=== PATIENT | male | born 1950 | race Caucasian/White ===

== ENCOUNTER 2016-04-11 17:22 | Inpatient (IN) | payer MEDICARE, MEDICAID ==
[2016-04-11] MEDS ORDERED: Dextrose 50% Syringe 50 ML* 25 GM/50 ML SYRINGE IV PUSH PRN (18:58)
[2016-04-11] MEDS ORDERED: Docusate CAP* 100 MG PO PRN (18:58)
[2016-04-11] MEDS ORDERED: Ondansetron INJ* 2 MG/ML VIAL IV PRN (18:58)
[2016-04-11] MEDS ORDERED: Acetaminophen TAB* 325 MG PO PRN (18:58)
[2016-04-11] MEDS ORDERED: Vancomycin per Pharmacy* NOTE FOLLOW UP PRN (19:56)
[2016-04-11] MEDS ORDERED: Vancomycin(*) 1,000 MG in NS 0.9% 250 ML* 250 ML IVPB SCH ×4 (21:00)
--- NOTE | 2016-04-11 21:28 | RAD ---
Indication: Diabetic. Osteomyelitis. Assess for LEFT lower extremity arterial patency. Comparison: There are no prior exams available for comparison on the [facility] – [place] [facility]. Technique: Arterial ultrasound of the LEFT lower extremity. Report: Triphasic waveforms at the LEFT common femoral and profunda femoral arteries with peak systolic velocities of 139 and 155-172 cm/s respectively. Biphasic waveforms at the superficial femoral artery with significantly elevated peak systolic velocity at the proximal and distal segments measuring up to 419 and 300 cm/s respectively consistent with hemodynamic significant stenosis. Biphasic waveform with spectral broadening at the popliteal artery with peak systolic velocity of 79 cm/s. Arterial flow detected in the posterior tibial, peroneal, and anterior tibial arteries with decreased peak systolic velocities. Flow is particularly diminished in the peroneal artery with peak systolic velocity of only 12 cm/s distally. IMPRESSION: Segmental hemodynamic significant stenoses at the RIGHT superficial femoral artery. Diminished flow at the infrageniculate arteries. Correlate with clinical assessment and consider CT angiogram runoff if clinically warranted and feasible.
--- NOTE | 2016-04-11 21:52 | HP ---
HISTORY AND PHYSICAL: DATE OF ADMISSION: 04/11/16 PCP: Unknown. STATUS: Transfer from [facility]. CHIEF COMPLAINT: Necrotic toes. HISTORY OF PRESENT ILLNESS: Mr. Carlos is a 66-year-old man with a past medical history of hypertension, hyperlipidemia, CAD, CVA, dementia, depression , diabetes, who was transferred from [facility] due to concerned for possible need for surgical intervention for necrotic toes. The patient lives at home alone, but in the same building as his . He is very forgetful and apparently fell at home 2 nights ago and was not found until the morning by his family. It is unclear how long the patient was down for. He is unable to contribute much to history due to his dementia and poor short-term memory. However, when the family was getting him up, they noticed that two of his toes on his left foot were black. He was taken to [facility] yesterday where he was started on broad-spectrum antibiotics. An MRI done there showed osteomyelitis of the first and second toes and cellulitis of the distal first toe. Surgery was consulted. Dr. Mayer evaluated the patient and did a bedside debridement; however, he felt he may need some more testing and interventions and he recommended transfer from [facility] to [facility] for further care. The patient's baseline is he has very poor short-term memory which his family attributes to his last stroke, which was about 4 years ago. He sees Podiatry regularly as he is a diabetic and apparently he had no issues in his last appointment, which was around December. He ambulates in his house without any assistance. PAST MEDICAL HISTORY: 1. Diabetes. 2. Depression. 3. Anemia. 4. Dementia. 5. Hypertension. 6. Hyperlipidemia. 7. CAD. 8. CVA. PAST SURGICAL HISTORY: 1. Stent placement. 2. Shoulder surgery. HOME MEDICATIONS: 1. Aspirin 81 mg by mouth daily. 2. Plavix 75 mg by mouth daily. 3. Losartan 25 mg by mouth daily. 4. Atorvastatin 10 mg by mouth nightly. 5. Saxagliptin 5 mg by mouth daily. 6. Glipizide 10 mg by mouth daily. 7. Metformin 500 mg by mouth daily. 8. Seroquel 25 mg by mouth b.i.d. ALLERGIES: The patient has allergy to PENICILLIN. FAMILY HISTORY: Significant for his father with diabetes and stroke. SOCIAL HISTORY: The patient quit smoking about 4 years ago, was about an 80 pack a year smoker until then. No recent alcohol use. No illicit drug use. REVIEW OF SYSTEMS: A 12-point review of systems is negative except for that as noted in the HPI. PHYSICAL EXAMINATION GENERAL: The patient is a middle-aged man, appears older than stated age, lying in bed, in no apparent distress. VITAL SIGNS: On admission temperature 98.8, heart rate of 90, respiratory rate of 18, O2 saturation of 95% on room air, blood pressure 156/65. HEENT: Anicteric sclerae. Moist mucous membranes. No cervical adenopathy. CARDIOVASCULAR: Regular rate and rhythm. S1 and S2 present. No murmurs, gallops, or rubs. LUNGS: Clear to auscultation bilaterally. No wheezes, rales, or rhonchi. ABDOMEN: Soft, nontender, and nondistended. Bowel sounds positive. EXTREMITIES: No lower extremity edema noted. LLE with black, necrotic great toe c/w dry gangrene, 2nd toe with distal end missing, malodorous purulent discharge from remaining portion of toe with some necrosis NEUROLOGIC: The patient is alert, but confused. Unable to tell me where he is or where he just came from. He is not sure why he is here. LABS AND DIAGNOSTICS: Labs from today at [facility]; white blood cell count of 7.7, hemoglobin of 8.6, hematocrit of 26, platelets of 303. Sodium of 141, potassium 4.5, chloride of 104, bicarb of 32, BUN of 16, creatinine 0.8, glucose of 150, lactic acid of 1.8. ASSESSMENT AND PLAN: Left first and second digit osteomyelitis in a 66-year- old man with a past medical history of hypertension, hyperlipidemia, coronary artery disease, cerebrovascular accident, dementia, depression, diabetes, and anemia. 1. Left lower extremity osteomyelitis. We will continue broad-spectrum antibiotics here with vancomycin and cefepime. I have spoken with Dr. Dunaway who plans to do a left lower extremity angiogram tomorrow. We will make the patient n.p.o. after midnight. We will also order a lower extremity arterial ultrasound to be done tonight. We will likely get ID consult tomorrow and Surgery will likely continue to follow. 2. Hypertension. Continue home losartan. 3. History of coronary artery disease. Continue aspirin, atorvastatin. Holding Plavix for now as the patient may need surgery. 4. Diabetes. Humalog insulin sliding scale. Hold home glipizide, metformin, and saxagliptin. 5. Dementia. Supportive care as needed. Continue home Seroquel. 6. DVT prophylaxis. Heparin subcu. 7. Code status. The patient is a full code. TIME SPENT: Total time spent on this admission, 50 minutes, with over half the time spent [id number] with the patient, counselling and coordinating care. [id number]/[facility] #: [id number] MTDD
[2016-04-11] MEDS: Cefepime(*) 1 GM in NS 0.9% 50 ML* 50 ML IVPB SCH (22:57)
[2016-04-11] MEDS: QUEtiapine TAB* 25 MG PO SCH (23:11)
[2016-04-11] MEDS: Heparin VIAL(*) 5000 UNITS/ML VIAL (FIVE THOUSAND) SUBCUT SCH (23:13)
[2016-04-12] MEDS ORDERED: Insulin LISPRO* 1 UNITS UNIT SUBCUT ONE (00:24)
[2016-04-12 06:16] LABS: Hematocrit 28 % (42-52); Hemoglobin 9.4 g/dl (14.0-18.0); Mean Corpuscular HGB Conc 33 g/dl (31-36); Mean Corpuscular Hemoglobin 28 pg (27-31); Mean Corpuscular Volume 85 fL (80-94); Mean Platelet Volume 8 um3 (7.4-10.4); Red Blood Count 3.31 10^6/ul (4.0-5.4); Red Cell Distribution Width 14 % (10.5-15)
[2016-04-12 06:28] LABS: Albumin 3.3 g/dL (3.2-5.2); BUN/Creatinine Ratio 17.8 (8-20); Calcium 9.1 mg/dL (8.6-10.3); EGFR African American 138.7 (>60); EGFR Non-African American 107.8 (>60); Globulin 3.5 g/dL (2-4); Potassium 4.3 mmol/L (3.5-5.0); Total Bilirubin 0.5 mg/dL (0.2-1.0); Total Protein 6.8 g/dL (6.4-8.9)
[2016-04-12] MEDS: Heparin VIAL(*) 5000 UNITS/ML VIAL (FIVE THOUSAND) SUBCUT SCH ×3 (06:42→20:45)
[2016-04-12] MEDS: Insulin LISPRO* 1 UNITS UNIT SUBCUT SCH ×3 (08:18→17:34)
[2016-04-12] MEDS: Cefepime(*) 1 GM in NS 0.9% 50 ML* 50 ML IVPB SCH ×2 (08:23→20:45)
[2016-04-12] MEDS: PARoxetine HCL TAB* 10 MG PO SCH (08:25)
[2016-04-12] MEDS: Losartan TAB* 25 MG PO SCH (08:25)
[2016-04-12] MEDS: QUEtiapine TAB* 25 MG PO SCH ×2 (08:25→20:45)
[2016-04-12] MEDS: Vancomycin(*) 1,000 MG in NS 0.9% 250 ML* 250 ML IVPB SCH ×2 (09:02)
[2016-04-12] MEDS ORDERED: Midazolam* 1 MG/ML 5 ML VIAL (5 MG) ONE (09:42)
[2016-04-12] MEDS ORDERED: Heparin 2 UNITS/ML IVPREMIX* 3,000 ML IV ONE (09:42)
[2016-04-12] MEDS ORDERED: Iodixanol* (CONTRAST) 320 MG/ML 100 ML SDV ONE (09:42)
[2016-04-12] MEDS ORDERED: Lidocaine 1% INJ* 10 MG/ML 30 ML SDV ONE (09:42)
[2016-04-12] MEDS ORDERED: fentaNYL* 50 MCG/ML 2 ML VIAL (100 MCG VIAL) ONE (09:42)
[2016-04-12] MEDS ORDERED: Heparin(*) 1000 UNIT/ML 10 ML VIAL CATH LAB IV ONE (10:35)
--- NOTE | 2016-04-12 11:49 | DCNOTE ---
Patient seen this morning. Denies chest pain, SOB. Ambulated around the unit with no issues. On exam, RRR, s1 and s2 present, no m/g/r, no LE edema Patient does not want to wait for thoracentesis. Would like to go home and continue work-up as outpatient. Will discharge home on Lovenox injections. Will need close PCP follow-up to try to determine best way to determine underlying diagnosis/source of presumed malignancy.
[2016-04-12] MEDS ORDERED: nitroGLYCERIN DRIP* 250 ML ONE (11:53)
[2016-04-12] MEDS ORDERED: Enoxaparin(*) 80 MG/0.8 ML SYR SUBCUT SCH (12:00)
[2016-04-12] MEDS ORDERED: Clopidogrel TAB* 300 MG PO ONE (14:00)
--- NOTE | 2016-04-12 14:09 | PN ---
Subjective Date of Service: 04/12/16 Interval History: Patient seen this afternoon after procedure. Underwent balloon angioplasty by Dr. Dunaway today. Patient with no complaints. Says he is not hungry. Explained procedure to him. Family History: Unchanged from Admission Social History: Unchanged from Admission Past Medical History: Unchanged from Admission Objective Active Medications: Acetaminophen (Tylenol Tab*) 325 mg PO Q6H PRN Aspirin (Aspirin Low Dose Tab*) 81 mg PO DAILY [facility] Atorvastatin Calcium (Lipitor*) 10 mg PO QPM [facility] Clopidogrel Bisulfate (Plavix Tab*) 75 mg PO DAILY [facility] Dextrose (D50w Syringe 50 Ml*) 12.5 gm IV PUSH .FOR FS < 60 - SS PRN Docusate Sodium (Colace Cap*) 100 mg PO DAILY PRN Heparin Sodium (Porcine) (Heparin Vial(*)) 5,000 units SUBCUT Q8HR [facility] Cefepime HCl 1 gm/ Sodium (Chloride) 50 mls @ 100 mls/hr IVPB Q12H [facility] Metronidazole/Sodium Chloride (Flagyl 500 Mg Ivpb*) 500 mg in 100 mls @ 100 mls /hr IVPB Q12H [facility] Sodium Chloride (Ns 0.9% 1000 Ml*) 1,000 mls @ 125 mls/hr IV .PER RATE [facility] Insulin Human Lispro (Humalog*) 0 - 15 units SUBCUT AC [facility] Losartan Potassium (Cozaar Tab*) 25 mg PO DAILY [facility] Ondansetron HCl (Zofran Inj*) 4 mg IV Q4H PRN Paroxetine HCl (Paxil Tab*) 10 mg PO DAILY [facility] Pharmacy Consult (Vancomycin Per Pharmacy*) 1 note FOLLOW UP . PRN Pharmacy Profile Note (Vancomycin Trough Check) 1 note FOLLOW UP 1530 ONE Quetiapine Fumarate (Seroquel Tab*) 25 mg PO BID [facility] Vital Signs 04/11/16 04/11/16 04/12/16 18:24 23:22 01:26 Temperature 98.8 F 98.8 F Pulse Rate 90 85 Respiratory 18 16 20 Rate Blood Pressure 156/65 123/58 (mmHg) O2 Sat by Pulse 95 93 Oximetry 04/12/16 04/12/16 04/12/16 03:17 07:21 09:29 Temperature 98.0 F 99.5 F Pulse Rate 85 85 Respiratory 16 16 18 Rate Blood Pressure 119/68 129/63 (mmHg) O2 Sat by Pulse 95 95 Oximetry Oxygen Devices in Use Now: None Appearance: Middle-aged, M, laying in bed in NAD Eyes: No Scleral Icterus Ears/Nose/Mouth/Throat: - - Dry MM Neck: NL Appearance and Movements; NL JVP Respiratory: Symmetrical Chest Expansion and Respiratory Effort, Clear to Auscultation Cardiovascular: NL Sounds; No Murmurs; No JVD, RRR, - - Strong LLE DP pulse Abdominal: NL Sounds; No Tenderness; No Distention Lymphatic: No Cervical Adenopathy Extremities: No Edema Skin: No Rash or Ulcers Neurological: - - Alert, oriented Result Diagrams: 04/12/16 05:55 04/12/16 05:55 Assess/Plan/Problems-Billing Assessment: LLE 1st and 2nd digit osteomyelitis with dry gangrene in a 66 yo M with hx of HTN, HLD, CAD, CVA, dementia, depression, DM and anemia - Patient Problems (1) Osteomyelitis Current Visit: Yes Comment: S/P LLE balloon angioplasty by Dr. Dunaway ( details unclear at this point, awaiting full report) with improvement in LLE pulses. Appreciate Surgery and ID assistance. Continue Cefepime, Flagyl started by ID, Vanco stopped. Will likely need more definitive surgical treatment of necrotic toes. (2) PAD (peripheral artery disease) Current Visit: Yes Comment: Plavix restarted by IR, continue 75 mg daily in addition to ASA (3) HTN (hypertension) Current Visit: Yes Comment: Continue Losartan (4) CAD (coronary artery disease) Current Visit: Yes Comment: ASA, Plavix, statin. (5) Diabetes Current Visit: Yes Comment: HISS (6) Depression Current Visit: Yes Comment: Continue Paxil (?started at [place]) and seroquel (7) DVT prophylaxis Current Visit: Yes Comment: HSQ
[2016-04-12] MEDS: metroNIDAZOLE IV 500 MG/100ML* 500 MG/100 ML BAG IVPB SCH (14:18)
[2016-04-12] MEDS: NS 0.9% 1000 ML* 1,000 ML IV SCH ×2 (14:18→22:50)
[2016-04-12] MEDS ORDERED: Vancomycin Trough Check NOTE FOLLOW UP ONE (15:30)
--- NOTE | 2016-04-12 17:05 | PN ---
Progress Note - Progress Note Note: Date of Service: 04/12/16 Patient seen & examined at the bedside. No pain complaints. NAD, AAOx3 Left groin is soft, nontender, dressing is CDI 2+ pulses felt at left COTTON BALER, DP and PT. 1+ at pop. Left foot wound as depicted: 66 YOM status post LLE arteriography, atherectomy (Marquette device) of left SFA followed by angioplasty, balloon angioplasty of left TREVIN, revascularization and balloon angioplasty of the occluded distal left WOOD MILLER and balloon angioplasty of the "pedal loop". Plan: 1. Plavix 75 mg po daily x 6 months. 2. Aspirin 81 mg po daily x life. 3. ID and wound care. 4. Please contact Dr. Dunaway when/if amputation is planned.
[2016-04-12 17:20] LABS: Urine Bilirubin Negative (Negative); Urine Glucose Negative (Negative); Urine Nitrite Negative (Negative)
[2016-04-12] MEDS: Atorvastatin* 10 MG TAB PO SCH (17:34)
--- NOTE | 2016-04-12 18:33 | RAD ---
CPT II Codes: 6045F History: Critical limb ischemia. The patient sustained a traumatic wound to the left great, second and third toes, now gangrenous change. Comparison: Lower extremity arterial duplex examination dated April 11, 2016 at shows areas of high-grade stenosis involving the superficial femoral artery and anterior tibial artery. Anesthesia: Conscious sedation with IV Fentanyl 200 mcg and Versed 1 mg as well as local 1% lidocaine injected locally at the arteriotomy site. Continuous cardiopulmonary monitoring was performed by Dr. Dunaway and the interventional radiology nurse. Additional medications: Intra-arterial Nitroglycerin 1100 mcg injected intermittently throughout the atherectomy, revascularization and angioplasties performed during endovascular therapy. Heparin 11,000 units Contrast: Visipaque 320 100 mL Fluoroscopy Time: 32.2 minutes PROCEDURE NOTE AND INTRAPROCEDURAL IMAGING FINDINGS: Immediately prior to the procedure the patient's signed consent after thoroughly discussing all risks and benefits. The patient was positioned on the fluoroscopy table in the supine position and the bilateral groins were shaved, prepped and draped in standard sterile fashion. Using fluoroscopic imaging the location of the left common femoral head was marked externally with a skin marker on the patient's groin. Utilizing sonographic guidance and palpation the left common femoral artery was cannulated overlying the left femoral head with an 18-gauge needle. An ultrasound image was saved. A 0.035 inch Bentson wire was slowly and smoothly advanced into the femoral profundus under fluoroscopic imaging. No buckling of the wire was visualized to indicate dissection. Over the Maya wire a 5-Ecuadorean access sheath was advanced and contrast arteriography through the side arm of the sheath confirming cannulation of the femoral profundus as opposed to the superficial femoral artery. A second 0.035 inch wire was advanced into the femoral profundus to serve as a "safety wire". The access sheath was backed up until the tip was in the common femoral artery and access was obtained down the superficial femoral artery utilizing a 0.035 inch hydrophilic wire. Arteriography of the proximal superficial femoral artery demonstrated a short segment of near complete occlusion in the proximal superficial femoral artery and a longer segment of high-grade stenosis in the more distal superficial femoral artery. Over the wire a 5-Ecuadorean curved tip catheter was advanced to the more distal superficial femoral artery and contrast arteriography demonstrated an adequately patent distal superficial femoral artery and popliteal artery. There was adequate arterial patency of the tibioperoneal trunk and the proximal most portion of the anterior tibial artery. The peroneal artery is seen to be extremely diminutive with no filling beyond the distal third of the left lower leg. The 5-Ecuadorean sheath was exchanged for an 11 cm length 7-Ecuadorean SideArm sheath for the purpose of SFA mechanical atherectomy. A 0.014 inch, 300 cm length USE wire was advanced down the left lower extremity with the tip positioned into the distal posterior tibial artery. Over the wire the [place] 2.2 mm x 149 cm length atherectomy system was advanced to the areas of occlusion/stenosis in the superficial femoral artery and atherectomy was performed under fluoroscopic control according to device experimental worker recommendations. After a total of 4 passes at each area of occlusion/stenosis arteriography showed improved patency. The device was removed and over the wire a 6 mm x 80 mm IN-PACT Admiral paclitaxel coated balloon was advanced to the site of proximal SFA occlusion and balloon angioplasty was performed for total of 3 minutes. The balloon was removed and over the wire and identical balloon was advanced to the more proximal area of SFA stenosis and balloon angioplasty was performed for total of 3 minutes. Subsequent arteriography showed briskly arterial flow through the patent superficial femoral artery. Next, attention was turned to treating the infrapopliteal arterial stenoses. The microwire was exchanged for the 0.035 inch Bentson wire and the 11 cm 7-Ecuadorean sheath was exchanged over the wire for a 55 cm, 7-Ecuadorean sheath which was advanced under fluoroscopic control to the distal popliteal artery. The wire was removed and utilizing a combination of a 0.014 inch Terumo Advantage wire and a Trailblazer catheter the posterior tibial artery was cannulated and the wire was advanced into the medial plantar artery and into the midfoot pedal loop. Over the wire balloon angioplasty was performed at the distal posterior tibial artery, medial plantar artery and a portion of the pedal loop utilizing a 1.5-2.0 mm x 210 mm NanoCross Elite. With subsequently improved angiographic result, balloon angioplasty was performed with a 2.0 mm x 150 mm NanoCross Elite at the distal posterior tibial artery, medial plantar artery and a portion of the pedal loop. Utilizing the microwire luminal access was obtained in the lateral plantar arch as far as the pedal lobe and balloon angioplasty was performed with the2.0 mm x 150 mm NanoCross Elite at the lateral plantar arch in the more lateral portion of the pedal loop. Wire cannulation was achieved then from the lateral plantar arch, through the pedal loop, of the dorsalis pedis artery and into the distal anterior tibial artery. With the wire securing access across the pedal loop balloon angioplasty was performed with the 2.0 mm x 150 mm NanoCross Elite at the pedal loop and distal portion of the dorsalis pedis to specifically treat a narrow focus in the distal portion of the dorsalis pedis. Subsequent arteriogram demonstrated satisfactory flow through the recently treated arteries. The wire was retracted to the level of the popliteal artery and wire cannulation was acquired in the anterior tibial artery as far as the dorsalis pedis. Over the wire multilevel balloon angioplasty of the anterior tibial artery and dorsalis pedis artery was performed with a 3.0-2.5 mm x 210 mm Nanocross Elite. Subsequent arteriogram shows improved patent flow throughout the entire length of the TREVIN and dorsalis pedis. The microwire was exchanged for the 0.035 inch Bentson wire and the long access sheath was exchanged over the wire for a 7-Ecuadorean, 11 cm SideArm access sheath. Through the side arm of the access sheath arteriography demonstrated an appropriate puncture of the common femoral artery above the bifurcation and below the inferior epigastric artery. After an appropriate resterilization of the left common femoral arteriotomy and exchange for new sterile gloves, a Minx closure device was deployed at the left common femoral arteriotomy and pressure held for approximately 15 minutes. There were no signs of bleeding at the left groin access site and the site was dressed with sterile gauze and Tegaderm. The patient tolerated the procedure well and was transferred back to his inpatient room for standard post procedural observation. IMPRESSION AND RELEVANT IMAGING FINDINGS: 1. Arteriography of the left lower extremity from the ipsilateral left common femoral artery access site through the digital arteries of the left foot. 2. Relevant preintervention findings include: * Focal occlusion of the proximal left superficial femoral artery. * Short segment high-grade stenosis of the more distal superficial femoral artery just prior to its entrance into Micah's canal. * Extremely diminutive left peroneal artery with essentially no contrast filling beyond the distal half of the artery. * Short segment occlusion of the distal left posterior tibial artery with diminutive filling of the medial and lateral plantar arteries mostly by collateralized reconstituted flow. * Multifocal high-grade stenoses in the anterior tibial artery and dorsalis pedis artery. * Short high-grade stenosis in the distal dorsalis pedis just prior to becoming the "pedal loop". 3. The following endovascular interventions were performed: * Mechanical atherectomy of the superficial femoral artery occlusions/stenoses utilizing the RTN Stealth Software 2.2 mm x 149 cm atherectomy system. * Balloon angioplasty of the superficial femoral artery at its proximal and mid levels utilizing two 6 mm x 80 mm IN-PACT Admiral paclitaxel coated balloon. * Revascularization of the distally occluded left posterior tibial artery into the medial plantar artery and the "pedal loop". Angioplasty was subsequently performed first with a 2.0-1.5mm x 210 mm NanoCross Elite followed by a 2.0mm x 150 mm Nanocross Elite balloon. * Revascularization of the distal posterior tibial artery into the lateral plantar artery across the pedal loop and into the dorsalis pedis and distal anterior tibial artery. Balloon angioplasty was then performed across the distal lateral plantar artery, "pedal loop and distal dorsalis pedis artery with a 2 mm x 150 mm NanoCross Elite balloon. * Balloon angioplasty throughout the entire length of the left anterior tibial artery and dorsalis pedis artery utilizing a 3.0-2.5 mm x 2.10 mm NanoCross Elite balloon. 4. Subsequent arteriography shows brisk arterial flow and patency throughout the aforementioned left lower extremity arterial segments. 5. Closure of the arteriotomy with a Minx closure device followed by approximately 15 minutes of gentle manual pressure. Plan: 1. Plavix 75 mg p.o. daily x6 months. 2. Aspirin 81 mg p.o. daily for life. 3. Continue wound care and intravenous antibiotic therapy. 4. Follow-up EVE and clinic visit with Interventional Radiology in 3-4 weeks.
--- NOTE | 2016-04-12 21:14 | CONS ---
CONSULTATION REPORT: DATE OF CONSULT: 04/12/16 REQUESTING PHYSICIAN: Dr. Ruiz. CONSULTING SERVICE: Infectious Disease. REASON FOR CONSULT: Left foot infection. IMPRESSION: 1. Wet gangrene in the first through fourth toes on the left with associated cellulitis, probable myositis in the setting of peripheral arterial disease. He just had balloon angioplasty of the left lower extremity today. It is likely polymicrobial with gram-positive cocci present, MRSA PCR was negative. 2. PENICILLIN allergy. 3. Dementia. 4. Coronary artery disease and a history of percutaneous coronary intervention. RECOMMENDATIONS: Stop vancomycin, continue cefepime, add Flagyl while we awaiting final culture results. He will eventually need amputation at least of the great toe. HISTORY OF PRESENT ILLNESS: This 66-year-old male with depression, peripheral vascular disease admitted with left foot pain. He has baseline dementia, cannot provide much history which was obtained instead from review of the medical records and discussion with Dr. Ruiz. He was initially admitted to [facility] with left foot necrotic toes after being found down by his family. He was started on broad-spectrum antibiotics. He had an MRI that showed osteomyelitis in the first and second toes and cellulitis of the distal first toe. Dr. Mayer saw him and did some debridement. Gram stain of the tissue was sent that showed gram- positive cocci, gram-positive bacilli, gram- negative bacilli. PCR was negative for Staph aureus and MRSA and the culture is pending. He has had no fever, chills, or sweats. He was seen today after being transferred here for abnormal vascular studies and had an angioplasty today. He cannot provide any history of symptoms. MEDICATIONS: 1. Tylenol. 2. Aspirin. 3. Lipitor. 4. Plavix. 5. Heparin subcutaneous injection. 6. Losartan. 7. Cefepime 1 g every 12 hours. 8. Paroxetine. 9. Seroquel. 10. Vancomycin 1 g every 12 hours. ALLERGIES: PENICILLIN, unknown reaction. PAST MEDICAL HISTORY: 1. Depression. 2. Peripheral artery disease. 3. Diabetes, type 2. 4. Anemia. 5. Dementia. 6. Hypertension. 7. Hyperlipidemia. 8. Coronary artery disease, with PCI. 9. Multiple strokes. 10. Shoulder surgery. FAMILY HISTORY: Diabetes and stroke. SOCIAL HISTORY: Lives in [facility]. Past smoker. No alcohol use. REVIEW OF SYSTEMS: Unobtainable given baseline mental status. PHYSICAL EXAM: Vital Signs: Temperature 37, heart rate 80, respiratory rate 16 , blood pressure 130/60, O2 sat 95% on room air. In general, he is not in distress, not diaphoretic. Neurologically, awake, answers some questions, does not follow commands. Neck is supple without nuchal rigidity. Lymph Nodes: No cervical, supraclavicular, inguinal, axillary, or epitrochlear lymphadenopathy. Heart has regular rate and rhythm without murmurs, rubs, or gallops. HEENT: There is no conjunctival hemorrhage. Oropharynx without lesions. Lungs are clear to auscultation bilaterally. Abdomen: Soft, nontender, nondistended without hepatosplenomegaly. Skin: There is no rash or splinter hemorrhages. Musculoskeletal: Left foot is warm. First toe, there is wet gangrene associated with mild erythema. No exposed bone. Second through fourth toe, mild erythema, open diffuse sores with serous drainage. LABORATORY DATA: White blood cell count 8, hemoglobin 9, platelets 340. Creatinine is 0.7. Alkaline phosphatase 80, ALT 8. Please see impressions and recommendations as outlined above, which I have discussed with Dr. Ruiz. [id number]/[facility] #: [id number] [facility]ALTH SYSTEMOrquidea
[2016-04-13] MEDS: metroNIDAZOLE IV 500 MG/100ML* 500 MG/100 ML BAG IVPB SCH ×2 (02:37→12:28)
[2016-04-13] MEDS: Heparin VIAL(*) 5000 UNITS/ML VIAL (FIVE THOUSAND) SUBCUT SCH ×3 (05:29→21:42)
[2016-04-13] MEDS: NS 0.9% 1000 ML* 1,000 ML IV SCH (06:18)
[2016-04-13 07:32] LABS: BUN/Creatinine Ratio 15.6 (8-20); Calcium 8.4 mg/dL (8.6-10.3); EGFR African American 161.4 (>60); EGFR Non-African American 125.5 (>60); Potassium 3.8 mmol/L (3.5-5.0)
--- NOTE | 2016-04-13 08:22 | RAD ---
INDICATION: Peripheral arterial disease, evaluate perfusion in left lower extremity. COMPARISON: Correlation is made with a prior left lower extremity arteriogram from April 12, 2016. TECHNIQUE: Bilateral ankle brachial indices were measured and Doppler tracings were obtained at the ankle of the dorsalis pedis and posterior tibial arteries. FINDINGS: The ankle brachial index on the right was 0.89 and on the left was 0.99. There is triphasic flow within the right posterior tibial artery and biphasic flow within the right dorsalis pedis artery. There is triphasic flow within the left posterior tibial artery and triphasic flow within the left dorsalis pedis artery. IMPRESSION: MILDLY DECREASED ANKLE-BRACHIAL INDICES RIGHT GREATER THAN LEFT.
[2016-04-13] MEDS: QUEtiapine TAB* 25 MG PO SCH ×2 (08:26→20:44)
[2016-04-13] MEDS: Clopidogrel TAB* 75 MG PO SCH (08:26)
[2016-04-13] MEDS: PARoxetine HCL TAB* 10 MG PO SCH (08:26)
[2016-04-13] MEDS: Cefepime(*) 1 GM in NS 0.9% 50 ML* 50 ML IVPB SCH ×2 (08:26→19:36)
[2016-04-13] MEDS: Losartan TAB* 25 MG PO SCH (08:26)
[2016-04-13] MEDS: Aspirin Low Dose CHEW TAB* 81 MG PO SCH ×2 (08:26→08:38)
[2016-04-13] MEDS: Insulin LISPRO* 1 UNITS UNIT SUBCUT SCH ×3 (08:32→17:12)
--- NOTE | 2016-04-13 14:17 | PN ---
Subjective Date of Service: 04/13/16 Interval History: Seen and examined Has no complaints Specifically denies pain, N/V, CP, SOB Family History: Unchanged from Admission Social History: Unchanged from Admission Past Medical History: Unchanged from Admission Objective Active Medications: Acetaminophen (Tylenol Tab*) 325 mg PO Q6H PRN PRN Reason: PAIN OR TEMPERATURE Aspirin (Aspirin Low Dose Tab*) 81 mg PO DAILY [facility] Last Admin: 04/13/16 08:38 Dose: 81 mg Atorvastatin Calcium (Lipitor*) 10 mg PO QPM [facility] Last Admin: 04/12/16 17:34 Dose: 10 mg Clopidogrel Bisulfate (Plavix Tab*) 75 mg PO DAILY [facility] Stop: 10/14/16 08:59 Last Admin: 04/13/16 08:26 Dose: 75 mg Dextrose (D50w Syringe 50 Ml*) 12.5 gm IV PUSH .FOR FS < 60 - SS PRN PRN Reason: FS < 60 Docusate Sodium (Colace Cap*) 100 mg PO DAILY PRN PRN Reason: CONSTIPATION Heparin Sodium (Porcine) (Heparin Vial(*)) 5,000 units SUBCUT Q8HR [facility] Last Admin: 04/13/16 12:28 Dose: 5,000 units Cefepime HCl 1 gm/ Sodium (Chloride) 50 mls @ 100 mls/hr IVPB Q12H [facility] Last Admin: 04/13/16 08:26 Dose: 100 mls/hr Metronidazole/Sodium Chloride (Flagyl 500 Mg Ivpb*) 500 mg in 100 mls @ 100 mls /hr IVPB Q12H [facility] Last Admin: 04/13/16 12:28 Dose: 100 mls/hr Sodium Chloride (Ns 0.9% 1000 Ml*) 1,000 mls @ 125 mls/hr IV .PER RATE [facility] Last Admin: 04/13/16 06:18 Dose: 125 mls/hr Insulin Human Lispro (Humalog*) 0 - 15 units SUBCUT AC [facility] PRN Reason: Protocol Last Admin: 04/13/16 12:28 Dose: 9 units Losartan Potassium (Cozaar Tab*) 25 mg PO DAILY [facility] Last Admin: 04/13/16 08:26 Dose: 25 mg Metformin HCl (Glucophage*) 500 mg PO ONCE ONE Stop: 04/14/16 14:12 Ondansetron HCl (Zofran Inj*) 4 mg IV Q4H PRN PRN Reason: NAUSEA Paroxetine HCl (Paxil Tab*) 10 mg PO DAILY [facility] Last Admin: 04/13/16 08:26 Dose: 10 mg Quetiapine Fumarate (Seroquel Tab*) 25 mg PO BID [facility] Last Admin: 04/13/16 08:26 Dose: 25 mg Vital Signs 04/12/16 04/12/16 04/12/16 14:30 15:00 15:13 Temperature 97.2 F Pulse Rate 84 84 Respiratory Rate Blood Pressure 121/64 93/67 112/62 (mmHg) O2 Sat by Pulse 98 Oximetry 04/12/16 04/12/16 04/12/16 15:30 16:00 16:30 Temperature Pulse Rate 81 89 86 Respiratory Rate Blood Pressure 103/60 99/71 101/66 (mmHg) O2 Sat by Pulse Oximetry 04/12/16 04/12/16 04/13/16 20:00 23:53 07:15 Temperature 98.2 F 98.2 F Pulse Rate 84 78 Respiratory 16 16 14 Rate Blood Pressure 115/62 139/58 (mmHg) O2 Sat by Pulse 91 94 Oximetry 04/13/16 08:47 Temperature Pulse Rate Respiratory 18 Rate Blood Pressure (mmHg) O2 Sat by Pulse Oximetry Oxygen Devices in Use Now: None Appearance: lying 30 deg, NAD Eyes: No Scleral Icterus, PERRLA Ears/Nose/Mouth/Throat: NL Teeth, Lips, Gums, Clear Oropharnyx, Mucous Membranes Moist Neck: NL Appearance and Movements; NL JVP, Trachea Midline Respiratory: Symmetrical Chest Expansion and Respiratory Effort, Clear to Auscultation Cardiovascular: RRR, - - 2/6 GEOVANNA RUSB Abdominal: NL Sounds; No Tenderness; No Distention, No Hepatosplenomegaly Lymphatic: No Cervical Adenopathy Extremities: No Edema Skin: - - left foot Neurological: - - AOx2 to self and hospital but not year Result Diagrams: 04/12/16 05:55 04/13/16 06:35 Assess/Plan/Problems-Billing Assessment: LLE 1st and 2nd digit osteomyelitis with dry gangrene in a 66 yo M with hx of HTN, HLD, CAD, CVA, dementia, depression, DM and anemia - Patient Problems (1) Osteomyelitis Comment: S/P LLE balloon angioplasty by Dr. Dunaway with improvement in LLE pulses. Appreciate Surgery and ID assistance. Continue Cefepime and Flagyl Vanco stopped. Will likely need more definitive surgical treatment of necrotic toes. (2) CAD (coronary artery disease) Comment: ASA, Plavix, statin. (3) Depression Comment: Continue Paxil (?started at [place]) and seroquel (4) Diabetes Comment: HISS restart metformin 500mg daily today holding DPP4 inhibitor (5) HTN (hypertension) Comment: Continue Losartan (6) PAD (peripheral artery disease) Comment: Plavix 75mg daily ASA 81mg daily f/o IR in 3-4 weeks (7) DVT prophylaxis Comment: HSQ
[2016-04-13] MEDS: Atorvastatin* 10 MG TAB PO SCH (17:12)
[2016-04-14] MEDS: metroNIDAZOLE IV 500 MG/100ML* 500 MG/100 ML BAG IVPB SCH ×2 (02:09→14:00)
[2016-04-14] MEDS: Heparin VIAL(*) 5000 UNITS/ML VIAL (FIVE THOUSAND) SUBCUT SCH ×3 (06:08→21:39)
[2016-04-14] MEDS: Cefepime(*) 1 GM in NS 0.9% 50 ML* 50 ML IVPB SCH ×2 (07:43→19:37)
[2016-04-14] MEDS: metFORMIN* 500 MG TAB PO SCH (07:44)
[2016-04-14] MEDS: PARoxetine HCL TAB* 10 MG PO SCH (07:44)
[2016-04-14] MEDS: Insulin LISPRO* 1 UNITS UNIT SUBCUT SCH ×3 (07:44→17:17)
[2016-04-14] MEDS: Losartan TAB* 25 MG PO SCH (07:44)
[2016-04-14] MEDS: Aspirin Low Dose CHEW TAB* 81 MG PO SCH (07:44)
[2016-04-14] MEDS: QUEtiapine TAB* 25 MG PO SCH ×2 (07:44→20:18)
[2016-04-14] MEDS: Clopidogrel TAB* 75 MG PO SCH (07:44)
[2016-04-14] MEDS ORDERED: Polyethylene Glycol 3350* 17 GM PACKET PO PRN (10:07)
--- NOTE | 2016-04-14 10:09 | PN ---
Subjective Date of Service: 04/14/16 Interval History: Has no complaints Reports good appetite No pain No N/V, SOB, CP Has been OOB per report No BM for several days Family History: Unchanged from Admission Social History: Unchanged from Admission Past Medical History: Unchanged from Admission Objective Active Medications: Acetaminophen (Tylenol Tab*) 325 mg PO Q6H PRN PRN Reason: PAIN OR TEMPERATURE Aspirin (Aspirin Low Dose Tab*) 81 mg PO DAILY [facility] Last Admin: 04/14/16 07:44 Dose: 81 mg Atorvastatin Calcium (Lipitor*) 10 mg PO QPM [facility] Last Admin: 04/13/16 17:12 Dose: 10 mg Clopidogrel Bisulfate (Plavix Tab*) 75 mg PO DAILY [facility] Stop: 10/14/16 08:59 Last Admin: 04/14/16 07:44 Dose: 75 mg Dextrose (D50w Syringe 50 Ml*) 12.5 gm IV PUSH .FOR FS < 60 - SS PRN PRN Reason: FS < 60 Docusate Sodium (Colace Cap*) 100 mg PO DAILY PRN PRN Reason: CONSTIPATION Heparin Sodium (Porcine) (Heparin Vial(*)) 5,000 units SUBCUT Q8HR [facility] Last Admin: 04/14/16 06:08 Dose: 5,000 units Cefepime HCl 1 gm/ Sodium (Chloride) 50 mls @ 100 mls/hr IVPB Q12H [facility] Last Admin: 04/14/16 07:43 Dose: 100 mls/hr Metronidazole/Sodium Chloride (Flagyl 500 Mg Ivpb*) 500 mg in 100 mls @ 100 mls /hr IVPB Q12H [facility] Last Admin: 04/14/16 02:09 Dose: 100 mls/hr Insulin Human Lispro (Humalog*) 0 - 15 units SUBCUT AC [facility] PRN Reason: Protocol Last Admin: 04/14/16 07:44 Dose: 3 units Losartan Potassium (Cozaar Tab*) 25 mg PO DAILY [facility] Last Admin: 04/14/16 07:44 Dose: 25 mg Metformin HCl (Glucophage*) 500 mg PO ONCE ONE Stop: 04/14/16 14:12 Metformin HCl (Glucophage*) 500 mg PO DAILY [facility] Last Admin: 04/14/16 07:44 Dose: 500 mg Ondansetron HCl (Zofran Inj*) 4 mg IV Q4H PRN PRN Reason: NAUSEA Paroxetine HCl (Paxil Tab*) 10 mg PO DAILY [facility] Last Admin: 04/14/16 07:44 Dose: 10 mg Quetiapine Fumarate (Seroquel Tab*) 25 mg PO BID [facility] Last Admin: 04/14/16 07:44 Dose: 25 mg Vital Signs 04/13/16 04/13/16 04/13/16 15:20 20:00 23:48 Temperature 96.9 F 98.2 F Pulse Rate 74 80 Respiratory 16 17 16 Rate Blood Pressure 126/70 131/77 (mmHg) O2 Sat by Pulse 96 99 Oximetry 04/14/16 04/14/16 07:59 08:52 Temperature 97.9 F Pulse Rate 50 Respiratory 18 18 Rate Blood Pressure 136/69 (mmHg) O2 Sat by Pulse 91 Oximetry Oxygen Devices in Use Now: None Appearance: NAD Eyes: No Scleral Icterus, PERRLA Ears/Nose/Mouth/Throat: NL Teeth, Lips, Gums, Clear Oropharnyx, Mucous Membranes Moist Neck: NL Appearance and Movements; NL JVP, Trachea Midline Respiratory: Symmetrical Chest Expansion and Respiratory Effort, Clear to Auscultation Cardiovascular: NL Sounds; No Murmurs; No JVD, RRR Abdominal: NL Sounds; No Tenderness; No Distention, No Hepatosplenomegaly Lymphatic: No Cervical Adenopathy Extremities: No Edema Skin: - - left foot 1st toe dry gangrene 2-4 with ulcerations greatest in 2nd toe Neurological: - - AOx1 to self, knows he is in hospital but not where, does not know the year Result Diagrams: 04/12/16 05:55 04/13/16 06:35 Assess/Plan/Problems-Billing Assessment: LLE 1st and 2nd digit osteomyelitis with dry gangrene in a 66 yo M with hx of HTN, HLD, CAD, CVA, dementia, depression, DM and anemia - Patient Problems (1) Osteomyelitis Comment: S/P LLE balloon angioplasty by Dr. Dunaway with improvement in LLE pulses. Appreciate Surgery and ID assistance. Continue Cefepime and Flagyl Vanco stopped. Will likely need more definitive surgical treatment of necrotic toes. Ortho consult today (2) CAD (coronary artery disease) Comment: ASA, Plavix, statin. (3) Depression Comment: Continue Paxil (?started at [place]) and seroquel (4) Diabetes Comment: HISS restart metformin 500mg 04/13/16 holding DPP4 inhibitor (5) HTN (hypertension) Comment: Continue Losartan (6) PAD (peripheral artery disease) Comment: Plavix 75mg daily ASA 81mg daily f/u IR in 3-4 weeks (7) DVT prophylaxis Comment: HSQ
[2016-04-14] MEDS: Docusate CAP* 100 MG PO SCH (12:44)
[2016-04-14] MEDS ORDERED: metFORMIN* 500 MG TAB PO ONE (14:11)
[2016-04-14] MEDS: Atorvastatin* 10 MG TAB PO SCH (17:17)
[2016-04-15] MEDS: metroNIDAZOLE IV 500 MG/100ML* 500 MG/100 ML BAG IVPB SCH ×2 (02:04→13:25)
[2016-04-15] MEDS: Heparin VIAL(*) 5000 UNITS/ML VIAL (FIVE THOUSAND) SUBCUT SCH ×3 (05:09→21:42)
[2016-04-15] MEDS: Cefepime(*) 1 GM in NS 0.9% 50 ML* 50 ML IVPB SCH ×2 (08:22→19:55)
[2016-04-15] MEDS: Insulin LISPRO* 1 UNITS UNIT SUBCUT SCH ×3 (09:26→17:53)
[2016-04-15] MEDS: PARoxetine HCL TAB* 10 MG PO SCH (09:27)
[2016-04-15] MEDS: QUEtiapine TAB* 25 MG PO SCH ×2 (09:27→21:42)
[2016-04-15] MEDS: Losartan TAB* 25 MG PO SCH (09:28)
[2016-04-15] MEDS: Docusate CAP* 100 MG PO SCH (09:28)
[2016-04-15] MEDS: metFORMIN* 500 MG TAB PO SCH (09:28)
[2016-04-15] MEDS: Aspirin Low Dose CHEW TAB* 81 MG PO SCH (09:29)
[2016-04-15] MEDS: Clopidogrel TAB* 75 MG PO SCH (09:29)
--- NOTE | 2016-04-15 11:21 | CONS ---
CONSULTATION REPORT: DATE OF CONSULT: 04/15/16 HISTORY OF PRESENT ILLNESS: Mr. Carlos is admitted to the medical service as a transfer from [facility]. He was brought to the [facility] ER with necrotic left forefoot noted by his who lives next door. She entered the home and wondered if there was a animal in the home, finally removing a sock, found multiple black toes, purulence and foul smelling. He has been transferred now to [facility] for further medical care, possible surgical debridement. He has had an MRI scan which shows osteomyelitis of first, second , third, and fourth toes without an abscess in the midfoot. He also has had EVE studies, which show ankle perfusion at about 0.9 of the brachial systolic. Mr. Carlos is quite demented with poor memory. He is conversant, but completely vague about his history of his foot. 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 He lives alone, but the and son live nearby in a close townhouse. They are checking on him periodically. In addition to the diabetes, he has had a recent stroke and part of his mental disability is because of that. MEDICATIONS: His medications are outlined in the chart includin. Aspirin. 2. Plavix. 3. Losartan. 4. Atorvastatin. 5. Glipizide. 6. Saxagliptin. 7. Metformin. 8. Seroquel. ALLERGIES: He claims an allergy to PENICILLIN. PHYSICAL EXAMINATION: His examination shows him to have a warm hindfoot with thready dorsal pulse. The left foot though was completely gangrenous with down to bone necrosis of great toe, second, third, and fourth, foul smelling and slight thick serous drainage noted. ASSESSMENT AND PLAN: The patient with diffuse forefoot gangrene and osteomyelitis, possibly a candidate for transmetatarsal amputation. We would attempt this given the favorable EVE's and we will set up the surgery through the scheduling office. [id number]/[facility] #: [id number] PATRICK
[2016-04-15] MEDS ORDERED: metFORMIN* 500 MG TAB PO SCH (11:26)
--- NOTE | 2016-04-15 16:18 | PN ---
Subjective Date of Service: 04/15/16 Interval History: No complaints Pleasantly demented Family History: Unchanged from Admission Social History: Unchanged from Admission Past Medical History: Unchanged from Admission Objective Active Medications: Acetaminophen (Tylenol Tab*) 325 mg PO Q6H PRN PRN Reason: PAIN OR TEMPERATURE Aspirin (Aspirin Low Dose Tab*) 81 mg PO DAILY [facility] Last Admin: 04/15/16 09:29 Dose: 81 mg Atorvastatin Calcium (Lipitor*) 10 mg PO QPM [facility] Last Admin: 04/14/16 17:17 Dose: 10 mg Clopidogrel Bisulfate (Plavix Tab*) 75 mg PO DAILY [facility] Stop: 10/14/16 08:59 Last Admin: 04/15/16 09:29 Dose: 75 mg Dextrose (D50w Syringe 50 Ml*) 12.5 gm IV PUSH .FOR FS < 60 - SS PRN PRN Reason: FS < 60 Docusate Sodium (Colace Cap*) 200 mg PO DAILY [facility] Last Admin: 04/15/16 09:28 Dose: 200 mg Heparin Sodium (Porcine) (Heparin Vial(*)) 5,000 units SUBCUT Q8HR [facility] Last Admin: 04/15/16 13:24 Dose: 5,000 units Cefepime HCl 1 gm/ Sodium (Chloride) 50 mls @ 100 mls/hr IVPB Q12H [facility] Last Admin: 04/15/16 08:22 Dose: 100 mls/hr Metronidazole/Sodium Chloride (Flagyl 500 Mg Ivpb*) 500 mg in 100 mls @ 100 mls /hr IVPB Q12H [facility] Last Admin: 04/15/16 13:25 Dose: 100 mls/hr Insulin Human Lispro (Humalog*) 0 - 15 units SUBCUT AC [facility] PRN Reason: Protocol Last Admin: 04/15/16 13:23 Dose: 12 units Losartan Potassium (Cozaar Tab*) 25 mg PO DAILY [facility] Last Admin: 04/15/16 09:28 Dose: 25 mg Metformin HCl (Glucophage*) 500 mg PO DAILY [facility] Stop: 04/16/16 11:26 Ondansetron HCl (Zofran Inj*) 4 mg IV Q4H PRN PRN Reason: NAUSEA Paroxetine HCl (Paxil Tab*) 10 mg PO DAILY [facility] Last Admin: 04/15/16 09:27 Dose: 10 mg Polyethylene Glycol/Electrolytes (Miralax*) 17 gm PO DAILY PRN PRN Reason: CONSTIPATION Quetiapine Fumarate (Seroquel Tab*) 25 mg PO BID [facility] Last Admin: 04/15/16 09:27 Dose: 25 mg Vital Signs 04/14/16 04/15/16 04/15/16 20:00 00:01 07:43 Temperature 98.5 F 98.4 F Pulse Rate 72 80 Respiratory 17 18 16 Rate Blood Pressure 154/65 136/72 (mmHg) O2 Sat by Pulse 98 95 Oximetry 04/15/16 08:00 Temperature Pulse Rate Respiratory 16 Rate Blood Pressure (mmHg) O2 Sat by Pulse Oximetry Oxygen Devices in Use Now: None Appearance: lying flat, NAD Eyes: No Scleral Icterus, PERRLA Ears/Nose/Mouth/Throat: Clear Oropharnyx, Mucous Membranes Moist Neck: NL Appearance and Movements; NL JVP, Trachea Midline Respiratory: Symmetrical Chest Expansion and Respiratory Effort, Clear to Auscultation Cardiovascular: NL Sounds; No Murmurs; No JVD, RRR Abdominal: NL Sounds; No Tenderness; No Distention Lymphatic: No Cervical Adenopathy Skin: - - left foot wrapped Neurological: - - AOx1 to self and hospital but not [place] nor year, CN2-12 intact Result Diagrams: 04/12/16 05:55 04/13/16 06:35 Assess/Plan/Problems-Billing Assessment: LLE 1st and 2nd digit osteomyelitis with dry gangrene in a 66 yo M with hx of HTN, HLD, CAD, CVA, dementia, depression, DM and anemia - Patient Problems (1) Osteomyelitis Comment: S/P LLE balloon angioplasty by Dr. Dunaway with improvement in LLE pulses. Appreciate Surgery and ID assistance. Continue Cefepime and Flagyl Vanco stopped. Plan for OR tomorrow with Dr. Olson (2) CAD (coronary artery disease) Comment: ASA, Plavix, statin. (3) Depression Comment: Continue Paxil (?started at [place]) and seroquel (4) Diabetes Comment: Elevated - will start lantus but NPO tonight. Additional agents ( lantus after OR tomorrow) HISS restart metformin 500mg 04/13/16 holding DPP4 inhibitor (5) HTN (hypertension) Comment: Continue Losartan (6) PAD (peripheral artery disease) Comment: Plavix 75mg daily ASA 81mg daily f/u IR in 3-4 weeks (7) DVT prophylaxis Comment: HSQ
[2016-04-15] MEDS: Atorvastatin* 10 MG TAB PO SCH (18:08)
[2016-04-16] MEDS: metroNIDAZOLE IV 500 MG/100ML* 500 MG/100 ML BAG IVPB SCH ×2 (01:41→14:41)
[2016-04-16] MEDS: Heparin VIAL(*) 5000 UNITS/ML VIAL (FIVE THOUSAND) SUBCUT SCH ×2 (06:09→14:14)
[2016-04-16] MEDS: Docusate CAP* 100 MG PO SCH (07:12)
[2016-04-16] MEDS: Losartan TAB* 25 MG PO SCH (07:55)
[2016-04-16] MEDS: QUEtiapine TAB* 25 MG PO SCH ×2 (07:55→19:59)
[2016-04-16] MEDS: Aspirin Low Dose CHEW TAB* 81 MG PO SCH (07:55)
[2016-04-16] MEDS: Clopidogrel TAB* 75 MG PO SCH (07:55)
[2016-04-16] MEDS: PARoxetine HCL TAB* 10 MG PO SCH (07:55)
[2016-04-16] MEDS: Insulin LISPRO* 1 UNITS UNIT SUBCUT SCH ×3 (07:59→17:36)
[2016-04-16] MEDS: Cefepime(*) 1 GM in NS 0.9% 50 ML* 50 ML IVPB SCH ×2 (07:59→19:59)
[2016-04-16] MEDS ORDERED: Bupivacaine 0.5% SDV PF* 30 ML VIAL ONE (10:50)
[2016-04-16] MEDS ORDERED: KETAMINE HCL* 50 MG/ML 10 ML VIAL ONE (12:03)
[2016-04-16] MEDS ORDERED: fentaNYL* 50 MCG/ML 2 ML VIAL (100 MCG VIAL) ONE (12:03)
[2016-04-16] MEDS ORDERED: Midazolam* 1 MG/ML 5 ML VIAL (5 MG) ONE (12:04)
[2016-04-16] MEDS ORDERED: fentaNYL* 50 MCG/ML 2 ML VIAL (100 MCG VIAL) IV PRN (13:07)
[2016-04-16] MEDS ORDERED: Morphine INJ* 2 MG/ML 1 ML SYRINGE IV PRN (13:07)
[2016-04-16] MEDS ORDERED: PROCHLORPERAZINE INJ 5 MG/ML 2 ML VIAL IV PRN (13:07)
[2016-04-16] MEDS ORDERED: Buffered Lidocaine 1% SYRIN* 3 ML/SYR SYRINGE INTRADERM ONE (13:07)
[2016-04-16] MEDS ORDERED: Propofol* 10 MG/ML 20 ML BTL IV PUSH ONE (13:32)
[2016-04-16] MEDS ORDERED: Lidocaine 2% PF* 5 ML VIAL ONE (13:32)
[2016-04-16] MEDS ORDERED: Phenylephrine INJ* 10 MG/ML 1 ML VIAL (10 MG) ONE (13:33)
--- NOTE | 2016-04-16 15:23 | PN ---
Subjective Date of Service: 04/16/16 Interval History: Seen and examined with at bedside prior to surgery Has no complaints Only questions are pertaining to length and scope of surgery Family History: Unchanged from Admission Social History: Unchanged from Admission Past Medical History: Unchanged from Admission Objective Active Medications: Acetaminophen (Tylenol Tab*) 325 mg PO Q6H PRN PRN Reason: PAIN OR TEMPERATURE Aspirin (Aspirin Low Dose Tab*) 81 mg PO DAILY [facility] Last Admin: 04/16/16 07:55 Dose: Not Given Atorvastatin Calcium (Lipitor*) 10 mg PO QPM [facility] Last Admin: 04/15/16 18:08 Dose: 10 mg Clopidogrel Bisulfate (Plavix Tab*) 75 mg PO DAILY [facility] Stop: 10/14/16 08:59 Last Admin: 04/16/16 07:55 Dose: Not Given Dextrose (D50w Syringe 50 Ml*) 12.5 gm IV PUSH .FOR FS < 60 - SS PRN PRN Reason: FS < 60 Docusate Sodium (Colace Cap*) 200 mg PO DAILY [facility] Last Admin: 04/16/16 07:12 Dose: Not Given Fentanyl Citrate (Fentanyl*) 25 mcg IV Q5M PRN PRN Reason: PAIN - MODERATE Stop: 04/16/16 13:28 Heparin Sodium (Porcine) (Heparin Vial(*)) 5,000 units SUBCUT Q8HR [facility] Last Admin: 04/16/16 14:14 Dose: Not Given Cefepime HCl 1 gm/ Sodium (Chloride) 50 mls @ 100 mls/hr IVPB Q12H [facility] Last Admin: 04/16/16 07:59 Dose: 100 mls/hr Metronidazole/Sodium Chloride (Flagyl 500 Mg Ivpb*) 500 mg in 100 mls @ 100 mls /hr IVPB Q12H [facility] Last Admin: 04/16/16 14:41 Dose: 100 mls/hr Lactated Ringer's (Lactated Ringers 1000 Ml Bag*) 1,000 mls @ 125 mls/hr IV PER RATE [facility] Insulin Human Lispro (Humalog*) 0 - 15 units SUBCUT AC [facility] PRN Reason: Protocol Last Admin: 04/16/16 14:47 Dose: Not Given Losartan Potassium (Cozaar Tab*) 25 mg PO DAILY [facility] Last Admin: 04/16/16 07:55 Dose: Not Given Morphine Sulfate (Morphine Inj (Syringe)*) 1 mg IV Q5M PRN PRN Reason: PAIN - SEVERE Stop: 04/16/16 13:23 Ondansetron HCl (Zofran Inj*) 4 mg IV Q4H PRN PRN Reason: NAUSEA Paroxetine HCl (Paxil Tab*) 10 mg PO DAILY [facility] Last Admin: 04/16/16 07:55 Dose: Not Given Polyethylene Glycol/Electrolytes (Miralax*) 17 gm PO DAILY PRN PRN Reason: CONSTIPATION Prochlorperazine Edisylate (Compazine Inj*) 2.5 mg IV ONCE PRN PRN Reason: NAUSEA/VOMITING Stop: 04/16/16 13:08 Quetiapine Fumarate (Seroquel Tab*) 25 mg PO BID [facility] Last Admin: 04/16/16 07:55 Dose: Not Given Vital Signs 04/15/16 04/15/16 04/15/16 15:59 20:00 23:17 Temperature 97.8 F 98.3 F Pulse Rate 80 82 Respiratory 16 16 Rate Blood Pressure 108/59 125/66 (mmHg) O2 Sat by Pulse 97 96 Oximetry 04/16/16 04/16/16 04/16/16 07:23 08:00 10:50 Temperature 98.2 F 98.1 F Pulse Rate 86 80 Respiratory 16 16 16 Rate Blood Pressure 139/70 157/71 (mmHg) O2 Sat by Pulse 95 97 Oximetry 04/16/16 04/16/16 04/16/16 13:45 13:50 13:55 Temperature 97.0 F Pulse Rate 75 73 72 Respiratory 14 16 16 Rate Blood Pressure 132/83 126/81 129/85 (mmHg) O2 Sat by Pulse 99 99 98 Oximetry 04/16/16 04/16/16 04/16/16 14:00 14:24 15:11 Temperature 97.3 F Pulse Rate 73 73 Respiratory 16 16 Rate Blood Pressure 139/80 143/84 (mmHg) O2 Sat by Pulse 95 98 98 Oximetry Oxygen Devices in Use Now: None Appearance: NAD Eyes: No Scleral Icterus, PERRLA Ears/Nose/Mouth/Throat: Clear Oropharnyx, Mucous Membranes Moist Neck: NL Appearance and Movements; NL JVP, Trachea Midline Respiratory: Symmetrical Chest Expansion and Respiratory Effort, Clear to Auscultation Cardiovascular: RRR Abdominal: NL Sounds; No Tenderness; No Distention, No Hepatosplenomegaly Lymphatic: No Cervical Adenopathy Extremities: No Edema Skin: - - as previously described Neurological: - - Aox1 to self Result Diagrams: 04/12/16 05:55 04/13/16 06:35 Microbiology and Other Data: Microbiology 04/16/16 13:30 Gram Stain - Final Foot Left Assess/Plan/Problems-Billing Assessment: LLE 1st and 2nd digit osteomyelitis with dry gangrene in a 66 yo M with hx of HTN, HLD, CAD, CVA, dementia, depression, DM and anemia - Patient Problems (1) Osteomyelitis Comment: S/P LLE balloon angioplasty by Dr. Dunaway with improvement in LLE pulses. Appreciate Surgery and ID assistance. Continue Cefepime and Flagyl Vanco stopped. OR today. Final details of surgery pending Need for PICC and detention abx pending results of todays operation. ID offering guidance. (2) CAD (coronary artery disease) Comment: ASA, Plavix, statin. (3) Depression Comment: Continue Paxil (?started at [place]) and seroquel (4) Diabetes Comment: Elevated - held starting lantus while NPO. Still suspect will need it but better controlled at the moment. HISS restart metformin 500mg 04/13/16 holding DPP4 inhibitor (5) HTN (hypertension) Comment: Continue Losartan (6) PAD (peripheral artery disease) Comment: Plavix 75mg daily ASA 81mg daily f/u IR in 3-4 weeks (7) DVT prophylaxis Comment: HSQ
[2016-04-16] MEDS ORDERED: oxyCODONE TAB* 5 MG TAB PO PRN (16:16)
[2016-04-16] MEDS: Atorvastatin* 10 MG TAB PO SCH (17:02)
[2016-04-17] MEDS: Heparin VIAL(*) 5000 UNITS/ML VIAL (FIVE THOUSAND) SUBCUT SCH ×4 (00:41→21:30)
[2016-04-17] MEDS: metroNIDAZOLE IV 500 MG/100ML* 500 MG/100 ML BAG IVPB SCH ×2 (01:35→14:54)
[2016-04-17] MEDS: QUEtiapine TAB* 25 MG PO SCH ×2 (08:27→21:30)
[2016-04-17] MEDS: Cefepime(*) 1 GM in NS 0.9% 50 ML* 50 ML IVPB SCH ×2 (08:27→21:30)
[2016-04-17] MEDS: Losartan TAB* 25 MG PO SCH (08:28)
[2016-04-17] MEDS: Aspirin Low Dose CHEW TAB* 81 MG PO SCH (08:28)
[2016-04-17] MEDS: PARoxetine HCL TAB* 10 MG PO SCH (08:28)
[2016-04-17] MEDS: Insulin LISPRO* 1 UNITS UNIT SUBCUT SCH ×3 (08:28→18:00)
[2016-04-17] MEDS: Docusate CAP* 100 MG PO SCH (08:28)
[2016-04-17] MEDS: Clopidogrel TAB* 75 MG PO SCH (08:28)
--- NOTE | 2016-04-17 08:45 | PN ---
Progress Note - Progress Note SOAP: Subjective: DOS: 04/17/16 CC: foot infection HPI: 66 year old man admitted with encephalopathy due right foot ischemia and infection, had angioplasty and midfoot amputation. No pain, fever, rash, or diarrhea. Objective: [] Vital Signs Temp 36.9 C 04/17/16 07:07 Pulse 89 04/17/16 07:07 Resp 16 04/17/16 07:07 BP 143/69 04/17/16 07:07 Pulse Ox 95 04/17/16 07:07 Intake & Output 04/16/16 04/17/16 04/17/16 18:59 06:59 18:59 Intake Total 850 1270 Output Total 1125 1225 Balance -275 45 Intake: IV Fluids 850 990 LR 850 990 IVPB 280 ABX - CEFEPIME 60 ABX - FLAGYL 220 Oral 0 0 Output: Urine 700 625 Straight Cath 425 600 Other: Estimated Void Medium # Voids 1 Gen:no distress Neuro:Awake, oriented x2, moves all extremities HEENT:PERRL, MMM Neck:supple Heart:RRR no murmur Lungs:CTA BL Abd:+BS NTND soft Skin:no rash MSK: left foot casted, no joint synovitis Laboratory Results - last 24 hr 04/16/16 04/16/16 04/16/16 10:56 14:04 17:05 POC Glucose (mg/dL) 160 H 167 H 289 H 04/17/16 04/17/16 01:36 07:40 POC Glucose (mg/dL) 206 H 230 H Assessment: 1. left foot gangrene and acute osteomyelitis, likely polymicrobial, s/p midfoot amputation 2. PAD s/p angioplasty 3. PCN allergy, tolerating cefepime 4. encephalopathy, present on admission, resolved 5. dementia Plan: 1. continue cefepime and flagyl day 06/23 followed by PO antibiotics. Will change flagyl to PO. 25 minutes floor time >50% face to face with patient and counseling regarding future antibiotic and rehab plans.
--- NOTE | 2016-04-17 10:39 | OP ---
DATE OF OPERATION: 04/16/16 - ROOM #416 DATE OF : 52 SURGEON: Dr. Jordan Olson. HALF SECTION IRONER: KINGS Pierre ANESTHESIOLOGIST: Simón Lu MD ANESTHESIA: MAC PRE-OP DIAGNOSIS: Gangrenous infected osteomyelitis, left forefoot. POST-OP DIAGNOSIS: Gangrenous infected osteomyelitis, left forefoot. OPERATIVE PROCEDURE: Left transmetatarsal amputation. DESCRIPTION OF PROCEDURE: The patient was taken to the operating room where a calf Esmarch was applied. We instilled 2% lidocaine in a field block at the ankle. Transverse fishmouth incision was made at the distal portion of the metatarsal bridge. We incised down to the metatarsal shafts, dissecting proximally to about mid shaft of the metatarsals. These were divided with microsagittal saw and then we transected the plantar flap. Local hemostasis was obtained as well as local cultures sent. We used 2 liters of irrigation to cleanse the wound and we slightly shaved the plantar aspect of the cut metatarsal necks. We then closed dorsal to plantar using 2-0 sutures and 2-0 Surgipro for the skin, and a compression dressing and plaster splint applied. [id number]/[facility] #: [id number] MTDD
--- NOTE | 2016-04-17 11:35 | PN ---
Progress Note - Progress Note SOAP: Subjective: []Patient seen at bedside, alert. Not oriented to place or time. Comfortable, denies foot pain. Objective: [] Vital Signs Temp 98.4 F 04/17/16 07:07 Pulse 89 04/17/16 07:07 Resp 16 04/17/16 07:07 BP 143/69 04/17/16 07:07 Pulse Ox 98 04/17/16 11:30 Intake & Output 04/16/16 04/17/16 04/17/16 18:59 06:59 18:59 Intake Total 850 1270 520 Output Total 1125 1225 Balance -275 45 520 Intake: IV Fluids 850 990 LR 850 990 IVPB 280 ABX - CEFEPIME 60 ABX - FLAGYL 220 Oral 0 0 520 Output: Urine 700 625 Straight Cath 425 600 Other: Estimated Void Medium # Voids 1 Laboratory Results - last 24 hr 04/16/16 04/16/16 04/17/16 14:04 17:05 01:36 POC Glucose (mg/dL) 167 H 289 H 206 H 04/17/16 07:40 POC Glucose (mg/dL) 230 H Microbiology 04/16/16 13:30 Gram Stain - Final Foot Left Wound Culture - Preliminary No Growth Day 1 04/16/16 13:30 Anaerobic Culture - Preliminary Wound No Growth Day 1 Left foot with minimal drainage on the kerlex at amputation site Splint/ YUNIOR dry and intact left LE Assessment: []s/p transmetatarsal ampuation for gangrene/ osteomyelitis Left forefoot POD#1 Plan: []PT/OT NWB LLE Cefepime/ Flagyl per Dr. Ball Discharge when medically stable F/U Dr. Olson 10-14 days once d/c.
--- NOTE | 2016-04-17 12:26 | PN ---
Subjective Date of Service: 04/17/16 Interval History: Patient seen early afternoon. No family present. Has no complaints, pleasantly confused. Cannot recall where he is or why he is here. Surprised to find that part of his foot has been amputated. Denies pain or fever. Family History: Unchanged from Admission Social History: Unchanged from Admission Past Medical History: Unchanged from Admission Objective Active Medications: Acetaminophen (Tylenol Tab*) 325 mg PO Q6H PRN Aspirin (Aspirin Low Dose Tab*) 81 mg PO DAILY [facility], [facility]1983 Atorvastatin Calcium (Lipitor*) 10 mg PO QPM ANAI Clopidogrel Bisulfate (Plavix Tab*) 75 mg PO DAILY [facility], 1928[facility]1983 Dextrose (D50w Syringe 50 Ml*) 12.5 gm IV PUSH .FOR FS < 60 - SS PRN Docusate Sodium (Colace Cap*) 200 mg PO DAILY [facility], [facility]1983 Heparin Sodium (Porcine) (Heparin Vial(*)) 5,000 units SUBCUT Q8HR ANAI Cefepime HCl 1 gm/ Sodium (Chloride) 50 mls @ 100 mls/hr IVPB Q12H ANAI Metronidazole/Sodium Chloride (Flagyl 500 Mg Ivpb*) 500 mg in 100 mls @ 100 mls /hr IVPB Q12H [facility] Insulin Glargine (Lantus(*)) 12 units SUBCUT Q24H ANAI Insulin Human Lispro (Humalog*) 0 - 15 units SUBCUT AC ANAI Losartan Potassium (Cozaar Tab*) 25 mg PO DAILY FOR[facility]1983 Ondansetron HCl (Zofran Inj*) 4 mg IV Q4H PRN Oxycodone HCl (Roxycodone Tab*) 5 mg PO Q4H PRN Paroxetine HCl (Paxil Tab*) 10 mg PO DAILY [facility] Polyethylene Glycol/Electrolytes (Miralax*) 17 gm PO DAILY PRN Quetiapine Fumarate (Seroquel Tab*) 25 mg PO BID [facility] Vital Signs 04/16/16 04/16/16 04/16/16 13:45 13:50 13:55 Temperature 97.0 F Pulse Rate 75 73 72 Respiratory 14 16 16 Rate Blood Pressure 132/83 126/81 129/85 (mmHg) O2 Sat by Pulse 99 99 98 Oximetry 04/17/16 04/17/16 04/17/16 00:00 03:40 07:07 Temperature 99.0 F 98.4 F Pulse Rate 89 89 Respiratory 16 16 Rate Blood Pressure 141/81 143/69 (mmHg) O2 Sat by Pulse 93 95 95 Oximetry Oxygen Devices in Use Now: None Appearance: Middle-aged, M, laying in bed in NAD Eyes: No Scleral Icterus Ears/Nose/Mouth/Throat: Mucous Membranes Moist Neck: NL Appearance and Movements; NL JVP Respiratory: Symmetrical Chest Expansion and Respiratory Effort, Clear to Auscultation Cardiovascular: NL Sounds; No Murmurs; No JVD, RRR Abdominal: NL Sounds; No Tenderness; No Distention Lymphatic: No Cervical Adenopathy Extremities: - - LLE with dressing in place, did not remove Skin: No Rash or Ulcers Neurological: - - Alert, oriented to self Result Diagrams: 04/12/16 05:55 04/13/16 06:35 Microbiology and Other Data: Microbiology 04/16/16 13:30 Gram Stain - Final Foot Left Assess/Plan/Problems-Billing Assessment: LLE 1st and 2nd digit osteomyelitis with dry gangrene in a 66 yo M with hx of HTN, HLD, CAD, CVA, dementia, depression, DM and anemia - Patient Problems (1) Osteomyelitis Current Visit: Yes Comment: S/P LLE balloon angioplasty by Dr. Dunaway with improvement in LLE pulses. S/P L TMA by Dr. Olson on 04/16 Appreciate Surgery and ID assistance. Continue Cefepime and Flagyl (Day 06/23) PICC ordered (2) PAD (peripheral artery disease) Current Visit: Yes Comment: Plavix 75mg daily ASA 81mg daily f/u IR in 3-4 weeks (3) HTN (hypertension) Current Visit: Yes Comment: Continue Losartan (4) CAD (coronary artery disease) Current Visit: Yes Comment: ASA, Plavix, statin. (5) Diabetes Current Visit: Yes Comment: Continue HISS. Will add Lantus 12 units daily. Restarted metformin 500mg 04/13/16 holding DPP4 inhibitor (6) Depression Current Visit: Yes Comment: Continue Paxil (?started at [place]) and seroquel (7) DVT prophylaxis Current Visit: Yes Comment: HSQ Status and Disposition: PT/OT pending. Will need placement.
[2016-04-17] MEDS: Atorvastatin* 10 MG TAB PO SCH (18:00)
[2016-04-17] MEDS: Insulin GLARGINE(*) 1 UNITS UNIT SUBCUT SCH (21:30)
[2016-04-18] MEDS: metroNIDAZOLE IV 500 MG/100ML* 500 MG/100 ML BAG IVPB SCH (01:30)
[2016-04-18 04:49] LABS: Hematocrit 26 % (42-52); Hemoglobin 8.6 g/dl (14.0-18.0); Mean Corpuscular HGB Conc 33 g/dl (31-36); Mean Corpuscular Hemoglobin 28 pg (27-31); Mean Corpuscular Volume 85 fL (80-94); Mean Platelet Volume 8 um3 (7.4-10.4); Red Blood Count 3.05 10^6/ul (4.0-5.4); Red Cell Distribution Width 14 % (10.5-15); White Blood Count 10.6 10^3/ul (3.5-10.8)
[2016-04-18 04:59] LABS: BUN/Creatinine Ratio 16.9 (8-20); Calcium 8.9 mg/dL (8.6-10.3); EGFR African American 143.2 (>60); EGFR Non-African American 111.3 (>60); Potassium 3.5 mmol/L (3.5-5.0)
[2016-04-18] MEDS: Heparin VIAL(*) 5000 UNITS/ML VIAL (FIVE THOUSAND) SUBCUT SCH ×3 (05:36→22:07)
[2016-04-18] MEDS: Insulin LISPRO* 1 UNITS UNIT SUBCUT SCH ×3 (09:01→17:19)
[2016-04-18] MEDS: Aspirin Low Dose CHEW TAB* 81 MG PO SCH (09:04)
[2016-04-18] MEDS: Docusate CAP* 100 MG PO SCH (09:04)
[2016-04-18] MEDS: PARoxetine HCL TAB* 10 MG PO SCH (09:04)
[2016-04-18] MEDS: Clopidogrel TAB* 75 MG PO SCH (09:04)
[2016-04-18] MEDS: Cefepime(*) 1 GM in NS 0.9% 50 ML* 50 ML IVPB SCH ×2 (09:04→22:06)
[2016-04-18] MEDS: QUEtiapine TAB* 25 MG PO SCH ×2 (09:04→22:07)
[2016-04-18] MEDS: Losartan TAB* 25 MG PO SCH (09:04)
--- NOTE | 2016-04-18 10:25 | PN ---
Progress Note - Progress Note SOAP: Subjective: DOS: 04/18/16 CC: foot infection HPI: 66 year old man admitted with encephalopathy due right foot ischemia and infection, had angioplasty and midfoot amputation. Feels well, appetite good, no diarrhea, rash, or fever. Objective: [] Vital Signs Temp 36.8 C 04/18/16 07:26 Pulse 91 04/18/16 07:26 Resp 18 04/18/16 07:26 BP 122/76 04/18/16 07:26 Pulse Ox 97 04/18/16 07:26 Intake & Output 04/17/16 04/18/16 04/18/16 18:59 06:59 18:59 Intake Total 900 300 120 Output Total 850 200 Balance 900 -550 -80 Intake: Oral 900 300 120 Output: Urine 850 200 Other: Estimated Void Large Large # Voids 3 1 Gen:no distress Neuro:Awake, oriented x2, moves all extremities HEENT:PERRL, MMM Neck:supple Heart:RRR no murmur Lungs:CTA BL Abd:+BS NTND soft Skin:no rash MSK: left foot casted, no joint synovitis Laboratory Results - last 24 hr 04/17/16 04/17/16 04/17/16 11:54 16:33 21:30 WBC RBC Hgb Hct MCV MCH MCHC RDW Plt Count MPV Neut % (Auto) Lymph % (Auto) [place] % (Auto) Eos % (Auto) Baso % (Auto) Absolute Neuts (auto) Absolute Lymphs (auto) Absolute Monos (auto) Absolute Eos (auto) Absolute Basos (auto) Absolute Nucleated RBC Nucleated RBC % Sodium Potassium Chloride Carbon Dioxide Anion Gap BUN Creatinine Est GFR ( Amer) Est GFR (Non-Af Amer) BUN/Creatinine Ratio Glucose POC Glucose (mg/dL) 325 H 219 H 172 H Calcium 04/18/16 04/18/16 04/18/16 04:37 04:37 07:28 WBC 10.6 RBC 3.05 L Hgb 8.6 L Hct 26 L MCV 85 MCH 28 MCHC 33 RDW 14 Plt Count 309 MPV 8 Neut % (Auto) 74.4 Lymph % (Auto) 13.8 L [place] % (Auto) 9.1 H Eos % (Auto) 2.0 Baso % (Auto) 0.7 Absolute Neuts (auto) 7.9 H Absolute Lymphs (auto) 1.5 Absolute Monos (auto) 1.0 H Absolute Eos (auto) 0.2 Absolute Basos (auto) 0.1 Absolute Nucleated RBC 0 Nucleated RBC % 0 Sodium 135 Potassium 3.5 Chloride 103 Carbon Dioxide 27 Anion Gap 5 BUN 12 Creatinine 0.71 Est GFR ( Amer) 143.2 Est GFR (Non-Af Amer) 111.3 BUN/Creatinine Ratio 16.9 Glucose 150 H POC Glucose (mg/dL) 176 H Calcium 8.9 Assessment: 1. left foot gangrene and acute osteomyelitis, likely polymicrobial, s/p midfoot amputation 2. PAD s/p angioplasty 3. PCN allergy, tolerating cefepime 4. encephalopathy, present on admission, resolved 5. dementia Plan: 1.cefepime and flagyl day 07/24 Will plan on levaquin 500 mg daily and flagyl 500 mg po bid for 14 days after IV antibiotics. 2. PICC Discussed with Dr Ruiz
--- NOTE | 2016-04-18 11:41 | DCNOTE ---
Patient seen this morning after PICC placement. No complaints. Unaware of circumstances of hospitalization. On exam, RRR, s1 and s2 present, no m/g/r, abd soft, NTND, BS+, LLE with dressing in place. D/C to [facility] today. Needs to remain LLE NWB. Continue IV Cefepime and PO Flagyl (Day 6), will be followed by course of PO ABx as per Dr. Lloyd ( Levaquin+Flagyl). F/U with Dr. Olson, Dr. Dunaway and Dr. Lloyd
--- NOTE | 2016-04-18 12:26 | PN ---
Progress Note - Progress Note SOAP: Subjective: []Patient seen at bedside. No orthopedic changes. Remains disoriented to place and time. Denies foot pain when asked. Objective: [] Vital Signs Temp 98.2 F 04/18/16 07:26 Pulse 91 04/18/16 07:26 Resp 18 04/18/16 07:26 BP 122/76 04/18/16 07:26 Pulse Ox 97 04/18/16 07:26 Intake & Output 04/17/16 04/18/16 04/18/16 18:59 06:59 18:59 Intake Total 900 300 120 Output Total 850 200 Balance 900 -550 -80 Intake: Oral 900 300 120 Output: Urine 850 200 Other: Estimated Void Large Large # Voids 3 1 Laboratory Results - last 24 hr 04/17/16 04/17/16 04/18/16 16:33 21:30 04:37 WBC 10.6 RBC 3.05 L Hgb 8.6 L Hct 26 L MCV 85 MCH 28 MCHC 33 RDW 14 Plt Count 309 MPV 8 Neut % (Auto) 74.4 Lymph % (Auto) 13.8 L [place] % (Auto) 9.1 H Eos % (Auto) 2.0 Baso % (Auto) 0.7 Absolute Neuts (auto) 7.9 H Absolute Lymphs (auto) 1.5 Absolute Monos (auto) 1.0 H Absolute Eos (auto) 0.2 Absolute Basos (auto) 0.1 Absolute Nucleated RBC 0 Nucleated RBC % 0 Sodium Potassium Chloride Carbon Dioxide Anion Gap BUN Creatinine Est GFR ( Amer) Est GFR (Non-Af Amer) BUN/Creatinine Ratio Glucose POC Glucose (mg/dL) 219 H 172 H Calcium 04/18/16 04/18/16 04:37 07:28 WBC RBC Hgb Hct MCV MCH MCHC RDW Plt Count MPV Neut % (Auto) Lymph % (Auto) [place] % (Auto) Eos % (Auto) Baso % (Auto) Absolute Neuts (auto) Absolute Lymphs (auto) Absolute Monos (auto) Absolute Eos (auto) Absolute Basos (auto) Absolute Nucleated RBC Nucleated RBC % Sodium 135 Potassium 3.5 Chloride 103 Carbon Dioxide 27 Anion Gap 5 BUN 12 Creatinine 0.71 Est GFR ( Amer) 143.2 Est GFR (Non-Af Amer) 111.3 BUN/Creatinine Ratio 16.9 Glucose 150 H POC Glucose (mg/dL) 176 H Calcium 8.9 Microbiology 04/16/16 13:30 Gram Stain - Final Foot Left Wound Culture - Preliminary No Growth Day 2 04/16/16 13:30 Anaerobic Culture - Preliminary Wound No Growth Day 2 Left foot dressing and splint unchanged with scant old drainage on kerlex Assessment: []s/p transmetatarsal amputation for gangrene/ osteomyelitis left foot POD #2 Plan: []Discharge to [facility] Cefepime and flagyl as outlined by Dr. Lloyd Follow up with Dr. Olson in office 10-14 days
--- NOTE | 2016-04-18 13:04 | DS ---
DISCHARGE SUMMARY: DATE OF ADMISSION: 04/11/16 DATE OF DISCHARGE: 04/18/16 PRINCIPAL DISCHARGE DIAGNOSES: 1. Left lower extremity osteomyelitis and gangrene, status post transmetatarsal amputation. 2. Peripheral artery disease secondary to longstanding diabetes. SECONDARY DIAGNOSES: 1. Dementia. 2. Cerebrovascular accident. 3. Hypertension. 4. Hyperlipidemia. 5. Coronary artery disease. 6. Depression. DISCHARGE MEDICATION REGIMEN: 1. Losartan 25 mg by mouth daily. 2. Glipizide 10 mg by mouth daily. 3. Plavix 75 mg by mouth daily. 4. Atorvastatin 10 mg by mouth daily. 5. Aspirin 81 mg by mouth daily. 6. Saxagliptin 5 mg by mouth daily. 7. Seroquel 25 mg by mouth 2 times daily. 8. Metformin 500 mg by mouth daily. 9. Flagyl 500 mg by mouth 2 times daily. 10. Cefepime 1 g IV q.12. 11. Paroxetine 10 mg by mouth daily. CONSULTS DURING HOSPITALIZATION: 1. Dr. Javier Dunaway, Intervention Radiology. 2. Dr. Tristen Lloyd, Infectious Disease. 3. Dr. Jordan Olson, Orthopedics. STUDIES DONE DURING HOSPITALIZATION: Lower extremity arterial duplex. Impression: Segmental hemody namics, significant stenosis at the left superficial femoral artery, diminished flow at the infragen iculate artery. Correlate with clinical assessment and consider CT angiogram runoff if clinically w arranted and feasible. Interventional angiography. Impression: Relative imaging. Arteriography showed focal occlusion of the left proximal superficial femoral artery, short segment high- grade stenosis of the more distal superficial femoral artery just prior to its entrance into jo's canal, extremely diminutive lef t peroneal artery, essentially no contrast filling beyond the distal half of the artery. Short segm ent occlusion of the distal left posterior tibial artery with diminutive filling of the medial and l ateral plantar arteries, mostly by collateralized reconstituted flow with focal high-grade stenosis in the anterior tibial artery and dorsalis pedis artery, short high-grade stenosis in the distal dominique salis pedis just prior to becoming a pedal loop. Following endovascular interventions were performed: Mechanical arthrectomy of the superficial femo ral artery occlusions and stenoses, balloon angioplasty of the superficial femoral artery at its pro ximal and mid levels. Revascularization of the distally occluded left posterior tibial artery into the medial plantar artery and the pedal loop. Revascularization of the distal posterior tibial sree ry into the lateral plantar artery across the pedal loop and into the dorsalis pedis and distal ante rior tibial artery. Balloon angioplasty throughout the entire length of the left anterior tibial an d dorsalis pedis artery. Subsequent arteriography shows brisk arterial flow and patency through the aforementioned left lower extremity arterial segments. Lower extremity brachial indices. Impression: Mildly decreased EEV, right greater than left. HISTORY OF PRESENT ILLNESS AND HOSPITAL SUMMARY: Please see my history and physical from 04/11/16 f or full details. Briefly, Mr. Carlos is a 66-year-old male with past medical history as above, wh o initially presented to [facility] after his family found him on the group at home, and he w as noted to have some necrosis of his toes. The patient was initially seen by Dr. Mayer at [facility] and had bedside debridement. However, he thought that he would need more testing and intervent ions and recommended transfer to [facility]. The patient arrived here on 04/11/16. He underwent angiograp hy with Dr. Dunaway with findings and interventions described as above. The patient was seen by Dr. Lloyd. His broad- spectrum antibiotics were adjusted. He subsequently was seen by Dr. Olson of Orthopedics and underwent a left transmetatarsal amputation, which went well. The patient will be continued on IV antibiotics for a total of 14 days. This will consist of IV cefepime and oral Flagy l. He can then be transitioned as per Dr. Lloyd to oral Levaquin and Flagyl. The patient will n eed to follow up with Dr. Dunaway, Dr. Olson, and Dr. Lloyd as an outpatient. He will be dischar ged to [facility] for rehab. TIME SPENT: Total time spent on this discharge is 45 minutes. This is the summary of hospitalization, please see full medical records for further details. [id number]/[facility] #: [id number]
[2016-04-18] MEDS: Atorvastatin* 10 MG TAB PO SCH (17:19)
[2016-04-18] MEDS: Insulin GLARGINE(*) 1 UNITS UNIT SUBCUT SCH (22:06)
[2016-04-18] MEDS: metroNIDAZOLE TAB* 250 MG PO SCH (22:07)
[2016-04-19 04:02] VITALS: BP 100/50
[2016-04-19] MEDS: Heparin VIAL(*) 5000 UNITS/ML VIAL (FIVE THOUSAND) SUBCUT SCH (05:24)
[2016-04-19] MEDS: QUEtiapine TAB* 25 MG PO SCH (08:44)
[2016-04-19] MEDS: Losartan TAB* 25 MG PO SCH (08:44)
[2016-04-19] MEDS: PARoxetine HCL TAB* 10 MG PO SCH (08:44)
[2016-04-19] MEDS: Clopidogrel TAB* 75 MG PO SCH (08:44)
[2016-04-19] MEDS: Cefepime(*) 1 GM in NS 0.9% 50 ML* 50 ML IVPB SCH (08:45)
[2016-04-19] MEDS: Docusate CAP* 100 MG PO SCH (08:45)
[2016-04-19] MEDS: Aspirin Low Dose CHEW TAB* 81 MG PO SCH (08:45)
[2016-04-19] MEDS: metroNIDAZOLE TAB* 250 MG PO SCH (08:45)
[2016-04-19] MEDS: Insulin LISPRO* 1 UNITS UNIT SUBCUT SCH (08:46)
== END 2016-04-19 09:45 | disposition swing bed (61) | DRG 270 ==
LOC: MED 18:30
PROVIDERS: ADMIT Internal Medicine; ATTEND Hospitalist
PROC: 04CL3ZZ Extirpation of Matter from Left Femoral Artery, Percutaneous Approach (ICD-10-PCS; 2016-04-12)
PROC: 047L3Z1 Dilation of Left Femoral Artery using Drug-Coated Balloon, Percutaneous Approach (ICD-10-PCS; 2016-04-12)
PROC: 047Q3ZZ Dilation of Left Anterior Tibial Artery, Percutaneous Approach (ICD-10-PCS; 2016-04-12)
PROC: 047S3ZZ Dilation of Left Posterior Tibial Artery, Percutaneous Approach (ICD-10-PCS; 2016-04-12)
PROC: B41GYZZ Fluoroscopy of Left Lower Extremity Arteries using Other Contrast (ICD-10-PCS; principal; 2016-04-12 09:00)
PROC: 0Y6N0Z9 Detachment at Left Foot, Partial 1st Ray, Open Approach (ICD-10-PCS; 2016-04-16)
PROC: 0Y6N0ZB Detachment at Left Foot, Partial 2nd Ray, Open Approach (ICD-10-PCS; 2016-04-16)
PROC: 0Y6N0ZC Detachment at Left Foot, Partial 3rd Ray, Open Approach (ICD-10-PCS; 2016-04-16)
PROC: 0Y6N0ZD Detachment at Left Foot, Partial 4th Ray, Open Approach (ICD-10-PCS; 2016-04-16)
PROC: 0Y6N0ZF Detachment at Left Foot, Partial 5th Ray, Open Approach (ICD-10-PCS; 2016-04-16)
PROC: 02HV33Z Insertion of Infusion Device into Superior Vena Cava, Percutaneous Approach (ICD-10-PCS; 2016-04-19)
DX: E11.52 Type 2 diabetes mellitus with diabetic peripheral angiopathy with gangrene (principal); G93.40 Encephalopathy, unspecified; I70.262 Atherosclerosis of native arteries of extremities with gangrene, left leg; F03.90 Unspecified dementia, unspecified severity, without behavioral disturbance, psychotic disturbance, mood disturbance, and anxiety; E11.69 Type 2 diabetes mellitus with other specified complication; M86.172 Other acute osteomyelitis, left ankle and foot; L03.116 Cellulitis of left lower limb; I10 Essential (primary) hypertension; E78.5 Hyperlipidemia, unspecified; I25.10 Atherosclerotic heart disease of native coronary artery without angina pectoris; F32.9 Major depressive disorder, single episode, unspecified; E11.65 Type 2 diabetes mellitus with hyperglycemia; Z86.73 Personal history of transient ischemic attack (TIA), and cerebral infarction without residual deficits; Z95.5 Presence of coronary angioplasty implant and graft; Z88.0 Allergy status to penicillin; Z83.3 Family history of diabetes mellitus; Z82.3 Family history of stroke; Z87.891 Personal history of nicotine dependence; Z79.02 Long term (current) use of antithrombotics/antiplatelets; Z79.82 Long term (current) use of aspirin; Z79.84 Long term (current) use of oral hypoglycemic drugs
CPT/HCPCS: 36415; 80048; 80053; 81003; 82947; 83605; 85025; 87070; 87073; 87205; 88307; 88311; 93922; 94760; A9270-GY; C1724; C1725; C1751; C1760; C1887; C2623; J0692; J1644; J2001; J2250; J2704; J3010; J3370

== ENCOUNTER → 2017-08-08 06:57 | Day surgery (SDC) | payer MEDICARE, MEDICAID ==
[~2017-08-08 06:57] MED LIST: Flumazenil* 0.1 MG/ML 5 ML MDV ONE; Heparin 2 UNITS/ML IVPREMIX* 2,000 ML IV ONE; Heparin(*) 1000 UNIT/ML 10 ML VIAL CATH LAB IV ONE; Iohexol 350 (CONTRAST) 200 ML MDV IV ONE; LORazepam TAB(*) 1 MG ONE; LORazepam TAB(*) 1 MG PO ONE; Lidocaine 1% INJ* 10 MG/ML 30 ML SDV ONE; Lidocaine 2% JELLY* 6 ML JELLY TOPICAL ONE; Midazolam* 1 MG/ML 5 ML VIAL (5 MG) ONE; Naloxone* 0.4 MG/ML 1 ML VIAL ONE; VERAPAMIL 2.5 MG/ML 2 ML VIAL ** 5 mg/2 ml ONE; fentaNYL* 50 MCG/ML 2 ML VIAL (100 MCG VIAL) ONE; nitroGLYCERIN DRIP* 25,000 MCG/250 ML BTL ONE
[2017-08-08 14:05] VITALS: BP 170/88
--- NOTE | 2017-08-08 15:26 | PN ---
Progress Note - Progress Note Date of Service: 08/08/17 SOAP: The patient was seen and examined at the bedside at 1315 hours. Subjective: Patient without pain complaints. No CP. No SOB. 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 Plan: 1. Standard 2 hour bedrest post arteriotomy closed with percutaneous Minx closure device. 2. D/C home. 3. Patient and advised to continue wound care. 4. Plavix 75 mg PO daily x 6 months. 5. ASA 81 mg PO daily for life. 6. IR clinic nurse will call patient 08/11/17 for follow up. 7. IR clinic follow up in 4 weeks with EVE.
--- NOTE | 2017-08-08 17:26 | RAD ---
CPT II Codes: G9500 Procedure(s) performed: 1. Diagnostic pelvic and right lower extremity arteriogram. 2. Atherectomy and balloon angioplasty of the right superficial femoral and popliteal arteries. 3. Balloon angioplasty of the left external iliac artery. 4. Percutaneous Minx closure device to the left common femoral arteriotomy. 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 Catheter arteriography, with the catheter tip located within the lumen of the following arteries, was performed at the left external iliac artery, aorta, right femoral profundus, right superficial femoral artery, right external iliac artery. Anesthesia: Conscious sedation with IV Fentanyl and Versed as well as local 1% lidocaine injected locally at the arteriotomy site. Conscious sedation time: Timeout: 923 hours Case end: 1140 hours Total conscious sedation time: 2 hours and 17 minutes Additional medications: * 200 mcg IA nitroglycerin injected intermittently throughout the course of the procedure to alleviate arterial spasm. * IV heparin 5000 Units to achieve a goal ACT of 250-300. * The patient received 1 mg of p.o. Ativan prior to the onset of the procedure. PROCEDURE NOTE AND INTRAPROCEDURAL IMAGING FINDINGS: Immediately prior to the procedure the patient signed consent after thoroughly discussing all risks, benefits and alternative therapies. The patient was positioned on the fluoroscopy table in the supine position and the bilateral groins were shaved, prepped and the patient was draped in standard sterile fashion. Using fluoroscopic imaging the location of the left common femoral head was marked externally with a skin marker on the patient's groin. Utilizing sonographic guidance and palpation, the left common femoral artery was cannulated overlying the femoral head with an 18-gauge needle. An ultrasound image was saved. A 0.035" wire was slowly and smoothly advanced into the common femoral artery under fluoroscopic imaging. No buckling of the wire was visualized to indicate dissection. With the wire securing percutaneous arterial access, the needle was removed and a 5-Kittitian SideArm access sheath was advanced under fluoroscopic control into the common femoral artery retrograde into the left external iliac artery. securing access. Through the side arm of the access sheath arteriography of the left common femoral artery demonstrated an appropriate puncture of the common femoral artery above the bifurcation and below the inferior epigastric artery. Is arteriogram showed a focal narrowing at the left external iliac artery narrowing the lumen approximately 50%. To further characterize and exactly locate the extent of atherosclerotic disease involving the pelvis and right lower extremity diagnostic catheter arteriography was necessary. A 0.035 inch wire was advanced into the lower abdominal aorta. A straight multiside hole flush catheter was advanced to the aorta and contrast arteriography was performed demonstrating patency of the lower infrarenal abdominal aorta with patent flow into the common iliac arteries. Again noted is focal narrowing of the left external iliac artery but in-line flow is documented into the proximal femoral profundus and superficial femoral arteries bilaterally. There is high-grade stenoses at the right worse than left internal iliac arteries. The flush catheter was removed and utilizing a hydrophilic wire and a C2 C5 Kittitian catheter the iliac bifurcation was crossed to access the right lower extremity arterial vasculature. The catheter was advanced over the wire into the proximal superficial femoral artery and an arteriogram was performed showing long segment stenoses beginning at the proximal right superficial femoral artery. The catheter was drawn back and an arteriogram was performed with the tip in the femoral profundus which demonstrated adequate patency and filling of the muscular sidebranches. The catheter was redirected into the proximal superficial femoral artery and a second arteriogram was performed again demonstrating a long segment stenoses with more severe foci in the proximal right superficial femoral artery. The wire was reinserted and the catheter was advanced further into the superficial femoral artery at approximately the mid level. Contrast arteriogram showed continuation of multiple foci of high-grade stenoses at the mid-level superficial femoral artery extending to the superior most portion of the right popliteal artery. On the same location arteriography of the infrapopliteal arteries was performed demonstrating adequate patency in the distal popliteal artery, tibioperoneal trunk and proximal peroneal and posterior tibial arteries. The anterior tibial artery becomes occluded shortly after its branch point from the popliteal artery. There is a small amount of collateralized filling of the anterior tibial artery but the artery remains diminutive throughout its length. A diagnostic arteriogram of the distal right lower leg and foot was performed again showing robust in-line flow via the right posterior tibial artery. The GRADES 9 12 TUTOR fills the plantar branches and provides collateralized flow via the "pedal loop" to fill the microvasculature on the dorsum of the foot. There is no significant filling of the dorsalis pedis or distal anterior tibial arteries observed. A stiff hydrophilic wire was advanced to the popliteal artery under fluoroscopic control and over this wire a 7-Kittitian, 55 cm length access sheath was advanced over the iliac bifurcation until the tip terminated at the right common femoral artery. An additional contrast arteriogram was performed with the tip of the sheath in the right common femoral artery in the right anterior oblique projection to ascertain there was not an ostial lesion of the right SFA obscured by the overlapping femoral profundus. The ostium is adequately patent and there is mild foci of narrowing the proximal right superficial femoral artery that have been imaged before. There are catheter the hydrophilic wire was exchanged for a 0.014 inch Viper wire. Over the microwire the [employer] Diamondback Solid atherectomy device was advanced to the proximal superficial femoral artery and atherectomy was performed throughout most of the length of the right superficial femoral artery and the superior most portion of the popliteal artery. A post atherectomy arteriogram was performed demonstrating minimally increased patency and no focal dissection or other acute abnormality as a consequence of atherectomy. The atherectomy device was removed and a 5 mm x 200 mm Nanocross Elite balloon was advanced into the right superficial femoral artery and balloon angioplasty was performed essentially throughout the entire length of the right superficial femoral artery and superior half of the right popliteal artery. During each inflation the balloon remained inflated for a total of 2 minutes just below "burst pressure" which correlates to an approximate diameter of 5.4 mm. The balloon was removed and the 0.014 inch wire was replaced with a 0.035 inch stiff hydrophilic wire which was advanced into the right posterior tibial artery under fluoroscopic control. Over the wire a 6 mm x 120 mm paclitaxel coated InPact balloon was advanced spanning the distal superficial femoral artery to include the portion of the artery that courses through Micah's canal. The balloon was inflated up to 10 angelique corresponding to an approximate diameter measurement of 6.2 mm. The balloon remained inflated for 3 minutes to ensure adequate drug delivery to the endothelium. The balloon was inflated and advanced further to balloon angioplasty the distal most right superficial femoral artery and the focal narrowing identified at the superiormost right popliteal artery. This balloon was removed and replaced with a new 6 mm x 120 mm paclitaxel coated InPact balloon which was advanced to cover the more proximal right superficial femoral artery. The balloon was again inflated to 10 angelique corresponding to a diameter measurement of 6.2 mm and remained inflated for a total of 3 minutes to ensure adequate drug delivery to the endothelium. The sheath was drawn back into the distal most right external iliac artery. The balloon was drawn back and balloon angioplasty was performed spanning the distal most right common femoral artery and proximal superficial femoral artery including the ostium to ensure adequate patency. The balloon remained inflated for approximately 2 minutes. With the tip of the sheath in the distal right external iliac artery contrast arteriogram was performed demonstrating brisk flow throughout the length of the femoral profundus and recently atherectomized and angioplastied right superficial femoral artery continuing into the popliteal artery and the proximal most portions of the peroneal and posterior tibial arteries. No dissection or other acute complication was noted. The long 7-Kittitian access sheath was exchanged for a standard 11 cm length 7-Kittitian access sheath. Over the wire the previously utilized 6 mm balloon was advanced across the previously identified left external iliac artery stenosis and balloon angioplasty was performed. The balloon was inflated to 13 angelique corresponding to a diameter measurement of 6.4 mm. The balloon was deflated, removed and contrast arteriogram through the access sheath with the tip in the left external iliac artery demonstrates brisk patent flow through the left external iliac artery and improvement of the previously identified focal stenosis. After an appropriate resterilization of the arteriotomy and exchange for new sterile gloves, a Minx closure device was deployed at the common femoral arteriotomy and pressure held for approximately 15 minutes. There were no signs of bleeding at the percutaneous arterial access site and the site was dressed with sterile gauze and Tegaderm. The patient tolerated the procedure well and was transferred to angiography holding bay for standard post procedural observation. SUMMARY OF PROCEDURE, IMAGING FINDINGS AND INTERVENTIONS PERFORMED: 1. Diagnostic studies performed: * Arterial access was obtained at the left common femoral artery in the retrograde direction (i.e. towards the heart) with ultrasound guidance. A sonographic image was recorded. * Diagnostic catheter angiography (necessary to perform the appropriate interventions) was performed with the catheter tip in the left external iliac artery, aorta, right external iliac artery, right common femoral artery, right femoral profundus and right superficial femoral artery. * Catheter arteriography was performed of the lower abdominal aorta and entire bilateral iliac arterial system up to the bilateral femoral arteries. * Catheter arteriography was performed of the entire right lower extremity as far as the forefoot. * At the onset of the procedure arteriography was performed through the side arm of the access sheath to image the distal left external iliac artery, left common femoral artery and proximal superficial femoral artery and femoral profundus. 2. Interpretation of diagnostic studies performed: * Mild focal stenosis at the left external iliac artery. * High-grade stenoses, more severe on the right than the left, of the bilateral internal iliac arteries. * Multifocal and long segment stenoses involving the right superficial femoral artery in the superior most portion of the right popliteal artery. * Total occlusion of the anterior tibial artery shortly beyond its branch point with essentially no filling seen in the distal right TREVIN or dorsalis pedis artery. * Single vessel runoff on the right is provided by the right posterior tibial artery supplemented by the right peroneal artery. * Arteriography performed for the purpose of deploying a percutaneous arterial closure device demonstrates adequately patentcy of the left common femoral artery and proximal superficial femoral artery and femoral profundus. 3. Surgical interventions performed: * Atherectomy of the right superficial femoral and popliteal arteries utilizing the [employer] Diamondback Solid orbital atherectomy device. * Balloon angioplasty of the right superficial femoral and popliteal arteries utilizing a 5 mm x 200 mm Nanocross Elite balloon followed by TWO 6 mm x 120 mm paclitaxel coated InPact balloons. * Balloon angioplasty of the left external iliac artery utilizing the 6 mm balloon mentioned above. * Closure of the left common femoral artery was achieved with a Minx closure device followed by 15 minutes of gentle manual pressure. 4. Interpretation of interventions performed: * Final arteriography demonstrated brisk brisk patent flow through the previously stenotic right superficial femoral and popliteal arteries into the proximal portions of the right peroneal and posterior tibial arteries. * Brisk flow with reduced stenosis at the left external iliac artery. Plan: 1. Aspirin 81 mg p.o. daily for life. 2. Plavix 75 mg p.o. daily x 6 months. 3. Clinical and imaging follow-up according to standard Interventional Radiology protocol.
== END | disposition home or self-care (01) ==
LOC: CHICATH 06:57
PROVIDERS: ATTEND Radiology Diagnostic Radiology
DX: I70.261 Atherosclerosis of native arteries of extremities with gangrene, right leg (principal); E11.9 Type 2 diabetes mellitus without complications; I10 Essential (primary) hypertension; I25.10 Atherosclerotic heart disease of native coronary artery without angina pectoris; Z86.73 Personal history of transient ischemic attack (TIA), and cerebral infarction without residual deficits; E78.5 Hyperlipidemia, unspecified
CPT/HCPCS: 75736; 76937; 99156; 99157; A9270-GY; C1724; C1725; C1760; C1769; C1887; C1894; C2623; J1644; J2250; J2310; J3010

== ENCOUNTER 2017-11-20 22:28 | Inpatient (IN) | payer MEDICARE, MEDICAID ==
[2017-11-20] MEDS ORDERED: Levofloxacin 750 MG IVPREMIX(* 750 MG/150 ML BAG IVPB ONE (23:11)
[2017-11-20] MEDS ORDERED: Vancomycin(*) 1,000 MG in NS 0.9% 250 ML* 250 ML IVPB ONE (23:11)
[2017-11-20] MEDS ORDERED: NS 0.9% 1000 ML* 1,000 ML IV ONE (23:11)
--- NOTE | 2017-11-20 23:20 | ED ---
Complex/Multi-Sys Presentation - HPI Summary HPI Summary: This patient is a 67 year old M BIBA to [facility] with a chief complaint of weakness since an unknown time. The patient was transferred to from [facility] for a rule-out CVA. [facility], the patient had AFib with HR in the 150s and received 3 doses of Cardizem. Patient states that he does not know why he was brought to the hospital. The patient rates the pain 0/10 in severity. Symptoms aggravated by nothing. Symptoms alleviated by nothing. Patient denies any pain. Patient has dementia and hx of 2 CVA. Patient does not know todays date. LEVEL FIVE CAVEAT DUE TO DEMENTIA. - History Of Current Complaint Chief Complaint: EDDysrhythmPalp Time Seen by Provider: 11/20/17 22:40 Hx Obtained From: Patient, EMS Severity Currently: Mild Aggravating Factor(s): nothing Alleviating Factor(s): nothing Associated Signs And Symptoms: Positive: Confusion, Weakness. Negative: Chest Pain, Abdominal Pain, Back Pain - Allergies/Home Medications Allergies/Adverse Reactions: Allergies Allergy/AdvReac Type Severity Reaction Status Date / Time Penicillins Allergy Itching Verified 08/08/17 07:50 PMH/Surg Hx/FS Hx/Imm Hx Endocrine/Hematology History: Reports: Hx Diabetes Cardiovascular History: Reports: Hx Hypercholesterolemia, Hx Hypertension, Other Cardiovascular Problems/Disorders - CAD History: Denies: Hx Acute Renal Failure Musculoskeletal History: Reports: Other Musculoskeletal History - RIGHT SHOULDER SURGERY Sensory History: Reports: Hx Contacts or Glasses Opthamlomology History: Reports: Hx Contacts or Glasses Neurological History: Reports: Hx CVA - x2, Hx Dementia, Other Neuro Impairments /Disorders - CVA - Surgical History Surgery Procedure, Year, and Place: PCI STENTS, RIGHT SHOULDER SURGERY, left forefoot amputation Hx Anesthesia Reactions: - UNSURE Infectious Disease History: No Infectious Disease History: Denies: Traveled Outside the [place] in Last 30 Days - Family History Known Family History: Positive: Unknown - unable to obtain due to AMS - Social History Alcohol Use: None Substance Use Type: Reports: None Smoking Status (MU): Unknown if Ever Smoked Review of Systems Negative: Chest Pain Negative: Abdominal Pain All Other Systems Reviewed And Are Negative: No - Comments Additional Review of Systems Comments: LEVEL FIVE CAVEAT DUE TO AMS Physical Exam - Summary Physical Exam Summary: VITAL SIGNS: Reviewed. GENERAL: Patient is a well-developed and nourished MALE who is lying comfortable in the stretcher. Patient is not in any acute respiratory distress. HEAD AND FACE: No signs of trauma. No ecchymosis, hematomas or skull depressions. No sinus tenderness. EYES: PERRLA, EOMI x 2, No injected conjunctiva, no nystagmus. EARS: Hearing grossly intact. Ear canals and tympanic membranes are within normal limits. MOUTH: Oropharynx within normal limits. NECK: Supple, trachea is midline, no adenopathy, no JVD, no carotid bruit, no c- spine tenderness, neck with full ROM. CHEST: Symmetric, no tenderness at palpation LUNGS: Clear to auscultation bilaterally. No wheezing or crackles. CVS: Irregular rate and rapid rhythm, S1 and S2 present, no murmurs or gallops appreciated. ABDOMEN: Soft, non-tender. No signs of distention. No rebound no guarding, and no masses palpated. Bowel sounds are normal. EXTREMITIES: FROM in all major joints, no cyanosis or clubbing. Left forefoot amputation. Right foot is erythematous, swollen, warm with 3 superficial ulcers to the dorsum of the foot at stage 2. Each ulcer is 3 cm in diameter. NEURO: Alert and oriented x 2. No acute neurological deficits. Speech is normal and follows commands. SKIN: Dry and warm RECTAL: Dark stool, mild fecal impaction, no masses, no hemorrhoids, send for occult blood Triage Information Reviewed: Yes Vital Signs On Initial Exam: Initial Vitals Temp Pulse Resp BP Pulse Ox 98.1 F 118 18 100/59 93 11/20/17 22:32 11/20/17 22:32 11/20/17 22:32 11/20/17 22:32 11/20/17 22:32 Vital Signs Reviewed: Yes Diagnostics - Vital Signs Vital Signs Temp Pulse Resp BP Pulse Ox 11/20/17 22:54 17 78/61 11/20/17 22:48 19 76/56 11/20/17 22:40 119 100/59 11/20/17 22:39 123 25 100/59 93 11/20/17 22:35 108 13 91 11/20/17 22:32 98.1 F 118 18 100/59 93 - Laboratory Result Diagrams: 11/20/17 23:33 10/11/18 23:33 Lab Statement: Any lab studies that have been ordered have been reviewed, and results considered in the medical decision making process. - Radiology R Foot XR Xray Interpretation: No Acute Changes - no osteomyelitis Radiology Interpretation Completed By: ED Physician - Dr. Gilbert, pending official report - EKG 22:55 Cardiac Rate: Tachycardia - at 118 bpm EKG Rhythm: Atrial Fibrillation ST Segment: Non-Specific EKG Interpretation: Afib at 118 bpm with non-specific ST-T wave changes. Complex Multi-Symp Course/Dx Course Of Treatment: This patient is a 67 year old M transferred to from [facility] for a rule-out CVA. While at [facility], the patient had AFib. Patient has dementia and hx of 2 CVA. An EKG reveals Afib at 118 bpm with non- specific ST-T wave changes. Right foot XR reveals no osteomyelitis. Hospitalist was paged at 00:22. CXR performed at [facility] reveals no acute process. Test results with no significant abnormalities except for elevated troponin. In the ED course the patient was given IV fluids, Levaquin, and Vancomycin. We discussed patient care with Dr. Fischer, hospitalist, at 03:22. Patient will be admitted to [facility]. The patient is agreeable with this plan. - Diagnoses Provider Diagnoses: Non-STEMI (non-ST elevated myocardial infarction), Cellulitis, Diabetic ulcer of right foot - Physician Notifications Discussed Care Of Patient With: Marisabel Fischer Time Discussed With Above Provider: 03:25 Instructed by Provider To: Admit As Inpatient Discharge - Sign-Out/Discharge Documenting (check all that apply): Patient Departure - admit - Discharge Plan Condition: Stable Disposition: ADMITTED TO [facility] Referrals: Bobo Erwin DO [Primary Care Provider] - - Attestation Statements Document Initiated by Scribe: Yes Documenting Scribe: Lilo Frazier Provider For Whom Scribe is Documenting (Include Credential): Sanjiv Gilbert MD Scribe Attestation: Lilo Garg, scribed for Sanjiv Gilbert MD on 11/21/17 at 1184.
[2017-11-20 23:41] LABS: ABS Basophils 0.1 10^3/ul (0-0.2); ABS Eosinophils 0.1 10^3/ul (0-0.6); ABS Lymphocytes 1.1 10^3/ul (1.0-4.8); ABS Monocytes 1.2 10^3/ul (0-0.8); ABS Nucleated RBC 0 10^3/ul; Eosinophil % 0.5 % (0-6); Hematocrit 29 % (42-52); Hemoglobin 9.5 g/dl (14.0-18.0); Lymphocyte % 7.8 % (25-47); Mean Corpuscular HGB Conc 33 g/dl (31-36); Mean Corpuscular Hemoglobin 29 pg (27-31); Mean Corpuscular Volume 87 fL (80-94); Mean Platelet Volume 7.8 um3 (7.4-10.4); Nucleated Red Blood Cells % 0; Platelet Count 180 10^3/ul (150-450); Red Blood Count 3.28 10^6/ul (4.00-5.40); Red Cell Distribution Width 15 % (10.5-15); White Blood Count 14.5 10^3/ul (3.5-10.8)
[2017-11-20 23:49] LABS: INR 1.34 (0.77-1.02)
[2017-11-20 23:58] LABS: EGFR Non-African American 71.5 (>60)
[2017-11-21] MEDS ORDERED: NS 0.9% 1000 ML* 1,000 ML IV ONE ×3 (00:42→01:20)
[2017-11-21] MEDS ORDERED: NS 0.9% 1000 ML*IV.FLUID IV ONE (02:13)
[2017-11-21 02:17] LABS: Urine Appearance Cloudy; Urine Blood Negative (Negative); Urine Color Amber; Urine Ketones Negative (Negative); Urine Protein 1+(30 mg/dL) (Negative); Urine Red Blood Cell Trace(0-2/hpf) (Absent); Urine Specific Gravity 1.028 (1.010-1.030); Urine Urobilinogen Negative (Negative); Urine White Blood Cell 2+(11-20/hpf) (Absent)
[2017-11-21] MEDS ORDERED: Albuterol 2.5 MG/3 ML NEB.SOL* (0.083%) INH PRN (04:12)
[2017-11-21] MEDS ORDERED: Acetaminophen TAB* 325 MG PO PRN (04:12)
[2017-11-21] MEDS ORDERED: Morphine INJ* 2 MG/ML 1 ML SYRINGE (TWO MG - NEW SYRINGE VERSION) IV PRN (04:12)
[2017-11-21] MEDS ORDERED: NS 0.9% 1000 ML* 1,000 ML IV SCH (04:15)
[2017-11-21] MEDS ORDERED: Dextrose 50% Syringe 50 ML* 25 GM/50 ML SYRINGE IV PUSH PRN (04:22)
--- NOTE | 2017-11-21 04:38 | ADMNOTE ---
Subjective Date of Service: 11/21/17 Interval History: poor historian with cva hx this is a h/p for admission hpi 67 yr old wm with hx of a fib type ii dm with chronic r dorsum wound was found " not himself " by his ex- brought to [facility]. pt was found in rapid a fib got three doses of cardizem 20 mg iv from [facility] + one liter of ns ---> he was found to be rapid a fib with hr [address] t change but + trop 3.1 with normal creatinine---> one dose of asa 325 and lovenox theraputic dose given ---> pt got two more liter ns bolus from er trop went down 1.5 when repeated here. initial wbc was 14-15. r foot was wrapped and two ulcers seen on the r dosrum of foot. one was draining with pus ---> mri of foot may be needed to further eval the wound pt's prior wound cx 2017 + psudomonas s to levaquin pruett sensitive e facalies and staph Family History: Findings - unable Social History: Findings - unable comes from home though Past Medical History: Findings - type ii dm a fib cva twice cad s/p stents htn hyperlipidemia pshx s/p left foot amputation Review of Systems - Measurements Intake and Output: Intake and Output Last 24 Hours 11/18/17 11/19/17 11/20/17 11/21/17 06:59 06:59 06:59 06:59 Intake Total 2150 Balance 2150 Intake: IV Fluids 2149 - Review of Systems General Comments: unable Objective Active Medications: Acetaminophen (Tylenol Tab*) 650 mg PO Q4H PRN PRN Reason: FEVER/PAIN Albuterol (Ventolin 2.5 Mg/3 Ml Neb.Shelley*) 2.5 mg INH [id number] AWAKE PRN PRN Reason: sob/wheezing Ascorbic Acid (Vitamin C Tab*) 500 mg PO DAILY [facility] Aspirin (Aspirin Ec Tab*) 325 mg PO DAILY NAAI Atorvastatin Calcium (Lipitor*) 40 mg PO QPM [facility] Clopidogrel Bisulfate (Plavix Tab*) 75 mg PO DAILY [facility] Dextrose (D50w Syringe 50 Ml*) 12.5 gm IV PUSH .FOR FS < 60 - SS PRN PRN Reason: FS < 60 Docusate Sodium (Colace Cap*) 100 mg PO BID [facility] Ferrous Sulfate (Ferrous Sulfate Tab*) 325 mg PO DAILY [facility] Heparin Sodium (Porcine) (Heparin Vial(*)) 5,000 units SUBCUT Q8HR [facility] Sodium Chloride (Ns 0.9% 1000 Ml*) 1,000 mls @ 125 mls/hr IV PER RATE [facility] Vancomycin HCl 1,000 mg/ (Sodium Chloride) 250 mls @ 166.667 mls/hr IVPB .CONTINUE PROTOCOL ANAI; Protocol Piperacillin Sod/Tazobactam (Sod 3.375 gm/ Sodium Chloride) 100 mls @ 25 mls/ hr IVPB Q8H [facility] Insulin Human Lispro (Humalog*) 0 units SUBCUT ACHS [facility]; Protocol Losartan Potassium (Cozaar Tab*) 25 mg PO DAILY [facility] Morphine Sulfate (Morphine Inj ((Syringe))*) 2 mg IV Q4H PRN PRN Reason: PAIN - MILD Non-Formulary Medication (Insulin Glargine,Hum.Rec.Anlog [Basaglar Kwikpen U-100 ]) 10 units SUBCUT BEDTIME [facility] Non-Formulary Medication (Linagliptin (Nf) [Tradjenta (Nf)]) 5 mg PO DAILY [facility] Paroxetine HCl (Paxil Tab*) 20 mg PO DAILY [facility] Senna (Senokot Tab*) 1 tab PO BID [facility] Vital Signs - 8 hr 11/20/17 11/20/17 11/20/17 22:32 22:35 22:39 Temperature 98.1 F Pulse Rate 118 108 123 Respiratory 18 13 25 Rate Blood Pressure 100/59 100/59 (mmHg) O2 Sat by Pulse 93 91 93 Oximetry 11/20/17 11/20/17 11/20/17 22:40 22:48 22:54 Temperature Pulse Rate 119 Respiratory 19 17 Rate Blood Pressure 100/59 76/56 78/61 (mmHg) O2 Sat by Pulse Oximetry 11/20/17 11/20/17 11/20/17 22:58 23:00 23:08 Temperature Pulse Rate 110 117 Respiratory 16 19 19 Rate Blood Pressure 92/52 100/54 (mmHg) O2 Sat by Pulse 92 Oximetry 11/20/17 11/21/17 11/21/17 23:48 00:00 00:33 Temperature Pulse Rate 106 106 Respiratory 24 9 12 Rate Blood Pressure 85/52 (mmHg) O2 Sat by Pulse 93 94 Oximetry 11/21/17 11/21/17 11/21/17 00:34 00:37 00:39 Temperature Pulse Rate 103 103 112 Respiratory 12 18 18 Rate Blood Pressure 75/48 77/43 77/54 (mmHg) O2 Sat by Pulse 92 94 90 Oximetry 11/21/17 11/21/17 11/21/17 00:47 00:54 00:57 Temperature Pulse Rate 115 99 105 Respiratory 24 19 10 Rate Blood Pressure 71/55 86/54 82/52 (mmHg) O2 Sat by Pulse 83 69 91 Oximetry 11/21/17 11/21/17 11/21/17 01:00 01:05 01:06 Temperature Pulse Rate 102 100 103 Respiratory 16 30 19 Rate Blood Pressure 69/52 85/57 (mmHg) O2 Sat by Pulse 92 93 Oximetry 11/21/17 11/21/17 11/21/17 01:07 01:17 01:27 Temperature Pulse Rate 92 98 Respiratory 14 16 23 Rate Blood Pressure 85/57 91/60 88/57 (mmHg) O2 Sat by Pulse 93 96 Oximetry 11/21/17 11/21/17 11/21/17 01:38 01:47 01:53 Temperature Pulse Rate 102 98 Respiratory 20 16 Rate Blood Pressure 79/53 81/59 (mmHg) O2 Sat by Pulse 97 93 96 Oximetry 11/21/17 11/21/17 11/21/17 01:57 02:00 02:01 Temperature Pulse Rate 95 96 102 Respiratory 21 11 18 Rate Blood Pressure 88/56 93/56 (mmHg) O2 Sat by Pulse 96 96 96 Oximetry 11/21/17 11/21/17 11/21/17 02:08 02:09 02:24 Temperature Pulse Rate 99 111 100 Respiratory 18 13 22 Rate Blood Pressure 77/52 77/54 86/54 (mmHg) O2 Sat by Pulse 92 95 93 Oximetry 11/21/17 11/21/17 11/21/17 02:39 02:54 03:00 Temperature Pulse Rate 97 109 110 Respiratory 24 19 18 Rate Blood Pressure 84/56 84/61 (mmHg) O2 Sat by Pulse 91 92 91 Oximetry 11/21/17 11/21/17 11/21/17 03:09 03:24 03:39 Temperature Pulse Rate 113 Respiratory 23 19 22 Rate Blood Pressure 101/63 101/57 87/61 (mmHg) O2 Sat by Pulse 94 Oximetry 11/21/17 11/21/17 11/21/17 03:43 03:45 03:47 Temperature Pulse Rate 104 113 Respiratory 24 15 25 Rate Blood Pressure 80/54 72/55 86/56 (mmHg) O2 Sat by Pulse 87 96 Oximetry 11/21/17 11/21/17 11/21/17 03:52 03:54 03:57 Temperature Pulse Rate 121 112 98 Respiratory 25 28 28 Rate Blood Pressure 90/58 83/54 84/55 (mmHg) O2 Sat by Pulse 93 93 93 Oximetry 11/21/17 11/21/17 11/21/17 04:00 04:01 04:11 Temperature Pulse Rate 108 111 116 Respiratory 21 25 32 Rate Blood Pressure 92/58 107/28 (mmHg) O2 Sat by Pulse 94 91 97 Oximetry 11/21/17 11/21/17 04:19 04:22 Temperature Pulse Rate 117 114 Respiratory 27 25 Rate Blood Pressure 81/57 103/66 (mmHg) O2 Sat by Pulse 97 94 Oximetry Oxygen Devices in Use Now: Nasal Cannula Eyes: No Scleral Icterus Ears/Nose/Mouth/Throat: - - oral mucosa dry pt does not follow commands Neck: Trachea Midline, No Thyroid Enlargement, Masses - no jvd Respiratory: Symmetrical Chest Expansion and Respiratory Effort, - - decreased b /s b/l Cardiovascular: - - s1 s2 irr irr Abdominal: NL Sounds; No Tenderness; No Distention Extremities: - - left forefoot amputation r dorsum + two ulcers one size of dime but one is draining puz Skin: - - two dime size ulcers seen on the dorsum of r foot with erythema surrounding the wound Neurological: - - unable does not follow commands Result Diagrams: 11/22/17 05:00 11/22/17 08:44 Microbiology and Other Data: Microbiology 11/21/17 00:23 Stool Occult Blood (CAN) - Final Stool EKG Data: rapid a fib but no ekg change seen in other facility Assess/Plan/Problems-Billing Assessment: 67 yr old wm with poor compliance with medical care type ii dm but insulin dep multiple med problems was sent to local er by ex because " he was not himself " pt was found to have rapid a fib got three doses of cardizem 20 mg iv from [facility] ---> he was found to have trop of [address] t changes despite of rapid a fib pt has two dorsum ulcer size of a dime with one draining puz initial wbc is 14 dx is dm infected foot ulcer with cellulitis - Patient Problems (1) DM foot ulcers Current Visit: Yes Status: Acute Code(s): E11.621 - TYPE 2 DIABETES MELLITUS WITH FOOT ULCER; L97.509 - NON-PRESSURE CHRONIC ULCER OTH PRT UNSP FOOT W UNSP SEVERITY SNOMED Code(s): 965332373 Comment: - got levaquin based upon prior wound cx 2016 ---> ? CLINDA MIGHT BE ANOTHER CHOICE - MAY NEED TO ADD ON VANCO - WOUND CX - consider mri of foot once stable (2) Cellulitis and abscess of foot excluding toe Current Visit: Yes Status: Acute Code(s): L03.119 - CELLULITIS OF UNSPECIFIED PART OF LIMB; L02.619 - CUTANEOUS ABSCESS OF UNSPECIFIED FOOT SNOMED Code(s): 601102395 Comment: plan as dm foot ulcer since this cellulitis was due to dm foot ulcer (3) Rapid atrial fibrillation Current Visit: Yes Status: Acute Code(s): I48.91 - UNSPECIFIED ATRIAL FIBRILLATION SNOMED Code(s): 535991607 Comment: hr was <110 sbp sustaining with no pressors yet - tele - consider low dose of coreg if sbp tolerates---> espically he ri for mi (4) HTN (hypertension) Current Visit: Yes Status: Acute Code(s): I10 - ESSENTIAL (PRIMARY) HYPERTENSION SNOMED Code(s): 20535967 (5) Sepsis affecting skin Current Visit: Yes Status: Acute Code(s): A41.9 - SEPSIS, UNSPECIFIED ORGANISM SNOMED Code(s): 792060534 Comment: abx as the above (6) CAD (coronary artery disease) Current Visit: Yes Status: Acute Code(s): I25.10 - ATHSCL HEART DISEASE OF [place] CORONARY ARTERY W/O ANG PCTRS SNOMED Code(s): 22087933 (7) CVA (cerebral vascular accident) Current Visit: Yes Status: Acute Code(s): I63.9 - CEREBRAL INFARCTION, UNSPECIFIED SNOMED Code(s): 009627428 Comment: confused but arousable this narrative writer did not think head ct needed on admision (8) Hyperlipidemia Current Visit: Yes Status: Acute Code(s): E78.5 - HYPERLIPIDEMIA, UNSPECIFIED SNOMED Code(s): 46448463 Comment: lft wnl outpt meds (9) Non-ST elevated myocardial infarction Current Visit: Yes Status: Acute Code(s): I21.4 - NON-ST ELEVATION (NSTEMI) MYOCARDIAL INFARCTION SNOMED Code(s): 624221061 Comment: this is due to infection triggered rapid a fib trop intially was 3 with normal renal funciton no acute st t change seen on ekg and trop trended downwards - plavix and asa as tolerated - coreg low dose considered if sbp tolerates (10) Type II diabetes mellitus Current Visit: Yes Status: Acute Comment: ck a1c - lantus 10 in am along with ss
[2017-11-21] MEDS ORDERED: Vancomycin(*) 1,000 MG in NS 0.9% 250 ML* 250 ML IVPB SCH (05:00)
[2017-11-21] MEDS: Piperacillin/Tazobac ADVAN(*) 3.375 GM in NS 0.9% 100 ML* 100 ML IVPB SCH ×3 (05:52→22:30)
[2017-11-21] MEDS ORDERED: Vancomycin per Pharmacy* NOTE FOLLOW UP PRN (06:17)
[2017-11-21 06:42] LABS: EGFR Non-African American 91.4 (>60)
[2017-11-21] MEDS: Heparin VIAL(*) 5000 UNITS/ML VIAL (FIVE THOUSAND) SUBCUT SCH ×2 (06:43→22:14)
[2017-11-21] MEDS ORDERED: Insulin LISPRO* 1 UNITS UNIT SUBCUT SCH (07:30)
[2017-11-21] MEDS: Vancomycin(*) 1,000 MG in NS 0.9% 250 ML* 250 ML IVPB SCH ×2 (07:56→18:18)
--- NOTE | 2017-11-21 08:07 | RAD ---
Indication: Concern for osteomyelitis at the RIGHT foot. Comparison: No relevant prior exams available on the [facility] PACS for comparison. Technique: AP, lateral, and oblique views RIGHT foot. Report: Soft tissue swelling most prominent over the dorsum of the foot. No conspicuous foreign body or subcutaneous emphysema. Negative for fracture, malalignment, periosteal reaction, osteolysis, or osteosclerosis. Minimal polyarticular osteoarthritis. IMPRESSION: #. Nonspecific soft tissue swelling over the dorsum of the foot. #. No radiographic findings to indicate osteomyelitis. R0
[2017-11-21] MEDS ORDERED: Aspirin EC TAB* 81 MG TAB.EC PO SCH ×2 (09:00)
[2017-11-21] MEDS ORDERED: LINAGLIPTIN 5 MG PO SCH (09:00)
[2017-11-21] MEDS ORDERED: Losartan TAB* 25 MG PO SCH (09:00)
[2017-11-21] MEDS: Insulin LISPRO* 1 UNITS UNIT SUBCUT SCH ×4 (09:07→22:27)
[2017-11-21] MEDS: Ascorbic Acid TAB* 500 MG PO SCH (09:13)
[2017-11-21] MEDS: Senna TAB PO SCH ×3 (09:13→22:40)
[2017-11-21] MEDS: Ferrous Sulfate TAB* 325 MG PO SCH (09:13)
[2017-11-21] MEDS: PARoxetine HCL TAB* 10 MG PO SCH (09:13)
[2017-11-21] MEDS: Clopidogrel TAB* 75 MG PO SCH (09:13)
[2017-11-21] MEDS: Docusate CAP* 100 MG PO SCH ×2 (09:13→22:29)
--- NOTE | 2017-11-21 09:33 | PN ---
Date of Service: 11/21/17 Critical Care Services: 67M with htn, hld, dm, cad, h/o cva, dementia transferred from an outside hospital evaluation of altered mental status, afib with rvr, and sepsis 2/2 right foot cellulitis/ulcer. The patient is pleasant but confused. He is a poor historian. 11/21: Afib with RVR has resolved. BP soft. Mentating well. Confused. Vital Signs: Temp Pulse Resp BP SpO2 FiO2 98.5 F 84 24 94/55 92 11/21/17 07:50 11/21/17 08:01 11/21/17 08:01 11/21/17 08:00 11/21/17 08:01 Physical Exam: Gen - nad, confused heent - ncat, eomi, perrl neck - no jvd cv - s1/s2, no murmur lungs - cta, no wheeze abd - soft nt, nd ext - rle swelling erythema, +draining ulcer neuro - awake, alert, confused Fluid Balance (Past 24 Hours): I= O= Net Intake & Output 11/19/17 11/20/17 11/21/17 11/22/17 06:59 06:59 06:59 06:59 Intake Total 2150 Output Total 150 Balance 2150 -150 Weight 78.7 kg Intake: IV Fluids 2150 Output: Michael 150 Labs: Laboratory Results - last 24 hr 11/20/17 11/20/17 11/20/17 23:33 23:33 23:33 WBC 14.5 H RBC 3.28 L Hgb 9.5 L Hct 29 L MCV 87 MCH 29 MCHC 33 RDW 15 Plt Count 180 MPV 7.8 Neut % (Auto) 82.5 Lymph % (Auto) 7.8 L [place] % (Auto) 8.6 H Eos % (Auto) 0.5 Baso % (Auto) 0.6 Absolute Neuts (auto) 12.0 H Absolute Lymphs (auto) 1.1 Absolute Monos (auto) 1.2 H Absolute Eos (auto) 0.1 Absolute Basos (auto) 0.1 Absolute Nucleated RBC 0 Nucleated RBC % 0 ESR 85 H INR (Anticoag Therapy) 1.34 H APTT 37.8 H Sodium 137 Potassium 3.7 Chloride 105 Carbon Dioxide 26 Anion Gap 6 BUN 27 H Creatinine 1.04 Est GFR ( Amer) 86.5 Est GFR (Non-Af Amer) 71.5 BUN/Creatinine Ratio 26.0 H Glucose 205 H POC Glucose (mg/dL) Lactic Acid Calcium 7.6 L Total Bilirubin 0.80 AST 32 ALT 16 Alkaline Phosphatase 83 Total Creatine Kinase 257 H Troponin I 2.50 H* C-Reactive Protein 214.89 H C-React Prot High Sens B-Natriuretic Peptide Total Protein 5.4 L Albumin 2.8 L Globulin 2.6 Albumin/Globulin Ratio 1.1 TSH Urine Color Urine Appearance Urine pH Ur Specific [place] Urine Protein Urine Ketones Urine Blood Urine Nitrate Urine Bilirubin Urine Urobilinogen Ur Leukocyte Esterase Urine WBC (Auto) Urine RBC (Auto) Ur Squamous Epith Cells Urine Bacteria Hyaline Casts Granular Casts Urine Glucose Urine Ascorbic Acid Blood Type Antibody Screen 11/20/17 11/20/17 11/21/17 23:33 23:33 01:56 WBC RBC Hgb Hct MCV MCH MCHC RDW Plt Count MPV Neut % (Auto) Lymph % (Auto) [place] % (Auto) Eos % (Auto) Baso % (Auto) Absolute Neuts (auto) Absolute Lymphs (auto) Absolute Monos (auto) Absolute Eos (auto) Absolute Basos (auto) Absolute Nucleated RBC Nucleated RBC % ESR INR (Anticoag Therapy) APTT Sodium Potassium Chloride Carbon Dioxide Anion Gap BUN Creatinine Est GFR ( Amer) Est GFR (Non-Af Amer) BUN/Creatinine Ratio Glucose POC Glucose (mg/dL) Lactic Acid 1.2 Calcium Total Bilirubin AST ALT Alkaline Phosphatase Total Creatine Kinase Troponin I C-Reactive Protein C-React Prot High Sens B-Natriuretic Peptide 287 H Total Protein Albumin Globulin Albumin/Globulin Ratio TSH Urine Color Marni Urine Appearance Cloudy Urine pH 5.0 Ur Specific [place] 1.028 Urine Protein 1+(30 mg/dl) A Urine Ketones Negative Urine Blood Negative Urine Nitrate Negative Urine Bilirubin Negative Urine Urobilinogen Negative Ur Leukocyte Esterase Trace A Urine WBC (Auto) 2+(11-20/hpf) A Urine RBC (Auto) Trace(0-2/hpf) Ur Squamous Epith Cells Present A Urine Bacteria Absent Hyaline Casts Present A Granular Casts Present A Urine Glucose Negative Urine Ascorbic Acid * A Blood Type Antibody Screen 11/21/17 11/21/17 11/21/17 02:44 02:44 06:03 WBC RBC Hgb Hct MCV MCH MCHC RDW Plt Count MPV Neut % (Auto) Lymph % (Auto) [place] % (Auto) Eos % (Auto) Baso % (Auto) Absolute Neuts (auto) Absolute Lymphs (auto) Absolute Monos (auto) Absolute Eos (auto) Absolute Basos (auto) Absolute Nucleated RBC Nucleated RBC % ESR INR (Anticoag Therapy) APTT Sodium 136 Potassium 3.9 Chloride 109 Carbon Dioxide 21 L Anion Gap 6 BUN 23 Creatinine 0.84 Est GFR ( Amer) 110.6 Est GFR (Non-Af Amer) 91.4 BUN/Creatinine Ratio 27.4 H Glucose 231 H POC Glucose (mg/dL) Lactic Acid 0.6 Calcium 7.5 L Total Bilirubin AST ALT Alkaline Phosphatase Total Creatine Kinase Troponin I 1.87 H* 1.44 H* C-Reactive Protein C-React Prot High Sens 189.30 H B-Natriuretic Peptide Total Protein Albumin Globulin Albumin/Globulin Ratio TSH 6.64 H Urine Color Urine Appearance Urine pH Ur Specific [place] Urine Protein Urine Ketones Urine Blood Urine Nitrate Urine Bilirubin Urine Urobilinogen Ur Leukocyte Esterase Urine WBC (Auto) Urine RBC (Auto) Ur Squamous Epith Cells Urine Bacteria Hyaline Casts Granular Casts Urine Glucose Urine Ascorbic Acid Blood Type Antibody Screen 11/21/17 11/21/17 06:03 08:12 WBC RBC Hgb Hct MCV MCH MCHC RDW Plt Count MPV Neut % (Auto) Lymph % (Auto) [place] % (Auto) Eos % (Auto) Baso % (Auto) Absolute Neuts (auto) Absolute Lymphs (auto) Absolute Monos (auto) Absolute Eos (auto) Absolute Basos (auto) Absolute Nucleated RBC Nucleated RBC % ESR INR (Anticoag Therapy) APTT Sodium Potassium Chloride Carbon Dioxide Anion Gap BUN Creatinine Est GFR ( Amer) Est GFR (Non-Af Amer) BUN/Creatinine Ratio Glucose POC Glucose (mg/dL) 260 H Lactic Acid Calcium Total Bilirubin AST ALT Alkaline Phosphatase Total Creatine Kinase Troponin I C-Reactive Protein C-React Prot High Sens B-Natriuretic Peptide Total Protein Albumin Globulin Albumin/Globulin Ratio TSH Urine Color Urine Appearance Urine pH Ur Specific [place] Urine Protein Urine Ketones Urine Blood Urine Nitrate Urine Bilirubin Urine Urobilinogen Ur Leukocyte Esterase Urine WBC (Auto) Urine RBC (Auto) Ur Squamous Epith Cells Urine Bacteria Hyaline Casts Granular Casts Urine Glucose Urine Ascorbic Acid Blood Type O Positive Antibody Screen Negative Studies: IMPRESSION: #. Nonspecific soft tissue swelling over the dorsum of the foot. #. No radiographic findings to indicate osteomyelitis. Impression: 67M with htn, hld, dm, cad, h/o cva, dementia transferred from an outside hospital evaluation of altered mental status, afib with rvr, and sepsis 2/2 right foot cellulitis/ulcer. Plan: Neuro - dementia - awake, alert, confused - redirect prn CV - htn, hld, cad, afib, hypotension, nstemi - elevated trop 2/2 demand from afib and sepsis - hr now improved - check tte - hold off on heparin gtt for now - c/w asa/statin/plavix - betablocker if bp tolerates Pulm - oxygenating ok on room air ID - sepsis 2/2 RLE cellulitis/ulcer - f/u cultures - vanc/zosyn - lactate normal - surgery eval for possible debridement GI - diet as tolerated Renal - monitor i/o - monitor lytes Heme - monitor cbc - c/w po iron Endo - dm - check fs, niss, lantus Lines - piv, picc placement today PPx - gi/dvt Full Code Critical Care Time: 50 mins
[2017-11-21] MEDS ORDERED: Zosyn per Pharmacy* NOTE FOLLOW UP SCH (10:00)
--- NOTE | 2017-11-21 10:06 | RAD ---
HISTORY: shortness of breath COMPARISONS: November 20, 2017 VIEWS: 1: frontal AP view of the chest at 9:47 AM FINDINGS: LINES AND TUBES: None. CARDIOMEDIASTINAL SILHOUETTE: The cardiomediastinal silhouette is normal for portable technique. PLEURA: The costophrenic angles are sharp. No pleural abnormalities are noted. LUNG PARENCHYMA: The lung volumes are low. The lungs are clear accounting for the phase of respiration. ABDOMEN: The upper abdomen is clear. There is no subphrenic gas. BONES AND SOFT TISSUES: No bone or soft tissue abnormalities are noted. IMPRESSION: LOW LUNG VOLUMES. NO ACTIVE CARDIOPULMONARY DISEASE.
--- NOTE | 2017-11-21 10:55 | ECHO ---
Amended Report Patient: EDYTA PLATT [facility] Rec#: [id number] : 1950 Date: 11/21/2017 Age: 67y Height: 155 cm / 61.0 in Weight: 79 kg / 174.1 lbs Sex: M BSA: 1.78 Room#: ICU 2 Admit Date#: 11/21/2017 Type: Inpatient Referring: Salvador Knox DO Reading: Edilson Castro MD Community Services Coordinator: Stacey Irving RDCS,RDMS CC: Bobo Erwin DO Transthoracic Echocardiogram Indication: NSTEMI BP: 94/55 HR: 91 Rhythm: NSR Findings History: AFIB, CAD, PCI, DM, HTN, HLD, CVA Technical Comments: The study quality is fair. Left Ventricle: The left ventricular chamber size is decreased. Mild concentric left ventricular hypertrophy is observed. There is a prominent septal knuckle. Global left ventricular wall motion and contractility are within normal limits. There is normal left ventricular systolic function. The estimated ejection fraction is 55-60%. There is no consistent Doppler evidence of clinically significant diastolic dysfunction. Left Atrium: The left atrial chamber size is normal. Right Ventricle: The right ventricle is not well visualized. The right ventricular cavity size is normal. The right ventricular global systolic function is normal. Right Atrium: The right atrial cavity size is normal. Aortic Valve: The aortic valve structure is not well visualized.in terms of leaflet number ascertainment. The aortic valve leaflets are mildly thickened. There is aortic annular calcification. There is no evidence of aortic regurgitation. There is no evidence of aortic stenosis. Mitral Valve: There is mitral annular calcification. The mitral valve leaflets are mildly thickened. There is no evidence of mitral regurgitation. Tricuspid Valve: The tricuspid valve leaflets are normal. There is no evidence of tricuspid valve regurgitation. Unable to estimate the right ventricular systolic pressure. Pulmonic Valve: The pulmonic valve structure is not well visualized. There is no evidence of pulmonic regurgitation. There is no pulmonic stenosis. Pericardium: There is no significant pericardial effusion. Aorta: The aortic root appears normal. There is no dilatation of the aortic arch. Pulmonary Artery: The main pulmonary artery is not well visualized. Venous: The inferior vena cava is dilated. There is a greater than 50% respiratory change in the inferior vena cava dimension. Conclusions There is normal left ventricular systolic function. The estimated left ventricular ejection fraction is 55-60%. Normal left ventricular wall motion. The left ventricular chamber size is decreased. Mild concentric left ventricular hypertrophy is observed. Functionally benign heart valves Since the prior echocardiogram completed 11/05/12, pertinent changes are prior mildly depressed left ventricular ejection fraction reported at 40-45% and prior normal left ventricular size reported. Measurements Name Value Normal Range RVIDd (AP) 2D 3.3 cm (0.9 - 2.6) RAd ISD 4CH 5 cm (3.4 - 4.9) RA (A4C)W 3.3 cm (2.9 - 4.6) IVSd (2D) 1.2 cm (0.6 - 1) LVPWd (2D) 1.2 cm (0.6 - 1) LVIDd (2D) 3.5 cm (3.6 - 5.4) LVIDs (2D) 2.6 cm - LV FS (2D) 25 % (25 - 45) Aortic Annulus 2.3 cm (1.4 - 2.6) Ao root diameter (2D) 3.2 cm (2.1 - 3.5) Ascending Ao 3.4 cm (2.1 - 3.4) Aortic arch 3 cm (1.8 - 3.4) LA ISD 4CH W 4.3 cm (2.5 - 4.5) Name Value Normal Range LA ESV BP (A/L) index 28 ml/m2 - Name Value Normal Range MV E-wave Vmax 1 m/sec - MV deceleration time 98 msec - MV A-wave Vmax 0.7 m/sec - MV E:A ratio 1.4 ratio - LV septal e' Vmax 0.07 m/sec - LV lateral e' Vmax 0.08 m/sec - LV E:e' septal ratio 15 ratio - LV E:e' lateral ratio 12 ratio - Name Value Normal Range AV Vmax 1.2 m/sec - AV VTI 26 cm - AV peak gradient 6 mmHg - AV mean gradient 4 mmHg - LVOT Vmax 0.7 m/sec - LVOT VTI 14 cm - LVOT peak gradient 2 mmHg - LVOT mean gradient 1 mmHg - PRINCESS Vmax 0.8 m/sec - Name Value Normal Range RAP 8 mmHg - IVC diameter 2.3 cm - Name Value Normal Range PV Vmax 0.6 m/sec - PV peak gradient 1.4 mmHg -
[2017-11-21] MEDS: Aspirin EC TAB* 325 MG PO SCH (12:12)
--- NOTE | 2017-11-21 12:18 | RAD ---
HISTORY: r/o dvt COMPARISONS: None relevant TECHNIQUE: Multiple transverse and longitudinal ultrasound images were obtained of the bilateral lower extremities from the level of the common femoral vein inferiorly through to the infrapopliteal veins using grayscale, color Doppler, and spectral Doppler imaging with and without compression and with augmentation. FINDINGS: VEINS: The venous system of the bilateral lower extremities is compressible throughout its course, with normal flow on color Doppler imaging and normal response to augmentation on spectral Doppler imaging. SOFT TISSUES: Unremarkable. OTHER FINDINGS: None. IMPRESSION: NO RIGHT LOWER EXTREMITY DEEP VEIN THROMBOSIS. NO LEFT LOWER EXTREMITY DEEP VEIN THROMBOSIS.
--- NOTE | 2017-11-21 13:36 | CONS ---
CC: [facility] CONSULTATION REPORT: DATE OF CONSULT: 11/21/17 REFERRING PROVIDER: Dr. Salvador Knox, party plan sales director. REASON FOR CONSULT: Right chronic foot ulceration with cellulitis and sepsis. HISTORY OF PRESENT ILLNESS: Mr. Davy Carlos is a 67-year-old gentleman, who I saw for the first ti me this past Friday in the wound center. He has had 2 chronic nonhealing ulcers on the distal christophe n and proximal dorsum of his foot. He has been seen in the Wound Center multiple times by Dr. Patel booker and also by Dr. Hickey from Dermatology over the past year to year and a half. In addition, Dr. Andrea mccord has performed angioplasty on his right lower extremity with subsequent improvement in the inflo w as documented by noninvasive studies. However, the ulcer on the anterior foot has not healed and he has exposed tendon and despite aggressi ve wound care with several different regimens, he has not had improvement and some worsening. Apparently, over the last several days, he had developed a fever and had some mental status changes. He was seen in [facility] yesterday and was transferred here and was subsequently noted to have elevated troponins and was in atrial fibrillation and there was concern for cellulitis and/o r sepsis secondary to the right foot ulcer and he was subsequently admitted to the intensive care [facility]. He was noted to have a white blood cell count of 14,000. His troponin level initially on presentatio n was 2.5 and has subsequently come down to 1.44. He does have an elevated C-reactive protein of 189 . He was scheduled for an outpatient MRI, but this has not been completed yet. He has been started on IV vancomycin and Zosyn. Surgical consultation was obtained. PAST MEDICAL HISTORY: 1. History of cerebrovascular accident. 2. Atrial fibrillation. 3. Hypertension. 4. Coronary artery disease. 5. Hyperlipidemia. 6. 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 PAST SURGICAL HISTORY: Left transmetatarsal amputation due to nonhealing toe ulcers on the left foot . MEDICATIONS: Medicines at home included: 1. Clopidogrel. 2. Paxil. 3. Losartan. 4. Aspirin. 5. Vitamin C. 6. Tradjenta. 7. Insulin. 8. Ferrous sulfate. 9. Lipitor. ALLERGIES: He is allergic to PENICILLIN. SOCIAL HISTORY: He is a nonsmoker, but quit many years ago. 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 He is not independent. REVIEW OF SYSTEMS: Not able to be obtained from the patient. PHYSICAL EXAM: Temperature 99.5, pulse 97, blood pressure 101/63. In general, he is an older male, appears to be in no apparent distress. He is alert and very pleasant, but not oriented to time or pl narinder. In the right lower extremity, he has some mild swelling in the right foot. He has a chronic ap pearing ulcer with exposed tendon over the proximal dorsum of the foot and this does track superiorly up to 6 to 7 cm and there is some purulent discharge and drainage. There is some erythema of the sk in surrounding the entire foot. The toes appear to be intact. He appears to have a posterior tibial pulse that is palpable, but no dorsalis pedis pulse. More superior to the ulcer is a more superficia l, only skin involvement ulceration. IMPRESSION: Chronic nonhealing ulcer of the right foot. It appears to be secondary to pressure and multiple other issues including significant medical comorbidities. His last ABIs noted adequate circ ulation after an angioplasty of the superficial femoral artery with Dr. Dunaway. I do not believe dianna t there are any further inflow or vascular interventions that would help in this situation. For some reason, reviewing the wound center notes, despite multiple specialties being involved and mu ltiple wound care regimens, this wound has not healed and seems to be progressively worsening. I bel ieve that this is the first time he has been admitted for infection and/or sepsis. RECOMMENDATIONS: To continue with IV antibiotics and wound care. I believe an MRI is indicated of t he foot and distal leg to rule out deeper infection and/or osteomyelitis. I also would recommend an orthopedic consultation from the foot service for serious consideration of possible amputation, although this certainly would eliminate any opportunity for ambulation and/or tr viral with his associated medical conditions. Thank you for the consultation. I discussed all of this with Dr. Knox. We will follow him closel y with you. [id number]/[facility] #: [id number]
[2017-11-21] MEDS ORDERED: Metoprolol Tartrate TAB* 25 MG PO SCH (14:00)
[2017-11-21] MEDS ORDERED: Ondansetron INJ* 2 MG/ML VIAL ONE (14:05)
[2017-11-21] MEDS ORDERED: Metoprolol Tartrate IV* 1 MG/ML 5 ML VIAL IV ONE (14:16)
--- NOTE | 2017-11-21 15:10 | RAD ---
HISTORY: picc placement COMPARISONS: November 21, 2017 at 1:45 AM VIEWS: 2 : frontal AP view of the chest at 2:20 PM and 2:45 PM FINDINGS: LINES AND TUBES: A right-sided PICC line is noted. On the limited images, the PICC line is noted with the tip overlying the cavoatrial junction. CARDIOMEDIASTINAL SILHOUETTE: The cardiomediastinal silhouette is normal for portable technique. PLEURA: The costophrenic angles are sharp. No pleural abnormalities are noted. LUNG PARENCHYMA: There is diffuse coarse pattern of reticular opacification. ABDOMEN: The upper abdomen is clear. There is no subphrenic gas. BONES AND SOFT TISSUES: No bone or soft tissue abnormalities are noted. IMPRESSION: 1. LINES AND TUBES ABOVE. 2. CHRONIC APPEARING INTERSTITIAL CHANGES
[2017-11-21] MEDS ORDERED: Etomidate* 2 MG/ML 20 ML VIAL (40 MG) ONE (15:20)
[2017-11-21] MEDS ORDERED: Propofol* 100 ML ONE (15:20)
[2017-11-21] MEDS ORDERED: Succinylcholine* 20 MG/ML 10 ML VIAL ONE ×2 (15:20)
[2017-11-21] MEDS: Norepinephrine 16MCG/ML IVPRE* 4,000 MCG/250 ML BAG IV SCH (15:30)
--- NOTE | 2017-11-21 15:40 | OP ---
Operative Report - Blank - Operative Report Date of Operation: 11/21/17 Note: Endotracheal Intubation Date: 11/21/17 Time: 3:00pm Indication: Respiratory Distress Attending: Lisette Castillo time-out was completed verifying correct patient, procedure, site, positioning , and special equipment if applicable. The patient was placed in a flat position. Sedation was obtained using with Etomidate 20mg. The patient was easily ventilated using an ambu bag. The GLIDESCOPE 3 BLADE was used and inserted into the oropharynx at which time there was a Grade 1 view of the vocal cords. A 7.5-mauritanian endotracheal tube was inserted and visualized going through the vocal cords. The stylette was removed. Colorimetric change was visualized on the CO2 meter. Breath sounds were heard in both lung rivas equally. The endotracheal tube was placed at 25 cm, measured at the teeth. A chest x-ray was ordered to assess for pneumothorax and verify endotrachealtube placement. Estimated Blood Loss: None The patient tolerated the procedure well and there were no complications.
[2017-11-21] MEDS ORDERED: Iodixanol* (CONTRAST) 320 MG/ML 100 ML SDV IV ONE (15:41)
[2017-11-21] MEDS ORDERED: LORazepam INJ* 2 MG/ML 1 ML VIAL IV PUSH PRN (15:43)
--- NOTE | 2017-11-21 15:49 | ECHO ---
Patient: EDYTA PLATT [facility] Rec#: [id number] : 1950 Date: 11/21/2017 Age: 67y Height: 155 cm / 61.0 in Weight: 78 kg / 171.9 lbs Sex: M BSA: 1.77 Room#: ICU 2 Admit Date#: 11/21/2017 Type: Inpatient Referring: Salvador Knox DO Reading: Edilson Castro MD Answering Service Operator: Stacey Irving CC: Bobo Erwin DO Transthoracic Echocardiogram Indication: ABN EKG, EKG changes BP: 106/61 HR: 68 Rhythm: NSR Findings History: LIMITED ECHO. Technical Comments: The study quality is fair. The study is technically limited due to poor acoustic windows. Left Ventricle: Global left ventricular wall motion and contractility are within normal limits. There is normal left ventricular systolic function. The estimated ejection fraction is 55-60%. Conclusions Limited echo done to reevaluate left ventricular wall motion in patient with new EKG changes: Left ventricular ejection fraction visually estimated at 55-60% with no convincing wall motion abnormalities. See also full echo study completed earlier today.
--- NOTE | 2017-11-21 15:49 | PN ---
Progress Note - Progress Note Date of Service: 11/21/17 Note: [facility] Follow Up The patient had episode of vomiting where he may have aspirated. He became acutely hypoxic. EKG showing new ST depressions in V3 through V6. Interventional Cardiology was consulted and a stat limited TTE was performed to eval for new segmental wall motion abnormalities. The patients hypoxia persisted despite 100% O2 via HFNC. The patient was then intubated. His saturation improved to the mid 90s but still required significant ventilator support. He was started on a heparin gtt. And a stat CTA Chest was ordered to r/ o PE. The patients son was updated via phone. Additional Critical Care Time: 60 mins.
[2017-11-21] MEDS ORDERED: Norepinephrine 16MCG/ML IVPRE* 4,000 MCG/250 ML BAG IV ONE (15:53)
--- NOTE | 2017-11-21 15:57 | RAD ---
Indication: Evaluate ET tube placement. Single frontal view of the chest performed at 1547 hours was reviewed. Comparison is made with previous exam dated November 21, 2017. Endotracheal tube is in place. Interstitial edema is increased since previous exam consistent with increasing CHF. No alveolar consolidation is noted. IMPRESSION: ET tube at T3-T4. Interstitial edema is increased since previous exam consistent with worsening congestion.
[2017-11-21] MEDS ORDERED: Furosemide IV* 10 MG/ML VIAL (40 MG) IV SLOW PU ONE (15:59)
[2017-11-21 16:40] LABS: Hematocrit 32 % (42-52); Hemoglobin 10.3 g/dl (14.0-18.0); Mean Corpuscular HGB Conc 33 g/dl (31-36); Mean Corpuscular Hemoglobin 29 pg (27-31); Mean Corpuscular Volume 88 fL (80-94); Mean Platelet Volume 8.3 um3 (7.4-10.4); Platelet Count 215 10^3/ul (150-450); Red Blood Count 3.61 10^6/ul (4.00-5.40); Red Cell Distribution Width 15 % (10.5-15)
[2017-11-21 16:48] LABS: ABS Basophils 0 10^3/ul (0-0.2); ABS Eosinophils 0 10^3/ul (0-0.6); ABS Lymphocytes 0.4 10^3/ul (1.0-4.8); ABS Monocytes 0.9 10^3/ul (0-0.8); ABS Neutrophils 15.6 10^3/ul (1.5-7.7); ABS Nucleated RBC 0 10^3/ul; Eosinophil % 0.3 % (0-6); Lymphocyte % 2.5 % (25-47); Nucleated Red Blood Cells % 0.1
--- NOTE | 2017-11-21 16:54 | RAD ---
INDICATION: Non-ST elevation myocardial infarction COMPARISON: Same day chest x-ray TECHNIQUE: Axial source images were acquired following the administration of 76 mL of Visipaque [address] angiographic technique. Coronal and sagittal reconstructed images were constructed and reviewed. FINDINGS: The endotracheal tube, gastric tube and right-sided PICC line are appropriately position. There there are no filling defects in the pulmonary arteries to indicate acute pulmonary embolic disease. There are diffuse groundglass opacifications. There are small to moderate bilateral pleural effusions. There is density at the bilateral dependent lungs with air bronchograms. Patchy densities are seen elsewhere for example at the anterior left lower lobe adjacent to the pleura. The heart is normal in size. There is no evidence of pericardial effusion. There is no evidence of aortic aneurysm or dissection. There is no mediastinal, hilar, or axillary lymphadenopathy. Degenerative changes of the thoracic spine includes loss of intervertebral disc height and mild marginal osteophyte formation. Limited views of the upper abdomen show no abnormalities. IMPRESSION: 1. No CT of evidence of pulmonary embolism. 2. Chest x-ray findings are most consistent with fluid overload/pulmonary edema including small to moderate size bibasilar pleural effusions.
[2017-11-21 17:04] LABS: EGFR Non-African American 87.8 (>60)
[2017-11-21] MEDS: Chlorhexidine MOUTHWASH 0.12%* 15 ML UDC TOPICAL SCH ×2 (17:10→22:32)
[2017-11-21] MEDS: Atorvastatin* 40 MG TAB PO SCH (17:11)
[2017-11-21] MEDS: Albuterol/Ipratropium NEB.SOL* Albuterol 2.5 MG/Ipratropium 0.5 MG 3 ML INH SCH ×2 (17:17→19:38)
[2017-11-21] MEDS: Heparin DRIP 25,000 UNITS(*) 25,000 UNITS/500 ML BAG IV SCH (17:38)
[2017-11-21] MEDS: Propofol* 100 ML IV SCH ×2 (18:21→22:27)
[2017-11-21] MEDS ORDERED: Gadoteridol* (CONTRAST) 279.3 MG/ML 10 ML IV ONE (21:23)
[2017-11-21] MEDS: Insulin GLARGINE(*) 1 UNITS UNIT SUBCUT SCH (22:28)
[2017-11-21 22:30] LABS: INR 1.17 (0.77-1.02)
--- NOTE | 2017-11-21 23:47 | RAD ---
EXAM: MR Right Lower Extremity Without And With Intravenous Contrast, Foot EXAM DATE/TIME: 11/21/2017 9:17 PM CLINICAL HISTORY: The patient age is 67 years old and is male; Signs and symptoms; Other: Osteo; Patient HX: Non-healing ulcer on anterior foot- worsening with a now exposed tendon. Over last several days pt developed a fever and mental status changes, concern for sepsis; Additional info: Diabetic foot ulcer, eval for osteo Facility exam id and description: Mr terri booker wwo mri lower extremity right w/wo TECHNIQUE: Multiplanar magnetic resonance images of the right foot without and with intravenous contrast. CONTRAST: 16 mL of PROHANCE administered intravenously. COMPARISON: DX PHUONG R FOOT RIGHT 3+ VWS 11/20/2017 11:43 PM FINDINGS: LIGAMENTS: No visualized acute tear of the anterior posterior talofibular ligaments or deltoid ligament. Medial collateral: Incompletely visualized. No visible acute tear at the MTP joints. Lateral collateral: Incompletely visualized. No visible acute tear at the MTP joints. Lisfranc: No visualized acute tear. TENDONS: Flexor: No visualized acute tear. Extensor: There is an ulceration at the dorsum of the foot measuring 2.1 cm in diameter. The extensor hallucis tendon extends into this area of ulceration. Partial disruption or tear of this tendon cannot be excluded. Peroneal: No visualized acute tear. Tibialis anterior: No visualized acute tear. Tibialis posterior:No visualized acute tear. Muscles: Muscle edema is visualized, suggestive of myositis or diabetic myopathy. Fluid: A small amount of fluid is seen within the retrocalcaneal bursa. There is a small effusion of the first MTP joint. Minimal fluid is identified within the tibiotalar and subtalar joints, without significant effusion. Sinus tarsi: Edema is visualized within the sinus tarsi. Plantar fascia: There is isointensity the proximal plantar fascia, without a visualized acute tear. Bones/joints: Marrow edema with enhancement is identified involving the medial cuneiform bone and first metatarsal bone. Mild additional edema is identified within the navicular bone and intermediate cuneiform bone. These findings are concerning for osteomyelitis. There is a small calcaneal spur. Soft tissues: Soft tissue swelling is identified of the foot, most significant dorsally. There is additional soft tissue swelling surrounding the ankle. This is consistent with cellulitis in the appropriate clinical setting. Other findings: The digits of the foot extend out of the field of view of this study. IMPRESSION: 1. There is an ulceration at the dorsum of the foot. The extensor hallucis tendon extends into this area of ulceration. Partial disruption or tear of this tendon cannot be excluded. 2. Soft tissue swelling is identified of the foot, most significant dorsally. There is additional soft tissue swelling surrounding the ankle. This is consistent with cellulitis in the appropriate clinical setting. 3. Marrow edema with enhancement is identified involving the medial cuneiform bone and first metatarsal bone. Mild additional edema is identified within the navicular bone and intermediate cuneiform bone. These findings are concerning for osteomyelitis. 4. Muscle edema is visualized, suggestive of myositis or diabetic myopathy. 5. Additional findings described above. To contact [facility] with a general question: [facility] - [phone] For direct physician to physician contact: Physician Hotline - [phone] [facility] ([facility] Facility ID #[id number])
[2017-11-22] MEDS: Albuterol/Ipratropium NEB.SOL* Albuterol 2.5 MG/Ipratropium 0.5 MG 3 ML INH SCH ×3 (00:19→07:24)
[2017-11-22] MEDS: Metoprolol Tartrate IV* 1 MG/ML 5 ML VIAL IV SCH ×3 (00:46→09:45)
[2017-11-22] MEDS: Vancomycin(*) 1,000 MG in NS 0.9% 250 ML* 250 ML IVPB SCH ×3 (00:49→17:06)
[2017-11-22] MEDS: Heparin VIAL(*) 5000 UNITS/ML VIAL (FIVE THOUSAND) IV PRN ×3 (00:49→19:42)
[2017-11-22] MEDS: Chlorhexidine MOUTHWASH 0.12%* 15 ML UDC TOPICAL SCH ×3 (00:49→09:35)
--- NOTE | 2017-11-22 02:18 | CONS ---
CC: Dr. Bobo Erwin CARDIOLOGY CONSULTATION DATE OF CONSULT: 11/21/17 REASON FOR CONSULT: Asked by Dr. Salvador Knox (disposal worker) to see the patient with acute ST-segment changes suggesting ischemia, question whether we should proceed to the cardiovascular laboratory. HISTORY OF PRESENT ILLNESS: The patient is a pleasant 67-year-old gentleman, virtually most of the history is obtained via the medical records as well as speaking with Dr. Salvador Knox, as the patient was in acute respiratory distress and was in the process of being intubated. The patient is a 67-year- old gentleman, who reportedly has a history of coronary artery disease with 2 stents placed several years ago. We have no records of this and unfortunately, the patient has dementia and is unable to tell us where, and according to Dr. Knox, his son does not remember. The patient also has a history of multiple cardiac risk factors of hypertension, hyperlipidemia, insulin-requiring diabetes mellitus. The patient has had a CVA before. The patient apparently presented to [facility] with a 3- day history of weakness. In [facility]'s Emergency Room, the patient was noted to be tachycardic and found to be in rapid atrial fibrillation. He was also found to have ulcerations on his feet that appeared to be infected and purulent in nature. He was subsequently transferred over to [facility] for further management of all of his medical problems. He was seen initially in the emergency room by Dr. Gilbert, and at that time reportedly, he denied any specific pains. The patient's history was difficult in nature given the fact that he had dementia. The patient in the emergency room received IV fluids and antibiotics and the patient was noted at [facility] to have a troponin elevated to 3.1. It was down to 1.5 when he presented to our emergency room. Further history obtained by Dr. Fischer, the hospitalist, stated that his ex- had sent him to the emergency room at [place] because she said he was not himself and that his when they found the atrial fibrillation. The patient was subsequently admitted to the hospital and he spontaneously converted back to sinus rhythm. Later on during the day, today, a PICC line was being placed and the patient ended up having projectile vomiting and reportedly aspirated and developed acute respiratory distress. His O2 saturations worsened to the point of where he necessitated being intubated. Prior to that, they had got a 12-lead EKG that now showed new changes, timed 2:40 p.m. with sinus tachycardia of 103. There was mild ST-segment depression in I, slight downsloping ST segments in II, III, aVF, as well as ST-segment depression noted in V3, V4, V5, and mild downsloping in V6. A repeat cardiac enzyme was checked and it showed a troponin of 0.92 with a total CPK of 236. The patient's cardiac risk factors were as mentioned as above including a history of insulin-requiring diabetes, hypertension, hyperlipidemia. I cannot get a history as to whether or not he smoked. The patient does have a history of left foot amputation for infection as well as peripheral vascular disease and is status post intervention in the recent past (07/2017) performed by Dr. Dunaway with intervention with atherectomy of the right superficial femoral and popliteal arteries as well as balloon angioplasty to the right superficial femoral and popliteal arteries. A balloon angioplasty of the left external iliac artery. The patient was placed on aspirin and Plavix back then and has been on aspirin and Plavix since that time. ALLERGIES: Reported to PENICILLIN. REVIEW OF SYSTEMS: Unobtainable from the patient at this time. PHYSICAL EXAM: When I see him, reveals vital signs, blood pressure of 114/74 with a pulse of 103, O2 saturation just prior to intubation of 75%. Neck was supple. I could not assess accurately for increased JVP with the patient lying. Chest had coarse breath sounds bilaterally. Heart had a regular rate and rhythm, difficult to appreciate, no significant systolic or diastolic murmur. Abdomen was soft and nontender. Extremities had the ulcer to the left foot. Neuro: The patient could respond to my questions, but he does not have a significant memory to ask questions as they are preparing him for intubation. DIAGNOSTIC STUDIES/LAB DATA: From today reveal a white count of 17,000, hemoglobin and hematocrit of 10.3 and 32 down from 14.1 and 42, sed rate was 85. Sodium 137, potassium 4.1, chloride 110, bicarb 20, BUN and creatinine of 23 and 0.87, lactic acid was 1.7, magnesium was 1.8. Direct bili was 0.3. Total CPK was 236, MB was 15.9. Troponin was 0.92 was down from 1.4 earlier in the morning and down from 1.87 at 2:44 a.m. and down from 2.5 when he was seen in the emergency room at [facility] initially on 11/20/17. Testing done in the hospital, included a transthoracic echocardiogram performed today this morning, on 11/21/17, and that was reported as relatively normal LV function with EF of 55% to 60% with [id number] left ventricular hypertrophy with functionally benign heart valve. A repeat echocardiogram, limited study in nature, was performed at the timing of the patient being intubated and when the abnormal EKG was obtained and it reportedly revealed LV function still preserved with no definitive focal wall motion abnormalities noted according to the report by Dr. Edilson Castro. The patient underwent a CTA of the chest to rule out the presence of a pulmonary embolism in light of the underlying hypoxia. This showed no definitive filling defect suggesting a pulmonary embolus. Chest x-ray was felt to be most consistent with fluid overload and pulmonary edema with [id number] size bilateral pleural effusions. (Reviewing his I 's and O's, he is almost 4.5 L positive for fluids during this hospitalization). OVERALL ASSESSMENT: Davy presents now after an episode of rapid atrial fibrillation with an initial troponin that was elevated that was in a downward pattern and still at this moment is trending down, which may have represented an ischemic burden from rapid atrial fibrillation. Now, he has new ischemic changes in the setting of severe hypoxia, which may indeed represent demand ischemia from the profound hypoxia. At this point in time, the patient is intubated and we will cycle his cardiac enzymes as well as sometime later repeat the EKG to make sure that with intubation and improvement of oxygenation that there has been improvement of the ST segments. At this point in time, further discussion has to be made with both the family given his multiple risk factors, his dementia state in general regarding to how aggressive we would be toward the idea of even a coronary intervention, which he seems to have had in the past. Ideally, we need to try to find out where this was performed. If possible, a CD of that study will be very helpful if the patient remains stable. Given his DNR status, we may need to consider whether or not he would represent a candidate to proceed to the cardiovascular lab as in general, we do not proceed with DNR patients for coronary intervention given the inability to provide all aspects of care to the patient in order to protect their cardiac status. Thank you very much for asking us to participate in his care and we will follow him along with you. ADDENDUM: Repeat laboratory tests had revealed a troponin that had elevated from 0.9 to 5.69 with a total CPK now of 453 from 236 and an MB of 37.8. An EKG was repeated and shown to have improvement of ST-segment changes with T- wave inversion in lead III, minimal if any T-wave inversion in aVF. No ST- segment depression in I or AVL, no downsloping was noted. There was no ST- segment depression in V3, minimal in V4, essentially no significant degree in V5 , and minimal scooping in V6. ADDENDUM: 11/23/2017 - Records were obtained from [facility] - Patient had heart cath 06/13/2003 demonstrtating mild disease in LAD and Circumflex with 99% proximal RCA followed by 70-80% lesion. LVEF was 40-45% with mild to moderate inferior wall hypokinesis. He underwent intervention with placement of a 3.0x16 mm Taxus MIA in proximal RCA and placement of a 2.75X20 mm Taxus MIA in what was described as distal RCA. [id number]/[facility] #: [id number] PATRICK
--- NOTE | 2017-11-22 02:18 | CONS ---
CONSULTATION NOTE: DATE OF CONSULT: 11/21/17 REASON FOR CONSULT: Right foot infection. HISTORY OF PRESENT ILLNESS: The patient is a 67-year-old man, with diabetes mellitus, with dementia, who was transferred by ambulance from [facility] to [facility] the night of 11/20/17 with u ncontrolled atrial fibrillation. Per report, the patient went to [facility] for a rule out of cerebrovascular accident. At [facility], the patient had atrial fibrillation with heart rate in the 150 beats per minute. The patient received 3 doses of Cardizem. The patient was not a good historian to ED or ICU staff and h is history is gathered from the notes of physicians at [place] and [facility]. When the patient presented to the emergency room at [facility], the patient complained of no pain and had no complaints. The patient was noted by history to have dementia as well as a history of 2 prior cereb rovascular accidents. The patient was noted in the emergency room to have elevated troponins. The patient was given IV flu ids, Levaquin and vancomycin. The antibiotics were given for a right foot infection. The patient wa s diagnosed with a non-ST elevation myocardial infarction and admitted to the ICU. The patient is generally care for by his ex- who brought him to [facility] initially. The patient has a chronic right foot dorsal wound that he has been seen by multiple times at [facility], the most recently by Dr. Gary Mayer. A prior wound culture from 2017 from that wound grew Pseudomonas sensitive to Levaquin and Enterobacter faecalis and staphylococcus sensitive to a multitu de of antibiotics. The patient was noted in the [facility] emergency room to have pus draining from that right foot wound. MRI was considered, the wound was cultured, broad spectrum antibiotics started. Both General Surgery, Gary Mayer, and Orthopedics were consulted. During the day, the patient had an episode of vomiting, described as projectile vomiting which he may have aspirated some of. The patient became acutely hypoxic and was intubated by ICU staff. EKG jonny wed new ST segment depressions in V3 to V6 leads. A CTA was ordered to rule out a pulmonary embolus. The patient had been diagnosed with sepsis. ICU staff, per communication with me, did not know if the infection might have triggered the myocardi al event or if the myocardial event may be driving the elevated inflammatory markers and the unmaskin g of the patient's indolent right foot infection. Dr. Mayer in his note, notes that the patient has been seen in the wound clinic multiple times by Dr. Santiago as well as by Dr. Hickey of Dermatology. The patient had an angioplasty of the right l ower extremity performed by Dr. Javier Dunaway in the recent past. The patient has been noted in the p ast despite multiple wound care regimens to not have improvement and actually to have some worsening of that ulcer. The patient had initially been scheduled in the recent past to have an outpatient MRI right foot, but did not have that performed and has not yet had that performed during this hospitali zation given the requirement of other more pressing studies. The patient has a history of a contralateral left foot transmetatarsal amputation for nonhealing toe ulcers. Dr. Mayer recommended IV antibiotics and wound care and MRI of the foot and distal lower leg to r ule out fluid collections and osteomyelitis. PAST MEDICAL HISTORY: 1. Cerebrovascular accident x2. 2. Atrial fibrillation. 3. Hypertension. 4. Coronary artery disease. 5. Hyperlipidemia. 6. Dementia. PAST SURGICAL HISTORY: Left transmetatarsal amputation for nonhealing toe ulcers, left foot. MEDICATIONS: Home Medications: 1. Clopidogrel. 2. Paxil. 3. Losartan. 4. Aspirin. 5. Vitamin C. 6. Tradjenta. 7. Insulin. 8. Ferrous sulfate. 9. Lipitor. ALLERGIES: Allergic to PENICILLIN. SOCIAL HISTORY: The patient has a distant past history of cigarette smoking. The patient's ex- is his caregiver. REVIEW OF SYSTEMS: The patient was intubated when I examined him, so could not answer questions rega rding this. By report, the patient did not know why he was in the emergency room and had no complain ts of pain or complaints otherwise. He has some baseline confusion and dementia. PHYSICAL EXAM: Most recent temperature was 99.5 degrees Fahrenheit at noon on 11/21/17. Other vital s were obtained at 5:05 p.m. with a heart rate of 78, blood pressure of 129/82, respiratory rate of 1 9, O2 sat of 100%. The patient is intubated. Right lower extremity exam reveals a full-thickness skin ulcer, approximat sukh 2 x 3 cm in size over the dorsum of the midfoot. There is extensor tendon to the great toe, EHL, extensor hallucis longus, visible with vigorous expression with my fingers of foot distal and proxim al to this skin deficit, I was able to express pus, brown and then white. This was just a small amou nt of this fluid. Just proximal to this area, approximately 3 to 4 cm proximal, looked as though the re was just the slightest amount of proximal thickness skin loss in approximately 3 x 3 cm area. I c ould not appreciate the patient's dorsalis pedis pulse but he had a vigorous at least 2+ posterior ti bialis pulse at the level of the medial malleolus. Cap refill less than 2 seconds. I could not asse ss motor or sensory function due to the patient being intubated. The patient occasionally would move his foot in response to my significant amount of palpation about his foot. The patient appeared to have mild soft tissue swelling about the foot, but no clear significant swelling about the lower leg. No erythematous streaking. DIAGNOSTIC STUDIES/LAB DATA: White blood cell count 17.0 today, 14.5 yesterday. Neutrophil percentag e is 92.1% today. Hemoglobin A1c was 7.2 today. Most recent troponin, which has been trending down was 1.44 earlier today. The patient's C- reactive protein today was 189.3 while the ESR was 85 yeste rday, both clearly elevated. The patient's lactic acid was 0.6 today and 1.2 yesterday. The patient has a negative UA, urinalysis. IMAGING: X-rays of the right foot, obtained yesterday, reviewed by me. Three views of the foot demo nstrates no clear fracture. No clear nidus bony infection. No significant sclerosis or periosteal or pericortical erosions anywhere. ASSESSMENT: 1. Right dorsal foot nonhealing wound. 2. Infection, right dorsal foot, deep, with pus. 3. Diabetic, decently well controlled, with a history of dementia, multiple cerebrovascular accident s, currently admitted with a myocardial infarction, and possible aspiration. PLAN/RECOMMENDATIONS: 1. The patient is currently being treated aggressively for his cardiac and respiratory difficulties. He is afebrile and his blood pressure is stable without pressors. ICU staff, appropriately thinks that the management of the cardiac and pulmonary issues should currently take precedence. 2. Continue IV antibiotics. 3. When the patient is sufficiently stable, I recommend an MRI of the right foot to look for any migdalia ar fluid collections about the right foot or lower leg. That MRI should also include the lower leg a nd ankle. 4. The patient, when appropriately stable, would benefit at least from an irrigation and debridement of pus, but may also benefit from an amputation. 5. It is curious and surprising that the patient's wound has been so slow to heal given his relative ly good hemoglobin A1c level of 7.2 and the relatively small size of the wound. We do not know the l evel of the patient's neuropathy, its severity. We can ask the patient or his family. 6. I will continue to follow over the weekend. [id number]/[facility] #: [id number]
[2017-11-22] MEDS ORDERED: LORazepam INJ* 2 MG/ML 1 ML VIAL ONE (03:53)
[2017-11-22] MEDS ORDERED: LORazepam INJ* 2 MG/ML 1 ML VIAL IV PUSH STA (04:04)
[2017-11-22] MEDS: Propofol* 100 ML IV SCH (04:05)
[2017-11-22] MEDS: Insulin LISPRO* 1 UNITS UNIT SUBCUT SCH ×5 (04:50→21:08)
[2017-11-22] MEDS: Piperacillin/Tazobac ADVAN(*) 3.375 GM in NS 0.9% 100 ML* 100 ML IVPB SCH ×3 (04:50→21:09)
--- NOTE | 2017-11-22 04:58 | RAD ---
EXAM: CT Head Without Intravenous Contrast CLINICAL HISTORY: 67 years old, male; Signs and symptoms; Altered mental status/memory loss; Additional info: Rule out head bleed TECHNIQUE: Axial computed tomography images of the head/brain without intravenous contrast. All CT scans at this facility use at least one of these dose optimization techniques: automated exposure control; mA and/or kV adjustment per patient size (includes targeted exams where dose is matched to clinical indication); or iterative reconstruction. COMPARISON: No relevant prior studies available. FINDINGS: Brain: No evidence of acute intracranial hemorrhage. No intracranial mass or mass effect. Extensive area of old ischemic infarction involving the territory of the right middle cerebral artery. Subacute infarct in the territory of the right occipital lobe. Small focal area of old ischemia in the left frontal lobe. Ventricles: Exvacuodilatation of the right lateral ventricle and left occipital tip. Bones/joints: Unremarkable. No acute fracture. Soft tissues: Unremarkable. Vasculature: Vascular calcification. Sinuses: Unremarkable as visualized. No acute sinusitis. Mastoid air cells: Unremarkable as visualized. No mastoid effusion. IMPRESSION: Multiple areas of old infarction. No evidence of acute intracranial hemorrhage. No intracranial mass or obstructive hydrocephalus. To contact [facility] with a general question: [facility] - [phone] For direct physician to physician contact: Physician Hotline - [phone] [facility] ([facility] Facility ID #[id number])
[2017-11-22 05:19] LABS: ABS Basophils 0.1 10^3/ul (0-0.2); ABS Eosinophils 0.4 10^3/ul (0-0.6); ABS Lymphocytes 1.1 10^3/ul (1.0-4.8); ABS Monocytes 0.8 10^3/ul (0-0.8); ABS Neutrophils 10.3 10^3/ul (1.5-7.7); ABS Nucleated RBC 0 10^3/ul; Eosinophil % 3.2 % (0-6); Hematocrit 27 % (42-52); Hemoglobin 9.4 g/dl (14.0-18.0); Lymphocyte % 8.5 % (25-47); Mean Corpuscular HGB Conc 35 g/dl (31-36); Mean Corpuscular Hemoglobin 30 pg (27-31); Mean Corpuscular Volume 86 fL (80-94); Mean Platelet Volume 8.2 um3 (7.4-10.4); Nucleated Red Blood Cells % 0.1; Platelet Count 204 10^3/ul (150-450); Red Blood Count 3.14 10^6/ul (4.00-5.40); Red Cell Distribution Width 15 % (10.5-15); White Blood Count 12.7 10^3/ul (3.5-10.8)
[2017-11-22 05:43] LABS: EGFR Non-African American 99.6 (>60)
[2017-11-22] MEDS ORDERED: Vancomycin Trough Check NOTE FOLLOW UP ONE (07:30)
--- NOTE | 2017-11-22 07:51 | PN ---
Date of Service: 11/22/17 Critical Care Services: 67M with htn, hld, dm, cad, h/o cva, dementia transferred from an outside hospital evaluation of altered mental status, afib with rvr, and sepsis 2/2 right foot cellulitis/ulcer. The patient is pleasant but confused. He is a poor historian. 11/21: Afib with RVR has resolved. BP soft. Mentating well. Confused. 11/22: Yesterday afternoon. Patient aspirated. He became hypoxic which lead to cardiac ischemia and flash pulmonary edema. He was intubated for respiratory failure. Overnight team thought patient may have been having a seizure. He was sent for head ct which was negative. Vital Signs: Temp Pulse Resp BP SpO2 FiO2 97.0 F 78 19 86/58 97 25 11/22/17 04:00 11/22/17 07:25 11/22/17 07:25 11/22/17 07:00 11/22/17 07:25 11/22 07:26 Physical Exam: Gen - intubated and sedated heent - ncat, eomi, perrl neck - no jvd cv - s1/s2, no murmur lungs - cta, no wheeze abd - soft nt, nd ext - rle swelling erythema, +draining ulcer neuro - unresponsive Fluid Balance (Past 24 Hours): I= O= Net Intake & Output 11/20/17 11/21/17 11/22/17 11/23/17 06:59 06:59 06:59 06:59 Intake Total 2150 4018.3 Output Total 1289 21 Balance 2150 2729.3 -21 Weight 78.7 kg 89.1 kg Intake: IV Fluids 2150 2751.7 ABX - VANCOMYCIN 504.7 NS 2037 Zosyn 210 IVPB 146 Zosyn 146 Medicated IV 760.6 CC - Propofol/Diprivan 325.5 Heparin 200 Levophed 235.1 Oral 360 Output: Michael 1289 21 Labs: Laboratory Results - last 24 hr 11/21/17 11/21/17 11/21/17 06:03 08:12 12:03 WBC RBC Hgb Hct MCV MCH MCHC RDW Plt Count MPV Neut % (Auto) Lymph % (Auto) [place] % (Auto) Eos % (Auto) Baso % (Auto) Absolute Neuts (auto) Absolute Lymphs (auto) Absolute Monos (auto) Absolute Eos (auto) Absolute Basos (auto) Absolute Nucleated RBC Nucleated RBC % INR (Anticoag Therapy) APTT Patient Temperature ABG pH ABG pH (Temp Correct) ABG pCO2 ABG pCO2 (Temp Corrct ABG pO2 ABG pO2 (Temp Correct ABG HCO3 ABG O2 Saturation ABG Base Excess VBG pH VBG pCO2 VBG pO2 VBG HCO3 VBG O2 Saturation VBG Base Excess Respiration Rate O2 Delivery Device Ventilator Type Vent Mode FiO2 Inspiratory Time PEEP Pressure Support Pressure Control EPAP IPAP BiPAP Sodium Potassium Chloride Carbon Dioxide Anion Gap BUN Creatinine Est GFR ( Amer) Est GFR (Non-Af Amer) BUN/Creatinine Ratio Glucose POC Glucose (mg/dL) 260 H 242 H Hemoglobin A1c 7.2 H Lactic Acid Calcium Phosphorus Magnesium Total Bilirubin Direct Bilirubin Indirect Bilirubin AST ALT Alkaline Phosphatase Total Creatine Kinase CK-MB (CK-2) Troponin I Total Protein Albumin Globulin Albumin/Globulin Ratio 11/21/17 11/21/17 11/21/17 15:49 15:49 15:49 WBC 17.0 H RBC 3.61 L Hgb 10.3 L Hct 32 L MCV 88 MCH 29 MCHC 33 RDW 15 Plt Count 215 MPV 8.3 Neut % (Auto) 92.1 H Lymph % (Auto) 2.5 L [place] % (Auto) 5.0 Eos % (Auto) 0.3 Baso % (Auto) 0.1 Absolute Neuts (auto) 15.6 H Absolute Lymphs (auto) 0.4 L Absolute Monos (auto) 0.9 H Absolute Eos (auto) 0 Absolute Basos (auto) 0 Absolute Nucleated RBC 0 Nucleated RBC % 0.1 INR (Anticoag Therapy) APTT Patient Temperature ABG pH ABG pH (Temp Correct) ABG pCO2 ABG pCO2 (Temp Corrct ABG pO2 ABG pO2 (Temp Correct ABG HCO3 ABG O2 Saturation ABG Base Excess VBG pH 7.27 L VBG pCO2 47 VBG pO2 42 VBG HCO3 20.4 L VBG O2 Saturation 77.4 VBG Base Excess -5.2 L Respiration Rate O2 Delivery Device Ventilator Type Vent Mode FiO2 Inspiratory Time PEEP Pressure Support Pressure Control EPAP IPAP BiPAP Sodium 137 Potassium 4.1 Chloride 110 Carbon Dioxide 20 L Anion Gap 7 BUN 23 Creatinine 0.87 Est GFR ( Amer) 106.2 Est GFR (Non-Af Amer) 87.8 BUN/Creatinine Ratio 26.4 H Glucose 239 H POC Glucose (mg/dL) Hemoglobin A1c Lactic Acid Calcium 7.6 L Phosphorus 2.5 Magnesium 1.8 L Total Bilirubin 0.80 Direct Bilirubin 0.30 H Indirect Bilirubin 0.5 AST 35 ALT 21 Alkaline Phosphatase 93 Total Creatine Kinase 236 H CK-MB (CK-2) 15.9 H Troponin I 0.92 H* Total Protein 5.6 L Albumin 3.0 L Globulin 2.6 Albumin/Globulin Ratio 1.2 11/21/17 11/21/17 11/21/17 15:49 18:08 18:09 WBC RBC Hgb Hct MCV MCH MCHC RDW Plt Count MPV Neut % (Auto) Lymph % (Auto) [place] % (Auto) Eos % (Auto) Baso % (Auto) Absolute Neuts (auto) Absolute Lymphs (auto) Absolute Monos (auto) Absolute Eos (auto) Absolute Basos (auto) Absolute Nucleated RBC Nucleated RBC % INR (Anticoag Therapy) APTT Patient Temperature ABG pH ABG pH (Temp Correct) ABG pCO2 ABG pCO2 (Temp Corrct ABG pO2 ABG pO2 (Temp Correct ABG HCO3 ABG O2 Saturation ABG Base Excess VBG pH VBG pCO2 VBG pO2 VBG HCO3 VBG O2 Saturation VBG Base Excess Respiration Rate O2 Delivery Device Ventilator Type Vent Mode FiO2 Inspiratory Time PEEP Pressure Support Pressure Control EPAP IPAP BiPAP Sodium Potassium Chloride Carbon Dioxide Anion Gap BUN Creatinine Est GFR ( Amer) Est GFR (Non-Af Amer) BUN/Creatinine Ratio Glucose POC Glucose (mg/dL) 239 H Hemoglobin A1c Lactic Acid 1.7 Calcium Phosphorus Magnesium Total Bilirubin Direct Bilirubin Indirect Bilirubin AST ALT Alkaline Phosphatase Total Creatine Kinase 453 H CK-MB (CK-2) 37.8 H Troponin I 5.69 H* Total Protein Albumin Globulin Albumin/Globulin Ratio 11/21/17 11/21/17 11/21/17 22:00 22:00 22:18 WBC RBC Hgb Hct MCV MCH MCHC RDW Plt Count MPV Neut % (Auto) Lymph % (Auto) [place] % (Auto) Eos % (Auto) Baso % (Auto) Absolute Neuts (auto) Absolute Lymphs (auto) Absolute Monos (auto) Absolute Eos (auto) Absolute Basos (auto) Absolute Nucleated RBC Nucleated RBC % INR (Anticoag Therapy) 1.17 H APTT 35.8 Patient Temperature ABG pH ABG pH (Temp Correct) ABG pCO2 ABG pCO2 (Temp Corrct ABG pO2 ABG pO2 (Temp Correct ABG HCO3 ABG O2 Saturation ABG Base Excess VBG pH VBG pCO2 VBG pO2 VBG HCO3 VBG O2 Saturation VBG Base Excess Respiration Rate O2 Delivery Device Ventilator Type Vent Mode FiO2 Inspiratory Time PEEP Pressure Support Pressure Control EPAP IPAP BiPAP Sodium Potassium Chloride Carbon Dioxide Anion Gap BUN Creatinine Est GFR ( Amer) Est GFR (Non-Af Amer) BUN/Creatinine Ratio Glucose POC Glucose (mg/dL) 251 H Hemoglobin A1c Lactic Acid Calcium Phosphorus Magnesium Total Bilirubin Direct Bilirubin Indirect Bilirubin AST ALT Alkaline Phosphatase Total Creatine Kinase 652 H CK-MB (CK-2) 76.6 H Troponin I 13.08 H* Total Protein Albumin Globulin Albumin/Globulin Ratio 11/22/17 11/22/17 11/22/17 00:10 04:45 05:00 WBC RBC Hgb Hct MCV MCH MCHC RDW Plt Count MPV Neut % (Auto) Lymph % (Auto) [place] % (Auto) Eos % (Auto) Baso % (Auto) Absolute Neuts (auto) Absolute Lymphs (auto) Absolute Monos (auto) Absolute Eos (auto) Absolute Basos (auto) Absolute Nucleated RBC Nucleated RBC % INR (Anticoag Therapy) APTT 46.8 H 48.8 H Patient Temperature ABG pH ABG pH (Temp Correct) ABG pCO2 ABG pCO2 (Temp Corrct ABG pO2 ABG pO2 (Temp Correct ABG HCO3 ABG O2 Saturation ABG Base Excess VBG pH VBG pCO2 VBG pO2 VBG HCO3 VBG O2 Saturation VBG Base Excess Respiration Rate O2 Delivery Device Ventilator Type Vent Mode FiO2 Inspiratory Time PEEP Pressure Support Pressure Control EPAP IPAP BiPAP Sodium Potassium Chloride Carbon Dioxide Anion Gap BUN Creatinine Est GFR ( Amer) Est GFR (Non-Af Amer) BUN/Creatinine Ratio Glucose POC Glucose (mg/dL) 181 H Hemoglobin A1c Lactic Acid Calcium Phosphorus Magnesium Total Bilirubin Direct Bilirubin Indirect Bilirubin AST ALT Alkaline Phosphatase Total Creatine Kinase CK-MB (CK-2) Troponin I Total Protein Albumin Globulin Albumin/Globulin Ratio 11/22/17 11/22/17 11/22/17 05:00 05:00 05:12 WBC 12.7 H RBC 3.14 L Hgb 9.4 L Hct 27 L MCV 86 MCH 30 MCHC 35 RDW 15 Plt Count 204 MPV 8.2 Neut % (Auto) 81.6 Lymph % (Auto) 8.5 L [place]oulder % (Auto) 6.1 Eos % (Auto) 3.2 Baso % (Auto) 0.6 Absolute Neuts (auto) 10.3 H Absolute Lymphs (auto) 1.1 Absolute Monos (auto) 0.8 Absolute Eos (auto) 0.4 Absolute Basos (auto) 0.1 Absolute Nucleated RBC 0 Nucleated RBC % 0.1 INR (Anticoag Therapy) APTT Patient Temperature Not Reportable ABG pH 7.37 ABG pH (Temp Correct) Not Reportable ABG pCO2 35 ABG pCO2 (Temp Corrct Not Reportable ABG pO2 93 ABG pO2 (Temp Correct Not Reportable ABG HCO3 21.4 ABG O2 Saturation 99.4 H ABG Base Excess -4.5 L VBG pH VBG pCO2 VBG pO2 VBG HCO3 VBG O2 Saturation VBG Base Excess Respiration Rate Not Reportable O2 Delivery Device vent Ventilator Type Not Reportable Vent Mode Not Reportable FiO2 25 Inspiratory Time Not Reportable PEEP Not Reportable Pressure Support Not Reportable Pressure Control Not Reportable EPAP Not Reportable IPAP Not Reportable BiPAP Not Reportable Sodium 136 Potassium TNP Chloride 110 Carbon Dioxide 21 L Anion Gap 5 BUN 18 Creatinine 0.78 Est GFR ( Amer) 120.5 Est GFR (Non-Af Amer) 99.6 BUN/Creatinine Ratio 23.1 H Glucose 159 H POC Glucose (mg/dL) Hemoglobin A1c Lactic Acid Calcium 7.5 L Phosphorus Magnesium TNP Total Bilirubin Direct Bilirubin Indirect Bilirubin AST ALT Alkaline Phosphatase Total Creatine Kinase CK-MB (CK-2) Troponin I Total Protein Albumin Globulin Albumin/Globulin Ratio Studies: Foot Xray 11/20 IMPRESSION: #. Nonspecific soft tissue swelling over the dorsum of the foot. #. No radiographic findings to indicate osteomyelitis. CXR 11/21 IMPRESSION: 1. LINES AND TUBES ABOVE. 2. CHRONIC APPEARING INTERSTITIAL CHANGES LE Doppler 11/21 IMPRESSION: NO RIGHT LOWER EXTREMITY DEEP VEIN THROMBOSIS. NO LEFT LOWER EXTREMITY DEEP VEIN THROMBOSIS. TTE 11/21 Conclusions There is normal left ventricular systolic function. The estimated left ventricular ejection fraction is 55-60%. Normal left ventricular wall motion. The left ventricular chamber size is decreased. Mild concentric left ventricular hypertrophy is observed. Functionally benign heart valves Since the prior echocardiogram completed 11/05/12, pertinent changes are prior mildly depressed left ventricular ejection fraction reported at 40-45% and prior normal left ventricular size reported. MRI Right Foot 11/21 IMPRESSION: 1. There is an ulceration at the dorsum of the foot. The extensor hallucis tendon extends into this area of ulceration. Partial disruption or tear of this tendon cannot be excluded. 2. Soft tissue swelling is identified of the foot, most significant dorsally. There is additional soft tissue swelling surrounding the ankle. This is consistent with cellulitis in the appropriate clinical setting. 3. Marrow edema with enhancement is identified involving the medial cuneiform bone and first metatarsal bone. Mild additional edema is identified within the navicular bone and intermediate cuneiform bone. These findings are concerning for osteomyelitis. 4. Muscle edema is visualized, suggestive of myositis or diabetic myopathy. 5. Additional findings described above CTA Chest 11/21 IMPRESSION: 1. No CT of evidence of pulmonary embolism. 2. Chest x-ray findings are most consistent with fluid overload/pulmonary edema including small to moderate size bibasilar pleural effusions. Brain CT 11/22 IMPRESSION: Multiple areas of old infarction. No evidence of acute intracranial hemorrhage. No intracranial mass or obstructive hydrocephalus. Impression: 67M with htn, hld, dm, cad, h/o cva, dementia transferred from an outside hospital evaluation of altered mental status, afib with rvr, and sepsis 2/2 right foot cellulitis/ulcer. Course complicated by aspiration, respiratory failure, NSTEMI. MRI concerning for osteomyelitis. Plan: Neuro - dementia - awake, alert, confused - redirect prn CV - htn, hld, cad, afib, nstemi - c/w asa/statin/plavix - start betablocker - heparin gtt - serial troponin and ekg - tte with preserved ef - cardiology following Pulm - respiratory failure - 2/2 aspiration and flash pulmonary edema - extubated this am - continue supplemental o2 ID - sepsis 2/2 RLE cellulitis/ulcer/osteomyelitis - f/u cultures - vanc/zosyn - surgery/ortho following - may need debridement or amputation - ID consult on friday GI - advance diet as tolerated Renal - monitor i/o - monitor lytes Heme - monitor cbc - c/w po iron Endo - dm - check fs, niss, lantus Lines - piv, PICC (11/21) PPx - gi/dvt Full Code Critical Care Time: 70 mins
[2017-11-22] MEDS ORDERED: Lansoprazole susp Kit 3 MG/ML (30 MG = 10 ML) PO SCH (09:00)
[2017-11-22] MEDS ORDERED: Albuterol/Ipratropium NEB.SOL* Albuterol 2.5 MG/Ipratropium 0.5 MG 3 ML INH PRN (09:14)
[2017-11-22] MEDS: Aspirin EC TAB* 325 MG PO SCH (09:58)
[2017-11-22] MEDS: Senna TAB PO SCH ×2 (09:58→21:14)
[2017-11-22] MEDS: Ascorbic Acid TAB* 500 MG PO SCH (09:58)
[2017-11-22] MEDS: Docusate CAP* 100 MG PO SCH ×2 (09:58→21:14)
[2017-11-22] MEDS: Ferrous Sulfate TAB* 325 MG PO SCH (09:58)
[2017-11-22] MEDS: PARoxetine HCL TAB* 10 MG PO SCH (09:58)
[2017-11-22] MEDS: Clopidogrel TAB* 75 MG PO SCH (09:58)
[2017-11-22] MEDS: Metoprolol Tartrate TAB* 25 MG PO SCH ×2 (09:59→21:09)
[2017-11-22] MEDS: Linagliptin (NF) 5 MG TAB PO SCH (10:04)
--- NOTE | 2017-11-22 10:11 | PN ---
Progress Note - Progress Note Date of Service: 11/22/17 SOAP: Subjective: Event of yesterday noted Care reviewed with Dr. Knox and Dr. Kimball Extubated this morning-no complaints Objective: Temp Pulse Resp BP Pulse Ox 99.6 F 104 37 118/84 96 11/22/17 07:53 11/22/17 08:16 11/22/17 08:16 11/22/17 08:16 11/22/17 08:16 Right foot dressing intact-not removed this morning Labs and cultures noted MRI results noted Assessment: Cellulitis/sepsis/ulcer right foot-possible osteomyelitis right foot on MRI Plan: Dr. Kimball tentatively plans operative debridement and drainage tomorrow if continues to clinically improve. I will defer to his management-continue wound care IV abx
[2017-11-22 10:26] LABS: Vancomycin Trough 14.8 mcg/mL
--- NOTE | 2017-11-22 11:02 | PN ---
Progress Note - Progress Note Date of Service: 11/22/17 SOAP: Subjective: Extubated. Still on Levophed, heparin gtt. Patient states that amputation has been discussed with him in the past, but he has no interest. he was "born with 2 feet and wants to stay with 2 feet". Objective: RLE: - Foot area erythema unchanged - 3 x 2 cm skin ulcer with pus expressible with discomfort, EHL visible - No pain with PROM great toe Selected Entries 11/22/17 11/22/17 11/22/17 00:00 04:00 07:53 Temperature 97.6 F 97.0 F 99.6 F Heart Rate Respiratory Rate Blood Pressure (mmHg) O2 Sat by Pulse Oximetry 11/22/17 11/22/17 10:00 10:01 Temperature Heart Rate 94 Respiratory 30 Rate Blood Pressure 102/68 (mmHg) O2 Sat by Pulse 97 Oximetry Laboratory Tests 11/20/17 11/21/17 11/21/17 23:33 15:49 22:00 WBC 14.5 H 17.0 H Neut % (Auto) 82.5 92.1 H ESR 85 H Troponin I 13.08 H* 11/22/17 11/22/17 05:00 05:00 WBC 12.7 H Neut % (Auto) 81.6 ESR Troponin I 8.67 H* Assessment: HD 3 R foot chronic dorsal foot skin ulcer, no with infection- pus and underlying osteomyelitis DM, dementia Aspiration yesterday, [place], sepsis by criteria Plan: - Patient not stable for surgery today - NPO after midnight - Possible I&D tomorrow (Friday) versus next week for infection - Continue IV abx - Consult MARGO/Gabino Friday - I told that patient that it is very possible he will need an amputation, although he resisted this idea.
[2017-11-22] MEDS: Atorvastatin* 40 MG TAB PO SCH (18:02)
[2017-11-22] MEDS: Heparin DRIP 25,000 UNITS(*) 25,000 UNITS/500 ML BAG IV SCH (19:43)
[2017-11-22] MEDS: Insulin GLARGINE(*) 1 UNITS UNIT SUBCUT SCH (21:07)
[2017-11-22] MEDS ORDERED: Metoprolol Tartrate IV* 1 MG/ML 5 ML VIAL ONE (21:51)
[2017-11-22] MEDS ORDERED: Digoxin IV* 0.5 MG/2 ML AMP (0.25 MG/ML) ONE (21:52)
[2017-11-22] MEDS ORDERED: Metoprolol Tartrate IV* 1 MG/ML 5 ML VIAL IV ONE (23:15)
[2017-11-22] MEDS ORDERED: Digoxin IV* 0.5 MG/2 ML AMP (0.25 MG/ML) IV ONE (23:15)
[2017-11-23] MEDS: Vancomycin(*) 1,000 MG in NS 0.9% 250 ML* 250 ML IVPB SCH ×3 (00:04→16:52)
[2017-11-23] MEDS ORDERED: LORazepam INJ* 2 MG/ML 1 ML VIAL ONE (01:15)
[2017-11-23] MEDS ORDERED: LORazepam INJ* 2 MG/ML 1 ML VIAL IV PUSH STA (01:31)
[2017-11-23] MEDS ORDERED: Furosemide IV* 10 MG/ML VIAL (40 MG) ONE (03:05)
[2017-11-23] MEDS: Morphine VIAL* 4 MG/ML VIAL (1 ml vial) IV PRN (03:23)
[2017-11-23] MEDS ORDERED: LORazepam INJ* 2 MG/ML 1 ML VIAL IV PUSH ONE (04:15)
[2017-11-23] MEDS ORDERED: Furosemide IV* 10 MG/ML VIAL (40 MG) IV SLOW PU ONE (04:15)
[2017-11-23] MEDS: Piperacillin/Tazobac ADVAN(*) 3.375 GM in NS 0.9% 100 ML* 100 ML IVPB SCH ×3 (04:27→20:12)
[2017-11-23 05:23] LABS: ABS Basophils 0 10^3/ul (0-0.2); ABS Eosinophils 0.1 10^3/ul (0-0.6); ABS Lymphocytes 0.5 10^3/ul (1.0-4.8); ABS Monocytes 0.8 10^3/ul (0-0.8); ABS Neutrophils 11.8 10^3/ul (1.5-7.7); ABS Nucleated RBC 0 10^3/ul; Eosinophil % 0.4 % (0-6); Hematocrit 29 % (42-52); Hemoglobin 9.5 g/dl (14.0-18.0); Lymphocyte % 3.5 % (25-47); Mean Corpuscular HGB Conc 33 g/dl (31-36); Mean Corpuscular Hemoglobin 29 pg (27-31); Mean Corpuscular Volume 87 fL (80-94); Mean Platelet Volume 8.4 um3 (7.4-10.4); Nucleated Red Blood Cells % 0.1; Platelet Count 219 10^3/ul (150-450); Red Blood Count 3.28 10^6/ul (4.00-5.40); Red Cell Distribution Width 16 % (10.5-15); White Blood Count 13.1 10^3/ul (3.5-10.8)
[2017-11-23 05:40] LABS: EGFR Non-African American 75.6 (>60)
[2017-11-23] MEDS ORDERED: Magnesium Sulfate 1 GM IV* 1 GM/100 ML BAG IV ONE (07:23)
--- NOTE | 2017-11-23 07:32 | PN ---
Date of Service: 11/23/17 Critical Care Services: 67M with htn, hld, dm, cad, h/o cva, dementia transferred from an outside hospital evaluation of altered mental status, afib with rvr, and sepsis 2/2 right foot cellulitis/ulcer. The patient is pleasant but confused. He is a poor historian. 11/21: Afib with RVR has resolved. BP soft. Mentating well. Confused. 11/22: Yesterday afternoon. Patient aspirated. He became hypoxic which lead to cardiac ischemia and flash pulmonary edema. He was intubated for respiratory failure. Overnight team thought patient may have been having a seizure. He was sent for head ct which was negative. 11/23. Patient was extubated yesterday morning and did well for most of the day. Overnight he had afib with rvr and flash pulmonary edema. He was started on bipap and given lasix with improvement in oxygenation. Vital Signs: Temp Pulse Resp BP SpO2 FiO2 97.0 F 79 17 94/62 96 80 11/23/17 03:05 11/23/17 06:01 11/23/17 06:01 11/23/17 06:00 11/23/17 06:01 11/23 04:00 Physical Exam: Gen - on bipap heent - ncat, eomi, perrl neck - no jvd cv - s1/s2, no murmur lungs - cta, no wheeze abd - soft nt, nd ext - rle swelling erythema, +draining ulcer neuro - arousable. Fluid Balance (Past 24 Hours): I= O= Net Intake & Output 11/21/17 11/22/17 11/23/17 11/24/17 06:59 06:59 06:59 06:59 Intake Total 2150 4018.3 2215.9 Output Total 1289 1626 Balance 2150 2729.3 589.9 Weight 78.7 kg 89.1 kg 91 kg Intake: IV Fluids 2150 2751.7 1271 ABX - VANCOMYCIN 504.7 826 NS 2037 332 Zosyn 210 113 IVPB 146 217 ABX - VANCOMYCIN 3 Zosyn 146 214 Medicated IV 760.6 532.2 CC - Propofol/Diprivan 325.5 20.1 Heparin 200 381 Levophed 235.1 131.1 Heparin 195.7 Oral 360 Output: G Tube 150 Michael 1659 3846 Labs: Laboratory Results - last 24 hr 11/22/17 11/22/17 11/22/17 05:00 08:44 09:49 WBC RBC Hgb Hct MCV MCH MCHC RDW Plt Count MPV Neut % (Auto) Lymph % (Auto) [place] % (Auto) Eos % (Auto) Baso % (Auto) Absolute Neuts (auto) Absolute Lymphs (auto) Absolute Monos (auto) Absolute Eos (auto) Absolute Basos (auto) Absolute Nucleated RBC Nucleated RBC % APTT Sodium 136 Potassium TNP 3.8 Chloride 110 Carbon Dioxide 21 L Anion Gap 5 BUN 18 Creatinine 0.78 Est GFR ( Amer) 120.5 Est GFR (Non-Af Amer) 99.6 BUN/Creatinine Ratio 23.1 H Glucose 159 H POC Glucose (mg/dL) 163 H Calcium 7.5 L Magnesium TNP Troponin I 8.67 H* Vancomycin Trough 14.8 11/22/17 11/22/17 11/22/17 11:20 11:22 12:42 WBC RBC Hgb Hct MCV MCH MCHC RDW Plt Count MPV Neut % (Auto) Lymph % (Auto) [place] % (Auto) Eos % (Auto) Baso % (Auto) Absolute Neuts (auto) Absolute Lymphs (auto) Absolute Monos (auto) Absolute Eos (auto) Absolute Basos (auto) Absolute Nucleated RBC Nucleated RBC % APTT 177.0 H* 53.9 H Sodium Potassium Chloride Carbon Dioxide Anion Gap BUN Creatinine Est GFR ( Amer) Est GFR (Non-Af Amer) BUN/Creatinine Ratio Glucose POC Glucose (mg/dL) 168 H Calcium Magnesium Troponin I Vancomycin Trough 11/22/17 11/22/17 11/22/17 17:44 18:50 21:02 WBC RBC Hgb Hct MCV MCH MCHC RDW Plt Count MPV Neut % (Auto) Lymph % (Auto) [place] % (Auto) Eos % (Auto) Baso % (Auto) Absolute Neuts (auto) Absolute Lymphs (auto) Absolute Monos (auto) Absolute Eos (auto) Absolute Basos (auto) Absolute Nucleated RBC Nucleated RBC % APTT 36.3 Sodium Potassium Chloride Carbon Dioxide Anion Gap BUN Creatinine Est GFR ( Amer) Est GFR (Non-Af Amer) BUN/Creatinine Ratio Glucose POC Glucose (mg/dL) 172 H 192 H Calcium Magnesium Troponin I Vancomycin Trough 11/23/17 11/23/17 11/23/17 00:40 05:10 05:10 WBC 13.1 H RBC 3.28 L Hgb 9.5 L Hct 29 L MCV 87 MCH 29 MCHC 33 RDW 16 H Plt Count 219 MPV 8.4 Neut % (Auto) 90.1 H Lymph % (Auto) 3.5 L [place] % (Auto) 5.8 Eos % (Auto) 0.4 Baso % (Auto) 0.2 Absolute Neuts (auto) 11.8 H Absolute Lymphs (auto) 0.5 L Absolute Monos (auto) 0.8 Absolute Eos (auto) 0.1 Absolute Basos (auto) 0 Absolute Nucleated RBC 0 Nucleated RBC % 0.1 APTT 94.8 H Sodium 138 Potassium 4.0 Chloride 108 Carbon Dioxide 23 Anion Gap 7 BUN 18 Creatinine 0.99 Est GFR ( Amer) 91.5 Est GFR (Non-Af Amer) 75.6 BUN/Creatinine Ratio 18.2 Glucose 294 H POC Glucose (mg/dL) Calcium 7.7 L Magnesium 1.8 L Troponin I Vancomycin Trough 11/23/17 06:45 WBC RBC Hgb Hct MCV MCH MCHC RDW Plt Count MPV Neut % (Auto) Lymph % (Auto) [place] % (Auto) Eos % (Auto) Baso % (Auto) Absolute Neuts (auto) Absolute Lymphs (auto) Absolute Monos (auto) Absolute Eos (auto) Absolute Basos (auto) Absolute Nucleated RBC Nucleated RBC % APTT 69.6 H Sodium Potassium Chloride Carbon Dioxide Anion Gap BUN Creatinine Est GFR ( Amer) Est GFR (Non-Af Amer) BUN/Creatinine Ratio Glucose POC Glucose (mg/dL) Calcium Magnesium Troponin I Vancomycin Trough Studies: Foot Xray 11/20 IMPRESSION: #. Nonspecific soft tissue swelling over the dorsum of the foot. #. No radiographic findings to indicate osteomyelitis. CXR 11/21 IMPRESSION: 1. LINES AND TUBES ABOVE. 2. CHRONIC APPEARING INTERSTITIAL CHANGES LE Doppler 11/21 IMPRESSION: NO RIGHT LOWER EXTREMITY DEEP VEIN THROMBOSIS. NO LEFT LOWER EXTREMITY DEEP VEIN THROMBOSIS. TTE 11/21 Conclusions There is normal left ventricular systolic function. The estimated left ventricular ejection fraction is 55-60%. Normal left ventricular wall motion. The left ventricular chamber size is decreased. Mild concentric left ventricular hypertrophy is observed. Functionally benign heart valves Since the prior echocardiogram completed 11/05/12, pertinent changes are prior mildly depressed left ventricular ejection fraction reported at 40-45% and prior normal left ventricular size reported. MRI Right Foot 11/21 IMPRESSION: 1. There is an ulceration at the dorsum of the foot. The extensor hallucis tendon extends into this area of ulceration. Partial disruption or tear of this tendon cannot be excluded. 2. Soft tissue swelling is identified of the foot, most significant dorsally. There is additional soft tissue swelling surrounding the ankle. This is consistent with cellulitis in the appropriate clinical setting. 3. Marrow edema with enhancement is identified involving the medial cuneiform bone and first metatarsal bone. Mild additional edema is identified within the navicular bone and intermediate cuneiform bone. These findings are concerning for osteomyelitis. 4. Muscle edema is visualized, suggestive of myositis or diabetic myopathy. 5. Additional findings described above CTA Chest 11/21 IMPRESSION: 1. No CT of evidence of pulmonary embolism. 2. Chest x-ray findings are most consistent with fluid overload/pulmonary edema including small to moderate size bibasilar pleural effusions. Brain CT 11/22 IMPRESSION: Multiple areas of old infarction. No evidence of acute intracranial hemorrhage. No intracranial mass or obstructive hydrocephalus. Impression: 67M with htn, hld, dm, cad, h/o cva, dementia transferred from an outside hospital evaluation of altered mental status, afib with rvr, and sepsis 2/2 right foot cellulitis/ulcer. Course complicated by aspiration, respiratory failure, NSTEMI. MRI concerning for osteomyelitis. Plan: Neuro - dementia - awake, alert, confused - redirect prn CV - htn, hld, cad, afib, nstemi, flash pulmonary edema - c/w asa/statin/plavix - lasix to maintain negative balance - betablocker if bp tolerates - heparin gtt - serial troponin and ekg - tte with preserved ef - will discuss with cardiology about [facility] Pulm - respiratory failure - 2/2 flash pulmonary edema - now on bipap - wean as tolerated ID - sepsis 2/2 RLE cellulitis/ulcer/osteomyelitis - f/u cultures - vanc/zosyn - surgery/ortho following - may need debridement or amputation - ID consult on friday GI - advance diet as tolerated Renal - monitor i/o - monitor lytes Heme - monitor cbc - c/w po iron Endo - dm - check fs, niss, lantus Lines - piv, PICC (11/21) PPx - gi/dvt Full Code Critical Care Time: 65 mins
--- NOTE | 2017-11-23 08:42 | RAD ---
Indication: Shortness of breath. Single frontal view of the chest performed at 0329 hours was reviewed. Comparison is made with previous exam dated November 21, 2017. Cardiomegaly is noted. Endotracheal tube has been removed. Interstitial edema persists. No alveolar consolidation is noted. IMPRESSION: CARDIOMEGALY WITH INTERSTITIAL EDEMA AND VASCULAR CONGESTION. ET TUBE REMAINS UNCHANGED. R1
--- NOTE | 2017-11-23 09:53 | PN ---
Progress Note - Progress Note Date of Service: 11/23/17 SOAP: Subjective: Overnight there were some EKG changes and flash pulmonary edema. Patient still on heparin gtt and plans for possible angioplasty today. Objective: RLE: - Skin ulcer unchanged in size - Visible EHL - Pus present deep to ulcer - Area of skin erythema is increased several centimeters belong border drawn - Patient can move toes. - Sensation to light touch present, but decreased in the toes (likely unreliable exam due to dementia) Selected Entries 11/22/17 11/22/17 11/22/17 12:00 16:00 19:08 Temperature 100.4 F 100.2 F 99.2 F Heart Rate Respiratory Rate Blood Pressure (mmHg) O2 Sat by Pulse Oximetry 11/23/17 11/23/17 11/23/17 00:00 06:00 06:01 Temperature 99.4 F Heart Rate 79 Respiratory 17 Rate Blood Pressure 94/62 (mmHg) O2 Sat by Pulse 96 Oximetry 11/23/17 07:57 Temperature 98.2 F Heart Rate Respiratory Rate Blood Pressure (mmHg) O2 Sat by Pulse Oximetry Laboratory Tests 11/20/17 11/21/17 11/22/17 23:33 15:49 05:00 WBC 14.5 H 17.0 H 12.7 H Neut % (Auto) 82.5 92.1 H 81.6 ESR 85 H 11/23/17 05:10 WBC 13.1 H Neut % (Auto) 90.1 H ESR Assessment: HD 4 R foot chronic dorsal foot skin ulcer with infection- pus and underlying osteomyelitis, sepsis by criteria Chronic DM, dementia OK Plan: - Given the patient's cardiopulmonary instability, plan for likely angioplasty today, and the relative stability of the infection, ICU and cardiology prefer that we not do an I&D of the right foot today. So no I&D today. - Continue broad spectrum IV antibiotics - Daily DSD change and wound check by ortho - Patient needs an I&D foot at a minimum (given the pus present) when he is sufficiently medically stable (perhaps Friday-Friday) - Patient may/will likely also need an amputation at some point, although he was adamant against that yesterday. DM is reasonably well controlled, although unclear exactly how long this ulcer has been present and what the magnitude of the peripheral neuropathy is. - MARGO/Liset consult Friday
[2017-11-23] MEDS: Docusate CAP* 100 MG PO SCH ×2 (10:00→22:10)
[2017-11-23] MEDS: Linagliptin (NF) 5 MG TAB PO SCH (10:00)
[2017-11-23] MEDS: Senna TAB PO SCH ×2 (10:00→22:10)
[2017-11-23] MEDS: Insulin LISPRO* 1 UNITS UNIT SUBCUT SCH ×4 (10:28→22:40)
[2017-11-23] MEDS: Clopidogrel TAB* 75 MG PO SCH (10:30)
[2017-11-23] MEDS: PARoxetine HCL TAB* 10 MG PO SCH (10:32)
[2017-11-23] MEDS: Ferrous Sulfate TAB* 325 MG PO SCH (10:35)
[2017-11-23] MEDS: Ascorbic Acid TAB* 500 MG PO SCH (10:35)
[2017-11-23] MEDS: CMC:Pantoprazole TAB (NF) 40 MG TAB PO SCH (10:35)
[2017-11-23] MEDS: Aspirin EC TAB* 325 MG PO SCH (10:35)
[2017-11-23] MEDS ORDERED: Amiodarone 360 MG IVPREMIX* 360 MG/200 ML BAG IV ONE (11:48)
--- NOTE | 2017-11-23 13:28 | RAD ---
Indication: Shortness of breath. Single frontal view of the chest performed at 1256 hours was reviewed. Comparison is made with previous exam dated earlier the same day. Cardiomegaly is noted. Perihilar infiltrates appears to BE improved since previous exam. Left basilar atelectasis likely present. Left pleural effusion is noted. Central line remains in place. IMPRESSION: PERIHILAR INFILTRATES APPEAR TO BE SLIGHTLY IMPROVED SINCE EXAM DONE EARLIER THE SAME DAY.
[2017-11-23] MEDS: Heparin DRIP 25,000 UNITS(*) 25,000 UNITS/500 ML BAG IV SCH (14:20)
[2017-11-23] MEDS ORDERED: Amiodarone 360 MG IVPREMIX* 360 MG/200 ML BAG IV SCH (17:48)
[2017-11-23] MEDS: Atorvastatin* 40 MG TAB PO SCH (17:51)
[2017-11-23] MEDS: Insulin GLARGINE(*) 1 UNITS UNIT SUBCUT SCH (22:37)
[2017-11-24] MEDS ORDERED: LORazepam INJ* 2 MG/ML 1 ML VIAL ONE (00:36)
[2017-11-24] MEDS ORDERED: Furosemide IV* 10 MG/ML VIAL (40 MG) ONE ×2 (00:43→19:29)
[2017-11-24] MEDS: Morphine VIAL* 4 MG/ML VIAL (1 ml vial) IV PRN (00:49)
--- NOTE | 2017-11-24 01:21 | PN ---
Hospitalist Progress Note Date of Service: 11/24/17 HOSPITALIST ADDENDUM Called to evaluate patient in respiratory distress. By the time I arrived to bedside, patient had already received Lasix, Morphine, and Ativan, was comfortable breathing on BiPAP. No indication for intubation at this time.
[2017-11-24] MEDS ORDERED: Furosemide IV* 10 MG/ML VIAL (40 MG) IV ONE ×2 (01:30→21:17)
[2017-11-24] MEDS ORDERED: LORazepam INJ* 2 MG/ML 1 ML VIAL IV PUSH ONE (01:30)
[2017-11-24] MEDS: Vancomycin(*) 1,000 MG in NS 0.9% 250 ML* 250 ML IVPB SCH ×2 (01:42→08:19)
[2017-11-24] MEDS: LORazepam INJ* 2 MG/ML 1 ML VIAL IV PUSH PRN ×2 (03:41→06:02)
[2017-11-24] MEDS: CMC:Pantoprazole TAB (NF) 40 MG TAB PO SCH (06:03)
[2017-11-24] MEDS: Piperacillin/Tazobac ADVAN(*) 3.375 GM in NS 0.9% 100 ML* 100 ML IVPB SCH ×3 (06:05→22:10)
[2017-11-24 06:31] LABS: ABS Basophils 0 10^3/ul (0-0.2); ABS Eosinophils 0 10^3/ul (0-0.6); ABS Lymphocytes 0.8 10^3/ul (1.0-4.8); ABS Monocytes 0.7 10^3/ul (0-0.8); ABS Neutrophils 9.1 10^3/ul (1.5-7.7); ABS Nucleated RBC 0 10^3/ul; Eosinophil % 0.3 % (0-6); Hematocrit 27 % (42-52); Hemoglobin 8.9 g/dl (14.0-18.0); Lymphocyte % 7.4 % (25-47); Mean Corpuscular HGB Conc 34 g/dl (31-36); Mean Corpuscular Hemoglobin 29 pg (27-31); Mean Corpuscular Volume 87 fL (80-94); Mean Platelet Volume 8.2 um3 (7.4-10.4); Nucleated Red Blood Cells % 0; Platelet Count 215 10^3/ul (150-450); Red Blood Count 3.05 10^6/ul (4.00-5.40); Red Cell Distribution Width 16 % (10.5-15); White Blood Count 10.7 10^3/ul (3.5-10.8)
[2017-11-24 06:49] LABS: EGFR Non-African American 68.4 (>60)
[2017-11-24] MEDS: Ferrous Sulfate TAB* 325 MG PO SCH (08:19)
[2017-11-24] MEDS: Aspirin EC TAB* 325 MG PO SCH (08:19)
[2017-11-24] MEDS: Ascorbic Acid TAB* 500 MG PO SCH (08:19)
[2017-11-24] MEDS: Clopidogrel TAB* 75 MG PO SCH (08:19)
[2017-11-24] MEDS: Insulin LISPRO* 1 UNITS UNIT SUBCUT SCH ×4 (08:19→22:11)
[2017-11-24] MEDS: PARoxetine HCL TAB* 10 MG PO SCH (08:20)
[2017-11-24] MEDS: Senna TAB PO SCH ×2 (08:20→23:36)
[2017-11-24] MEDS: Docusate CAP* 100 MG PO SCH ×2 (08:20→23:36)
[2017-11-24] MEDS ORDERED: NS 0.9% 1000 ML* 1,000 ML IV SCH (09:00)
[2017-11-24] MEDS: LINAGLIPTIN 5 MG PO SCH (09:07)
--- NOTE | 2017-11-24 09:44 | PN ---
Date of Service: 11/24/17 Critical Care Services: 67M with htn, hld, dm, cad, h/o cva, dementia transferred from an outside hospital evaluation of altered mental status, afib with rvr, and sepsis 2/2 right foot cellulitis/ulcer. The patient is pleasant but confused. He is a poor historian. 11/21: Afib with RVR has resolved. BP soft. Mentating well. Confused. 11/22: Yesterday afternoon. Patient aspirated. He became hypoxic which lead to cardiac ischemia and flash pulmonary edema. He was intubated for respiratory failure. Overnight team thought patient may have been having a seizure. He was sent for head ct which was negative. 11/23. Patient was extubated yesterday morning and did well for most of the day. Overnight he had afib with rvr and flash pulmonary edema. He was started on bipap and given lasix with improvement in oxygenation. 11/24: Afib with RVR again overnight causing flash pulmonary edema. Responded to lasix/morphine and bipap. Plan for [facility] today. Vital Signs: Temp Pulse Resp BP SpO2 FiO2 98.8 F 83 19 108/69 97 100 11/24/17 07:32 11/24/17 09:01 11/24/17 09:01 11/24/17 09:00 11/24/17 09:01 11/24 03:52 Physical Exam: Gen - NAD heent - ncat, eomi, perrl neck - no jvd cv - s1/s2, no murmur lungs - cta, no wheeze abd - soft nt, nd ext - rle swelling erythema, +draining ulcer neuro - arousable. Fluid Balance (Past 24 Hours): I= O= Net Intake & Output 11/22/17 11/23/17 11/24/17 11/25/17 06:59 06:59 06:59 06:59 Intake Total 4018.3 2215.9 2143.7 37.3 Output Total 1289 1626 2315 146 Balance 2729.3 589.9 -171.3 -108.7 Weight 89.1 kg 91 kg 90.7 kg Intake: IV Fluids 2751.7 1271 427 ABX - VANCOMYCIN 504.7 826 266 NS 2037 332 98 Zosyn 210 113 63 IVPB 146 217 467 ABX - VANCOMYCIN 3 NS 467 Zosyn 146 214 Medicated IV 760.6 532.2 989.7 37.3 CC - Amiodarone 355 37.3 CC - Propofol/Diprivan 325.5 20.1 Heparin 200 381 557 Levophed 235.1 131.1 77.7 Heparin 195.7 Oral 360 260 Output: G Tube 150 150 Urine 40 Michael 1289 1476 2165 106 Labs: Laboratory Results - last 24 hr 11/23/17 11/23/17 11/23/17 03:11 05:10 12:08 WBC RBC Hgb Hct MCV MCH MCHC RDW Plt Count MPV Neut % (Auto) Lymph % (Auto) [place] % (Auto) Eos % (Auto) Baso % (Auto) Absolute Neuts (auto) Absolute Lymphs (auto) Absolute Monos (auto) Absolute Eos (auto) Absolute Basos (auto) Absolute Nucleated RBC Nucleated RBC % APTT Sodium 138 Potassium 4.0 Chloride 108 Carbon Dioxide 23 Anion Gap 7 BUN 18 Creatinine 0.99 Est GFR ( Amer) 91.5 Est GFR (Non-Af Amer) 75.6 BUN/Creatinine Ratio 18.2 Glucose 294 H POC Glucose (mg/dL) 165 H 212 H Calcium 7.7 L Magnesium 1.8 L Troponin I 3.90 H* Vancomycin Trough 11/23/17 11/23/17 11/23/17 13:00 17:51 19:45 WBC RBC Hgb Hct MCV MCH MCHC RDW Plt Count MPV Neut % (Auto) Lymph % (Auto) [place] % (Auto) Eos % (Auto) Baso % (Auto) Absolute Neuts (auto) Absolute Lymphs (auto) Absolute Monos (auto) Absolute Eos (auto) Absolute Basos (auto) Absolute Nucleated RBC Nucleated RBC % APTT 75.4 H 65.5 H Sodium Potassium Chloride Carbon Dioxide Anion Gap BUN Creatinine Est GFR ( Amer) Est GFR (Non-Af Amer) BUN/Creatinine Ratio Glucose POC Glucose (mg/dL) 163 H Calcium Magnesium Troponin I Vancomycin Trough 11/23/17 11/24/17 11/24/17 20:13 02:27 06:12 WBC RBC Hgb Hct MCV MCH MCHC RDW Plt Count MPV Neut % (Auto) Lymph % (Auto) [place] % (Auto) Eos % (Auto) Baso % (Auto) Absolute Neuts (auto) Absolute Lymphs (auto) Absolute Monos (auto) Absolute Eos (auto) Absolute Basos (auto) Absolute Nucleated RBC Nucleated RBC % APTT 50.3 H Sodium 140 Potassium 3.6 Chloride 109 Carbon Dioxide 22 Anion Gap 9 BUN 22 Creatinine 1.08 Est GFR ( Amer) 82.8 Est GFR (Non-Af Amer) 68.4 BUN/Creatinine Ratio 20.4 H Glucose 204 H POC Glucose (mg/dL) 164 H Calcium 7.8 L Magnesium 1.8 L Troponin I Vancomycin Trough 11/24/17 11/24/17 11/24/17 06:12 06:12 07:55 WBC 10.7 RBC 3.05 L Hgb 8.9 L Hct 27 L MCV 87 MCH 29 MCHC 34 RDW 16 H Plt Count 215 MPV 8.2 Neut % (Auto) 85.4 H Lymph % (Auto) 7.4 L [place] % (Auto) 6.5 Eos % (Auto) 0.3 Baso % (Auto) 0.4 Absolute Neuts (auto) 9.1 H Absolute Lymphs (auto) 0.8 L Absolute Monos (auto) 0.7 Absolute Eos (auto) 0 Absolute Basos (auto) 0 Absolute Nucleated RBC 0 Nucleated RBC % 0 APTT Sodium Potassium Chloride Carbon Dioxide Anion Gap BUN Creatinine Est GFR ( Amer) Est GFR (Non-Af Amer) BUN/Creatinine Ratio Glucose POC Glucose (mg/dL) 229 H Calcium Magnesium Troponin I Vancomycin Trough 25.5 Studies: Foot Xray 11/20 IMPRESSION: #. Nonspecific soft tissue swelling over the dorsum of the foot. #. No radiographic findings to indicate osteomyelitis. CXR 11/21 IMPRESSION: 1. LINES AND TUBES ABOVE. 2. CHRONIC APPEARING INTERSTITIAL CHANGES LE Doppler 11/21 IMPRESSION: NO RIGHT LOWER EXTREMITY DEEP VEIN THROMBOSIS. NO LEFT LOWER EXTREMITY DEEP VEIN THROMBOSIS. TTE 11/21 Conclusions There is normal left ventricular systolic function. The estimated left ventricular ejection fraction is 55-60%. Normal left ventricular wall motion. The left ventricular chamber size is decreased. Mild concentric left ventricular hypertrophy is observed. Functionally benign heart valves Since the prior echocardiogram completed 11/05/12, pertinent changes are prior mildly depressed left ventricular ejection fraction reported at 40-45% and prior normal left ventricular size reported. MRI Right Foot 11/21 IMPRESSION: 1. There is an ulceration at the dorsum of the foot. The extensor hallucis tendon extends into this area of ulceration. Partial disruption or tear of this tendon cannot be excluded. 2. Soft tissue swelling is identified of the foot, most significant dorsally. There is additional soft tissue swelling surrounding the ankle. This is consistent with cellulitis in the appropriate clinical setting. 3. Marrow edema with enhancement is identified involving the medial cuneiform bone and first metatarsal bone. Mild additional edema is identified within the navicular bone and intermediate cuneiform bone. These findings are concerning for osteomyelitis. 4. Muscle edema is visualized, suggestive of myositis or diabetic myopathy. 5. Additional findings described above CTA Chest 11/21 IMPRESSION: 1. No CT of evidence of pulmonary embolism. 2. Chest x-ray findings are most consistent with fluid overload/pulmonary edema including small to moderate size bibasilar pleural effusions. Brain CT 11/22 IMPRESSION: Multiple areas of old infarction. No evidence of acute intracranial hemorrhage. No intracranial mass or obstructive hydrocephalus. Impression: 67M with htn, hld, dm, cad, h/o cva, dementia transferred from an outside hospital evaluation of altered mental status, afib with rvr, and sepsis 2/2 right foot cellulitis/ulcer. Course complicated by aspiration, respiratory failure, NSTEMI. MRI concerning for osteomyelitis. Plan: Neuro - dementia - awake, alert, confused - redirect prn CV - htn, hld, cad, afib, nstemi, flash pulmonary edema - c/w asa/statin/plavix - lasix to maintain negative balance - betablocker if bp tolerates - heparin gtt - amio for rhythm control - tte with preserved ef - plan for C today Pulm - respiratory failure - 2/2 flash pulmonary edema - likely caused by afib with rvr - responds well to lasix and bipap - now on nasal cannula ID - sepsis 2/2 RLE cellulitis/ulcer/osteomyelitis - f/u cultures - vanc/zosyn - surgery/ortho following - may need debridement or amputation - ID consult on consult GI - advance diet as tolerated Renal - monitor i/o - monitor lytes Heme - monitor cbc - c/w po iron Endo - dm - check fs, niss, lantus Lines - piv, PICC (11/21) PPx - gi/dvt Full Code Critical Care Time: 60 mins
[2017-11-24] MEDS: Amiodarone TAB* 400 MG PO SCH (10:14)
[2017-11-24] MEDS: KCL 20 MEQ/100 ML IVPREMIX* 20 MEQ/100 ML BAG IV SCH ×2 (10:15→11:22)
[2017-11-24] MEDS: Heparin VIAL(*) 5000 UNITS/ML VIAL (FIVE THOUSAND) IV PRN (10:56)
[2017-11-24] MEDS: Norepinephrine 16MCG/ML IVPRE* 4,000 MCG/250 ML BAG IV SCH (10:57)
--- NOTE | 2017-11-24 12:18 | PN ---
Progress Note - Progress Note Date of Service: 11/24/17 SOAP: Subjective: []Patient seen and examined at bedside. He has no pain of his right foot. Overnight he had another episode of afib leading to flash pulmonary edema which respond to lasix, morphine and Bipap. He needs a left heart cath tentatively scheduled for tomorrow. Erythema of the foot is reportedly much improved from last week according to patient's who is present at bedside. Objective: []General: NAD RLE: Dressing changed. Dorsum of foot with quarter sized ulceration with purulent base and extensor hallicus longus tendon visible in wound bed. Mild erythema surrounding the ulcer and no foul odor. Sensation is reportedly intact distally. Able to flex and extend at toes and ankle. DP present though difficult to palpate. PT 1+. Calves are supple and nontender without erythema, edema or palpable cords Assessment: []Right foot ulceration with underlying osteomyelitis Plan: [] - Per ID consult stop vanco and continue on IV abx with zosyn - Continue Daily DSD change and wound check by ortho - Once he is medically stable he will require at very least an I&D of the ulcerated area but likely will ultimately need amputation. Dr. Kimball has discussed this with the patient who has been resistant to amputation - Anticipate patient to be medically optimized for surgery Friday. He will need to be NPO and off of the heparin drip to be an operative candidate. I will follow his progress tomorrow and discuss OR availability with Dr Kimball Vital Signs Temp 98.9 F 11/24/17 12:00 Pulse 81 11/24/17 11:01 Resp 25 11/24/17 11:01 BP 116/69 11/24/17 11:00 Pulse Ox 93 11/24/17 11:01 Intake & Output 11/23/17 11/24/17 11/24/17 18:59 06:59 18:59 Intake Total 974 1169.7 37.3 Output Total 665 1650 360 Balance 309 -480.3 -322.7 Weight 199 lb 15.348 oz Intake: IV Fluids 26 401 ABX - VANCOMYCIN 266 NS 26 72 Zosyn 63 IVPB 467 NS 467 Medicated IV 271 718.7 37.3 CC - Amiodarone 29 326 37.3 Heparin 220 337 Levophed 22 55.7 Oral 210 50 Output: G Tube 150 Urine 40 Michael 665 1500 320 Laboratory Last Values WBC 10.7 10^3/ul (3.5-10.8) 11/24/17 06:12 RBC 3.05 10^6/ul (4.00-5.40) L 11/24/17 06:12 Hgb 8.9 g/dl (14.0-18.0) L 11/24/17 06:12 Hct 27 % (42-52) L 11/24/17 06:12 MCV 87 fL (80-94) 11/24/17 06:12 MCH 29 pg (27-31) 11/24/17 06:12 MCHC 34 g/dl (31-36) 11/24/17 06:12 RDW 16 % (10.5-15) H 11/24/17 06:12 Plt Count 215 10^3/ul (150-450) 11/24/17 06:12 MPV 8.2 um3 (7.4-10.4) 11/24/17 06:12 Neut % (Auto) 85.4 % (38-83) H 11/24/17 06:12 Lymph % (Auto) 7.4 % (25-47) L 11/24/17 06:12 [place] % (Auto) 6.5 % (0-7) 11/24/17 06:12 Eos % (Auto) 0.3 % (0-6) 11/24/17 06:12 Baso % (Auto) 0.4 % (0-2) 11/24/17 06:12 Absolute Neuts (auto) 9.1 10^3/ul (1.5-7.7) H 11/24/17 06:12 Absolute Lymphs (auto) 0.8 10^3/ul (1.0-4.8) L 11/24/17 06:12 Absolute Monos (auto) 0.7 10^3/ul (0-0.8) 11/24/17 06:12 Absolute Eos (auto) 0 10^3/ul (0-0.6) 11/24/17 06:12 Absolute Basos (auto) 0 10^3/ul (0-0.2) 11/24/17 06:12 Absolute Nucleated RBC 0 10^3/ul 11/24/17 06:12 Nucleated RBC % 0 11/24/17 06:12 ESR 85 mm/Hr (0-40) H 11/20/17 23:33 INR (Anticoag Therapy) 1.17 (0.77-1.02) H 11/21/17 22:00 APTT 48.5 seconds (26.0-36.3) H 11/24/17 09:57 Patient Temperature Not Reportable 11/22/17 05:12 ABG pH 7.37 (7.35-7.45) 11/22/17 05:12 ABG pH (Temp Correct) Not Reportable 11/22/17 05:12 ABG pCO2 35 mmHg (35-45) 11/22/17 05:12 ABG pCO2 (Temp Corrct Not Reportable 11/22/17 05:12 ABG pO2 93 mmHg (80-100) 11/22/17 05:12 ABG pO2 (Temp Correct Not Reportable 11/22/17 05:12 ABG HCO3 21.4 mmol/L (19-31) 11/22/17 05:12 ABG O2 Saturation 99.4 % (95-98) H 11/22/17 05:12 ABG Base Excess -4.5 (-2.0-2.0) L 11/22/17 05:12 VBG pH 7.27 (7.33-7.43) L 11/21/17 15:49 VBG pCO2 47 mmHg (41-51) 11/21/17 15:49 VBG pO2 42 mmHg (35-45) 11/21/17 15:49 VBG HCO3 20.4 mmol/L (24-28) L 11/21/17 15:49 VBG O2 Saturation 77.4 % (70-80) 11/21/17 15:49 VBG Base Excess -5.2 (0-4) L 11/21/17 15:49 Respiration Rate Not Reportable 11/22/17 05:12 O2 Delivery Device vent 11/22/17 05:12 Ventilator Type Not Reportable 11/22/17 05:12 Vent Mode Not Reportable 11/22/17 05:12 FiO2 25 11/22/17 05:12 Inspiratory Time Not Reportable 11/22/17 05:12 PEEP Not Reportable 11/22/17 05:12 Pressure Support Not Reportable 11/22/17 05:12 Pressure Control Not Reportable 11/22/17 05:12 EPAP Not Reportable 11/22/17 05:12 IPAP Not Reportable 11/22/17 05:12 BiPAP Not Reportable 11/22/17 05:12 Sodium 140 mmol/L (135-145) 11/24/17 06:12 Potassium 3.6 mmol/L (3.5-5.0) 11/24/17 06:12 Chloride 109 mmol/L (101-111) 11/24/17 06:12 Carbon Dioxide 22 mmol/L (22-32) 11/24/17 06:12 Anion Gap 9 mmol/L (2-11) 11/24/17 06:12 BUN 22 mg/dL (6-24) 11/24/17 06:12 Creatinine 1.08 mg/dL (0.67-1.17) 11/24/17 06:12 Est GFR ( Amer) 82.8 (>60) 11/24/17 06:12 Est GFR (Non-Af Amer) 68.4 (>60) 11/24/17 06:12 BUN/Creatinine Ratio 20.4 (8-20) H 11/24/17 06:12 Glucose 204 mg/dL (70-100) H 11/24/17 06:12 POC Glucose (mg/dL) 199 mg/dL (70-100) H 11/24/17 11:18 Hemoglobin A1c 7.2 % (4.0-5.6) H 11/21/17 06:03 Lactic Acid 1.7 mmol/L (0.5-2.0) 11/21/17 15:49 Calcium 7.8 mg/dL (8.6-10.3) L 11/24/17 06:12 Phosphorus 2.5 mg/dL (2.5-5.0) 11/21/17 15:49 Magnesium 1.8 mg/dL (1.9-2.7) L 11/24/17 06:12 Total Bilirubin 0.80 mg/dL (0.2-1.0) 11/21/17 15:49 Direct Bilirubin 0.30 mg/dL (0.03-0.18) H 11/21/17 15:49 Indirect Bilirubin 0.5 mg/dL (0.3-1.0) 11/21/17 15:49 AST 35 U/L (13-39) 11/21/17 15:49 ALT 21 U/L (7-52) 11/21/17 15:49 Alkaline Phosphatase 93 U/L (34-104) 11/21/17 15:49 Total Creatine Kinase 652 U/L (10-223) H 11/21/17 22:00 CK-MB (CK-2) 76.6 ng/mL (0.6-6.3) H 11/21/17 22:00 Troponin I 3.90 ng/mL (<0.04) H* 11/23/17 05:10 C-Reactive Protein 214.89 mg/L (<8.01) H 11/20/17 23:33 C-React Prot High Sens 189.30 mg/L (<2.00) H 11/21/17 06:03 B-Natriuretic Peptide 287 pg/mL (-100) H 11/20/17 23:33 Total Protein 5.6 g/dL (6.4-8.9) L 11/21/17 15:49 Albumin 3.0 g/dL (3.2-5.2) L 11/21/17 15:49 Globulin 2.6 g/dL (2-4) 11/21/17 15:49 Albumin/Globulin Ratio 1.2 (1-3) 11/21/17 15:49 TSH 6.64 mcIU/mL (0.34-5.60) H 11/21/17 06:03 Urine Color [place] 11/21/17 01:56 Urine Appearance Cloudy 11/21/17 01:56 Urine pH 5.0 (5-9) 11/21/17 01:56 Ur Specific [place] 1.028 (1.010-1.030) 11/21/17 01:56 Urine Protein 1+(30 mg/dl) (Negative) A 11/21/17 01:56 Urine Ketones Negative (Negative) 11/21/17 01:56 Urine Blood Negative (Negative) 11/21/17 01:56 Urine Nitrate Negative (Negative) 11/21/17 01:56 Urine Bilirubin Negative (Negative) 11/21/17 01:56 Urine Urobilinogen Negative (Negative) 11/21/17 01:56 Ur Leukocyte Esterase Trace (Negative) A 11/21/17 01:56 Urine WBC (Auto) 2+(11-20/hpf) (Absent) A 11/21/17 01:56 Urine RBC (Auto) Trace(0-2/hpf) (Absent) 11/21/17 01:56 Ur Squamous Epith Cells Present (Absent) A 11/21/17 01:56 Urine Bacteria Absent (Absent) 11/21/17 01:56 Hyaline Casts Present (Absent) A 11/21/17 01:56 Granular Casts Present (Absent) A 11/21/17 01:56 Urine Glucose Negative (Negative) 11/21/17 01:56 Urine Ascorbic Acid * (Negative) A 11/21/17 01:56 Vancomycin Trough 25.5 mcg/mL 11/24/17 06:12 Blood Type O Positive 11/21/17 06:03 Antibody Screen Negative 11/21/17 06:03
--- NOTE | 2017-11-24 12:39 | CONS ---
CONSULTATION REPORT: DATE OF CONSULT: 11/24/17 REQUESTING PHYSICIAN: Dr. Knox. CONSULTING SERVICE: Infectious Disease. REASON FOR CONSULTATION: Sepsis and right foot infection. IMPRESSION: 1. Sepsis due to staphylococcal right foot cellulitis abscess, infective myositis and chronic osteomyelitis of the mid foot. 2. Atrial fibrillation with rapid ventricular response. 3. Non-ST elevation myocardial infarction. 4. Peripheral vascular disease, status post lower extremity intervention, July 2017. 5. Vascular dementia. 6. Type 2 diabetes. RECOMMENDATION: Stop vancomycin. We will continue the Zosyn for now. Staphylococcus did grow, initially I think polymicrobial coverage makes sense. Orthopedics is evaluating for incision and debridement. When this is all sorted out and his cardiac issues are resolved, he will need a long course of antibiotics. HISTORY OF PRESENT ILLNESS: This is a 67-year-old man with diabetes, peripheral vascular disease, admitted with sepsis on the . He cannot provide most of the history given his dementia which is obtained instead from review of the medical records, discussion with his and Dr. Knox. When he came to the hospital, he was febrile to 38.2. Blood pressure was in the 70s systolic. His white blood cell count was 14, it is down to 10 now. He was started on vancomycin and Zosyn, had an MRI that showed osteomyelitis of the midfoot associated with the chronic ulcer where there is an exposed flexor tendon. He has had issues of atrial fibrillation, rapid ventricular response and increased troponin during those episodes with pulmonary edema. He is being seen by Cardiology. He has been seen by Orthopedics for incision and debridement of the right foot. The ulcer has been present for over a year. He had an angioplasty and had rapid improvement for a couple of months after that and then it stalled out again. It was draining pus with redness around the ulcer when he got here. The drainage is decreased. The erythema is receding. PAST MEDICAL HISTORY: 1. Peripheral vascular disease, status post right lower extremity angioplasty in 2018 and left lower extremity angioplasty in 2017. 2. Type 2 diabetes. 3. Atrial fibrillation. 4. Stroke. 5. Dementia. 6. Coronary artery disease, status post PCI. 7. Hyperlipidemia. 8. Status post left foot transmetatarsal amputation. MEDICATIONS: 1. Tylenol. 2. Amiodarone. 3. Vitamin C. 4. Aspirin. 5. Lipitor. 6. Plavix. 7. Insulin glargine. 8. Insulin lispro. 9. Norepinephrine infusion. 10. Linagliptin. 11. Paroxetine. 12. Zosyn 3.375 g every 8 hours. 13. Vancomycin. ALLERGIES: PENICILLIN, unknown reaction while in high school, tolerating Zosyn. FAMILY HISTORY: No recurrent infections. SOCIAL HISTORY: He lives in [place] with his . REVIEW OF SYSTEMS: Unobtainable given his mental status. PHYSICAL EXAM: Vital Signs: Temperature 37, heart rate 80, respiratory rate 18 , blood pressure 104/68, oxygen saturation 97% on 5 L by nasal cannula. In general, he is awake, not in distress. Neurologic: He is oriented x2. Follows most commands. Answers yes/no questions most appropriately. HEENT: There is no conjunctival hemorrhage. Oropharynx without lesions. Neck: Supple without masses. Lymph Nodes: There is no cervical, supraclavicular, inguinal, axillary, or epitrochlear lymphadenopathy. Heart: Regular rate and rhythm without murmurs, rubs, or gallops. Lungs: Clear to auscultation bilaterally. Abdomen: Soft, nontender. There are bowel sounds present. Skin : There is no rash or splinter hemorrhage. Left transmetatarsal incision well healed. There is no ulcer of the right dorsal foot. There are 2 adjacent ulcers more medially. There is exposed tendon with serous drainage, surrounding slight erythema. There is no crepitus or fluctuance. LAB DATA: White blood cell count 10, hemoglobin 9, platelets 215,000. Creatinine is 1.08. Please see impression and recommendations outlined above, which I have discussed with Dr. Knox. Thanks for asking me to see Mr. Carlos in consultation. [id number]/[facility] #: [id number] [facility] HOSPITALOrquidea
[2017-11-24] MEDS ORDERED: Magnesium Sulfate 2 GM IV* 2 GM/50 ML BAG IVPB ONE (13:16)
[2017-11-24] MEDS: Heparin DRIP 25,000 UNITS(*) 25,000 UNITS/500 ML BAG IV SCH (13:51)
[2017-11-24] MEDS: Atorvastatin* 80 MG TAB PO SCH (17:29)
[2017-11-24] MEDS: Insulin GLARGINE(*) 1 UNITS UNIT SUBCUT SCH (22:11)
[2017-11-25] MEDS: Morphine VIAL* 4 MG/ML VIAL (1 ml vial) IV PRN (02:29)
[2017-11-25] MEDS: LORazepam INJ* 2 MG/ML 1 ML VIAL IV PUSH PRN (02:29)
[2017-11-25] MEDS: Piperacillin/Tazobac ADVAN(*) 3.375 GM in NS 0.9% 100 ML* 100 ML IVPB SCH ×3 (05:27→21:10)
[2017-11-25] MEDS: CMC:Pantoprazole TAB (NF) 40 MG TAB PO SCH (05:42)
[2017-11-25 06:09] LABS: ABS Basophils 0.1 10^3/ul (0-0.2); ABS Eosinophils 0.3 10^3/ul (0-0.6); ABS Monocytes 0.8 10^3/ul (0-0.8); ABS Neutrophils 6.6 10^3/ul (1.5-7.7); ABS Nucleated RBC 0 10^3/ul; Eosinophil % 3.8 % (0-6); Hematocrit 26 % (42-52); Hemoglobin 9.3 g/dl (14.0-18.0); Lymphocyte % 11.5 % (25-47); Mean Corpuscular HGB Conc 35 g/dl (31-36); Mean Corpuscular Hemoglobin 31 pg (27-31); Mean Corpuscular Volume 87 fL (80-94); Mean Platelet Volume 8.1 um3 (7.4-10.4); Nucleated Red Blood Cells % 0; Platelet Count 249 10^3/ul (150-450); Red Blood Count 3.04 10^6/ul (4.00-5.40); Red Cell Distribution Width 16 % (10.5-15); White Blood Count 8.8 10^3/ul (3.5-10.8)
[2017-11-25 06:37] LABS: EGFR Non-African American 71.5 (>60)
[2017-11-25] MEDS: Insulin LISPRO* 1 UNITS UNIT SUBCUT SCH ×4 (07:34→22:24)
[2017-11-25] MEDS ORDERED: nitroGLYCERIN DRIP* 25,000 MCG/250 ML BTL ONE (07:51)
[2017-11-25] MEDS ORDERED: VERAPAMIL 2.5 MG/ML 2 ML VIAL ** 5 mg/2 ml ONE (07:51)
[2017-11-25] MEDS ORDERED: Heparin(*) 1000 UNIT/ML 10 ML VIAL CATH LAB IV ONE (07:51)
[2017-11-25] MEDS ORDERED: Lidocaine 1% INJ* 10 MG/ML 30 ML SDV ONE (07:52)
[2017-11-25] MEDS ORDERED: Iohexol 350 (CONTRAST) 200 ML MDV IV ONE (07:52)
[2017-11-25] MEDS ORDERED: NS 0.9% 1000 ML* 1,000 ML IV SCH ×2 (08:00→09:30)
--- NOTE | 2017-11-25 08:04 | RAD ---
INDICATION: Congestive heart failure COMPARISON: Most recent comparison chest x-rays dated November 23, 2017 TECHNIQUE: Single AP portable view of the chest was obtained. FINDINGS: Image quality is compromised due to the relative inferiority of a portable chest x-ray. There is been interval removal of the right-sided PICC line. There is a mild degree of cardiomegaly. The pulmonary vasculature is mildly engorged and indistinct. There are patchy densities predominately overlying the central lungs. Visualized bones are normal for the patient's age. IMPRESSION: Depending on the clinical setting the chest x-ray findings could be compatible with pulmonary edema or multifocal pneumonia. Overall there is improved aeration relative to the November 23, 2017 chest x-ray.
[2017-11-25] MEDS ORDERED: Heparin 2 UNITS/ML IVPREMIX* 2,000 ML IV ONE (08:15)
[2017-11-25] MEDS ORDERED: Midazolam* 1 MG/ML 10 ML VIAL (10 MG) ONE (08:27)
[2017-11-25] MEDS ORDERED: fentaNYL* 50 MCG/ML 2 ML VIAL (100 MCG VIAL) ONE (08:27)
--- NOTE | 2017-11-25 08:29 | PN ---
Date of Service: 11/25/17 Critical Care Services: 67M with htn, hld, dm, cad, h/o cva, dementia transferred from an outside hospital evaluation of altered mental status, afib with rvr, and sepsis 2/2 right foot cellulitis/ulcer. The patient is pleasant but confused. He is a poor historian. 11/21: Afib with RVR has resolved. BP soft. Mentating well. Confused. 11/22: Yesterday afternoon. Patient aspirated. He became hypoxic which lead to cardiac ischemia and flash pulmonary edema. He was intubated for respiratory failure. Overnight team thought patient may have been having a seizure. He was sent for head ct which was negative. 11/23. Patient was extubated yesterday morning and did well for most of the day. Overnight he had afib with rvr and flash pulmonary edema. He was started on bipap and given lasix with improvement in oxygenation. 11/24: Afib with RVR again overnight causing flash pulmonary edema. Responded to lasix/morphine and bipap. 11/25: Did well overnight, however, he did pull out his picc line. Plan for LHC today. Vital Signs: Temp Pulse Resp BP SpO2 FiO2 99.0 F 78 17 96/56 94 50 11/25/17 08:00 11/25/17 08:01 11/25/17 08:01 11/25/17 08:01 11/25/17 08:01 11/25 03:29 Physical Exam: Gen - NAD heent - ncat, eomi, perrl neck - no jvd cv - s1/s2, no murmur lungs - cta, no wheeze abd - soft nt, nd ext - rle swelling erythema, +draining ulcer neuro - awake, alert Fluid Balance (Past 24 Hours): I= O= Net Intake & Output 11/23/17 11/24/17 11/25/17 11/26/17 06:59 06:59 06:59 06:59 Intake Total 2215.9 2143.7 1828.6 33 Output Total 1626 2315 3539 85 Balance 589.9 -171.3 -1710.4 -52 Weight 91 kg 90.7 kg 87.1 kg Intake: IV Fluids 1271 427 891 ABX - VANCOMYCIN 826 266 KCl 198 Magnesium 61 NS 332 98 345 Zosyn 113 63 287 IVPB 217 467 138 ABX - VANCOMYCIN 3 NS 467 Zosyn 214 138 Medicated IV 532.2 989.7 687.6 CC - Amiodarone 355 37.3 CC - Propofol/Diprivan 20.1 Heparin 381 557 518 Levophed 131.1 77.7 132.3 Heparin 195.7 112 33 Oral 260 Output: G Tube 150 150 Urine 40 Michael 1476 2165 3499 85 Labs: Laboratory Results - last 24 hr 11/21/17 11/24/17 11/24/17 22:00 09:57 11:18 WBC RBC Hgb Hct MCV MCH MCHC RDW Plt Count MPV Neut % (Auto) Lymph % (Auto) [place] % (Auto) Eos % (Auto) Baso % (Auto) Absolute Neuts (auto) Absolute Lymphs (auto) Absolute Monos (auto) Absolute Eos (auto) Absolute Basos (auto) Absolute Nucleated RBC Nucleated RBC % APTT 48.5 H Sodium Potassium Chloride Carbon Dioxide Anion Gap BUN Creatinine Est GFR ( Amer) Est GFR (Non-Af Amer) BUN/Creatinine Ratio Glucose POC Glucose (mg/dL) 199 H Calcium Magnesium Troponin I 13.08 H* 11/24/17 11/24/17 11/24/17 16:38 17:28 20:28 WBC RBC Hgb Hct MCV MCH MCHC RDW Plt Count MPV Neut % (Auto) Lymph % (Auto) [place] % (Auto) Eos % (Auto) Baso % (Auto) Absolute Neuts (auto) Absolute Lymphs (auto) Absolute Monos (auto) Absolute Eos (auto) Absolute Basos (auto) Absolute Nucleated RBC Nucleated RBC % APTT 54.4 H Sodium Potassium Chloride Carbon Dioxide Anion Gap BUN Creatinine Est GFR ( Amer) Est GFR (Non-Af Amer) BUN/Creatinine Ratio Glucose POC Glucose (mg/dL) 168 H 148 H Calcium Magnesium Troponin I 11/24/17 11/25/17 11/25/17 23:58 05:40 05:40 WBC 8.8 RBC 3.04 L Hgb 9.3 L Hct 26 L MCV 87 MCH 31 MCHC 35 RDW 16 H Plt Count 249 MPV 8.1 Neut % (Auto) 75.0 Lymph % (Auto) 11.5 L [place] % (Auto) 9.1 H Eos % (Auto) 3.8 Baso % (Auto) 0.6 Absolute Neuts (auto) 6.6 Absolute Lymphs (auto) 1.0 Absolute Monos (auto) 0.8 Absolute Eos (auto) 0.3 Absolute Basos (auto) 0.1 Absolute Nucleated RBC 0 Nucleated RBC % 0 APTT 56.0 H Sodium 142 Potassium 3.5 Chloride 108 Carbon Dioxide 27 Anion Gap 7 BUN 20 Creatinine 1.04 Est GFR ( Amer) 86.5 Est GFR (Non-Af Amer) 71.5 BUN/Creatinine Ratio 19.2 Glucose 138 H POC Glucose (mg/dL) Calcium 8.0 L Magnesium 1.9 Troponin I Studies: Foot Xray 11/20 IMPRESSION: #. Nonspecific soft tissue swelling over the dorsum of the foot. #. No radiographic findings to indicate osteomyelitis. CXR 11/21 IMPRESSION: 1. LINES AND TUBES ABOVE. 2. CHRONIC APPEARING INTERSTITIAL CHANGES LE Doppler 11/21 IMPRESSION: NO RIGHT LOWER EXTREMITY DEEP VEIN THROMBOSIS. NO LEFT LOWER EXTREMITY DEEP VEIN THROMBOSIS. TTE 11/21 Conclusions There is normal left ventricular systolic function. The estimated left ventricular ejection fraction is 55-60%. Normal left ventricular wall motion. The left ventricular chamber size is decreased. Mild concentric left ventricular hypertrophy is observed. Functionally benign heart valves Since the prior echocardiogram completed 11/05/12, pertinent changes are prior mildly depressed left ventricular ejection fraction reported at 40-45% and prior normal left ventricular size reported. MRI Right Foot 11/21 IMPRESSION: 1. There is an ulceration at the dorsum of the foot. The extensor hallucis tendon extends into this area of ulceration. Partial disruption or tear of this tendon cannot be excluded. 2. Soft tissue swelling is identified of the foot, most significant dorsally. There is additional soft tissue swelling surrounding the ankle. This is consistent with cellulitis in the appropriate clinical setting. 3. Marrow edema with enhancement is identified involving the medial cuneiform bone and first metatarsal bone. Mild additional edema is identified within the navicular bone and intermediate cuneiform bone. These findings are concerning for osteomyelitis. 4. Muscle edema is visualized, suggestive of myositis or diabetic myopathy. 5. Additional findings described above CTA Chest 11/21 IMPRESSION: 1. No CT of evidence of pulmonary embolism. 2. Chest x-ray findings are most consistent with fluid overload/pulmonary edema including small to moderate size bibasilar pleural effusions. Brain CT 11/22 IMPRESSION: Multiple areas of old infarction. No evidence of acute intracranial hemorrhage. No intracranial mass or obstructive hydrocephalus. Impression: 67M with htn, hld, dm, cad, h/o cva, dementia transferred from an outside hospital evaluation of altered mental status, afib with rvr, and sepsis 2/2 right foot cellulitis/ulcer. Course complicated by aspiration, respiratory failure, NSTEMI. MRI concerning for osteomyelitis. Plan: Neuro - dementia - awake, alert, confused - redirect prn CV - htn, hld, cad, afib, nstemi, flash pulmonary edema - c/w asa/statin/plavix - lasix to maintain negative balance - betablocker if bp tolerates - heparin gtt off for LHC - amio for rhythm control - tte with preserved ef - plan for LHC today Pulm - respiratory failure - 2/2 flash pulmonary edema - likely caused by afib with rvr - responds well to lasix and bipap - now on nasal cannula ID - sepsis 2/2 RLE cellulitis/ulcer/osteomyelitis - f/u cultures - zosyn for mssa in superficial wound culture - surgery/ortho/ID following - plan for foot washout tomorrow GI - advance diet as tolerated Renal - monitor i/o - monitor lytes Heme - monitor cbc - c/w po iron Endo - dm - check fs, niss, lantus Lines - piv, PPx - gi/dvt Full Code Critical Care Time: 55 mins
[2017-11-25] MEDS: Ferrous Sulfate TAB* 325 MG PO SCH (10:11)
[2017-11-25] MEDS: LINAGLIPTIN 5 MG PO SCH (10:11)
[2017-11-25] MEDS: PARoxetine HCL TAB* 10 MG PO SCH (10:11)
[2017-11-25] MEDS: Senna TAB PO SCH ×2 (10:13→21:10)
[2017-11-25] MEDS: Clopidogrel TAB* 75 MG PO SCH (10:13)
[2017-11-25] MEDS: Docusate CAP* 100 MG PO SCH ×2 (10:14→21:10)
[2017-11-25] MEDS: Aspirin EC TAB* 81 MG TAB.EC PO SCH (10:14)
[2017-11-25] MEDS: Ascorbic Acid TAB* 500 MG PO SCH (10:14)
[2017-11-25] MEDS: Amiodarone TAB* 400 MG PO SCH (10:15)
--- NOTE | 2017-11-25 14:16 | PN ---
Progress Note - Progress Note Date of Service: 11/25/17 SOAP: Subjective: CC: right foot infection HPI: 67 year old man with septic shock due to right foot infection; complicated by atrial fibrillation with RVR and CHF. Catheterization showed 3VD. Objective: Vital Signs Temp 36.3 C 11/25/17 13:34 Pulse 76 11/25/17 13:34 Resp 15 11/25/17 13:34 BP 102/73 11/25/17 13:34 Pulse Ox 97 11/25/17 13:34 Intake & Output 11/24/17 11/25/17 11/25/17 18:59 06:59 18:59 Intake Total 1038.5 790.1 33 Output Total 849 2690 280 Balance 189.5 -1899.9 -247 Weight 192 lb 0.362 oz Intake: IV Fluids 496 395 KCl 198 Magnesium 61 NS 237 108 Zosyn 287 IVPB 138 Zosyn 138 Medicated IV 292.5 395.1 CC - Amiodarone 37.3 Heparin 195 323 Levophed 60.2 72.1 Heparin 112 33 Output: Urine 40 Michael 809 2690 280 Gen:awake, no distress Neuro: alert, Ox2 HEENT: no thrush Heart:RRR no murmur Lungs:CTA BL Abd:+BS NTND soft Skin: no rash MSK: R foot dorsal wound, exposed tendon, surrounding erythema Laboratory Results - last 24 hr 11/21/17 11/24/17 11/24/17 22:00 16:38 17:28 WBC RBC Hgb Hct MCV MCH MCHC RDW Plt Count MPV Neut % (Auto) Lymph % (Auto) [place] % (Auto) Eos % (Auto) Baso % (Auto) Absolute Neuts (auto) Absolute Lymphs (auto) Absolute Monos (auto) Absolute Eos (auto) Absolute Basos (auto) Absolute Nucleated RBC Nucleated RBC % APTT 54.4 H Sodium Potassium Chloride Carbon Dioxide Anion Gap BUN Creatinine Est GFR ( Amer) Est GFR (Non-Af Amer) BUN/Creatinine Ratio Glucose POC Glucose (mg/dL) 168 H Calcium Magnesium Troponin I 13.08 H* 11/24/17 11/24/17 11/25/17 20:28 23:58 05:40 WBC RBC Hgb Hct MCV MCH MCHC RDW Plt Count MPV Neut % (Auto) Lymph % (Auto) [place] % (Auto) Eos % (Auto) Baso % (Auto) Absolute Neuts (auto) Absolute Lymphs (auto) Absolute Monos (auto) Absolute Eos (auto) Absolute Basos (auto) Absolute Nucleated RBC Nucleated RBC % APTT 56.0 H Sodium 142 Potassium 3.5 Chloride 108 Carbon Dioxide 27 Anion Gap 7 BUN 20 Creatinine 1.04 Est GFR ( Amer) 86.5 Est GFR (Non-Af Amer) 71.5 BUN/Creatinine Ratio 19.2 Glucose 138 H POC Glucose (mg/dL) 148 H Calcium 8.0 L Magnesium 1.9 Troponin I 11/25/17 05:40 WBC 8.8 RBC 3.04 L Hgb 9.3 L Hct 26 L MCV 87 MCH 31 MCHC 35 RDW 16 H Plt Count 249 MPV 8.1 Neut % (Auto) 75.0 Lymph % (Auto) 11.5 L [place] % (Auto) 9.1 H Eos % (Auto) 3.8 Baso % (Auto) 0.6 Absolute Neuts (auto) 6.6 Absolute Lymphs (auto) 1.0 Absolute Monos (auto) 0.8 Absolute Eos (auto) 0.3 Absolute Basos (auto) 0.1 Absolute Nucleated RBC 0 Nucleated RBC % 0 APTT Sodium Potassium Chloride Carbon Dioxide Anion Gap BUN Creatinine Est GFR ( Amer) Est GFR (Non-Af Amer) BUN/Creatinine Ratio Glucose POC Glucose (mg/dL) Calcium Magnesium Troponin I Assessment: 1. MSSA chronic osteomyelitis, infective myositis, cellulitis of right foot 2. septic shock, present on admission, resolved 3. NSTEMI, 3 vessel disease by catheterization 4. PAD 5. Diabetes mellitus Plan: 1. continue zosyn, I&D planned. Anticipate long course of IV antibiotics
--- NOTE | 2017-11-25 15:25 | PN ---
Progress Note - Progress Note Date of Service: 11/25/17 SOAP: Subjective: []Patient seen and examined today. He was in good spirits without complaints. He had a cardiac cath today revealing 3 vessel disease. Objective: []General: NAD RLE: Dressing changed. Dorsum of foot with quarter sized ulceration with purulent base, purulence greater than yesterday. Extensor hallicus longus tendon visible in wound bed. Mild erythema surrounding the ulcer and no foul odor. Sensation is reportedly intact distally. No tenderness to palpation. Able to flex and extend at toes and ankle. DP present though difficult to palpate. PT 1+. Calves are supple and nontender without erythema, edema or palpable cords Assessment: []Right foot ulceration with underlying osteomyelitis Plan: [] - Continue zosyn - Continue Daily DSD change and wound check by ortho - He will need to be NPO after midnight and remain off of the heparin drip to be an operative candidate. - Discussed with Dr Knox, we anticipate patient will be optimized to go to the OR tomorrow for I&D right foot. Patient is aware and agreeable. Vital Signs Temp 97.4 F 11/25/17 13:34 Pulse 71 11/25/17 14:45 Resp 15 11/25/17 15:00 BP 130/64 11/25/17 14:45 Pulse Ox 97 11/25/17 14:45 Intake & Output 11/24/17 11/25/17 11/25/17 18:59 06:59 18:59 Intake Total 1038.5 790.1 353 Output Total 849 2690 280 Balance 189.5 -1899.9 73 Weight 192 lb 0.362 oz Intake: IV Fluids 496 395 KCl 198 Magnesium 61 NS 237 108 Zosyn 287 IVPB 138 Zosyn 138 Medicated IV 292.5 395.1 CC - Amiodarone 37.3 Heparin 195 323 Levophed 60.2 72.1 Heparin 112 33 Oral 320 Output: Urine 40 Michael 809 2690 280 Laboratory Last Values WBC 8.8 10^3/ul (3.5-10.8) 11/25/17 05:40 RBC 3.04 10^6/ul (4.00-5.40) L 11/25/17 05:40 Hgb 9.3 g/dl (14.0-18.0) L 11/25/17 05:40 Hct 26 % (42-52) L 11/25/17 05:40 MCV 87 fL (80-94) 11/25/17 05:40 MCH 31 pg (27-31) 11/25/17 05:40 MCHC 35 g/dl (31-36) 11/25/17 05:40 RDW 16 % (10.5-15) H 11/25/17 05:40 Plt Count 249 10^3/ul (150-450) 11/25/17 05:40 MPV 8.1 um3 (7.4-10.4) 11/25/17 05:40 Neut % (Auto) 75.0 % (38-83) 11/25/17 05:40 Lymph % (Auto) 11.5 % (25-47) L 11/25/17 05:40 [place] % (Auto) 9.1 % (0-7) H 11/25/17 05:40 Eos % (Auto) 3.8 % (0-6) 11/25/17 05:40 Baso % (Auto) 0.6 % (0-2) 11/25/17 05:40 Absolute Neuts (auto) 6.6 10^3/ul (1.5-7.7) 11/25/17 05:40 Absolute Lymphs (auto) 1.0 10^3/ul (1.0-4.8) 11/25/17 05:40 Absolute Monos (auto) 0.8 10^3/ul (0-0.8) 11/25/17 05:40 Absolute Eos (auto) 0.3 10^3/ul (0-0.6) 11/25/17 05:40 Absolute Basos (auto) 0.1 10^3/ul (0-0.2) 11/25/17 05:40 Absolute Nucleated RBC 0 10^3/ul 11/25/17 05:40 Nucleated RBC % 0 11/25/17 05:40 ESR 85 mm/Hr (0-40) H 11/20/17 23:33 INR (Anticoag Therapy) 1.17 (0.77-1.02) H 11/21/17 22:00 APTT 56.0 seconds (26.0-36.3) H 11/24/17 23:58 Patient Temperature Not Reportable 11/22/17 05:12 ABG pH 7.37 (7.35-7.45) 11/22/17 05:12 ABG pH (Temp Correct) Not Reportable 11/22/17 05:12 ABG pCO2 35 mmHg (35-45) 11/22/17 05:12 ABG pCO2 (Temp Corrct Not Reportable 11/22/17 05:12 ABG pO2 93 mmHg (80-100) 11/22/17 05:12 ABG pO2 (Temp Correct Not Reportable 11/22/17 05:12 ABG HCO3 21.4 mmol/L (19-31) 11/22/17 05:12 ABG O2 Saturation 99.4 % (95-98) H 11/22/17 05:12 ABG Base Excess -4.5 (-2.0-2.0) L 11/22/17 05:12 VBG pH 7.27 (7.33-7.43) L 11/21/17 15:49 VBG pCO2 47 mmHg (41-51) 11/21/17 15:49 VBG pO2 42 mmHg (35-45) 11/21/17 15:49 VBG HCO3 20.4 mmol/L (24-28) L 11/21/17 15:49 VBG O2 Saturation 77.4 % (70-80) 11/21/17 15:49 VBG Base Excess -5.2 (0-4) L 11/21/17 15:49 Respiration Rate Not Reportable 11/22/17 05:12 O2 Delivery Device vent 11/22/17 05:12 Ventilator Type Not Reportable 11/22/17 05:12 Vent Mode Not Reportable 11/22/17 05:12 FiO2 25 11/22/17 05:12 Inspiratory Time Not Reportable 11/22/17 05:12 PEEP Not Reportable 11/22/17 05:12 Pressure Support Not Reportable 11/22/17 05:12 Pressure Control Not Reportable 11/22/17 05:12 EPAP Not Reportable 11/22/17 05:12 IPAP Not Reportable 11/22/17 05:12 BiPAP Not Reportable 11/22/17 05:12 Sodium 142 mmol/L (135-145) 11/25/17 05:40 Potassium 3.5 mmol/L (3.5-5.0) 11/25/17 05:40 Chloride 108 mmol/L (101-111) 11/25/17 05:40 Carbon Dioxide 27 mmol/L (22-32) 11/25/17 05:40 Anion Gap 7 mmol/L (2-11) 11/25/17 05:40 BUN 20 mg/dL (6-24) 11/25/17 05:40 Creatinine 1.04 mg/dL (0.67-1.17) 11/25/17 05:40 Est GFR ( Amer) 86.5 (>60) 11/25/17 05:40 Est GFR (Non-Af Amer) 71.5 (>60) 11/25/17 05:40 BUN/Creatinine Ratio 19.2 (8-20) 11/25/17 05:40 Glucose 138 mg/dL (70-100) H 11/25/17 05:40 POC Glucose (mg/dL) 138 mg/dL (70-100) H 11/25/17 12:20 Hemoglobin A1c 7.2 % (4.0-5.6) H 11/21/17 06:03 Lactic Acid 1.7 mmol/L (0.5-2.0) 11/21/17 15:49 Calcium 8.0 mg/dL (8.6-10.3) L 11/25/17 05:40 Phosphorus 2.5 mg/dL (2.5-5.0) 11/21/17 15:49 Magnesium 1.9 mg/dL (1.9-2.7) 11/25/17 05:40 Total Bilirubin 0.80 mg/dL (0.2-1.0) 11/21/17 15:49 Direct Bilirubin 0.30 mg/dL (0.03-0.18) H 11/21/17 15:49 Indirect Bilirubin 0.5 mg/dL (0.3-1.0) 11/21/17 15:49 AST 35 U/L (13-39) 11/21/17 15:49 ALT 21 U/L (7-52) 11/21/17 15:49 Alkaline Phosphatase 93 U/L (34-104) 11/21/17 15:49 Total Creatine Kinase 652 U/L (10-223) H 11/21/17 22:00 CK-MB (CK-2) 76.6 ng/mL (0.6-6.3) H 11/21/17 22:00 Troponin I 3.90 ng/mL (<0.04) H* 11/23/17 05:10 C-Reactive Protein 214.89 mg/L (<8.01) H 11/20/17 23:33 C-React Prot High Sens 189.30 mg/L (<2.00) H 11/21/17 06:03 B-Natriuretic Peptide 287 pg/mL (-100) H 11/20/17 23:33 Total Protein 5.6 g/dL (6.4-8.9) L 11/21/17 15:49 Albumin 3.0 g/dL (3.2-5.2) L 11/21/17 15:49 Globulin 2.6 g/dL (2-4) 11/21/17 15:49 Albumin/Globulin Ratio 1.2 (1-3) 11/21/17 15:49 TSH 6.64 mcIU/mL (0.34-5.60) H 11/21/17 06:03 Urine Color Marni 11/21/17 01:56 Urine Appearance Cloudy 11/21/17 01:56 Urine pH 5.0 (5-9) 11/21/17 01:56 Ur Specific [place] 1.028 (1.010-1.030) 11/21/17 01:56 Urine Protein 1+(30 mg/dl) (Negative) A 11/21/17 01:56 Urine Ketones Negative (Negative) 11/21/17 01:56 Urine Blood Negative (Negative) 11/21/17 01:56 Urine Nitrate Negative (Negative) 11/21/17 01:56 Urine Bilirubin Negative (Negative) 11/21/17 01:56 Urine Urobilinogen Negative (Negative) 11/21/17 01:56 Ur Leukocyte Esterase Trace (Negative) A 11/21/17 01:56 Urine WBC (Auto) 2+(11-20/hpf) (Absent) A 11/21/17 01:56 Urine RBC (Auto) Trace(0-2/hpf) (Absent) 11/21/17 01:56 Ur Squamous Epith Cells Present (Absent) A 11/21/17 01:56 Urine Bacteria Absent (Absent) 11/21/17 01:56 Hyaline Casts Present (Absent) A 11/21/17 01:56 Granular Casts Present (Absent) A 11/21/17 01:56 Urine Glucose Negative (Negative) 11/21/17 01:56 Urine Ascorbic Acid * (Negative) A 11/21/17 01:56 Vancomycin Trough 25.5 mcg/mL 11/24/17 06:12 Blood Type O Positive 11/21/17 06:03 Antibody Screen Negative 11/21/17 06:03
[2017-11-25] MEDS: Metoprolol Tartrate TAB* 25 MG PO SCH ×2 (16:05→21:10)
[2017-11-25] MEDS: Atorvastatin* 80 MG TAB PO SCH (18:09)
[2017-11-25] MEDS ORDERED: NS 0.9% 100 ML* 100 ML ONE (21:06)
[2017-11-25] MEDS: Insulin GLARGINE(*) 1 UNITS UNIT SUBCUT SCH (21:33)
[2017-11-26] MEDS: CMC:Pantoprazole TAB (NF) 40 MG TAB PO SCH (05:11)
[2017-11-26] MEDS: Piperacillin/Tazobac ADVAN(*) 3.375 GM in NS 0.9% 100 ML* 100 ML IVPB SCH ×3 (05:12→21:57)
[2017-11-26 05:49] LABS: ABS Basophils 0 10^3/ul (0-0.2); ABS Eosinophils 0.4 10^3/ul (0-0.6); ABS Lymphocytes 0.9 10^3/ul (1.0-4.8); ABS Nucleated RBC 0 10^3/ul; Eosinophil % 3.8 % (0-6); Hematocrit 27 % (42-52); Hemoglobin 9.1 g/dl (14.0-18.0); Lymphocyte % 9.2 % (25-47); Mean Corpuscular HGB Conc 34 g/dl (31-36); Mean Corpuscular Hemoglobin 29 pg (27-31); Mean Corpuscular Volume 87 fL (80-94); Nucleated Red Blood Cells % 0; Platelet Count 290 10^3/ul (150-450); Red Cell Distribution Width 16 % (10.5-15); White Blood Count 9.3 10^3/ul (3.5-10.8)
[2017-11-26 06:05] LABS: EGFR Non-African American 73.1 (>60)
[2017-11-26] MEDS ORDERED: KCL 20 MEQ/100 ML IVPREMIX* 20 MEQ/100 ML BAG ONE (07:56)
[2017-11-26] MEDS: Aspirin EC TAB* 81 MG TAB.EC PO SCH (08:01)
[2017-11-26] MEDS: Ferrous Sulfate TAB* 325 MG PO SCH (08:01)
[2017-11-26] MEDS: Clopidogrel TAB* 75 MG PO SCH (08:01)
[2017-11-26] MEDS: KCL 20 MEQ/100 ML IVPREMIX* 20 MEQ/100 ML BAG IV SCH ×3 (08:01→13:24)
[2017-11-26] MEDS: PARoxetine HCL TAB* 10 MG PO SCH (08:01)
[2017-11-26] MEDS: Senna TAB PO SCH ×2 (08:02→21:56)
[2017-11-26] MEDS: Metoprolol Tartrate TAB* 25 MG PO SCH ×2 (08:02→22:01)
[2017-11-26] MEDS: Docusate CAP* 100 MG PO SCH ×2 (08:02→21:56)
[2017-11-26] MEDS: Amiodarone TAB* 400 MG PO SCH (08:02)
[2017-11-26] MEDS: LINAGLIPTIN 5 MG PO SCH (08:02)
--- NOTE | 2017-11-26 08:29 | PN ---
Date of Service: 11/26/17 Critical Care Services: 67M with htn, hld, dm, cad, h/o cva, dementia transferred from an outside hospital evaluation of altered mental status, afib with rvr, and sepsis 2/2 right foot cellulitis/ulcer. The patient is pleasant but confused. He is a poor historian. 11/21: Afib with RVR has resolved. BP soft. Mentating well. Confused. 11/22: Yesterday afternoon. Patient aspirated. He became hypoxic which lead to cardiac ischemia and flash pulmonary edema. He was intubated for respiratory failure. Overnight team thought patient may have been having a seizure. He was sent for head ct which was negative. 11/23. Patient was extubated yesterday morning and did well for most of the day. Overnight he had afib with rvr and flash pulmonary edema. He was started on bipap and given lasix with improvement in oxygenation. 11/24: Afib with RVR again overnight causing flash pulmonary edema. Responded to lasix/morphine and bipap. 11/25: Did well overnight, however, he did pull out his picc line. Plan for LHC today. 11/26: LHC with 3V disease. Doing well otherwise. Off levophed. PICC replaced. For OR washout today of foot. Vital Signs: Temp Pulse Resp BP SpO2 FiO2 99.6 F 75 21 158/70 98 50 11/26/17 07:58 11/26/17 06:01 11/26/17 06:01 11/26/17 06:00 11/26/17 06:01 11/25 03:29 Physical Exam: Gen - NAD heent - ncat, eomi, perrl neck - no jvd cv - s1/s2, no murmur lungs - cta, no wheeze abd - soft nt, nd ext - rle swelling erythema, +draining ulcer neuro - awake, alert Fluid Balance (Past 24 Hours): I= O= Net Intake & Output 11/24/17 11/25/17 11/26/17 11/27/17 06:59 06:59 06:59 06:59 Intake Total 2143.7 1828.6 974.6 Output Total 2315 3539 1130 80 Balance -171.3 -1710.4 -155.4 -80 Weight 90.7 kg 87.1 kg 83 kg Intake: IV Fluids 427 891 276.6 ABX - VANCOMYCIN 266 KCl 198 Magnesium 61 NS 98 345 163.3 Zosyn 63 287 113.3 IVPB 467 138 NS 467 Zosyn 138 Medicated IV 989.7 687.6 CC - Amiodarone 355 37.3 Heparin 557 518 Levophed 77.7 132.3 Heparin 112 33 Oral 260 665 Output: G Tube 150 Urine 40 Michael 2165 3499 1130 80 Other: # Bowel Movements 1 Estimated Stool Amount Medium Labs: Laboratory Results - last 24 hr 11/25/17 11/25/17 11/25/17 12:20 18:01 20:59 WBC RBC Hgb Hct MCV MCH MCHC RDW Plt Count MPV Neut % (Auto) Lymph % (Auto) [place] % (Auto) Eos % (Auto) Baso % (Auto) Absolute Neuts (auto) Absolute Lymphs (auto) Absolute Monos (auto) Absolute Eos (auto) Absolute Basos (auto) Absolute Nucleated RBC Nucleated RBC % Sodium Potassium Chloride Carbon Dioxide Anion Gap BUN Creatinine Est GFR ( Amer) Est GFR (Non-Af Amer) BUN/Creatinine Ratio Glucose POC Glucose (mg/dL) 138 H 139 H 179 H Calcium Magnesium 11/26/17 11/26/17 05:20 05:20 WBC 9.3 RBC 3.10 L Hgb 9.1 L Hct 27 L MCV 87 MCH 29 MCHC 34 RDW 16 H Plt Count 290 MPV 8.0 Neut % (Auto) 75.9 Lymph % (Auto) 9.2 L [place] % (Auto) 10.7 H Eos % (Auto) 3.8 Baso % (Auto) 0.4 Absolute Neuts (auto) 7.0 Absolute Lymphs (auto) 0.9 L Absolute Monos (auto) 1.0 H Absolute Eos (auto) 0.4 Absolute Basos (auto) 0 Absolute Nucleated RBC 0 Nucleated RBC % 0 Sodium 143 Potassium 3.2 L Chloride 108 Carbon Dioxide 26 Anion Gap 9 BUN 23 Creatinine 1.02 Est GFR ( Amer) 88.4 Est GFR (Non-Af Amer) 73.1 BUN/Creatinine Ratio 22.5 H Glucose 188 H POC Glucose (mg/dL) Calcium 8.3 L Magnesium 1.9 Studies: Foot Xray 11/20 IMPRESSION: #. Nonspecific soft tissue swelling over the dorsum of the foot. #. No radiographic findings to indicate osteomyelitis. CXR 11/21 IMPRESSION: 1. LINES AND TUBES ABOVE. 2. CHRONIC APPEARING INTERSTITIAL CHANGES LE Doppler 11/21 IMPRESSION: NO RIGHT LOWER EXTREMITY DEEP VEIN THROMBOSIS. NO LEFT LOWER EXTREMITY DEEP VEIN THROMBOSIS. TTE 11/21 Conclusions There is normal left ventricular systolic function. The estimated left ventricular ejection fraction is 55-60%. Normal left ventricular wall motion. The left ventricular chamber size is decreased. Mild concentric left ventricular hypertrophy is observed. Functionally benign heart valves Since the prior echocardiogram completed 11/05/12, pertinent changes are prior mildly depressed left ventricular ejection fraction reported at 40-45% and prior normal left ventricular size reported. MRI Right Foot 11/21 IMPRESSION: 1. There is an ulceration at the dorsum of the foot. The extensor hallucis tendon extends into this area of ulceration. Partial disruption or tear of this tendon cannot be excluded. 2. Soft tissue swelling is identified of the foot, most significant dorsally. There is additional soft tissue swelling surrounding the ankle. This is consistent with cellulitis in the appropriate clinical setting. 3. Marrow edema with enhancement is identified involving the medial cuneiform bone and first metatarsal bone. Mild additional edema is identified within the navicular bone and intermediate cuneiform bone. These findings are concerning for osteomyelitis. 4. Muscle edema is visualized, suggestive of myositis or diabetic myopathy. 5. Additional findings described above CTA Chest 11/21 IMPRESSION: 1. No CT of evidence of pulmonary embolism. 2. Chest x-ray findings are most consistent with fluid overload/pulmonary edema including small to moderate size bibasilar pleural effusions. Brain CT 11/22 IMPRESSION: Multiple areas of old infarction. No evidence of acute intracranial hemorrhage. No intracranial mass or obstructive hydrocephalus. [facility] 11/25 LM 30% mLAD 40% Dx Long 70% Cx 100% after OM, with 75% prox RCA diffuse + to 90% LVEDP 15-20 No Impression: 67M with htn, hld, dm, cad, h/o cva, dementia transferred from an outside hospital evaluation of altered mental status, afib with rvr, and sepsis 2/2 right foot cellulitis/ulcer. Course complicated by aspiration, respiratory failure, NSTEMI. MRI concerning for osteomyelitis. [facility] with 3V disease. Plan: Neuro - dementia - awake, alert, confused - redirect prn CV - htn, hld, cad, afib, nstemi, flash pulmonary edema - c/w asa/statin/plavix - amio for rhythm control - tte with preserved ef - LHC with 3V CAD - not a candidate for PCI - will readdress as outpatient after osteo adequately treated - off heparin gtt - titrate up betablocker Pulm - respiratory failure - 2/2 flash pulmonary edema - has not has any issue the over the past several days ID - sepsis 2/2 RLE cellulitis/ulcer/osteomyelitis - f/u cultures - zosyn for mssa in superficial wound culture - surgery/ortho/ID following - plan for foot washout today GI - npo until after washout Renal - monitor i/o - monitor lytes Heme - monitor cbc - c/w po iron Endo - dm - check fs, niss, lantus Lines - piv, PPx - gi/dvt Full Code Critical Care Time: 55 mins
[2017-11-26] MEDS: Insulin LISPRO* 1 UNITS UNIT SUBCUT SCH ×4 (08:55→21:57)
[2017-11-26] MEDS: Ascorbic Acid TAB* 500 MG PO SCH (11:21)
[2017-11-26] MEDS: Atorvastatin* 80 MG TAB PO SCH (21:56)
[2017-11-26] MEDS: Insulin GLARGINE(*) 1 UNITS UNIT SUBCUT SCH (21:56)
[2017-11-27] MEDS: Piperacillin/Tazobac ADVAN(*) 3.375 GM in NS 0.9% 100 ML* 100 ML IVPB SCH (05:06)
[2017-11-27 05:24] LABS: ABS Basophils 0 10^3/ul (0-0.2); ABS Eosinophils 0.4 10^3/ul (0-0.6); ABS Lymphocytes 0.7 10^3/ul (1.0-4.8); ABS Monocytes 0.7 10^3/ul (0-0.8); ABS Neutrophils 5.7 10^3/ul (1.5-7.7); ABS Nucleated RBC 0 10^3/ul; Eosinophil % 5.3 % (0-6); Hematocrit 22 % (42-52); Hemoglobin 7.4 g/dl (14.0-18.0); Lymphocyte % 9.8 % (25-47); Mean Corpuscular HGB Conc 33 g/dl (31-36); Mean Corpuscular Hemoglobin 29 pg (27-31); Mean Corpuscular Volume 88 fL (80-94); Mean Platelet Volume 7.6 um3 (7.4-10.4); Nucleated Red Blood Cells % 0; Platelet Count 262 10^3/ul (150-450); Red Blood Count 2.55 10^6/ul (4.00-5.40); Red Cell Distribution Width 16 % (10.5-15); White Blood Count 7.6 10^3/ul (3.5-10.8)
[2017-11-27 05:49] LABS: EGFR Non-African American 101.1 (>60)
[2017-11-27] MEDS: CMC:Pantoprazole TAB (NF) 40 MG TAB PO SCH (07:25)
[2017-11-27] MEDS ORDERED: Magnesium Sulfate 2 GM IV* 2 GM/50 ML BAG IVPB ONE (07:53)
--- NOTE | 2017-11-27 08:00 | PN ---
Date of Service: 11/27/17 Critical Care Services: 67M with htn, hld, dm, cad, h/o cva, dementia transferred from an outside hospital evaluation of altered mental status, afib with rvr, and sepsis 2/2 right foot cellulitis/ulcer. The patient is pleasant but confused. He is a poor historian. 11/21: Afib with RVR has resolved. BP soft. Mentating well. Confused. 11/22: Yesterday afternoon. Patient aspirated. He became hypoxic which lead to cardiac ischemia and flash pulmonary edema. He was intubated for respiratory failure. Overnight team thought patient may have been having a seizure. He was sent for head ct which was negative. 11/23. Patient was extubated yesterday morning and did well for most of the day. Overnight he had afib with rvr and flash pulmonary edema. He was started on bipap and given lasix with improvement in oxygenation. 11/24: Afib with RVR again overnight causing flash pulmonary edema. Responded to lasix/morphine and bipap. 11/25: Did well overnight, however, he did pull out his picc line. Plan for LHC today. 11/26: LHC with 3V disease. Doing well otherwise. Off levophed. PICC replaced. For OR washout today of foot. 11/27: s/p debridement of RLE. tolerated procedure well. Vital Signs: Temp Pulse Resp BP SpO2 FiO2 98.5 F 68 12 146/70 75 50 11/27/17 07:51 11/27/17 06:00 11/27/17 06:00 11/27/17 06:00 11/27/17 06:00 11/25 03:29 Physical Exam: Gen - NAD heent - ncat, eomi, perrl neck - no jvd cv - s1/s2, no murmur lungs - cta, no wheeze abd - soft nt, nd ext - rle with wound vac neuro - awake, alert Fluid Balance (Past 24 Hours): I= O= Net Intake & Output 11/25/17 11/26/17 11/27/17 11/28/17 06:59 06:59 06:59 06:59 Intake Total 1828.6 974.6 2526 Output Total 3539 1130 950 Balance -1710.4 -155.4 1576 Weight 87.1 kg 83 kg 85.4 kg Intake: IV Fluids 891 276.6 1277 KCl 198 388 Magnesium 61 NS 345 163.3 889 Zosyn 287 113.3 IVPB 138 109 Zosyn 138 109 Medicated IV 687.6 CC - Amiodarone 37.3 Heparin 518 Levophed 132.3 Heparin 112 33 Oral 665 1140 Output: Urine 40 Michael 3499 1130 950 Other: # Bowel Movements 1 Estimated Stool Amount Medium Medium Labs: Laboratory Results - last 24 hr 11/26/17 11/26/17 11/26/17 11:55 17:06 21:20 WBC RBC Hgb Hct MCV MCH MCHC RDW Plt Count MPV Neut % (Auto) Lymph % (Auto) [place] % (Auto) Eos % (Auto) Baso % (Auto) Absolute Neuts (auto) Absolute Lymphs (auto) Absolute Monos (auto) Absolute Eos (auto) Absolute Basos (auto) Absolute Nucleated RBC Nucleated RBC % Sodium Potassium Chloride Carbon Dioxide Anion Gap BUN Creatinine Est GFR ( Amer) Est GFR (Non-Af Amer) BUN/Creatinine Ratio Glucose POC Glucose (mg/dL) 170 H 183 H 180 H Calcium Magnesium 11/27/17 11/27/17 05:15 05:15 WBC 7.6 RBC 2.55 L Hgb 7.4 L Hct 22 L MCV 88 MCH 29 MCHC 33 RDW 16 H Plt Count 262 MPV 7.6 Neut % (Auto) 75.1 Lymph % (Auto) 9.8 L [place] % (Auto) 9.2 H Eos % (Auto) 5.3 Baso % (Auto) 0.6 Absolute Neuts (auto) 5.7 Absolute Lymphs (auto) 0.7 L Absolute Monos (auto) 0.7 Absolute Eos (auto) 0.4 Absolute Basos (auto) 0 Absolute Nucleated RBC 0 Nucleated RBC % 0 Sodium 145 Potassium 3.2 L Chloride 117 H Carbon Dioxide 24 Anion Gap 4 BUN 18 Creatinine 0.77 Est GFR ( Amer) 122.3 Est GFR (Non-Af Amer) 101.1 BUN/Creatinine Ratio 23.4 H Glucose 106 H POC Glucose (mg/dL) Calcium 7.0 L Magnesium 1.7 L Studies: Foot Xray 11/20 IMPRESSION: #. Nonspecific soft tissue swelling over the dorsum of the foot. #. No radiographic findings to indicate osteomyelitis. CXR 11/21 IMPRESSION: 1. LINES AND TUBES ABOVE. 2. CHRONIC APPEARING INTERSTITIAL CHANGES LE Doppler 11/21 IMPRESSION: NO RIGHT LOWER EXTREMITY DEEP VEIN THROMBOSIS. NO LEFT LOWER EXTREMITY DEEP VEIN THROMBOSIS. TTE 11/21 Conclusions There is normal left ventricular systolic function. The estimated left ventricular ejection fraction is 55-60%. Normal left ventricular wall motion. The left ventricular chamber size is decreased. Mild concentric left ventricular hypertrophy is observed. Functionally benign heart valves Since the prior echocardiogram completed 11/05/12, pertinent changes are prior mildly depressed left ventricular ejection fraction reported at 40-45% and prior normal left ventricular size reported. MRI Right Foot 11/21 IMPRESSION: 1. There is an ulceration at the dorsum of the foot. The extensor hallucis tendon extends into this area of ulceration. Partial disruption or tear of this tendon cannot be excluded. 2. Soft tissue swelling is identified of the foot, most significant dorsally. There is additional soft tissue swelling surrounding the ankle. This is consistent with cellulitis in the appropriate clinical setting. 3. Marrow edema with enhancement is identified involving the medial cuneiform bone and first metatarsal bone. Mild additional edema is identified within the navicular bone and intermediate cuneiform bone. These findings are concerning for osteomyelitis. 4. Muscle edema is visualized, suggestive of myositis or diabetic myopathy. 5. Additional findings described above CTA Chest 11/21 IMPRESSION: 1. No CT of evidence of pulmonary embolism. 2. Chest x-ray findings are most consistent with fluid overload/pulmonary edema including small to moderate size bibasilar pleural effusions. Brain CT 11/22 IMPRESSION: Multiple areas of old infarction. No evidence of acute intracranial hemorrhage. No intracranial mass or obstructive hydrocephalus. [facility] 11/25 LM 30% mLAD 40% Dx Long 70% Cx 100% after OM, with 75% prox RCA diffuse + to 90% LVEDP 15-20 No Impression: 67M with htn, hld, dm, cad, h/o cva, dementia transferred from an outside hospital evaluation of altered mental status, afib with rvr, and sepsis 2/2 right foot cellulitis/ulcer. Course complicated by aspiration, respiratory failure, NSTEMI. MRI with osteomyelitis. [facility] with 3V disease. Plan: Neuro - dementia - awake, alert, pleasant - redirect prn CV - htn, hld, cad, afib, nstemi, flash pulmonary edema - c/w asa/statin/plavix/betablocker - amio for rhythm control - tte with preserved ef - LHC with 3V CAD - not a candidate for PCI - will readdress as outpatient after osteo adequately treated Pulm - respiratory failure - 2/2 flash pulmonary edema - has not has any issue the over the past several days ID - sepsis 2/2 RLE cellulitis/ulcer/osteomyelitis - f/u cultures - zosyn for mssa in superficial wound culture - surgery/ortho/ID following - s/p debridement - wound vac per ortho GI - diet as tolerated Renal - monitor i/o - replete potassium, magnesium Heme - monitor cbc - c/w po iron Endo - dm - check fs, niss, lantus Lines - piv, picc PPx - gi/dvt Full Code Critical Care Time: 40 mins
[2017-11-27] MEDS: KCL 20 MEQ/100 ML IVPREMIX* 20 MEQ/100 ML BAG IV SCH ×3 (08:35→13:11)
[2017-11-27] MEDS: Aspirin EC TAB* 81 MG TAB.EC PO SCH (08:36)
[2017-11-27] MEDS: Ascorbic Acid TAB* 500 MG PO SCH (08:36)
[2017-11-27] MEDS: PARoxetine HCL TAB* 10 MG PO SCH (08:36)
[2017-11-27] MEDS: Clopidogrel TAB* 75 MG PO SCH (08:36)
[2017-11-27] MEDS: Amiodarone TAB* 400 MG PO SCH (08:36)
[2017-11-27] MEDS: Metoprolol Tartrate TAB* 25 MG PO SCH ×3 (08:36→21:41)
[2017-11-27] MEDS: Docusate CAP* 100 MG PO SCH ×2 (08:36→21:43)
[2017-11-27] MEDS: LINAGLIPTIN 5 MG PO SCH (08:37)
[2017-11-27] MEDS: Senna TAB PO SCH ×2 (08:37→21:43)
[2017-11-27] MEDS: Ferrous Sulfate TAB* 325 MG PO SCH (08:37)
[2017-11-27] MEDS: Insulin LISPRO* 1 UNITS UNIT SUBCUT SCH ×4 (09:21→21:44)
[2017-11-27 12:32] LABS: ABS Basophils 0 10^3/ul (0-0.2); ABS Eosinophils 0.3 10^3/ul (0-0.6); ABS Lymphocytes 0.7 10^3/ul (1.0-4.8); ABS Monocytes 0.6 10^3/ul (0-0.8); ABS Neutrophils 6.7 10^3/ul (1.5-7.7); ABS Nucleated RBC 0 10^3/ul; Eosinophil % 4.2 % (0-6); Hematocrit 25 % (42-52); Hemoglobin 8.2 g/dl (14.0-18.0); Lymphocyte % 8.1 % (25-47); Mean Corpuscular HGB Conc 33 g/dl (31-36); Mean Corpuscular Hemoglobin 29 pg (27-31); Mean Corpuscular Volume 87 fL (80-94); Mean Platelet Volume 7.8 um3 (7.4-10.4); Nucleated Red Blood Cells % 0.1; Platelet Count 284 10^3/ul (150-450); Red Blood Count 2.81 10^6/ul (4.00-5.40); Red Cell Distribution Width 16 % (10.5-15); White Blood Count 8.3 10^3/ul (3.5-10.8)
[2017-11-27 12:43] LABS: EGFR Non-African American 99.6 (>60)
[2017-11-27] MEDS: ceFAZolin 2 GM in NS PREMIX(*) 2 GM/100 ML BAG IVPB SCH ×2 (12:59→21:43)
[2017-11-27] MEDS ORDERED: Losartan TAB* 25 MG PO SCH (14:00)
[2017-11-27] MEDS ORDERED: Furosemide IV* 10 MG/ML VIAL (40 MG) IV SLOW PU ONE (14:33)
[2017-11-27] MEDS ORDERED: Morphine VIAL* 4 MG/ML VIAL (1 ml vial) IV ONE (15:13)
[2017-11-27] MEDS: Morphine VIAL* 4 MG/ML VIAL (1 ml vial) IV PRN (15:20)
[2017-11-27] MEDS ORDERED: Haloperidol INJ IV/IM* 5 MG/ML AMP IV SLOW PU ONE (15:21)
--- NOTE | 2017-11-27 16:14 | PN ---
Progress Note - Progress Note Date of Service: 11/27/17 SOAP: Subjective: []Patient seen at bedside. He is on bipap today. Denies any RLE pain. Objective: []General: NAD RLE: Dressing CDI. Vac in place with good suction. No erythema proximal or distal to splint Calves are supple and nontender without erythema, edema or palpable cords Assessment: []S/P I&D Right foot ulceration underlying osteomyelitis Plan: [] Continue abx per ID - on cefazolin remains in ICU Vital Signs Temp 98.6 F 11/27/17 11:50 Pulse 78 11/27/17 13:26 Resp 30 11/27/17 15:20 BP 139/84 11/27/17 13:26 Pulse Ox 87 11/27/17 13:26 Intake & Output 11/26/17 11/27/17 11/27/17 18:59 06:59 18:59 Intake Total 919 1607 460 Output Total 425 525 565 Balance 494 1082 -105 Weight 188 lb 4.396 oz Intake: IV Fluids 919 358 KCl 388 NS 531 358 IVPB 109 Zosyn 109 Oral 0 1140 460 Output: Michael 425 525 565 Other: Estimated Stool Amount Medium Laboratory Last Values WBC 8.3 10^3/ul (3.5-10.8) 11/27/17 12:00 RBC 2.81 10^6/ul (4.00-5.40) L 11/27/17 12:00 Hgb 8.2 g/dl (14.0-18.0) L 11/27/17 12:00 Hct 25 % (42-52) L 11/27/17 12:00 MCV 87 fL (80-94) 11/27/17 12:00 MCH 29 pg (27-31) 11/27/17 12:00 MCHC 33 g/dl (31-36) 11/27/17 12:00 RDW 16 % (10.5-15) H 11/27/17 12:00 Plt Count 284 10^3/ul (150-450) 11/27/17 12:00 MPV 7.8 um3 (7.4-10.4) 11/27/17 12:00 Neut % (Auto) 79.6 % (38-83) 11/27/17 12:00 Lymph % (Auto) 8.1 % (25-47) L 11/27/17 12:00 [place] % (Auto) 7.5 % (0-7) H 11/27/17 12:00 Eos % (Auto) 4.2 % (0-6) 11/27/17 12:00 Baso % (Auto) 0.6 % (0-2) 11/27/17 12:00 Absolute Neuts (auto) 6.7 10^3/ul (1.5-7.7) 11/27/17 12:00 Absolute Lymphs (auto) 0.7 10^3/ul (1.0-4.8) L 11/27/17 12:00 Absolute Monos (auto) 0.6 10^3/ul (0-0.8) 11/27/17 12:00 Absolute Eos (auto) 0.3 10^3/ul (0-0.6) 11/27/17 12:00 Absolute Basos (auto) 0 10^3/ul (0-0.2) 11/27/17 12:00 Absolute Nucleated RBC 0 10^3/ul 11/27/17 12:00 Nucleated RBC % 0.1 11/27/17 12:00 ESR 85 mm/Hr (0-40) H 11/20/17 23:33 INR (Anticoag Therapy) 1.17 (0.77-1.02) H 11/21/17 22:00 APTT 56.0 seconds (26.0-36.3) H 11/24/17 23:58 Patient Temperature Not Reportable 11/22/17 05:12 ABG pH 7.37 (7.35-7.45) 11/22/17 05:12 ABG pH (Temp Correct) Not Reportable 11/22/17 05:12 ABG pCO2 35 mmHg (35-45) 11/22/17 05:12 ABG pCO2 (Temp Corrct Not Reportable 11/22/17 05:12 ABG pO2 93 mmHg (80-100) 11/22/17 05:12 ABG pO2 (Temp Correct Not Reportable 11/22/17 05:12 ABG HCO3 21.4 mmol/L (19-31) 11/22/17 05:12 ABG O2 Saturation 99.4 % (95-98) H 11/22/17 05:12 ABG Base Excess -4.5 (-2.0-2.0) L 11/22/17 05:12 VBG pH 7.27 (7.33-7.43) L 11/21/17 15:49 VBG pCO2 47 mmHg (41-51) 11/21/17 15:49 VBG pO2 42 mmHg (35-45) 11/21/17 15:49 VBG HCO3 20.4 mmol/L (24-28) L 11/21/17 15:49 VBG O2 Saturation 77.4 % (70-80) 11/21/17 15:49 VBG Base Excess -5.2 (0-4) L 11/21/17 15:49 Respiration Rate Not Reportable 11/22/17 05:12 O2 Delivery Device vent 11/22/17 05:12 Ventilator Type Not Reportable 11/22/17 05:12 Vent Mode Not Reportable 11/22/17 05:12 FiO2 25 11/22/17 05:12 Inspiratory Time Not Reportable 11/22/17 05:12 PEEP Not Reportable 11/22/17 05:12 Pressure Support Not Reportable 11/22/17 05:12 Pressure Control Not Reportable 11/22/17 05:12 EPAP Not Reportable 11/22/17 05:12 IPAP Not Reportable 11/22/17 05:12 BiPAP Not Reportable 11/22/17 05:12 Sodium 144 mmol/L (135-145) 11/27/17 12:00 Potassium 3.7 mmol/L (3.5-5.0) 11/27/17 12:00 Chloride 115 mmol/L (101-111) H 11/27/17 12:00 Carbon Dioxide 25 mmol/L (22-32) 11/27/17 12:00 Anion Gap 4 mmol/L (2-11) 11/27/17 12:00 BUN 18 mg/dL (6-24) 11/27/17 12:00 Creatinine 0.78 mg/dL (0.67-1.17) 11/27/17 12:00 Est GFR ( Amer) 120.5 (>60) 11/27/17 12:00 Est GFR (Non-Af Amer) 99.6 (>60) 11/27/17 12:00 BUN/Creatinine Ratio 23.1 (8-20) H 11/27/17 12:00 Glucose 149 mg/dL (70-100) H 11/27/17 12:00 POC Glucose (mg/dL) 186 mg/dL (70-100) H 11/27/17 12:37 Hemoglobin A1c 7.2 % (4.0-5.6) H 11/21/17 06:03 Lactic Acid 1.7 mmol/L (0.5-2.0) 11/21/17 15:49 Calcium 7.4 mg/dL (8.6-10.3) L 11/27/17 12:00 Phosphorus 2.5 mg/dL (2.5-5.0) 11/21/17 15:49 Magnesium 2.1 mg/dL (1.9-2.7) 11/27/17 12:00 Total Bilirubin 0.80 mg/dL (0.2-1.0) 11/21/17 15:49 Direct Bilirubin 0.30 mg/dL (0.03-0.18) H 11/21/17 15:49 Indirect Bilirubin 0.5 mg/dL (0.3-1.0) 11/21/17 15:49 AST 35 U/L (13-39) 11/21/17 15:49 ALT 21 U/L (7-52) 11/21/17 15:49 Alkaline Phosphatase 93 U/L (34-104) 11/21/17 15:49 Total Creatine Kinase 652 U/L (10-223) H 11/21/17 22:00 CK-MB (CK-2) 76.6 ng/mL (0.6-6.3) H 11/21/17 22:00 Troponin I 3.90 ng/mL (<0.04) H* 11/23/17 05:10 C-Reactive Protein 214.89 mg/L (<8.01) H 11/20/17 23:33 C-React Prot High Sens 189.30 mg/L (<2.00) H 11/21/17 06:03 B-Natriuretic Peptide 287 pg/mL (-100) H 11/20/17 23:33 Total Protein 5.6 g/dL (6.4-8.9) L 11/21/17 15:49 Albumin 3.0 g/dL (3.2-5.2) L 11/21/17 15:49 Globulin 2.6 g/dL (2-4) 11/21/17 15:49 Albumin/Globulin Ratio 1.2 (1-3) 11/21/17 15:49 TSH 6.64 mcIU/mL (0.34-5.60) H 11/21/17 06:03 Urine Color Marni 11/21/17 01:56 Urine Appearance Cloudy 11/21/17 01:56 Urine pH 5.0 (5-9) 11/21/17 01:56 Ur Specific [place] 1.028 (1.010-1.030) 11/21/17 01:56 Urine Protein 1+(30 mg/dl) (Negative) A 11/21/17 01:56 Urine Ketones Negative (Negative) 11/21/17 01:56 Urine Blood Negative (Negative) 11/21/17 01:56 Urine Nitrate Negative (Negative) 11/21/17 01:56 Urine Bilirubin Negative (Negative) 11/21/17 01:56 Urine Urobilinogen Negative (Negative) 11/21/17 01:56 Ur Leukocyte Esterase Trace (Negative) A 11/21/17 01:56 Urine WBC (Auto) 2+(11-20/hpf) (Absent) A 11/21/17 01:56 Urine RBC (Auto) Trace(0-2/hpf) (Absent) 11/21/17 01:56 Ur Squamous Epith Cells Present (Absent) A 11/21/17 01:56 Urine Bacteria Absent (Absent) 11/21/17 01:56 Hyaline Casts Present (Absent) A 11/21/17 01:56 Granular Casts Present (Absent) A 11/21/17 01:56 Urine Glucose Negative (Negative) 11/21/17 01:56 Urine Ascorbic Acid * (Negative) A 11/21/17 01:56 Vancomycin Trough 25.5 mcg/mL 11/24/17 06:12 Blood Type O Positive 11/21/17 06:03 Antibody Screen Negative 11/21/17 06:03
[2017-11-27] MEDS: Atorvastatin* 80 MG TAB PO SCH (18:47)
[2017-11-27] MEDS: Ondansetron INJ* 2 MG/ML VIAL IV PRN (21:39)
[2017-11-27] MEDS: Insulin GLARGINE(*) 1 UNITS UNIT SUBCUT SCH (21:46)
[2017-11-28] MEDS: ceFAZolin 2 GM in NS PREMIX(*) 2 GM/100 ML BAG IVPB SCH ×2 (04:41→14:38)
[2017-11-28] MEDS: CMC:Pantoprazole TAB (NF) 40 MG TAB PO SCH (05:51)
[2017-11-28 05:55] LABS: ABS Basophils 0.1 10^3/ul (0-0.2); ABS Eosinophils 0.4 10^3/ul (0-0.6); ABS Lymphocytes 0.8 10^3/ul (1.0-4.8); ABS Monocytes 0.8 10^3/ul (0-0.8); ABS Neutrophils 8.4 10^3/ul (1.5-7.7); ABS Nucleated RBC 0 10^3/ul; Eosinophil % 3.5 % (0-6); Hematocrit 26 % (42-52); Hemoglobin 8.8 g/dl (14.0-18.0); Lymphocyte % 7.9 % (25-47); Mean Corpuscular HGB Conc 34 g/dl (31-36); Mean Corpuscular Hemoglobin 30 pg (27-31); Mean Corpuscular Volume 87 fL (80-94); Mean Platelet Volume 7.8 um3 (7.4-10.4); Nucleated Red Blood Cells % 0; Platelet Count 311 10^3/ul (150-450); Red Blood Count 2.99 10^6/ul (4.00-5.40); Red Cell Distribution Width 16 % (10.5-15); White Blood Count 10.5 10^3/ul (3.5-10.8)
[2017-11-28 06:15] LABS: EGFR Non-African American 70.7 (>60)
[2017-11-28] MEDS: Ondansetron INJ* 2 MG/ML VIAL IV PRN (08:26)
[2017-11-28] MEDS: LORazepam INJ* 2 MG/ML 1 ML VIAL IV PUSH PRN (08:26)
[2017-11-28] MEDS: Insulin LISPRO* 1 UNITS UNIT SUBCUT SCH ×4 (09:47→21:10)
[2017-11-28] MEDS: Amiodarone TAB* 400 MG PO SCH (09:48)
[2017-11-28] MEDS: Metoprolol Tartrate TAB* 25 MG PO SCH ×3 (09:48→21:09)
[2017-11-28] MEDS: Ferrous Sulfate TAB* 325 MG PO SCH (09:48)
[2017-11-28] MEDS: Ascorbic Acid TAB* 500 MG PO SCH (09:48)
[2017-11-28] MEDS: Clopidogrel TAB* 75 MG PO SCH (09:48)
[2017-11-28] MEDS: Aspirin EC TAB* 81 MG TAB.EC PO SCH (09:48)
[2017-11-28] MEDS: PARoxetine HCL TAB* 10 MG PO SCH (09:48)
[2017-11-28] MEDS: Furosemide TAB* 40 MG PO SCH (09:49)
[2017-11-28] MEDS: LINAGLIPTIN 5 MG PO SCH (09:52)
[2017-11-28] MEDS: Morphine VIAL* 4 MG/ML VIAL (1 ml vial) IV PRN (10:01)
[2017-11-28] MEDS: Senna TAB PO SCH ×2 (10:47→21:09)
[2017-11-28] MEDS: Heparin VIAL(*) 5000 UNITS/ML VIAL (FIVE THOUSAND) SUBCUT SCH ×2 (12:07→21:20)
--- NOTE | 2017-11-28 13:44 | PN ---
Progress Note - Progress Note Date of Service: 11/28/17 SOAP: Subjective: []Patient seen at bedside, less confused today. Offers no complaints of foot pain when asked. Wound vac is on and running. No new orthopedic complaints. Objective: [] Vital Signs Temp 97.8 F 11/28/17 12:00 Pulse 64 11/28/17 13:01 Resp 11 11/28/17 13:01 BP 127/72 11/28/17 13:00 Pulse Ox 100 11/28/17 13:01 Intake & Output 11/27/17 11/28/17 11/28/17 18:59 06:59 18:59 Intake Total 2370 1606.3 100 Output Total 1390 530 164 Balance 980 1076.3 -64 Weight 190 lb 7.67 oz Intake: IV Fluids 512 900.3 NS 512 900.3 IVPB 1398 606 NS 1398 606 Oral 460 100 100 Output: Urine 90 Michael 1390 530 74 Microbiology 11/20/17 23:32 Aerobic Blood Culture - Final Blood Venous No Growth Day 5 Anaerobic Blood Culture - Final No Growth Day 5 11/20/17 23:32 Aerobic Blood Culture - Final Blood Venous No Growth Day 5 Anaerobic Blood Culture - Final No Growth Day 5 11/21/17 11:30 Skin and Soft Tissue MRSA/MSSA (PCR - Final Foot Right Mrsa Negative S.aureus Positive Gram Stain - Final Wound Culture - Final Staphylococcus Aureus 11/21/17 01:56 Urine Culture - Final Urine No Growth (<1,000 CFU/mL) 11/21/17 05:30 Nasal Screen MRSA (PCR) - Final Nasal Mrsa Not Detected 11/21/17 00:23 Stool Occult Blood (CAN) - Final Stool Laboratory Results - last 24 hr 11/27/17 11/27/17 11/28/17 18:13 21:17 05:40 WBC RBC Hgb Hct MCV MCH MCHC RDW Plt Count MPV Neut % (Auto) Lymph % (Auto) [place] % (Auto) Eos % (Auto) Baso % (Auto) Absolute Neuts (auto) Absolute Lymphs (auto) Absolute Monos (auto) Absolute Eos (auto) Absolute Basos (auto) Absolute Nucleated RBC Nucleated RBC % Sodium 142 Potassium 3.9 Chloride 109 Carbon Dioxide 29 Anion Gap 4 BUN 23 Creatinine 1.05 Est GFR ( Amer) 85.5 Est GFR (Non-Af Amer) 70.7 BUN/Creatinine Ratio 21.9 H Glucose 159 H POC Glucose (mg/dL) 299 H 266 H Calcium 7.9 L Magnesium 2.1 11/28/17 11/28/17 11/28/17 05:40 08:08 12:07 WBC 10.5 RBC 2.99 L Hgb 8.8 L Hct 26 L MCV 87 MCH 30 MCHC 34 RDW 16 H Plt Count 311 MPV 7.8 Neut % (Auto) 80.4 Lymph % (Auto) 7.9 L [place] % (Auto) 7.5 H Eos % (Auto) 3.5 Baso % (Auto) 0.7 Absolute Neuts (auto) 8.4 H Absolute Lymphs (auto) 0.8 L Absolute Monos (auto) 0.8 Absolute Eos (auto) 0.4 Absolute Basos (auto) 0.1 Absolute Nucleated RBC 0 Nucleated RBC % 0 Sodium Potassium Chloride Carbon Dioxide Anion Gap BUN Creatinine Est GFR ( Amer) Est GFR (Non-Af Amer) BUN/Creatinine Ratio Glucose POC Glucose (mg/dL) 184 H 246 H Calcium Magnesium Right foot YUNIOR/ wound vac intact, wound vac running wiggles toes, no erythema foot or leg Assessment: []ulceration right foot with underlying osteomyelitis s/p I&D 11/25 Plan: []Continue wound vac Continue Cefazolin per ID recommendations Heel weight bear with post op shoe
[2017-11-28] MEDS: nitroGLYCERIN DRIP* 25,000 MCG/250 ML BTL IV SCH (14:45)
--- NOTE | 2017-11-28 16:14 | PN ---
Date of Service: 10/28/17 Critical Care Services: Patient did well this AM but complained SOB in afternoon and placed on BIPAP. CXR continues to show CHF. Given furosemide (40 mg IV) earlier today. Vital Signs: Temp Pulse Resp BP SpO2 FiO2 97.8 F 73 17 142/77 97 80 Physical Exam: Gen:Alert and responds to verbal commands. HEENT:No facial asymmetry Lungs:Crackles both bases Extremities:No cyanosis or edema Fluid Balance (Past 24 Hours): 11/27/17 11/28/17 06:59 06:59 Intake Total 2526 3976.3 Output Total 950 1920 Balance 1576 2056.3 Weight 188 lb 190 lb Intake: IV Fluids 1277 1412.3 KCl 388 NS 889 1412.3 Zosyn IVPB 109 2004 NS 2004 Zosyn 109 Heparin Oral 1140 560 Output: Urine Michael 950 1920 Other: # Bowel Movements Estimated Stool Amount Medium Labs: 11/27/17 11/27/17 11/28/17 18:13 21:17 05:40 Sodium 142 Potassium 3.9 Chloride 109 Carbon Dioxide 29 Anion Gap 4 BUN 23 Creatinine 1.05 Est GFR ( Amer) 85.5 Est GFR (Non-Af Amer) 70.7 BUN/Creatinine Ratio 21.9 H Glucose 159 H POC Glucose (mg/dL) 299 H 266 H Calcium 7.9 L Magnesium 2.1 11/28/17 11/28/17 11/28/17 05:40 08:08 12:07 WBC 10.5 RBC 2.99 L Hgb 8.8 L Hct 26 L MCV 87 MCH 30 MCHC 34 RDW 16 H Plt Count 311 MPV 7.8 Neut % (Auto) 80.4 Lymph % (Auto) 7.9 L Rich % (Auto) 7.5 H Eos % (Auto) 3.5 Baso % (Auto) 0.7 Absolute Neuts (auto) 8.4 H Absolute Lymphs (auto) 0.8 L Absolute Monos (auto) 0.8 Absolute Eos (auto) 0.4 Absolute Basos (auto) 0.1 Absolute Nucleated RBC 0 Nucleated RBC % 0 Sodium Potassium Chloride Carbon Dioxide Anion Gap BUN Creatinine Est GFR ( Amer) Est GFR (Non-Af Amer) BUN/Creatinine Ratio Glucose POC Glucose (mg/dL) 184 H 246 H Calcium Magnesium Studies: CXR: Bibasilar infiltrates. Nutrition: Oral diet Impression: Chronic CHF with acute exacerbations. Plan: Response to diuresis has not been dramatic, so I will try afterload reduction - first with IV nitroglycerin. Critical Care Time: 45 minutes
[2017-11-28] MEDS: Atorvastatin* 80 MG TAB PO SCH (17:55)
[2017-11-28] MEDS: Insulin GLARGINE(*) 1 UNITS UNIT SUBCUT SCH (21:10)
[2017-11-28] MEDS: ceFAZolin* 2 GM* Q8H (Duplex) IVPB SCH (21:27)
[2017-11-29] MEDS: Morphine VIAL* 4 MG/ML VIAL (1 ml vial) IV PRN ×2 (01:07→19:36)
[2017-11-29] MEDS: ceFAZolin* 2 GM* Q8H (Duplex) IVPB SCH ×3 (04:28→20:32)
[2017-11-29] MEDS: CMC:Pantoprazole TAB (NF) 40 MG TAB PO SCH (05:42)
[2017-11-29] MEDS: nitroGLYCERIN DRIP* 25,000 MCG/250 ML BTL IV SCH (08:43)
--- NOTE | 2017-11-29 08:46 | PN ---
Progress Note - Progress Note Date of Service: 11/29/17 SOAP: Subjective: patient resting comfortably with no complaints Objective: Vital Signs Temp Pulse Resp BP Pulse Ox 98.8 F 64 13 133/43 96 11/29/17 07:10 11/29/17 08:01 11/29/17 08:01 11/29/17 08:01 11/29/17 08:01 Laboratory Last Values WBC 10.5 10^3/ul (3.5-10.8) 11/28/17 05:40 RBC 2.99 10^6/ul (4.00-5.40) L 11/28/17 05:40 Hgb 8.8 g/dl (14.0-18.0) L 11/28/17 05:40 Hct 26 % (42-52) L 11/28/17 05:40 MCV 87 fL (80-94) 11/28/17 05:40 MCH 30 pg (27-31) 11/28/17 05:40 MCHC 34 g/dl (31-36) 11/28/17 05:40 RDW 16 % (10.5-15) H 11/28/17 05:40 Plt Count 311 10^3/ul (150-450) 11/28/17 05:40 MPV 7.8 um3 (7.4-10.4) 11/28/17 05:40 Neut % (Auto) 80.4 % (38-83) 11/28/17 05:40 Lymph % (Auto) 7.9 % (25-47) L 11/28/17 05:40 [place] % (Auto) 7.5 % (0-7) H 11/28/17 05:40 Eos % (Auto) 3.5 % (0-6) 11/28/17 05:40 Baso % (Auto) 0.7 % (0-2) 11/28/17 05:40 Absolute Neuts (auto) 8.4 10^3/ul (1.5-7.7) H 11/28/17 05:40 Absolute Lymphs (auto) 0.8 10^3/ul (1.0-4.8) L 11/28/17 05:40 Absolute Monos (auto) 0.8 10^3/ul (0-0.8) 11/28/17 05:40 Absolute Eos (auto) 0.4 10^3/ul (0-0.6) 11/28/17 05:40 Absolute Basos (auto) 0.1 10^3/ul (0-0.2) 11/28/17 05:40 Absolute Nucleated RBC 0 10^3/ul 11/28/17 05:40 Nucleated RBC % 0 11/28/17 05:40 ESR 85 mm/Hr (0-40) H 11/20/17 23:33 INR (Anticoag Therapy) 1.17 (0.77-1.02) H 11/21/17 22:00 APTT 56.0 seconds (26.0-36.3) H 11/24/17 23:58 Patient Temperature Not Reportable 11/22/17 05:12 ABG pH 7.37 (7.35-7.45) 11/22/17 05:12 ABG pH (Temp Correct) Not Reportable 11/22/17 05:12 ABG pCO2 35 mmHg (35-45) 11/22/17 05:12 ABG pCO2 (Temp Corrct Not Reportable 11/22/17 05:12 ABG pO2 93 mmHg (80-100) 11/22/17 05:12 ABG pO2 (Temp Correct Not Reportable 11/22/17 05:12 ABG HCO3 21.4 mmol/L (19-31) 11/22/17 05:12 ABG O2 Saturation 99.4 % (95-98) H 11/22/17 05:12 ABG Base Excess -4.5 (-2.0-2.0) L 11/22/17 05:12 VBG pH 7.27 (7.33-7.43) L 11/21/17 15:49 VBG pCO2 47 mmHg (41-51) 11/21/17 15:49 VBG pO2 42 mmHg (35-45) 11/21/17 15:49 VBG HCO3 20.4 mmol/L (24-28) L 11/21/17 15:49 VBG O2 Saturation 77.4 % (70-80) 11/21/17 15:49 VBG Base Excess -5.2 (0-4) L 11/21/17 15:49 Respiration Rate Not Reportable 11/22/17 05:12 O2 Delivery Device vent 11/22/17 05:12 Ventilator Type Not Reportable 11/22/17 05:12 Vent Mode Not Reportable 11/22/17 05:12 FiO2 25 11/22/17 05:12 Inspiratory Time Not Reportable 11/22/17 05:12 PEEP Not Reportable 11/22/17 05:12 Pressure Support Not Reportable 11/22/17 05:12 Pressure Control Not Reportable 11/22/17 05:12 EPAP Not Reportable 11/22/17 05:12 IPAP Not Reportable 11/22/17 05:12 BiPAP Not Reportable 11/22/17 05:12 Sodium 142 mmol/L (135-145) 11/28/17 05:40 Potassium 3.9 mmol/L (3.5-5.0) 11/28/17 05:40 Chloride 109 mmol/L (101-111) 11/28/17 05:40 Carbon Dioxide 29 mmol/L (22-32) 11/28/17 05:40 Anion Gap 4 mmol/L (2-11) 11/28/17 05:40 BUN 23 mg/dL (6-24) 11/28/17 05:40 Creatinine 1.05 mg/dL (0.67-1.17) 11/28/17 05:40 Est GFR ( Amer) 85.5 (>60) 11/28/17 05:40 Est GFR (Non-Af Amer) 70.7 (>60) 11/28/17 05:40 BUN/Creatinine Ratio 21.9 (8-20) H 11/28/17 05:40 Glucose 159 mg/dL (70-100) H 11/28/17 05:40 POC Glucose (mg/dL) 176 mg/dL (70-100) H 11/28/17 20:57 Hemoglobin A1c 7.2 % (4.0-5.6) H 11/21/17 06:03 Lactic Acid 1.7 mmol/L (0.5-2.0) 11/21/17 15:49 Calcium 7.9 mg/dL (8.6-10.3) L 11/28/17 05:40 Phosphorus 2.5 mg/dL (2.5-5.0) 11/21/17 15:49 Magnesium 2.1 mg/dL (1.9-2.7) 11/28/17 05:40 Total Bilirubin 0.80 mg/dL (0.2-1.0) 11/21/17 15:49 Direct Bilirubin 0.30 mg/dL (0.03-0.18) H 11/21/17 15:49 Indirect Bilirubin 0.5 mg/dL (0.3-1.0) 11/21/17 15:49 AST 35 U/L (13-39) 11/21/17 15:49 ALT 21 U/L (7-52) 11/21/17 15:49 Alkaline Phosphatase 93 U/L (34-104) 11/21/17 15:49 Total Creatine Kinase 652 U/L (10-223) H 11/21/17 22:00 CK-MB (CK-2) 76.6 ng/mL (0.6-6.3) H 11/21/17 22:00 Troponin I 3.90 ng/mL (<0.04) H* 11/23/17 05:10 C-Reactive Protein 214.89 mg/L (<8.01) H 11/20/17 23:33 C-React Prot High Sens 189.30 mg/L (<2.00) H 11/21/17 06:03 B-Natriuretic Peptide 287 pg/mL (-100) H 11/20/17 23:33 Total Protein 5.6 g/dL (6.4-8.9) L 11/21/17 15:49 Albumin 3.0 g/dL (3.2-5.2) L 11/21/17 15:49 Globulin 2.6 g/dL (2-4) 11/21/17 15:49 Albumin/Globulin Ratio 1.2 (1-3) 11/21/17 15:49 TSH 6.64 mcIU/mL (0.34-5.60) H 11/21/17 06:03 Urine Color Marni 11/21/17 01:56 Urine Appearance Cloudy 11/21/17 01:56 Urine pH 5.0 (5-9) 11/21/17 01:56 Ur Specific [place] 1.028 (1.010-1.030) 11/21/17 01:56 Urine Protein 1+(30 mg/dl) (Negative) A 11/21/17 01:56 Urine Ketones Negative (Negative) 11/21/17 01:56 Urine Blood Negative (Negative) 11/21/17 01:56 Urine Nitrate Negative (Negative) 11/21/17 01:56 Urine Bilirubin Negative (Negative) 11/21/17 01:56 Urine Urobilinogen Negative (Negative) 11/21/17 01:56 Ur Leukocyte Esterase Trace (Negative) A 11/21/17 01:56 Urine WBC (Auto) 2+(11-20/hpf) (Absent) A 11/21/17 01:56 Urine RBC (Auto) Trace(0-2/hpf) (Absent) 11/21/17 01:56 Ur Squamous Epith Cells Present (Absent) A 11/21/17 01:56 Urine Bacteria Absent (Absent) 11/21/17 01:56 Hyaline Casts Present (Absent) A 11/21/17 01:56 Granular Casts Present (Absent) A 11/21/17 01:56 Urine Glucose Negative (Negative) 11/21/17 01:56 Urine Ascorbic Acid * (Negative) A 11/21/17 01:56 Vancomycin Trough 25.5 mcg/mL 11/24/17 06:12 Blood Type O Positive 11/21/17 06:03 Antibody Screen Negative 11/21/17 06:03 incision: c/d; wound vac intact with minimal drainage Assessment: s/p I&D with wound vac placement( 11/25) Plan: 1) PT/OT- heel WB only RLE 2) continue Abx per ID 3) continue wound vac
[2017-11-29] MEDS: Ascorbic Acid TAB* 500 MG PO SCH (09:40)
[2017-11-29] MEDS: Clopidogrel TAB* 75 MG PO SCH (09:40)
[2017-11-29] MEDS: Amiodarone TAB* 400 MG PO SCH (09:40)
[2017-11-29] MEDS: Aspirin EC TAB* 81 MG TAB.EC PO SCH (09:40)
[2017-11-29] MEDS: Ferrous Sulfate TAB* 325 MG PO SCH (09:41)
[2017-11-29] MEDS: Furosemide TAB* 40 MG PO SCH (09:42)
[2017-11-29] MEDS: Heparin VIAL(*) 5000 UNITS/ML VIAL (FIVE THOUSAND) SUBCUT SCH ×2 (09:42→20:27)
[2017-11-29] MEDS: PARoxetine HCL TAB* 10 MG PO SCH (09:44)
[2017-11-29] MEDS: Metoprolol Tartrate TAB* 25 MG PO SCH ×3 (09:44→20:29)
[2017-11-29] MEDS: LINAGLIPTIN 5 MG PO SCH (09:44)
[2017-11-29] MEDS: Senna TAB PO SCH ×2 (09:45→20:29)
[2017-11-29] MEDS: Insulin LISPRO* 1 UNITS UNIT SUBCUT SCH ×4 (10:16→20:27)
[2017-11-29] MEDS ORDERED: Isosorbide Dinitrate TAB* 10 MG PO SCH (11:00)
[2017-11-29] MEDS ORDERED: Nitroglycerin 2% OINT* 1 GM PAK TOPICAL SCH (11:30)
[2017-11-29] MEDS: Captopril TAB* 12.5 MG PO SCH ×3 (12:58→20:29)
[2017-11-29] MEDS: LORazepam INJ* 2 MG/ML 1 ML VIAL IV PUSH PRN ×2 (17:27→20:53)
[2017-11-29] MEDS: Atorvastatin* 80 MG TAB PO SCH (18:00)
--- NOTE | 2017-11-29 18:35 | PN ---
Date of Service: 11/29/17 Critical Care Services: Has improved on nitroglycerin drip (did not require BIPAP overnight), and we have started low-dose captopril and nitropaste as substitutes Vital Signs: Temp Pulse Resp BP SpO2 FiO2 98.8 F 76 24 143/74 95 80 Physical Exam: Gen:Alert, responds to verbal commands. Breathing comfortably Lungs: clear (!) Extremities: No cyanosis. 1+edema Fluid Balance (Past 24 Hours): 11/28/17 11/29/17 06:59 06:59 Intake Total 3976.3 1380 Output Total 1920 891 Balance 2056.3 489 Weight 190 lb 192 lb Intake: IV Fluids 1412.3 553 KCl NS 1412.3 553 IVPB 2003 167 ABX - CEFAZOLIN 167 NS 2004 Zosyn Medicated IV 190 CC - Nitroglycerine/ 190 Tridil Oral 560 470 Output: Urine 90 Michael 1920 801 Other: Estimated Stool Amount Labs: Laboratory Results - last 24 hr 11/28/17 11/29/17 11/29/17 20:57 08:11 12:33 POC Glucose (mg/dL) 176 H 132 H 193 H 11/29/17 17:51 POC Glucose (mg/dL) 259 H Studies: None today Nutrition: oral diet Impression: Positive response to nitrates. Plan: Daily diuretic, plus low-dose captopril and nitropaste. Re-evaluate in AM tomorrow.
[2017-11-29] MEDS: Nitroglycerin 2% OINT* 1 GM PAK TOPICAL SCH (19:07)
[2017-11-29] MEDS: Insulin GLARGINE(*) 1 UNITS UNIT SUBCUT SCH (20:27)
[2017-11-29] MEDS: Ondansetron INJ* 2 MG/ML VIAL IV PRN (20:53)
--- NOTE | 2017-11-29 22:28 | CATH ---
CATH REPORT: DATE OF PROCEDURE: 11/25/17 PROCEDURE: Right radial artery access, bilateral selective coronary cineangiography, left heart catheterization. HISTORY: A 67-year-old male with severe dementia, admitted with possible sepsis due to critical limb ischemia, and associated infarct with recurrent nocturnal pulmonary edema. After extensive discussion with family, they have elected to rescind the DNR for the diagnostic cath. In the event he can be treated with a percutaneous revascularization, the intent is to use bare-metal stents as he likely will need forthcoming surgery. In my opinion, expressed to the family, he is a poor CABG candidate due to severe comorbidities. PROCEDURE ACCESS: Right radial artery with ultrasound assistance, sheath 6F slender. DIAGNOSTIC CATHETERS: 5F TIG4, which was also used to measure LV pressure. MEDICATIONS: 1. Subcu lidocaine. 2. Nitroglycerin 300 mcg. 3. Verapamil 3 mg IA. 4. IV heparin drip was discontinued in the ICU precath. HEMODYNAMICS: LV 102/10-17, no aortic valve gradient on pullback. ANGIOGRAPHY: Left main: The left main is normal in size and length, has no stenosis of significance. There is a distal eccentric 30% smooth superior left main plaque. LAD: The LAD is calcified, moderate size, supplies a large distribution diagonal branch, which has severe diffuse proximal disease with a long tubular 75% stenosis. The LAD then has an approximately 40% to 50% stenosis after the first septal, then supplies a small second diagonal, which has high-grade proximal stenosis, is too small for intervention. Distally, the LAD ends past the apex, there were transseptal collaterals to the RPDA. Circumflex: The circumflex is not dominant, is calcified, has proximal diffuse noncritical disease, then supplies a moderate marginal, which has 80% proximal stenosis, the AV groove circumflex continuation is occluded and fills by left-to - left collaterals. Clear entry point is not evident. There are circumflex to distal right collaterals. RCA: The RCA is moderate, dominant with a large distribution, severely diffusely diseased, and calcified, has a very proximal 70% stenosis, then has 2 tandem 80% to 90% stenosis near the acute margin, after the acute margin, there is a 90% to 95% stenosis. The PDA has competitive flow, an RV inferior wall branch has competitive flow, has proximal 80% stenosis. Beyond the PDA, the RCA consists of several small posterolaterals with competitive flow. CONCLUSION: 1. Three-vessel disease, poorly suited for PCI. Because of severe comorbidities, he is also a suboptimal bypass candidate. 2. No aortic stenosis, moderately elevated LVDP. 3. Successful right radial artery access. [id number]/[facility] #: [id number] PATRICK
[2017-11-30] MEDS: ceFAZolin* 2 GM* Q8H (Duplex) IVPB SCH ×3 (04:37→21:18)
[2017-11-30] MEDS: CMC:Pantoprazole TAB (NF) 40 MG TAB PO SCH (05:35)
[2017-11-30] MEDS: Morphine VIAL* 4 MG/ML VIAL (1 ml vial) IV PRN (06:37)
[2017-11-30] MEDS: PARoxetine HCL TAB* 10 MG PO SCH (09:09)
[2017-11-30] MEDS: Ferrous Sulfate TAB* 325 MG PO SCH (09:09)
[2017-11-30] MEDS: Amiodarone TAB* 400 MG PO SCH (09:09)
[2017-11-30] MEDS: Clopidogrel TAB* 75 MG PO SCH (09:10)
[2017-11-30] MEDS: Aspirin EC TAB* 81 MG TAB.EC PO SCH (09:10)
[2017-11-30] MEDS: Furosemide TAB* 40 MG PO SCH (09:10)
[2017-11-30] MEDS: Senna TAB PO SCH ×2 (09:10→21:05)
[2017-11-30] MEDS: LINAGLIPTIN 5 MG PO SCH (09:10)
[2017-11-30] MEDS: Metoprolol Tartrate TAB* 25 MG PO SCH ×3 (09:10→21:05)
[2017-11-30] MEDS: Ascorbic Acid TAB* 500 MG PO SCH (09:10)
[2017-11-30] MEDS: Captopril TAB* 12.5 MG PO SCH ×3 (09:10→21:05)
[2017-11-30] MEDS: Insulin LISPRO* 1 UNITS UNIT SUBCUT SCH ×4 (09:10→21:06)
[2017-11-30] MEDS: Ondansetron INJ* 2 MG/ML VIAL IV PRN (09:10)
[2017-11-30] MEDS: Heparin VIAL(*) 5000 UNITS/ML VIAL (FIVE THOUSAND) SUBCUT SCH ×2 (09:11→21:08)
[2017-11-30] MEDS: Nitro Patch/OINT Remove PATCH OFF SCH (09:28)
--- NOTE | 2017-11-30 10:20 | PN ---
Date of Service: 11/30/17 Critical Care Services: Patient had an uneventful evening - Is now on low-dose captopril and nitroglycerin paste in PM. Also continues on a cephalosporin for the Staph cellulitis/osteomyelitis (right foot) Vital Signs: Temp Pulse Resp BP SpO2 FiO2 98.3 F 69 15 162/110 96 60 Physical Exam: Gen:Alert and appears comfortable Lungs:clear Extremities:no cyanosis. 1+edema Fluid Balance (Past 24 Hours): 11/28/17 11/29/17 11/30/17 06:59 06:59 06:59 Intake Total 3976.3 1380 606 Output Total 1920 891 837 Balance 2056.3 489 -231 Weight 190 lb 192 lb Intake: IV Fluids 1412.3 553 439 ABX - CEFAZOLIN 207 NS 1412.3 553 232 IVPB 2004 167 167 ABX - CEFAZOLIN 167 167 NS 2003 Medicated IV 190 CC - Nitroglycerine/ 190 Tridil Oral 560 470 0 Output: Urine 90 Michael 1920 801 837 Labs: Laboratory Results - last 24 hr 11/29/17 11/29/17 11/29/17 12:33 17:51 19:56 POC Glucose (mg/dL) 193 H 259 H 172 H 11/30/17 07:42 POC Glucose (mg/dL) 140 H Studies: None today Nutrition: Oral diabetic diet Impression: Better urine output and oxygenation on the captopril and nitroglycerin. High BP is mostly within past 24 hours. Plan: Will increase captopril dose today, and continue the nitropaste and the daily diuretic. Can be transferred out of ICU.
[2017-11-30] MEDS: Atorvastatin* 80 MG TAB PO SCH (17:52)
[2017-11-30] MEDS: Melatonin 3 MG TAB PO PRN (21:05)
[2017-11-30] MEDS: Insulin GLARGINE(*) 1 UNITS UNIT SUBCUT SCH (21:06)
[2017-11-30] MEDS: Nitroglycerin 2% OINT* 1 GM PAK TOPICAL SCH (21:08)
--- NOTE | 2017-12-01 04:30 | OP ---
DATE OF OPERATION: 11/26/17 - ROOM #337 DATE OF : 52 SURGEON: Bobo Kimball MD FLAME ANNEALING MACHINE OPERATOR: KINGS Pierre. A physician certified teacher assistant was required for the length of the procedure for help with positioning, retraction, closure, and application of wound VAC device. ANESTHESIOLOGIST: Susan Blanchard MD ANESTHESIA: Regional ankle nerve block performed by tx as well as light sedation. Ankle nerve block included 20 cc of 0.25% Marcaine with epinephrine. PRE-OP DIAGNOSES: 1. Right foot chronic ulcer, dorsal. 2. Right foot infection, with pus, subcutaneous tissues about the skin ulcer as well as underlying osteomyelitis. POST-OP DIAGNOSES: 1. Right foot chronic ulcer, dorsal. 2. Right foot infection, with pus, subcutaneous tissues about the skin ulcer as well as underlying osteomyelitis. OPERATIVE PROCEDURE: 1. Incision, irrigation, and debridement, right foot, dorsum, skin, subcutaneous tissue, muscle, and joint capsule. 2. Application of negative pressure wound therapy device, a VAC device, less than 50 cm2 in area. 3. Right ankle peripheral nerve block (regional nerve block) IV FLUIDS: See Anesthesia note. ANTIBIOTICS: Zosyn IV dose was provided to the patient within an hour of skin incision. TOURNIQUET TIME: 15 minutes at 250 mmHg at the level of the lower leg. [id number] TIME: 60 minutes. SPECIMENS: Aerobic and anaerobic culture swabs. IMPLANTS: VAC pressure dressing was applied to an area of approximately 2.5 x 2 cm with exposed tendon. COMPLICATIONS: None. ESTIMATED BLOOD LOSS: Minimal. INDICATIONS FOR PROCEDURE: The patient is a 67-year-old man, with some dementia , who was transferred by ambulance from [facility] to [facility] on the night of 11/20/17 with uncontrolled atrial fibrillation. The patient was diagnosed with sepsis from a right dorsal foot infection at the location of a chronic skin ulcer. The sepsis caused the atrial fibrillation and then a non- ST elevation myocardial infarction. The patient had some respiratory difficulties while in the [facility] ICU and required intubation at least once after an aspiration event. I performed my initial consultation on 11/21/17 and I recommended an irrigation and debridement of the patient's dorsal right foot, which clearly had pus visible through the wound and surrounding cellulitis. However, rightfully so, management of the patient's cardiopulmonary issues took precedence. These were first managed and the patient was continued on IV antibiotics. The patient even was taken to the cardiac catheterization lab for management. On 11/26/17, the patient was noted to be cleared for surgery. He was n.p.o. after midnight, taken off the heparin drip, but was on some antiplatelet agents. ICU team and Cardiology felt he was safe for surgery, so we proceeded forward on 11/26/17. I spoke to the patient's and son. The patient's son is his healthcare proxy and I discussed with him risks and potential complications of surgery and I obtained consent from him at first via telephone and then in person. DESCRIPTION OF PROCEDURE: Preoperatively, I obtained a written consent from the patient's son in the ICU and prior to that by telephone. The operative extremity was marked in the ICU. The patient was taken from ICU to the operating room. The patient was transferred to the operating room table. The patient was lightly sedated by Anesthesia. Prior to prep and drape, I performed a mini time-out and then proceeded to perform a regional nerve block. I performed a right ankle nerve block, anesthetizing all 5 nerves, posterior tibial, deep peroneal, superficial peroneal, sural and saphenous nerves. I did so with 20 cc of 0.25% Marcaine with epinephrine. We then prepped the patient's right foot and draped the foot. I placed a nonsterile tourniquet previously about the lower leg. Surgical time-out performed again, formally. Esmarch was applied and tourniquet was elevated to 250 mmHg. I extended the ulcer proximally and distally, approximately 3 cm in each direction, with a longitudinal skin incision. I dissected down through the subcutaneous tissue with dissection scissors. I swabbed for aerobic and anaerobic culture swabs. I debrided some subcutaneous tissue, especially about the chronic ulcer that looked slightly necrotic. There was not the pus that had been present 5 days previously. This had likely dried out with time and IV antibiotics. I irrigated with cystoscopy tubing. After several liters of irrigation, I then dried the wound and reevaluated it. I debrided some subcutaneous tissue and muscle. No neurovascular structures were visualized. The extensor hallucis longus was certainly visualized, as it had been preoperatively through the skin ulcer. While it looked slightly irritated, it was fully intact and did not have any purulence attached to it. Preoperative MRI imaging had shown a signal uptake, likely osteomyelitis in the medial cuneiform, mostly but a little bit of signal increase in the base of the first metatarsal, navicular, and intermediate cuneiform. There was noted to be some fluid in the joint between the first metatarsal and the medial cuneiform. Therefore, at this point, I used a curved small hemostat and I poked the joint capsule of that joint. There was no significant fluid that emanated. Certainly , no purulence emanated from that joint. I was happy about this. We continued irrigating. We used a total of 4 L to irrigate the wound with. I then closed the incisions I have made proximal and distal to the ulcer. These were closed with simple stitches in the skin using nylon 3-0 suture. The ulcer was left open. It was clear that the skin edges could not be brought together. Because of the exposed tendon, we decided to place a VAC dressing. We cut a sponge to the appropriate size and placed a sponge in the ulcer defect. We then placed a 4x4 over the length of the incision and then all the appropriate plastic drapes followed by suction. We hooked the patient up to the VAC suction canister and there was no leak. We placed a dressing about the foot, finished with an Robbi bandage. The patient was lightened of sedation and brought back to the ICU. DISPOSITION: Postoperatively, the patient will be allowed to heel weight bear in a postop hard sole shoe. We will follow the patient's preoperative and intraoperative cultures to determine appropriate IV antibiotics, and I defer to of infectious disease service on exact antibiotics utilized. We will see the patient in my office approximately 2 weeks postoperatively. In the meantime, I will have the patient have wound VAC changes performed by the wound clinic staff while he is in the ICU and after discharge, through their outpatient office. The patient may opt, with his family, for a coronary artery bypass graft surgery, although the patient's family is currently uncertain how they will proceed forward with that. [id number]/CPS #: [id number] PATRICK
[2017-12-01] MEDS: ceFAZolin* 2 GM* Q8H (Duplex) IVPB SCH ×3 (05:13→22:02)
[2017-12-01 06:12] LABS: Hematocrit 25 % (42-52); Hemoglobin 8.3 g/dl (14.0-18.0); Mean Corpuscular HGB Conc 33 g/dl (31-36); Mean Corpuscular Hemoglobin 29 pg (27-31); Mean Corpuscular Volume 88 fL (80-94); Platelet Count 364 10^3/ul (150-450); Red Blood Count 2.87 10^6/ul (4.00-5.40); Red Cell Distribution Width 15 % (10.5-15); White Blood Count 11.7 10^3/ul (3.5-10.8)
[2017-12-01] MEDS: CMC:Pantoprazole TAB (NF) 40 MG TAB PO SCH (06:15)
[2017-12-01 06:41] LABS: EGFR Non-African American 64.9 (>60)
[2017-12-01] MEDS: Aspirin EC TAB* 81 MG TAB.EC PO SCH (09:38)
[2017-12-01] MEDS: Furosemide TAB* 40 MG PO SCH (09:38)
[2017-12-01] MEDS: Ascorbic Acid TAB* 500 MG PO SCH (09:38)
[2017-12-01] MEDS: Senna TAB PO SCH ×2 (09:39→22:58)
[2017-12-01] MEDS: Captopril TAB* 12.5 MG PO SCH ×3 (09:39→22:57)
[2017-12-01] MEDS: PARoxetine HCL TAB* 10 MG PO SCH (09:40)
[2017-12-01] MEDS: Clopidogrel TAB* 75 MG PO SCH (09:40)
[2017-12-01] MEDS: Ferrous Sulfate TAB* 325 MG PO SCH (09:41)
[2017-12-01] MEDS: Insulin LISPRO* 1 UNITS UNIT SUBCUT SCH ×4 (09:41→22:09)
[2017-12-01] MEDS: Metoprolol Tartrate TAB* 25 MG PO SCH ×3 (09:41→22:57)
[2017-12-01] MEDS: Heparin VIAL(*) 5000 UNITS/ML VIAL (FIVE THOUSAND) SUBCUT SCH ×3 (09:42→23:55)
[2017-12-01] MEDS: Nitro Patch/OINT Remove PATCH OFF SCH (09:45)
--- NOTE | 2017-12-01 10:28 | PN ---
Progress Note - Progress Note Date of Service: 12/01/17 SOAP: Subjective: [Pt was seen today lying in bed. States he is doing well, just a little uncomfortable in his bed. He denies any chest pain, SOB, nausea or vomiting. States pain is minimal. ] Objective: General: A&Ox3, NAD MSK, RLE: wound vac intact with minimal drainage, able to wiggle toes and move ankle with no pain. 2+ PT pulse. Vital Signs Temp 98.1 F 12/01/17 07:48 Pulse 88 12/01/17 07:48 Resp 22 12/01/17 09:30 BP 169/70 12/01/17 07:48 Pulse Ox 84 12/01/17 07:48 Intake & Output 11/30/17 12/01/17 12/01/17 18:59 06:59 18:59 Intake Total 590 259 240 Output Total 1000 600 Balance -410 -341 240 Weight 197 lb 12.074 oz Intake: IV Fluids 84 ABX - CEFAZOLIN 59 NS 25 IVPB 55 ABX - CEFAZOLIN 55 Oral 590 120 240 Output: Michael 1000 600 Assessment: s/p I&D with wound vac placement( 11/25) Plan: 1) PT/OT- heel WB only RLE 2) continue Abx per ID 3) continue wound vac, nursing to start changes on M/W/F
[2017-12-01] MEDS: Amiodarone TAB* 400 MG PO SCH (12:49)
[2017-12-01] MEDS: Atorvastatin* 80 MG TAB PO SCH (17:13)
--- NOTE | 2017-12-01 17:56 | PN ---
Subjective Date of Service: 12/01/17 Interval History: Pt seen and examined. Meds and labs reviewed. No O/N issues CC: N/A ROS: Denied ACOSTA/dizziness, F/C, N/V, CP, SOB, increased cough, sputum production , abd pain, diarrhea, constipation, dysuria, myalgias, arthralgias, throat pain , and new skin lesions. The rest of the 14 point ROS are unremarkable. PHYSICAL EXAM: GEN APPEARANCE: Awake, not in acute distress HEENT: NC/AT, PERRLA, moist oral mucosa, (-) throat erythema NECK: Soft, supple, (-) cervical LAD, (-)JVD HEART: S1S2 WNL, RRR, No MRG CHEST: CTA, BL, GAE, No W/R/R ABD: Soft, ND/NT, NABS 4x Q EXT: No C/C/RLE cdi with wound vac, LLE S/P toe amputations SKIN: Warm to touch PSYCH: No active psychosis, hallucinations, depression, SI/HI Family History: Findings - unable Social History: Findings - unable comes from home though Past Medical History: Findings - type ii dm a fib cva twice cad s/p stents htn hyperlipidemia pshx s/p left foot amputation Objective Active Medications: Albuterol/Ipratropium (Duoneb (Albuterol 2.5 Mg/Ipratropium 0.5 Mg)) 1 neb INH Q4H PRN PRN Reason: SOB/WHEEZING Amiodarone HCl (Cordarone Tab*) 400 mg PO DAILY [facility] Last Admin: 12/01/17 12:49 Dose: 400 mg Ascorbic Acid (Vitamin C Tab*) 500 mg PO DAILY [facility] Last Admin: 12/01/17 09:38 Dose: 500 mg Aspirin (Aspirin Ec Tab*) 81 mg PO DAILY [facility] Last Admin: 12/01/17 09:38 Dose: 81 mg Atorvastatin Calcium (Lipitor*) 80 mg PO QPM [facility] Last Admin: 12/01/17 17:13 Dose: 80 mg Captopril (Capoten Tab*) 12.5 mg PO TID [facility] Last Admin: 12/01/17 15:34 Dose: 12.5 mg Clopidogrel Bisulfate (Plavix Tab*) 75 mg PO DAILY [facility] Last Admin: 12/01/17 09:40 Dose: 75 mg Dextrose (D50w Syringe 50 Ml*) 12.5 gm IV PUSH .FOR FS < 60 - SS PRN PRN Reason: FS < 60 Ferrous Sulfate (Ferrous Sulfate Tab*) 325 mg PO DAILY [facility] Last Admin: 12/01/17 09:41 Dose: 325 mg Furosemide (Lasix Tab*) 40 mg PO DAILY [facility] Last Admin: 12/01/17 09:38 Dose: 40 mg Heparin Sodium (Porcine) (Heparin Flush Picc/Ml/Cvc(*)) 1 - 3 ml FLUSH 0600, 1800 [facility]; Protocol Last Admin: 12/01/17 17:14 Dose: 3 ml Heparin Sodium (Porcine) (Heparin Vial(*)) 5,000 units SUBCUT Q8H [facility] Last Admin: 12/01/17 15:36 Dose: 5,000 units Cefazolin Sodium/Dextrose (Kefzol 2 Gm Premix In Ors(*)) 2 gm in 50 mls @ 100 mls/hr IVPB Q8H [facility] Last Admin: 12/01/17 14:05 Dose: 100 mls/hr Insulin Glargine (Lantus(*)) 10 units SUBCUT BEDTIME [facility] Last Admin: 11/30/17 21:06 Dose: 10 units Insulin Human Lispro (Humalog*) 0 units SUBCUT ACHS [facility]; Protocol Last Admin: 12/01/17 14:04 Dose: Not Given Lorazepam (Ativan Inj*) 1 mg IV PUSH Q3H PRN PRN Reason: ANXIETY Melatonin (Melatonin) 3 mg PO BEDTIME PRN; Protocol PRN Reason: SLEEP Last Admin: 11/30/17 21:05 Dose: 3 mg Metoprolol Tartrate (Lopressor Tab*) 25 mg PO TID [facility] Last Admin: 12/01/17 15:34 Dose: 25 mg Morphine Sulfate (Morphine Vial*) 2 mg IV Q4H PRN PRN Reason: PAIN - MILD Last Admin: 11/30/17 06:37 Dose: 2 mg Nitroglycerin (Nitroglycerin 2% Oint*) 1 inch TOPICAL BEDTIME [facility]; Protocol Last Admin: 11/30/17 21:08 Dose: 1 inch Ondansetron HCl (Zofran Inj*) 4 mg IV Q4H PRN PRN Reason: NAUSEA Last Admin: 11/30/17 09:10 Dose: 4 mg Pantoprazole Sodium (Protonix Tab (Nf)) 40 mg PO DAILY@0600 [facility] Last Admin: 12/01/17 06:15 Dose: 40 mg Paroxetine HCl (Paxil Tab*) 20 mg PO DAILY [facility] Last Admin: 12/01/17 09:40 Dose: 20 mg Pharmacy Profile Note (Nitro Patch/Oint Remove*) 1 note PATCH OFF DAILY [facility] Last Admin: 12/01/17 09:45 Dose: 1 note Senna (Senokot Tab*) 1 tab PO BID [facility] Last Admin: 12/01/17 09:39 Dose: 1 tab Vital Signs - 8 hr 12/01/17 12/01/17 12/01/17 11:20 12:44 15:32 Temperature 98.3 F Pulse Rate 69 73 71 Respiratory 16 16 Rate Blood Pressure 188/106 125/54 143/69 (mmHg) O2 Sat by Pulse 100 87 100 Oximetry Oxygen Devices in Use Now: High Flow Nasal Cannula Result Diagrams: 12/01/17 05:53 12/01/17 05:53 Microbiology and Other Data: Microbiology 11/21/17 00:23 Stool Occult Blood (CAN) - Final Stool EKG Data: rapid a fib but no ekg change seen in other facility Assess/Plan/Problems-Billing Assessment: 67 yr old wm with poor compliance with medical care type ii dm but insulin dep multiple med problems was sent to local er by ex because " he was not himself " pt was found to have rapid a fib got three doses of cardizem [address] [facility] ---> he was found to have trop of [address] t changes despite of rapid a fib pt has two dorsum ulcer size of a dime with one draining puz initial wbc is 14 dx is dm infected foot ulcer with cellulitis Time line of events: 11/21Admission for diabetic foot ulcer sepsis, later vomited and aspirated and was intubated 11/22Extubated . fib w/RVR + flash pulmonary edemaBiPAP . fib with RVR + Levophed 11/26LHC reveals 3V disease and decision made to maximize medical therapy at this time /P debridement of RLE 11/28Diuretics given 11/29Hypertensive urgencyplaced on NTG gtt and ACEI 11/30I&D +wound Vac +regional nerve block - Patient Problems (1) DM foot ulcers Current Visit: Yes Status: Acute Code(s): E11.621 - TYPE 2 DIABETES MELLITUS WITH FOOT ULCER; L97.509 - NON-PRESSURE CHRONIC ULCER OTH PRT UNSP FOOT W UNSP SEVERITY SNOMED Code(s): 908246775 Comment: #with Cellulitis -11/27: S/P I&D -11/30: S/P I&D + wound vac placement + regional nerve block -MSSA on wound cultures -Continue Cefazolin -Touch base with ID in AM (2) CAD (coronary artery disease) Current Visit: Yes Status: Acute Code(s): I25.10 - ATHSCL HEART DISEASE OF [place] CORONARY ARTERY W/O ANG PCTRS SNOMED Code(s): 95803689 Comment: -With triple vessel disease via LHC on 11/26 -Continue ASA, Plavix, ACEI, BB, and statins -For full medical therapy at this time (3) Atrial fibrillation Current Visit: Yes Status: Acute Code(s): I48.91 - UNSPECIFIED ATRIAL FIBRILLATION SNOMED Code(s): 74743795 Comment: -Continue Amiodarone and Metoprolol (4) CHF (congestive heart failure) Current Visit: Yes Status: Acute Code(s): I50.9 - HEART FAILURE, UNSPECIFIED SNOMED Code(s): 97030118 Comment: -Stable -Continue Lasix especially given recent hx of pulmonary edema in ICU -Will add low salt diet to Cons carbohydrate diet ordered -Continue above meds for CAD (5) Diabetes 1.5, managed as type 2 Current Visit: Yes Status: Acute Code(s): E10.9 - TYPE 1 DIABETES MELLITUS WITHOUT COMPLICATIONS SNOMED Code(s): 633075855 Comment: -Well-controlled -Continue insulin (6) HTN (hypertension) Current Visit: Yes Status: Acute Code(s): I10 - ESSENTIAL (PRIMARY) HYPERTENSION SNOMED Code(s): 80332286 Comment: -Improved control -Continue Captopril, Metoprolol, and Nitropaste (7) Depression Current Visit: Yes Status: Acute Code(s): F32.9 - MAJOR DEPRESSIVE DISORDER , SINGLE EPISODE, UNSPECIFIED SNOMED Code(s): 06689323 Comment: -Continue Paroxetine (8) DVT prophylaxis Current Visit: Yes Status: Acute Code(s): XZX3331 - SNOMED Code(s): 187627359 Comment: -Continue Pantoprazole Status and Disposition: -For rehab placement
[2017-12-01] MEDS: LORazepam INJ* 2 MG/ML 1 ML VIAL IV PUSH PRN (18:17)
[2017-12-01] MEDS: Insulin GLARGINE(*) 1 UNITS UNIT SUBCUT SCH (22:10)
[2017-12-01] MEDS: Nitroglycerin 2% OINT* 1 GM PAK TOPICAL SCH (22:59)
[2017-12-02] MEDS: CMC:Pantoprazole TAB (NF) 40 MG TAB PO SCH (05:46)
[2017-12-02] MEDS: ceFAZolin* 2 GM* Q8H (Duplex) IVPB SCH ×3 (05:46→21:43)
[2017-12-02 06:02] LABS: ABS Basophils 0.1 10^3/ul (0-0.2); ABS Eosinophils 0.1 10^3/ul (0-0.6); ABS Monocytes 0.6 10^3/ul (0-0.8); ABS Neutrophils 9.1 10^3/ul (1.5-7.7); ABS Nucleated RBC 0 10^3/ul; Eosinophil % 0.6 % (0-6); Hematocrit 24 % (42-52); Hemoglobin 7.9 g/dl (14.0-18.0); Lymphocyte % 9.1 % (25-47); Mean Corpuscular HGB Conc 34 g/dl (31-36); Mean Corpuscular Hemoglobin 29 pg (27-31); Mean Corpuscular Volume 87 fL (80-94); Mean Platelet Volume 8.2 um3 (7.4-10.4); Nucleated Red Blood Cells % 0; Platelet Count 349 10^3/ul (150-450); Red Blood Count 2.69 10^6/ul (4.00-5.40); Red Cell Distribution Width 16 % (10.5-15); White Blood Count 10.9 10^3/ul (3.5-10.8)
[2017-12-02 06:19] LABS: EGFR Non-African American 60.6 (>60)
[2017-12-02] MEDS: Insulin LISPRO* 1 UNITS UNIT SUBCUT SCH ×4 (09:49→21:30)
[2017-12-02] MEDS: Heparin VIAL(*) 5000 UNITS/ML VIAL (FIVE THOUSAND) SUBCUT SCH ×2 (09:52→18:11)
[2017-12-02] MEDS: Ascorbic Acid TAB* 500 MG PO SCH (09:53)
[2017-12-02] MEDS: Amiodarone TAB* 400 MG PO SCH (09:53)
[2017-12-02] MEDS: Aspirin EC TAB* 81 MG TAB.EC PO SCH (09:54)
[2017-12-02] MEDS: Captopril TAB* 12.5 MG PO SCH ×2 (09:54→13:13)
[2017-12-02] MEDS: Furosemide TAB* 40 MG PO SCH (09:55)
[2017-12-02] MEDS: Clopidogrel TAB* 75 MG PO SCH (09:55)
[2017-12-02] MEDS: Metoprolol Tartrate TAB* 25 MG PO SCH ×2 (09:56→13:14)
[2017-12-02] MEDS: Ferrous Sulfate TAB* 325 MG PO SCH (09:56)
[2017-12-02] MEDS: PARoxetine HCL TAB* 10 MG PO SCH (09:56)
[2017-12-02] MEDS: Senna TAB PO SCH ×2 (09:57→21:29)
[2017-12-02] MEDS: Nitro Patch/OINT Remove PATCH OFF SCH (09:59)
--- NOTE | 2017-12-02 10:06 | PN ---
Progress Note - Progress Note Date of Service: 12/02/17 SOAP: Subjective: resting comfortably with no complaints Objective: Vital Signs Temp Pulse Resp BP Pulse Ox 96.8 F 62 15 126/54 100 12/02/17 03:24 12/02/17 03:24 12/02/17 04:20 12/02/17 03:24 12/02/17 03:24 Laboratory Last Values WBC 10.9 10^3/ul (3.5-10.8) H 12/02/17 05:45 RBC 2.69 10^6/ul (4.00-5.40) L 12/02/17 05:45 Hgb 7.9 g/dl (14.0-18.0) L 12/02/17 05:45 Hct 24 % (42-52) L 12/02/17 05:45 MCV 87 fL (80-94) 12/02/17 05:45 MCH 29 pg (27-31) 12/02/17 05:45 MCHC 34 g/dl (31-36) 12/02/17 05:45 RDW 16 % (10.5-15) H 12/02/17 05:45 Plt Count 349 10^3/ul (150-450) 12/02/17 05:45 MPV 8.2 um3 (7.4-10.4) 12/02/17 05:45 Neut % (Auto) 84.2 % (38-83) H 12/02/17 05:45 Lymph % (Auto) 9.1 % (25-47) L 12/02/17 05:45 Mitchell % (Auto) 5.6 % (0-7) 12/02/17 05:45 Eos % (Auto) 0.6 % (0-6) 12/02/17 05:45 Baso % (Auto) 0.5 % (0-2) 12/02/17 05:45 Absolute Neuts (auto) 9.1 10^3/ul (1.5-7.7) H 12/02/17 05:45 Absolute Lymphs (auto) 1.0 10^3/ul (1.0-4.8) 12/02/17 05:45 Absolute Monos (auto) 0.6 10^3/ul (0-0.8) 12/02/17 05:45 Absolute Eos (auto) 0.1 10^3/ul (0-0.6) 12/02/17 05:45 Absolute Basos (auto) 0.1 10^3/ul (0-0.2) 12/02/17 05:45 Absolute Nucleated RBC 0 10^3/ul 12/02/17 05:45 Nucleated RBC % 0 12/02/17 05:45 ESR 85 mm/Hr (0-40) H 11/20/17 23:33 INR (Anticoag Therapy) 1.17 (0.77-1.02) H 11/21/17 22:00 APTT 56.0 seconds (26.0-36.3) H 11/24/17 23:58 Patient Temperature Not Reportable 11/22/17 05:12 ABG pH 7.37 (7.35-7.45) 11/22/17 05:12 ABG pH (Temp Correct) Not Reportable 11/22/17 05:12 ABG pCO2 35 mmHg (35-45) 11/22/17 05:12 ABG pCO2 (Temp Corrct Not Reportable 11/22/17 05:12 ABG pO2 93 mmHg (80-100) 11/22/17 05:12 ABG pO2 (Temp Correct Not Reportable 11/22/17 05:12 ABG HCO3 21.4 mmol/L (19-31) 11/22/17 05:12 ABG O2 Saturation 99.4 % (95-98) H 11/22/17 05:12 ABG Base Excess -4.5 (-2.0-2.0) L 11/22/17 05:12 VBG pH 7.27 (7.33-7.43) L 11/21/17 15:49 VBG pCO2 47 mmHg (41-51) 11/21/17 15:49 VBG pO2 42 mmHg (35-45) 11/21/17 15:49 VBG HCO3 20.4 mmol/L (24-28) L 11/21/17 15:49 VBG O2 Saturation 77.4 % (70-80) 11/21/17 15:49 VBG Base Excess -5.2 (0-4) L 11/21/17 15:49 Respiration Rate Not Reportable 11/22/17 05:12 O2 Delivery Device vent 11/22/17 05:12 Ventilator Type Not Reportable 11/22/17 05:12 Vent Mode Not Reportable 11/22/17 05:12 FiO2 25 11/22/17 05:12 Inspiratory Time Not Reportable 11/22/17 05:12 PEEP Not Reportable 11/22/17 05:12 Pressure Support Not Reportable 11/22/17 05:12 Pressure Control Not Reportable 11/22/17 05:12 EPAP Not Reportable 11/22/17 05:12 IPAP Not Reportable 11/22/17 05:12 BiPAP Not Reportable 11/22/17 05:12 Sodium 143 mmol/L (135-145) 12/02/17 05:45 Potassium 3.8 mmol/L (3.5-5.0) 12/02/17 05:45 Chloride 106 mmol/L (101-111) 12/02/17 05:45 Carbon Dioxide 33 mmol/L (22-32) H 12/02/17 05:45 Anion Gap 4 mmol/L (2-11) 12/02/17 05:45 BUN 44 mg/dL (6-24) H 12/02/17 05:45 Creatinine 1.20 mg/dL (0.67-1.17) H 12/02/17 05:45 Est GFR ( Amer) 73.3 (>60) 12/02/17 05:45 Est GFR (Non-Af Amer) 60.6 (>60) 12/02/17 05:45 BUN/Creatinine Ratio 36.7 (8-20) H 12/02/17 05:45 Glucose 128 mg/dL (70-100) H 12/02/17 05:45 POC Glucose (mg/dL) 173 mg/dL (70-100) H 12/02/17 07:42 Hemoglobin A1c 7.2 % (4.0-5.6) H 11/21/17 06:03 Lactic Acid 1.7 mmol/L (0.5-2.0) 11/21/17 15:49 Calcium 8.1 mg/dL (8.6-10.3) L 12/02/17 05:45 Phosphorus 2.9 mg/dL (2.5-5.0) 12/02/17 05:45 Magnesium 1.9 mg/dL (1.9-2.7) 12/02/17 05:45 Total Bilirubin 0.40 mg/dL (0.2-1.0) 12/02/17 05:45 Direct Bilirubin 0.30 mg/dL (0.03-0.18) H 11/21/17 15:49 Indirect Bilirubin 0.5 mg/dL (0.3-1.0) 11/21/17 15:49 AST 16 U/L (13-39) 12/02/17 05:45 ALT 3 U/L (7-52) L 12/02/17 05:45 Alkaline Phosphatase 67 U/L (34-104) 12/02/17 05:45 Total Creatine Kinase 652 U/L (10-223) H 11/21/17 22:00 CK-MB (CK-2) 76.6 ng/mL (0.6-6.3) H 11/21/17 22:00 Troponin I 3.90 ng/mL (<0.04) H* 11/23/17 05:10 C-Reactive Protein 214.89 mg/L (<8.01) H 11/20/17 23:33 C-React Prot High Sens 189.30 mg/L (<2.00) H 11/21/17 06:03 B-Natriuretic Peptide 287 pg/mL (-100) H 11/20/17 23:33 Total Protein 5.3 g/dL (6.4-8.9) L 12/02/17 05:45 Albumin 2.5 g/dL (3.2-5.2) L 12/02/17 05:45 Globulin 2.8 g/dL (2-4) 12/02/17 05:45 Albumin/Globulin Ratio 0.9 (1-3) L 12/02/17 05:45 TSH 6.64 mcIU/mL (0.34-5.60) H 11/21/17 06:03 Urine Color Marni 11/21/17 01:56 Urine Appearance Cloudy 11/21/17 01:56 Urine pH 5.0 (5-9) 11/21/17 01:56 Ur Specific [place] 1.028 (1.010-1.030) 11/21/17 01:56 Urine Protein 1+(30 mg/dl) (Negative) A 11/21/17 01:56 Urine Ketones Negative (Negative) 11/21/17 01:56 Urine Blood Negative (Negative) 11/21/17 01:56 Urine Nitrate Negative (Negative) 11/21/17 01:56 Urine Bilirubin Negative (Negative) 11/21/17 01:56 Urine Urobilinogen Negative (Negative) 11/21/17 01:56 Ur Leukocyte Esterase Trace (Negative) A 11/21/17 01:56 Urine WBC (Auto) 2+(11-20/hpf) (Absent) A 11/21/17 01:56 Urine RBC (Auto) Trace(0-2/hpf) (Absent) 11/21/17 01:56 Ur Squamous Epith Cells Present (Absent) A 11/21/17 01:56 Urine Bacteria Absent (Absent) 11/21/17 01:56 Hyaline Casts Present (Absent) A 11/21/17 01:56 Granular Casts Present (Absent) A 11/21/17 01:56 Urine Glucose Negative (Negative) 11/21/17 01:56 Urine Ascorbic Acid * (Negative) A 11/21/17 01:56 Vancomycin Trough 25.5 mcg/mL 11/24/17 06:12 Blood Type O Positive 11/21/17 06:03 Antibody Screen Negative 11/21/17 06:03 incision: c/d; wound vac intact with no drainage PE: NVI Assessment: s/p I&D right foot with vac placement Plan: 1) PT/OT- heel WB only RLE 2) continue DVT prophylaxis 3) hospitalist co-managing 4) wound vac to be changed 3/week
--- NOTE | 2017-12-02 13:24 | PN ---
Progress Note - Progress Note Date of Service: 12/02/17 SOAP: Subjective: CC: right foot infection HPI: 67 year old man with septic shock due to right foot infection s/p I&D. No fever, rash, chest pain, or diarrhea. Objective: Vital Signs Temp 36.8 C 12/02/17 11:10 Pulse 92 12/02/17 11:10 Resp 20 12/02/17 11:10 BP 146/72 12/02/17 11:10 Pulse Ox 95 12/02/17 11:10 Intake & Output 12/01/17 12/02/17 12/02/17 18:59 06:59 18:59 Intake Total 555 400 30 Output Total 350 750 250 Balance 205 -350 -220 Intake: IVPB 55 60 ABX - CEFAZOLIN 55 60 Oral 500 340 30 Output: Michael 350 750 250 Other: # Bowel Movements 0 Gen:awake, no distress Neuro: alert, Ox2 HEENT: no thrush Heart:RRR no murmur Lungs:CTA BL Abd:+BS NTND soft Skin: no rash MSK: R foot wrapped Assessment: 1. MSSA chronic osteomyelitis, infective myositis, cellulitis of right foot s/p I&D 2. NSTEMI, 3 vessel disease by catheterization 3. PAD 4. Diabetes mellitus Plan: 1. ancef 2 gm IV Q8hrs day with weekly cbc, cmp, crp 2. wound vac per orthopedics
--- NOTE | 2017-12-02 17:36 | PN ---
Subjective Date of Service: 12/02/17 Interval History: Patient seen this afternoon, resting comfortably. Confused about his hospitalizations. Asking why and where is he. despite explaining his current conditions and brief summary of his hospital course, he goes back and ask same questions again. I am not sure what is his baseline but it seems that he may have some element of encephalopathy whether it is old or new will need to monitor and discuss with multidisciplinary team regarding his mental state Family History: Findings - unable Social History: Findings - unable comes from home though Past Medical History: Findings - type ii dm a fib cva twice cad s/p stents htn hyperlipidemia pshx s/p left foot amputation Objective Active Medications: Albuterol/Ipratropium (Duoneb (Albuterol 2.5 Mg/Ipratropium 0.5 Mg)) 1 neb INH Q4H PRN PRN Reason: SOB/WHEEZING Amiodarone HCl (Cordarone Tab*) 400 mg PO DAILY [facility] Last Admin: 12/02/17 09:53 Dose: 400 mg Ascorbic Acid (Vitamin C Tab*) 500 mg PO DAILY [facility] Last Admin: 12/02/17 09:53 Dose: 500 mg Aspirin (Aspirin Ec Tab*) 81 mg PO DAILY [facility] Last Admin: 12/02/17 09:54 Dose: 81 mg Atorvastatin Calcium (Lipitor*) 80 mg PO QPM [facility] Last Admin: 12/01/17 17:13 Dose: 80 mg Captopril (Capoten Tab*) 12.5 mg PO TID [facility] Last Admin: 12/02/17 13:13 Dose: 12.5 mg Clopidogrel Bisulfate (Plavix Tab*) 75 mg PO DAILY [facility] Last Admin: 12/02/17 09:55 Dose: 75 mg Dextrose (D50w Syringe 50 Ml*) 12.5 gm IV PUSH .FOR FS < 60 - SS PRN PRN Reason: FS < 60 Ferrous Sulfate (Ferrous Sulfate Tab*) 325 mg PO DAILY [facility] Last Admin: 12/02/17 09:56 Dose: 325 mg Furosemide (Lasix Tab*) 40 mg PO DAILY [facility] Last Admin: 12/02/17 09:55 Dose: 40 mg Heparin Sodium (Porcine) (Heparin Flush Picc/Ml/Cvc(*)) 1 - 3 ml FLUSH 0600, 1800 [facility]; Protocol Last Admin: 12/02/17 05:48 Dose: Not Given Heparin Sodium (Porcine) (Heparin Vial(*)) 5,000 units SUBCUT Q8H [facility] Last Admin: 12/02/17 09:52 Dose: 5,000 units Cefazolin Sodium/Dextrose (Kefzol 2 Gm Premix In Ors(*)) 2 gm in 50 mls @ 100 mls/hr IVPB Q8H [facility] Last Admin: 12/02/17 13:12 Dose: 100 mls/hr Insulin Glargine (Lantus(*)) 10 units SUBCUT BEDTIME [facility] Last Admin: 12/01/17 22:10 Dose: 10 units Insulin Human Lispro (Humalog*) 0 units SUBCUT ACHS [facility]; Protocol Last Admin: 12/02/17 13:13 Dose: 6 unit Lorazepam (Ativan Inj*) 1 mg IV PUSH Q3H PRN PRN Reason: ANXIETY Last Admin: 12/01/17 18:17 Dose: 1 mg Melatonin (Melatonin) 3 mg PO BEDTIME PRN; Protocol PRN Reason: SLEEP Last Admin: 11/30/17 21:05 Dose: 3 mg Metoprolol Tartrate (Lopressor Tab*) 25 mg PO TID [facility] Last Admin: 12/02/17 13:14 Dose: 25 mg Morphine Sulfate (Morphine Vial*) 2 mg IV Q4H PRN PRN Reason: PAIN - MILD Last Admin: 11/30/17 06:37 Dose: 2 mg Nitroglycerin (Nitroglycerin 2% Oint*) 1 inch TOPICAL BEDTIME [facility]; Protocol Last Admin: 12/01/17 22:59 Dose: 1 inch Ondansetron HCl (Zofran Inj*) 4 mg IV Q4H PRN PRN Reason: NAUSEA Last Admin: 11/30/17 09:10 Dose: 4 mg Pantoprazole Sodium (Protonix Tab (Nf)) 40 mg PO DAILY@0600 [facility] Last Admin: 12/02/17 05:46 Dose: 40 mg Paroxetine HCl (Paxil Tab*) 20 mg PO DAILY [facility] Last Admin: 12/02/17 09:56 Dose: 20 mg Pharmacy Profile Note (Nitro Patch/Oint Remove*) 1 note PATCH OFF DAILY [facility] Last Admin: 12/02/17 09:59 Dose: 1 note Senna (Senokot Tab*) 1 tab PO BID [facility] Last Admin: 12/02/17 09:57 Dose: 1 tab Vital Signs - 8 hr 12/02/17 12/02/17 11:10 15:17 Temperature 98.3 F Pulse Rate 92 68 Respiratory 20 16 Rate Blood Pressure 146/72 131/59 (mmHg) O2 Sat by Pulse 95 100 Oximetry Oxygen Devices in Use Now: Nasal Cannula Appearance: in bed. resting. no acute distress. confused and disoriented to place and time Eyes: No Scleral Icterus, PERRLA Ears/Nose/Mouth/Throat: NL Teeth, Lips, Gums, Clear Oropharnyx Neck: NL Appearance and Movements; NL JVP, Trachea Midline Respiratory: Symmetrical Chest Expansion and Respiratory Effort, Clear to Auscultation Cardiovascular: NL Sounds; No Murmurs; No JVD, No Edema, - - irregularly irregular Abdominal: NL Sounds; No Tenderness; No Distention Extremities: No Edema, - - right foot in soft cast, wound vac in place Result Diagrams: 12/02/17 05:45 12/02/17 05:45 Microbiology and Other Data: Microbiology 11/21/17 00:23 Stool Occult Blood (CAN) - Final Stool EKG Data: rapid a fib but no ekg change seen in other facility Assess/Plan/Problems-Billing Assessment: 67 yr old wm with poor compliance with medical care type ii dm but insulin dep multiple med problems was sent to local er by ex because " he was not himself " pt was found to have rapid a fib got three doses of cardizem 20 mg iv from [facility] ---> he was found to have trop of [address] t changes despite of rapid a fib pt has two dorsum ulcer size of a dime with one draining puz initial wbc is 14 dx is dm infected foot ulcer with cellulitis Time line of events: 11/21Admission for diabetic foot ulcer sepsis, later vomited and aspirated and was intubated 11/22Extubated . fib w/RVR + flash pulmonary edemaBiPAP 11/24A. fib with RVR + Levophed 11/26LHC reveals 3V disease and decision made to maximize medical therapy at this time /P debridement of RLE 11/28Diuretics given 11/29Hypertensive urgencyplaced on NTG gtt and ACEI 11/30I&D +wound Vac +regional nerve block - Patient Problems (1) CHF (congestive heart failure) Current Visit: Yes Status: Acute Code(s): I50.9 - HEART FAILURE, UNSPECIFIED SNOMED Code(s): 04049288 Comment: - Echo date 11/21/17 reveiwed. EF was normal and preserved LV functions. - I think his plumonary edema was secondary to acute diastollic trigerred by his [place] and went on to devellop pulmonary edema - s/p lasix IV and will continue captopril 12.5 mg tid; lasix 40 mg daily; lopressor 25 mg tid, nitropaste 2% ointment. - continue low salt diet to Cons carbohydrate diet ordered (2) Cellulitis and abscess of foot excluding toe Current Visit: Yes Status: Acute Code(s): L03.119 - CELLULITIS OF UNSPECIFIED PART OF LIMB; L02.619 - CUTANEOUS ABSCESS OF UNSPECIFIED FOOT SNOMED Code(s): 004398035 Comment: - secondary to his heel ulcer - s/p I& D - cefazolin 2 gm IV q8hr and wound vac (3) Diabetes 1.5, managed as type 2 Current Visit: Yes Status: Acute Code(s): E10.9 - TYPE 1 DIABETES MELLITUS WITHOUT COMPLICATIONS SNOMED Code(s): 573424394 Comment: -Well-controlled -Continue insulin (4) Osteomyelitis Current Visit: No Status: Acute Code(s): M86.9 - OSTEOMYELITIS, UNSPECIFIED SNOMED Code(s): 53969695 Comment: - chronic right heel ulcer. - Continue IV cefazolin 2 gm IV q8rhs day - MRI 11/21/17 confirms the diagnosis (5) Septic shock Current Visit: Yes Status: Resolved Code(s): A41.9 - SEPSIS, UNSPECIFIED ORGANISM; R65.21 - SEVERE SEPSIS WITH SEPTIC SHOCK SNOMED Code(s): 45137685 Comment: - Patient records reviewed. He was admitted with tacchcycardia, hypotension required levophed in the setting of rigth foot osteomyelitis and cellulitis - Resolved off levophed currently\\ - Currently on cefazolin 2 gm IV Q8hrs and s/p I&D with wound culture positive for MSSA (6) CAD (coronary artery disease) Current Visit: Yes Status: Acute Code(s): I25.10 - ATHSCL HEART DISEASE OF [place] CORONARY ARTERY W/O ANG PCTRS SNOMED Code(s): 37782104 Comment: - s/p NSTEMI with peak troponin of 13.08 on 11/21/17 and down to 3.9 on 11/23 -s/p LHC on 11/26 that revealed triple vessel disease not amneable for interventions - Cardiology recommended to continue maximal medical therapy. Will continue ASA , Plavix, ACEI, BB, and statins (7) Non-ST elevated myocardial infarction Current Visit: Yes Status: Resolved Code(s): I21.4 - NON-ST ELEVATION ( NSTEMI) MYOCARDIAL INFARCTION SNOMED Code(s): 223349258 Comment: - s/p NSTEMI with peak troponin of 13.08 on 11/21/17 and down to 3.9 on 11/23 -s/p LHC on 11/26 that revealed triple vessel disease not amneable for interventions - Cardiology recommended to continue maximal medical therapy. Will continue ASA , Plavix, ACEI, BB, and statins (8) Atrial fibrillation Current Visit: Yes Status: Acute Code(s): I48.91 - UNSPECIFIED ATRIAL FIBRILLATION SNOMED Code(s): 43427889 Comment: - Controlled rate. continue Amiodarone 400 mg daily. will need to taper and Metoprolol 25 mg bid. will probably change to toprol Xl (9) DVT prophylaxis Current Visit: Yes Status: Acute Code(s): HRB3614 - SNOMED Code(s): 244635317 Comment: -Continue heparin SQ
[2017-12-02] MEDS: Atorvastatin* 80 MG TAB PO SCH (21:28)
[2017-12-02] MEDS: Metoprolol Succinate XL TAB* 50 MG PO SCH (21:28)
[2017-12-02] MEDS: Insulin GLARGINE(*) 1 UNITS UNIT SUBCUT SCH (21:32)
[2017-12-03] MEDS: Heparin VIAL(*) 5000 UNITS/ML VIAL (FIVE THOUSAND) SUBCUT SCH ×3 (00:12→17:53)
[2017-12-03] MEDS: ceFAZolin* 2 GM* Q8H (Duplex) IVPB SCH ×3 (04:49→21:28)
[2017-12-03] MEDS: CMC:Pantoprazole TAB (NF) 40 MG TAB PO SCH ×2 (05:50→21:20)
[2017-12-03 06:02] LABS: ABS Basophils 0.1 10^3/ul (0-0.2); ABS Eosinophils 0.1 10^3/ul (0-0.6); ABS Lymphocytes 1.1 10^3/ul (1.0-4.8); ABS Monocytes 0.6 10^3/ul (0-0.8); ABS Neutrophils 9.6 10^3/ul (1.5-7.7); ABS Nucleated RBC 0 10^3/ul; Hematocrit 22 % (42-52); Hemoglobin 7.3 g/dl (14.0-18.0); Lymphocyte % 9.4 % (25-47); Mean Corpuscular HGB Conc 33 g/dl (31-36); Mean Corpuscular Hemoglobin 29 pg (27-31); Mean Corpuscular Volume 87 fL (80-94); Mean Platelet Volume 8.6 um3 (7.4-10.4); Nucleated Red Blood Cells % 0; Platelet Count 335 10^3/ul (150-450); Red Blood Count 2.53 10^6/ul (4.00-5.40); Red Cell Distribution Width 16 % (10.5-15); White Blood Count 11.5 10^3/ul (3.5-10.8)
[2017-12-03 06:20] LABS: EGFR Non-African American 58.9 (>60)
[2017-12-03] MEDS: Ondansetron INJ* 2 MG/ML VIAL IV PRN (07:41)
[2017-12-03] MEDS: Insulin LISPRO* 1 UNITS UNIT SUBCUT SCH ×4 (09:54→21:26)
[2017-12-03] MEDS: Amiodarone TAB* 400 MG PO SCH (09:55)
[2017-12-03] MEDS: Ascorbic Acid TAB* 500 MG PO SCH (09:55)
[2017-12-03] MEDS: Aspirin EC TAB* 81 MG TAB.EC PO SCH (09:56)
[2017-12-03] MEDS: Clopidogrel TAB* 75 MG PO SCH (09:56)
[2017-12-03] MEDS: Furosemide TAB* 40 MG PO SCH (09:57)
[2017-12-03] MEDS: Ferrous Sulfate TAB* 325 MG PO SCH ×2 (09:57→21:20)
[2017-12-03] MEDS: Senna TAB PO SCH ×2 (09:58→21:19)
[2017-12-03] MEDS: Nitro Patch/OINT Remove PATCH OFF SCH ×2 (09:58→10:31)
[2017-12-03] MEDS: PARoxetine HCL TAB* 10 MG PO SCH (09:58)
[2017-12-03] MEDS: Lisinopril TAB* 10 MG PO SCH (09:58)
--- NOTE | 2017-12-03 10:38 | PN ---
Progress Note - Progress Note Date of Service: 12/03/17 SOAP: Subjective: POD #7 Right foot I&D with VAC placement. Doing well. No c/o pain. No f/c. Objective: Vitals: Temp Pulse Resp BP Pulse Ox 98.1 F 86 20 150/54 97 10/24/18 07:08 //18 07:08 12/03/18 07:08 12/03/18 07:08 12/03/17 07:08 Gen: A&Ox2, confused to time RLE: VAC dressing taken down. Wound approx 25mm x 13mm, granulation tissue to about 25%. EHL still exposed. No purulent d/c. Assessment: POD #7 Right foot I&D Plan: New wound VAC applied today. Cont partial WB RLE Cont PT/OT Cont IV abx per ID
--- NOTE | 2017-12-03 15:57 | PN ---
Subjective Date of Service: 12/03/17 Interval History: Patient seen in bed. awake, alert. pleasant. confused about surgery he still thinks he is going to surgery for his foot. No events overnight. staff report constipations and occasionally he declines his po meds. His Hct is down to 22 today. No active bleed reported by staff Past Medical History: Unchanged from Admission Objective Active Medications: Albuterol/Ipratropium (Duoneb (Albuterol 2.5 Mg/Ipratropium 0.5 Mg)) 1 neb INH Q4H PRN PRN Reason: SOB/WHEEZING Amiodarone HCl (Cordarone Tab*) 200 mg PO DAILY [facility] Ascorbic Acid (Vitamin C Tab*) 500 mg PO DAILY [facility] Last Admin: 12/03/17 09:55 Dose: 500 mg Aspirin (Aspirin Ec Tab*) 81 mg PO DAILY [facility] Last Admin: 12/03/17 09:56 Dose: 81 mg Atorvastatin Calcium (Lipitor*) 80 mg PO QPM [facility] Last Admin: 12/02/17 21:28 Dose: 80 mg Clopidogrel Bisulfate (Plavix Tab*) 75 mg PO DAILY [facility] Last Admin: 12/03/17 09:56 Dose: 75 mg Dextrose (D50w Syringe 50 Ml*) 12.5 gm IV PUSH .FOR FS < 60 - SS PRN PRN Reason: FS < 60 Ferrous Sulfate (Ferrous Sulfate Tab*) 325 mg PO TID [facility] Furosemide (Lasix Tab*) 40 mg PO DAILY [facility] Last Admin: 12/03/17 09:57 Dose: 40 mg Heparin Sodium (Porcine) (Heparin Flush Picc/Ml/Cvc(*)) 1 - 3 ml FLUSH 0600, 1800 [facility]; Protocol Last Admin: 12/03/17 13:59 Dose: 1 ml Heparin Sodium (Porcine) (Heparin Vial(*)) 5,000 units SUBCUT Q8H [facility] Last Admin: 12/03/17 09:54 Dose: 5,000 units Cefazolin Sodium/Dextrose (Kefzol 2 Gm Premix In Ors(*)) 2 gm in 50 mls @ 100 mls/hr IVPB Q8H [facility] Last Admin: 12/03/17 12:42 Dose: 100 mls/hr Insulin Glargine (Lantus(*)) 10 units SUBCUT BEDTIME [facility] Last Admin: 12/02/17 21:32 Dose: 10 units Insulin Human Lispro (Humalog*) 0 units SUBCUT ACHS [facility]; Protocol Last Admin: 12/03/17 12:40 Dose: 9 unit Isosorbide Mononitrate (Imdur Er Tab*) 30 mg PO DAILY [facility] Lisinopril (Prinivil Tab*) 10 mg PO DAILY [facility] Last Admin: 12/03/17 09:58 Dose: 10 mg Lorazepam (Ativan Inj*) 1 mg IV PUSH Q3H PRN PRN Reason: ANXIETY Last Admin: 12/01/17 18:17 Dose: 1 mg Melatonin (Melatonin) 3 mg PO BEDTIME PRN; Protocol PRN Reason: SLEEP Last Admin: 11/30/17 21:05 Dose: 3 mg Metoprolol Succinate (Toprol Xl Tab*) 50 mg PO BEDTIME [facility] Last Admin: 12/02/17 21:28 Dose: 50 mg Morphine Sulfate (Morphine Vial*) 2 mg IV Q4H PRN PRN Reason: PAIN - MILD Last Admin: 11/30/17 06:37 Dose: 2 mg Ondansetron HCl (Zofran Inj*) 4 mg IV Q4H PRN PRN Reason: NAUSEA Last Admin: 12/03/17 07:41 Dose: 4 mg Paroxetine HCl (Paxil Tab*) 20 mg PO DAILY [facility] Last Admin: 12/03/17 09:58 Dose: 20 mg Polyethylene Glycol/Electrolytes (Miralax*) 17 gm PO DAILY PRN PRN Reason: CONSTIPATION Senna (Senokot Tab*) 1 tab PO BID [facility] Last Admin: 12/03/17 09:58 Dose: 1 tab Vital Signs - 8 hr 12/03/17 12/03/17 12/03/17 08:00 11:17 14:57 Temperature 98.3 F Pulse Rate 69 Respiratory 20 20 20 Rate Blood Pressure 135/59 (mmHg) O2 Sat by Pulse 100 Oximetry Oxygen Devices in Use Now: High Flow Nasal Cannula Appearance: resting comfortably Eyes: No Scleral Icterus Ears/Nose/Mouth/Throat: NL Teeth, Lips, Gums, Mucous Membranes Moist, - - nasal canula in place Neck: NL Appearance and Movements; NL JVP, Trachea Midline Respiratory: Clear to Auscultation, - - no rales or wheezing Cardiovascular: NL Sounds; No Murmurs; No JVD Abdominal: NL Sounds; No Tenderness; No Distention Extremities: No Edema, - - right foot dressing in place, wound back in place Result Diagrams: 12/03/17 05:48 12/03/17 05:48 Microbiology and Other Data: Microbiology 11/21/17 00:23 Stool Occult Blood (CAN) - Final Stool Assess/Plan/Problems-Billing Assessment: 67 yr old wm with poor compliance with medical care type ii dm but insulin dep multiple med problems was sent to local er by ex because " he was not himself " pt was found to have rapid a fib got three doses of cardizem 20 mg iv from [facility] ---> he was found to have trop of [address] t changes despite of rapid a fib pt has two dorsum ulcer size of a dime with one draining puz initial wbc is 14 dx is dm infected foot ulcer with cellulitis Time line of events: 11/21Admission for diabetic foot ulcer sepsis, later vomited and aspirated and was intubated 11/22Extubated . fib w/RVR + flash pulmonary edemaBiPAP 11/24A. fib with RVR + Levophed 11/26LHC reveals 3V disease and decision made to maximize medical therapy at this time /P debridement of RLE 11/28Diuretics given 11/29Hypertensive urgencyplaced on NTG gtt and ACEI 11/30I&D +wound Vac +regional nerve block - Patient Problems (1) CHF (congestive heart failure) Current Visit: Yes Status: Acute Code(s): I50.9 - HEART FAILURE, UNSPECIFIED SNOMED Code(s): 06751839 Comment: - Echo date 11/21/17 reveiwed. EF was normal and preserved LV functions. - I think his plumonary edema was secondary to acute diastollic trigerred by his [place] and went on to devellop pulmonary edema - s/p lasix IV and will YUNIOR and I did change captopril 12.5 mg tid to lisinopril 20 mg daily; lasix 40 mg daily; and changed lopressor 25 mg tid to toprol XL 50 mg daily, today I will D/c nitropaste 2% ointment and place him on imdur 30 mg daily - continue low salt diet to Cons carbohydrate diet ordered (2) Cellulitis and abscess of foot excluding toe Current Visit: Yes Status: Acute Code(s): L03.119 - CELLULITIS OF UNSPECIFIED PART OF LIMB; L02.619 - CUTANEOUS ABSCESS OF UNSPECIFIED FOOT SNOMED Code(s): 591350086 Comment: - secondary to his heel ulcer - s/p I& D - cefazolin 2 gm IV q8hr and wound vac (3) Diabetes 1.5, managed as type 2 Current Visit: Yes Status: Acute Code(s): E10.9 - TYPE 1 DIABETES MELLITUS WITHOUT COMPLICATIONS SNOMED Code(s): 552018364 Comment: -Well-controlled -Continue insulin (4) Osteomyelitis Current Visit: No Status: Acute Code(s): M86.9 - OSTEOMYELITIS, UNSPECIFIED SNOMED Code(s): 13735543 Comment: - chronic right heel ulcer. - Continue IV cefazolin 2 gm IV q8rhs day - MRI 11/21/17 confirms the diagnosis (5) Septic shock Current Visit: Yes Status: Resolved Code(s): A41.9 - SEPSIS, UNSPECIFIED ORGANISM; R65.21 - SEVERE SEPSIS WITH SEPTIC SHOCK SNOMED Code(s): 81181272 Comment: - Patient records reviewed. He was admitted with tacchcycardia, hypotension required levophed in the setting of rigth foot osteomyelitis and cellulitis - Resolved off levophed currently - Currently on cefazolin 2 gm IV Q8hrs and s/p I&D with wound culture positive for MSSA (6) CAD (coronary artery disease) Current Visit: Yes Status: Acute Code(s): I25.10 - ATHSCL HEART DISEASE OF [place] CORONARY ARTERY W/O ANG PCTRS SNOMED Code(s): 32178707 Comment: - s/p NSTEMI with peak troponin of 13.08 on 11/21/17 and down to 3.9 on 11/23 -s/p LHC on 11/26 that revealed triple vessel disease not amneable for interventions - Cardiology recommended to continue maximal medical therapy. Will continue ASA , Plavix, ACEI, BB, and statins (7) Non-ST elevated myocardial infarction Current Visit: Yes Status: Resolved Code(s): I21.4 - NON-ST ELEVATION ( NSTEMI) MYOCARDIAL INFARCTION SNOMED Code(s): 272119709 Comment: - s/p NSTEMI with peak troponin of 13.08 on 11/21/17 and down to 3.9 on 11/23 -s/p LHC on 11/26 that revealed triple vessel disease not amneable for interventions - Cardiology recommended to continue maximal medical therapy. Will continue ASA , Plavix, ACEI, BB, and statins (8) Atrial fibrillation Current Visit: Yes Status: Acute Code(s): I48.91 - UNSPECIFIED ATRIAL FIBRILLATION SNOMED Code(s): 71807830 Comment: - Controlled rate. continue Amiodarone 400 mg daily. will need to taper and Metoprolol 25 mg bid. will probably change to toprol Xl (9) Anemia Current Visit: Yes Status: Acute Code(s): D64.9 - ANEMIA, UNSPECIFIED SNOMED Code(s): 715884327 Comment: - Etiology is multifactorial, probably secondary to occult blood loss given his full anticoagulation for his NSTEMI (ASA; PLAVIX...) Which we need to keep him on both due to his recent NSTEMI - Also this could be due to chronic disease and acute medical illness (S/P sepsis, DM; Osteomylitis) - I will check iron profile, check B12; Folate, and will increaes iron to TID; and PPI to bid. along with stool softener and miralax. - I will hold on transfusion today as he is assymptomatic (10) DVT prophylaxis Current Visit: Yes Status: Acute Code(s): WHK3715 - SNOMED Code(s): 309024108 Comment: -Continue heparin SQ Status and Disposition: -For rehab placement
[2017-12-03] MEDS ORDERED: Insulin LISPRO* 1 UNITS UNIT SUBCUT ONE (17:49)
[2017-12-03] MEDS: Atorvastatin* 80 MG TAB PO SCH (17:53)
[2017-12-03] MEDS: Polyethylene Glycol 3350* 17 GM PACKET PO PRN (21:20)
[2017-12-03] MEDS: Melatonin 3 MG TAB PO PRN (21:20)
[2017-12-03] MEDS: Metoprolol Succinate XL TAB* 50 MG PO SCH (21:20)
[2017-12-03] MEDS: Insulin GLARGINE(*) 1 UNITS UNIT SUBCUT SCH (21:25)
[2017-12-04] MEDS: Heparin VIAL(*) 5000 UNITS/ML VIAL (FIVE THOUSAND) SUBCUT SCH ×3 (00:26→17:29)
[2017-12-04] MEDS: ceFAZolin* 2 GM* Q8H (Duplex) IVPB SCH ×3 (04:50→23:12)
[2017-12-04 06:04] LABS: ABS Basophils 0 10^3/ul (0-0.2); ABS Eosinophils 0.2 10^3/ul (0-0.6); ABS Monocytes 0.7 10^3/ul (0-0.8); ABS Neutrophils 11.2 10^3/ul (1.5-7.7); ABS Nucleated RBC 0 10^3/ul; Eosinophil % 1.3 % (0-6); Hematocrit 20 % (42-52); Hemoglobin 6.7 g/dl (14.0-18.0); Lymphocyte % 7.5 % (25-47); Mean Corpuscular HGB Conc 34 g/dl (31-36); Mean Corpuscular Hemoglobin 30 pg (27-31); Mean Corpuscular Volume 88 fL (80-94); Mean Platelet Volume 8.6 um3 (7.4-10.4); Nucleated Red Blood Cells % 0; Platelet Count 301 10^3/ul (150-450); Red Blood Count 2.25 10^6/ul (4.00-5.40); Red Cell Distribution Width 16 % (10.5-15)
[2017-12-04 06:21] LABS: EGFR Non-African American 60.6 (>60)
--- NOTE | 2017-12-04 09:04 | PN ---
Progress Note - Progress Note Date of Service: 12/04/17 SOAP: Subjective: []Patient seen and examined at bedside. He feels well without complaints today. Objective: []General: Well appearing, NAD RLE: Vac in place with good suction. No surrounding erythema. Able to flex and extend at ankle and MTPs of all digits. Cap refill less than two seconds distally. Bilateral calves supple and nontender without erythema, edema or palpable cords Assessment: [] POD #8 Right foot I&D Plan: Cont partial WB RLE Cont PT/OT Cont IV abx per ID Vac change 12/05 before D/C. Thereafter needs vac change Q 3 days. If vac falls off/ stops functioning and unable to trouble shoot at nursing facility please apply saline wet to dry dressing and call ortho office at [phone] for instruction Vital Signs Temp 98.2 F 12/04/17 11:23 Pulse 75 12/04/17 11:23 Resp 18 12/04/17 11:23 BP 103/59 12/04/17 11:23 Pulse Ox 96 12/04/17 11:23 Intake & Output 12/03/17 12/04/17 12/04/17 18:59 06:59 18:59 Intake Total 663 241 Balance 663 241 Intake: IV Fluids 26 NS 26 IVPB 63 115 ABX - CEFAZOLIN 63 115 Oral 600 100 Other: Estimated Void Large Medium # Voids 1 Laboratory Last Values WBC 13.0 10^3/ul (3.5-10.8) H 12/04/17 05:45 RBC 2.25 10^6/ul (4.00-5.40) L 12/04/17 05:45 Hgb 6.7 g/dl (14.0-18.0) L 12/04/17 05:45 Hct 20 % (42-52) L 12/04/17 05:45 MCV 88 fL (80-94) 12/04/17 05:45 MCH 30 pg (27-31) 12/04/17 05:45 MCHC 34 g/dl (31-36) 12/04/17 05:45 RDW 16 % (10.5-15) H 12/04/17 05:45 Plt Count 301 10^3/ul (150-450) 12/04/17 05:45 MPV 8.6 um3 (7.4-10.4) 12/04/17 05:45 Neut % (Auto) 85.8 % (38-83) H 12/04/17 05:45 Lymph % (Auto) 7.5 % (25-47) L 12/04/17 05:45 [place] % (Auto) 5.1 % (0-7) 12/04/17 05:45 Eos % (Auto) 1.3 % (0-6) 12/04/17 05:45 Baso % (Auto) 0.3 % (0-2) 12/04/17 05:45 Absolute Neuts (auto) 11.2 10^3/ul (1.5-7.7) H 12/04/17 05:45 Absolute Lymphs (auto) 1.0 10^3/ul (1.0-4.8) 12/04/17 05:45 Absolute Monos (auto) 0.7 10^3/ul (0-0.8) 12/04/17 05:45 Absolute Eos (auto) 0.2 10^3/ul (0-0.6) 12/04/17 05:45 Absolute Basos (auto) 0 10^3/ul (0-0.2) 12/04/17 05:45 Absolute Nucleated RBC 0 10^3/ul 12/04/17 05:45 Nucleated RBC % 0 12/04/17 05:45 ESR 40 mm/Hr (0-40) 12/04/17 05:45 INR (Anticoag Therapy) 1.17 (0.77-1.02) H 11/21/17 22:00 APTT 56.0 seconds (26.0-36.3) H 11/24/17 23:58 Patient Temperature Not Reportable 11/22/17 05:12 ABG pH 7.37 (7.35-7.45) 11/22/17 05:12 ABG pH (Temp Correct) Not Reportable 11/22/17 05:12 ABG pCO2 35 mmHg (35-45) 11/22/17 05:12 ABG pCO2 (Temp Corrct Not Reportable 11/22/17 05:12 ABG pO2 93 mmHg (80-100) 11/22/17 05:12 ABG pO2 (Temp Correct Not Reportable 11/22/17 05:12 ABG HCO3 21.4 mmol/L (19-31) 11/22/17 05:12 ABG O2 Saturation 99.4 % (95-98) H 11/22/17 05:12 ABG Base Excess -4.5 (-2.0-2.0) L 11/22/17 05:12 VBG pH 7.27 (7.33-7.43) L 11/21/17 15:49 VBG pCO2 47 mmHg (41-51) 11/21/17 15:49 VBG pO2 42 mmHg (35-45) 11/21/17 15:49 VBG HCO3 20.4 mmol/L (24-28) L 11/21/17 15:49 VBG O2 Saturation 77.4 % (70-80) 11/21/17 15:49 VBG Base Excess -5.2 (0-4) L 11/21/17 15:49 Respiration Rate Not Reportable 11/22/17 05:12 O2 Delivery Device vent 11/22/17 05:12 Ventilator Type Not Reportable 11/22/17 05:12 Vent Mode Not Reportable 11/22/17 05:12 FiO2 25 11/22/17 05:12 Inspiratory Time Not Reportable 11/22/17 05:12 PEEP Not Reportable 11/22/17 05:12 Pressure Support Not Reportable 11/22/17 05:12 Pressure Control Not Reportable 11/22/17 05:12 EPAP Not Reportable 11/22/17 05:12 IPAP Not Reportable 11/22/17 05:12 BiPAP Not Reportable 11/22/17 05:12 Sodium 142 mmol/L (135-145) 12/04/17 05:45 Potassium 4.0 mmol/L (3.5-5.0) 12/04/17 05:45 Chloride 104 mmol/L (101-111) 12/04/17 05:45 Carbon Dioxide 36 mmol/L (22-32) H 12/04/17 05:45 Anion Gap 2 mmol/L (2-11) 12/04/17 05:45 BUN 52 mg/dL (6-24) H 12/04/17 05:45 Creatinine 1.20 mg/dL (0.67-1.17) H 12/04/17 05:45 Est GFR ( Amer) 73.3 (>60) 12/04/17 05:45 Est GFR (Non-Af Amer) 60.6 (>60) 12/04/17 05:45 BUN/Creatinine Ratio 43.3 (8-20) H 12/04/17 05:45 Glucose 206 mg/dL (70-100) H 12/04/17 05:45 POC Glucose (mg/dL) 175 mg/dL (70-100) H 12/03/17 20:58 Hemoglobin A1c 7.2 % (4.0-5.6) H 11/21/17 06:03 Lactic Acid 1.7 mmol/L (0.5-2.0) 11/21/17 15:49 Calcium 8.0 mg/dL (8.6-10.3) L 12/04/17 05:45 Phosphorus 2.4 mg/dL (2.5-5.0) L 12/03/17 05:48 Magnesium 2.0 mg/dL (1.9-2.7) 12/03/17 05:48 Iron 48 ug/dL (50-212) L 12/03/17 16:30 TIBC 216 mcg/dL (250-450) L 12/03/17 16:30 % Saturation 22 % (15-55) 12/03/17 16:30 Unsat Iron Binding 168 ug/dL 12/03/17 16:30 Transferrin 154 mg/dL (203-362) L 12/03/17 16:30 Ferritin 192.5 ng/mL (24-336) 12/03/17 16:30 Total Bilirubin 0.40 mg/dL (0.2-1.0) 12/02/17 05:45 Direct Bilirubin 0.30 mg/dL (0.03-0.18) H 11/21/17 15:49 Indirect Bilirubin 0.5 mg/dL (0.3-1.0) 11/21/17 15:49 AST 16 U/L (13-39) 12/02/17 05:45 ALT 3 U/L (7-52) L 12/02/17 05:45 Alkaline Phosphatase 67 U/L (34-104) 12/02/17 05:45 Total Creatine Kinase 652 U/L (10-223) H 11/21/17 22:00 CK-MB (CK-2) 76.6 ng/mL (0.6-6.3) H 11/21/17 22:00 Troponin I 3.90 ng/mL (<0.04) H* 11/23/17 05:10 C-Reactive Protein 6.90 mg/L (<8.01) 12/04/17 05:45 C-React Prot High Sens 189.30 mg/L (<2.00) H 11/21/17 06:03 B-Natriuretic Peptide 287 pg/mL (-100) H 11/20/17 23:33 Total Protein 5.3 g/dL (6.4-8.9) L 12/02/17 05:45 Albumin 2.5 g/dL (3.2-5.2) L 12/02/17 05:45 Globulin 2.8 g/dL (2-4) 12/02/17 05:45 Albumin/Globulin Ratio 0.9 (1-3) L 12/02/17 05:45 Vitamin B12 597 pg/mL (180-914) 12/04/17 05:45 Folate 9.54 ng/mL (>3.99) 12/03/17 16:30 TSH 6.64 mcIU/mL (0.34-5.60) H 11/21/17 06:03 Urine Color Marni 11/21/17 01:56 Urine Appearance Cloudy 11/21/17 01:56 Urine pH 5.0 (5-9) 11/21/17 01:56 Ur Specific [place] 1.028 (1.010-1.030) 11/21/17 01:56 Urine Protein 1+(30 mg/dl) (Negative) A 11/21/17 01:56 Urine Ketones Negative (Negative) 11/21/17 01:56 Urine Blood Negative (Negative) 11/21/17 01:56 Urine Nitrate Negative (Negative) 11/21/17 01:56 Urine Bilirubin Negative (Negative) 11/21/17 01:56 Urine Urobilinogen Negative (Negative) 11/21/17 01:56 Ur Leukocyte Esterase Trace (Negative) A 11/21/17 01:56 Urine WBC (Auto) 2+(11-20/hpf) (Absent) A 11/21/17 01:56 Urine RBC (Auto) Trace(0-2/hpf) (Absent) 11/21/17 01:56 Ur Squamous Epith Cells Present (Absent) A 11/21/17 01:56 Urine Bacteria Absent (Absent) 11/21/17 01:56 Hyaline Casts Present (Absent) A 11/21/17 01:56 Granular Casts Present (Absent) A 11/21/17 01:56 Urine Glucose Negative (Negative) 11/21/17 01:56 Urine Ascorbic Acid * (Negative) A 11/21/17 01:56 Vancomycin Trough 25.5 mcg/mL 11/24/17 06:12 Blood Type O Positive 12/04/17 05:45 Antibody Screen Negative 12/04/17 05:45 Crossmatch See Detail 12/04/17 05:45 <Clau Whelan - Last Filed: 12/04/17 13:20> - Progress Note SOAP: Objective: Per photo on 12/03/17, significant reduction in size of skin ulceration since the operation. Also, there is some granulation tissue. Healthier appearing soft tissues. EHL tendon still visible. Plan: - Continue VAC - Continue IV abx per Dr. Lloyd - Dispo planning - Follow up with me in clinic approximately 14-17 days postoperative for a wound check and removal of stitches <Bobo Kimball - Last Filed: 12/04/17 21:48>
[2017-12-04] MEDS ORDERED: Furosemide IV* 10 MG/ML 2 ML VIAL (20 MG) IV ONE (10:19)
[2017-12-04] MEDS: Insulin LISPRO* 1 UNITS UNIT SUBCUT SCH ×4 (10:20→23:32)
[2017-12-04] MEDS: Aspirin EC TAB* 81 MG TAB.EC PO SCH (10:28)
[2017-12-04] MEDS: Lisinopril TAB* 10 MG PO SCH (10:28)
[2017-12-04] MEDS: Clopidogrel TAB* 75 MG PO SCH (10:28)
[2017-12-04] MEDS: Isosorbide Mononitrate ER TAB* 30 MG PO SCH (10:28)
[2017-12-04] MEDS: Ferrous Sulfate TAB* 325 MG PO SCH ×3 (10:28→23:12)
[2017-12-04] MEDS: Senna TAB PO SCH ×2 (10:28→23:12)
[2017-12-04] MEDS: PARoxetine HCL TAB* 10 MG PO SCH (10:28)
[2017-12-04] MEDS: Ascorbic Acid TAB* 500 MG PO SCH (10:29)
[2017-12-04] MEDS: Furosemide TAB* 40 MG PO SCH (10:29)
[2017-12-04] MEDS: CMC:Pantoprazole TAB (NF) 40 MG TAB PO SCH ×2 (10:29→23:12)
[2017-12-04] MEDS: Amiodarone TAB* 200 MG PO SCH (10:29)
--- NOTE | 2017-12-04 13:00 | PN ---
Subjective Date of Service: 12/04/17 Interval History: Patient seen today, no acute bleed. doing well. no events overnight. However; his Hct has dropped to 20. I did inquire with staff if any bleed, none present. labs reviewed iron studies unremarkable, folate and b12 normal. Will repeat TSH as it was mildly elevated on admission but it can be elevated on presentations with all the stressor and acute illness. Stool OB negative as well. I did speak to the patient's and son and the son NAZIA the HCP consented for pRBC's Family History: Findings - unable Social History: Findings - unable comes from home though Past Medical History: Unchanged from Admission Objective Active Medications: Albuterol/Ipratropium (Duoneb (Albuterol 2.5 Mg/Ipratropium 0.5 Mg)) 1 neb INH Q4H PRN PRN Reason: SOB/WHEEZING Amiodarone HCl (Cordarone Tab*) 200 mg PO DAILY [facility] Last Admin: 12/04/17 10:29 Dose: 200 mg Ascorbic Acid (Vitamin C Tab*) 500 mg PO DAILY [facility] Last Admin: 12/04/17 10:29 Dose: 500 mg Aspirin (Aspirin Ec Tab*) 81 mg PO DAILY [facility] Last Admin: 12/04/17 10:28 Dose: 81 mg Atorvastatin Calcium (Lipitor*) 80 mg PO QPM [facility] Last Admin: 12/03/17 17:53 Dose: 80 mg Clopidogrel Bisulfate (Plavix Tab*) 75 mg PO DAILY [facility] Last Admin: 12/04/17 10:28 Dose: 75 mg Dextrose (D50w Syringe 50 Ml*) 12.5 gm IV PUSH .FOR FS < 60 - SS PRN PRN Reason: FS < 60 Ferrous Sulfate (Ferrous Sulfate Tab*) 325 mg PO TID [facility] Last Admin: 12/04/17 10:28 Dose: 325 mg Furosemide (Lasix Tab*) 40 mg PO DAILY [facility] Last Admin: 12/04/17 10:29 Dose: 40 mg Heparin Sodium (Porcine) (Heparin Flush Picc/Ml/Cvc(*)) 1 - 3 ml FLUSH 0600, 1800 [facility]; Protocol Last Admin: 12/04/17 05:42 Dose: 3 ml Heparin Sodium (Porcine) (Heparin Vial(*)) 5,000 units SUBCUT Q8H [facility] Last Admin: 12/04/17 10:29 Dose: 5,000 units Cefazolin Sodium/Dextrose (Kefzol 2 Gm Premix In Ors(*)) 2 gm in 50 mls @ 100 mls/hr IVPB Q8H [facility] Last Admin: 12/04/17 04:50 Dose: 100 mls/hr Insulin Glargine (Lantus(*)) 10 units SUBCUT BEDTIME [facility] Last Admin: 12/03/17 21:25 Dose: 10 units Insulin Human Lispro (Humalog*) 0 units SUBCUT ACHS [facility]; Protocol Last Admin: 12/04/17 10:20 Dose: Not Given Isosorbide Mononitrate (Imdur Er Tab*) 30 mg PO DAILY [facility] Last Admin: 12/04/17 10:28 Dose: 30 mg Lisinopril (Prinivil Tab*) 10 mg PO DAILY [facility] Last Admin: 12/04/17 10:28 Dose: 10 mg Lorazepam (Ativan Inj*) 1 mg IV PUSH Q3H PRN PRN Reason: ANXIETY Last Admin: 12/01/17 18:17 Dose: 1 mg Melatonin (Melatonin) 3 mg PO BEDTIME PRN; Protocol PRN Reason: SLEEP Last Admin: 12/03/17 21:20 Dose: 3 mg Metoprolol Succinate (Toprol Xl Tab*) 50 mg PO BEDTIME [facility] Last Admin: 12/03/17 21:20 Dose: 50 mg Morphine Sulfate (Morphine Vial*) 2 mg IV Q4H PRN PRN Reason: PAIN - MILD Last Admin: 11/30/17 06:37 Dose: 2 mg Ondansetron HCl (Zofran Inj*) 4 mg IV Q4H PRN PRN Reason: NAUSEA Last Admin: 12/03/17 07:41 Dose: 4 mg Pantoprazole Sodium (Protonix Tab (Nf)) 40 mg PO BID [facility] Last Admin: 12/04/17 10:29 Dose: 40 mg Paroxetine HCl (Paxil Tab*) 20 mg PO DAILY [facility] Last Admin: 12/04/17 10:28 Dose: 20 mg Polyethylene Glycol/Electrolytes (Miralax*) 17 gm PO DAILY PRN PRN Reason: CONSTIPATION Last Admin: 12/03/17 21:20 Dose: 17 gm Senna (Senokot Tab*) 1 tab PO BID [facility] Last Admin: 12/04/17 10:28 Dose: 1 tab Vital Signs - 8 hr 10/25/18 10/25/18 10/25/18 08:08 08:14 10:30 Temperature 98.5 F Pulse Rate 73 Respiratory 16 16 Rate Blood Pressure 87/47 102/45 (mmHg) O2 Sat by Pulse 88 Oximetry 12/04/17 11:23 Temperature 98.2 F Pulse Rate 75 Respiratory 18 Rate Blood Pressure 103/59 (mmHg) O2 Sat by Pulse 96 Oximetry Oxygen Devices in Use Now: High Flow Nasal Cannula Appearance: awake, confused. no distress. Eyes: No Scleral Icterus Ears/Nose/Mouth/Throat: NL Teeth, Lips, Gums, Clear Oropharnyx Neck: NL Appearance and Movements; NL JVP, Trachea Midline Respiratory: Symmetrical Chest Expansion and Respiratory Effort, Clear to Auscultation Cardiovascular: NL Sounds; No Murmurs; No JVD, - - irrgelarly irregular Abdominal: NL Sounds; No Tenderness; No Distention Extremities: - - right lower extremety in the wound vac Result Diagrams: 12/04/17 05:45 12/04/17 05:45 Microbiology and Other Data: Microbiology 11/21/17 00:23 Stool Occult Blood (CAN) - Final Stool Assess/Plan/Problems-Billing Assessment: 67 yr old wm with poor compliance with medical care type ii dm but insulin dep multiple med problems was sent to local er by ex because " he was not himself " pt was found to have rapid a fib got three doses of cardizem 20 mg iv from [facility] ---> he was found to have trop of [address] t changes despite of rapid a fib pt has two dorsum ulcer size of a dime with one draining puz initial wbc is 14 dx is dm infected foot ulcer with cellulitis Time line of events: 11/21Admission for diabetic foot ulcer sepsis, later vomited and aspirated and was intubated 11/22Extubated 11/23A. fib w/RVR + flash pulmonary edemaBiPAP 11/24A. fib with RVR + Levophed 11/26LHC reveals 3V disease and decision made to maximize medical therapy at this time /P debridement of RLE 11/28Diuretics given 11/29Hypertensive urgencyplaced on NTG gtt and ACEI 11/30I&D +wound Vac +regional nerve block 12/04/17 2 units pRBC ordered. GI consult called - Patient Problems (1) CHF (congestive heart failure) Current Visit: Yes Status: Acute Code(s): I50.9 - HEART FAILURE, UNSPECIFIED SNOMED Code(s): 61860260 Comment: - Echo date 11/21/17 reveiwed. EF was normal and preserved LV functions. - I think his plumonary edema was secondary to acute diastollic trigerred by his DE and went on to devellop pulmonary edema - s/p lasix IV and YUNIOR and I did change captopril 12.5 mg tid to lisinopril 20 mg daily; lasix 40 mg daily; and changed lopressor 25 mg tid to toprol XL 50 mg daily, I D/c nitropaste 2% ointment and placed him on imdur 30 mg daily - continue low salt diet to Cons carbohydrate diet ordered (2) Cellulitis and abscess of foot excluding toe Current Visit: Yes Status: Acute Code(s): L03.119 - CELLULITIS OF UNSPECIFIED PART OF LIMB; L02.619 - CUTANEOUS ABSCESS OF UNSPECIFIED FOOT SNOMED Code(s): 698865676 Comment: - secondary to his heel ulcer - s/p I& D - cefazolin 2 gm IV q8hr and wound vac - WBC is increasing up to 13,000 today. Will recheck CRP and ESR (3) Diabetes 1.5, managed as type 2 Current Visit: Yes Status: Acute Code(s): E10.9 - TYPE 1 DIABETES MELLITUS WITHOUT COMPLICATIONS SNOMED Code(s): 688386471 Comment: -Well-controlled -Continue insulin (4) Osteomyelitis Current Visit: No Status: Acute Code(s): M86.9 - OSTEOMYELITIS, UNSPECIFIED SNOMED Code(s): 03887231 Comment: - chronic right heel ulcer. - Continue IV cefazolin 2 gm IV q8rhs day - MRI 11/21/17 confirms the diagnosis - WBC rising will check repeat ESR and CRP (5) Septic shock Current Visit: Yes Status: Resolved Code(s): A41.9 - SEPSIS, UNSPECIFIED ORGANISM; R65.21 - SEVERE SEPSIS WITH SEPTIC SHOCK SNOMED Code(s): 43357431 Comment: - Patient records reviewed. He was admitted with tacchcycardia, hypotension required levophed in the setting of rigth foot osteomyelitis and cellulitis - Resolved off levophed currently - Currently on cefazolin 2 gm IV Q8hrs and s/p I&D with wound culture positive for MSSA (6) CAD (coronary artery disease) Current Visit: Yes Status: Acute Code(s): I25.10 - ATHSCL HEART DISEASE OF [place] CORONARY ARTERY W/O ANG PCTRS SNOMED Code(s): 71909132 Comment: - s/p NSTEMI with peak troponin of 13.08 on 11/21/17 and down to 3.9 on 11/23 -s/p LHC on 11/26 that revealed triple vessel disease not amneable for interventions - Cardiology recommended to continue maximal medical therapy. Will continue ASA , Plavix, ACEI, BB, and statins - Will transfuse 2 units today given his ongoing anemia. Source of anemia, unclear yet but probably due to acute illness and chronic disease. (7) Non-ST elevated myocardial infarction Current Visit: Yes Status: Resolved Code(s): I21.4 - NON-ST ELEVATION ( NSTEMI) MYOCARDIAL INFARCTION SNOMED Code(s): 778480450 Comment: - s/p NSTEMI with peak troponin of 13.08 on 11/21/17 and down to 3.9 on 11/23 -s/p LHC on 11/26 that revealed triple vessel disease not amneable for interventions - Cardiology recommended to continue maximal medical therapy. Will continue ASA , Plavix, ACEI, BB, and statins - Will transfuse 2 units pRBC today (8) Atrial fibrillation Current Visit: Yes Status: Acute Code(s): I48.91 - UNSPECIFIED ATRIAL FIBRILLATION SNOMED Code(s): 11380735 Comment: - Controlled rate. continue Amiodarone 200 mg daily. toprol Xl 50 mg daily (9) Anemia Current Visit: Yes Status: Acute Code(s): D64.9 - ANEMIA, UNSPECIFIED SNOMED Code(s): 637968289 Comment: - Etiology is multifactorial, probably secondary to occult blood loss given his full anticoagulation for his NSTEMI (ASA; PLAVIX...) Which we need to keep him on both due to his recent NSTEMI - Also this could be due to chronic disease and acute medical illness (S/P sepsis, DM; Osteomylitis) - I did check iron profile, check B12; Folate, and will I did increase iron to TID; and PPI to bid. Along with stool softener and miralax. - I will transfuse 2 units pRBC as he continue to drops his h/h - Called GI for further recommendations. Last Stool OB negative x1 will order repeat. - I did ask Dr. Barragan if she can review the blood smear as well (10) DVT prophylaxis Current Visit: Yes Status: Acute Code(s): PQI5580 - SNOMED Code(s): 927054349 Comment: -Continue heparin SQ Status and Disposition: -For rehab placement
[2017-12-04] MEDS: Atorvastatin* 80 MG TAB PO SCH (18:21)
--- NOTE | 2017-12-04 22:11 | CONS ---
CC: Primary Care Physician; Dr. Jacinto Ambrose * CONSULTATION REPORT: DATE OF CONSULT: 12/04/17 HOSPITALIST: Dr. Jacinto Ambrose. INDICATION FOR CONSULT: Anemia. HISTORY OF PRESENT ILLNESS: This is a 67-year-old male with history of diabetes mellitus, peripheral vascular disease, with recent episode of sepsis and atrial fibrillation and NSTEMI, who has had a complicated hospitalization over the last few weeks. It was noted that his hemoglobin has gradually been downtrending over the last 3 or 4 days. The BUN has also been increasing slightly as well. On questioning, the patient is able to answer direct questions and denies any abdominal pain. He denies any black or blood in the stool. He denies any nausea or emesis. He states that he moves his bowels every couple of days and sometimes has to do so with quite a bit of straining. He does not believe he has ever had an EGD or colonoscopy in the past. He denies any weight loss or gain. He admits to subjective fever and rigors at times. Denies any chest pain or shortness of breath. He states he is able to lie flat now and his breathing has improved. Remainder of the 14-point review of systems is grossly negative. PAST MEDICAL HISTORY: CVA, atrial fibrillation, coronary artery disease, hypertension, hyperlipidemia, dementia. 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 PAST SURGICAL HISTORY: Left transmetatarsal amputation, lower extremity angioplasty bilaterally in 2017 and 2018 respectively. MEDICATIONS: Include: 1. Tylenol. 2. Amiodarone. 3. Vitamin C. 4. Aspirin. 5. Lipitor. 6. Plavix. 7. Insulin glargine. 8. Insulin lispro. 9. Paroxetine. 10. Senna and MiraLAX as needed. 11. Cefazolin. ALLERGIES: Include an allergy to PENICILLIN. SOCIAL HISTORY: Nonsmoker. 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 REVIEW OF SYSTEMS: Limited by the patient's mental status, but 14-point review of systems is grossly negative as described in the HPI. PHYSICAL EXAM: Vital Signs: Blood pressure is 118/63, pulse is 74, respiratory rate is 24, temperature is 98.1, he is 100% on room air. In general , he is pleasant, alert, in no acute distress, but appearing chronically ill. HEENT: Atraumatic, normocephalic. Pupils equal, round, reactive to light. Extraocular movements intact. Conjunctivae are pink. Sclerae anicteric. Cardiovascular: Irregular rate and rhythm. S1, S2. Respiratory: Diminished at the bases, but otherwise grossly clear. Abdomen: Soft, nontender, nondistended. Bowel sounds positive. Multiple scattered ecchymoses on the abdomen wall. Extremities: Mild bilateral edema 1+. Skin: Multiple ecchymoses. DIAGNOSTIC STUDIES/LAB DATA: Hemoglobin over the last few days has trended from 8.8 to 8.3 to 7.9 to 7.3 to 6.7. His BUN over this timeframe has also increased to 32, 44, 53, and 52 today respectively. His iron studies indicate an iron of 48, TIBC of 216, percent saturation of 22, transferrin of 154, and ferritin of 192. He had stool for occult blood on admission that was negative, but has not been repeated. IMPRESSION/PLAN: This is a 67-year-old male with normocytic anemia with acute drop in hemoglobin. 1. Normocytic anemia. No overt evidence of blood loss at this time. However, with his BUN increasing out of proportion to his creatinine and his drop in hemoglobin, upper endoscopy would be prudent. I will keep him n.p.o. after midnight, keep him on Protonix 40 mg IV b.i.d. If signs of overt bleeding develop, would place on IV PPI drip. Keep an H and H every 6 hours and monitor for signs of blood loss. He is on Plavix therapy along with aspirin. 2. Coronary artery disease, status post left heart cath on 11/26/17 with triple- vessel disease. Management per the explosive technician service, on aspirin and Plavix currently. 3. Non-ST elevation myocardial infarction as above. 4. Atrial fibrillation as above. [id number]/[facility] #: [id number] [facility]
[2017-12-04] MEDS: Metoprolol Succinate XL TAB* 50 MG PO SCH (23:11)
[2017-12-04] MEDS: Polyethylene Glycol 3350* 17 GM PACKET PO PRN (23:11)
[2017-12-04] MEDS: Melatonin 3 MG TAB PO PRN (23:12)
[2017-12-04] MEDS: Insulin GLARGINE(*) 1 UNITS UNIT SUBCUT SCH (23:31)
[2017-12-05] MEDS: Heparin VIAL(*) 5000 UNITS/ML VIAL (FIVE THOUSAND) SUBCUT SCH ×3 (00:22→15:27)
[2017-12-05] MEDS: ceFAZolin* 2 GM* Q8H (Duplex) IVPB SCH ×3 (04:52→20:25)
[2017-12-05 05:26] LABS: ABS Basophils 0 10^3/ul (0-0.2); ABS Eosinophils 0.1 10^3/ul (0-0.6); ABS Lymphocytes 1.2 10^3/ul (1.0-4.8); ABS Monocytes 0.8 10^3/ul (0-0.8); ABS Neutrophils 9.6 10^3/ul (1.5-7.7); ABS Nucleated RBC 0 10^3/ul; Eosinophil % 0.5 % (0-6); Hematocrit 24 % (42-52); Lymphocyte % 10.2 % (25-47); Mean Corpuscular HGB Conc 34 g/dl (31-36); Mean Corpuscular Hemoglobin 30 pg (27-31); Mean Corpuscular Volume 89 fL (80-94); Mean Platelet Volume 9.1 um3 (7.4-10.4); Nucleated Red Blood Cells % 0.2; Platelet Count 272 10^3/ul (150-450); Red Blood Count 2.66 10^6/ul (4.00-5.40); Red Cell Distribution Width 16 % (10.5-15); White Blood Count 11.7 10^3/ul (3.5-10.8)
[2017-12-05 05:42] LABS: EGFR Non-African American 57.3 (>60)
[2017-12-05] MEDS: Insulin LISPRO* 1 UNITS UNIT SUBCUT SCH ×4 (07:45→20:52)
[2017-12-05] MEDS: LORazepam INJ* 2 MG/ML 1 ML VIAL IV PUSH PRN (09:20)
[2017-12-05] MEDS ORDERED: Midazolam* 1 MG/ML 5 ML VIAL (5 MG) ONE (11:46)
[2017-12-05] MEDS ORDERED: fentaNYL* 50 MCG/ML 2 ML VIAL (100 MCG VIAL) ONE (11:46)
--- NOTE | 2017-12-05 14:36 | PN ---
Progress Note - Progress Note Date of Service: 12/05/17 SOAP: Subjective: []Patient seen at bedside. Offers no complaints when asked. Denies foot pain. Wound vac on and running R foot. Objective: [] Vital Signs Temp 98.8 F 12/05/17 07:24 Pulse 75 12/05/17 07:24 Resp 18 12/05/17 09:20 BP 135/65 12/05/17 07:24 Pulse Ox 96 12/05/17 07:24 Intake & Output 12/04/17 12/05/17 12/05/17 18:59 06:59 18:59 Intake Total 676 672 Output Total 0 300 Balance 676 372 Intake: IV Fluids 66 NS 66 IVPB 63 ABX - CEFAZOLIN 63 Oral 340 240 Packed Cells 336 303 Output: Urine 0 300 Other: Estimated Void Large Large Large # Voids 2 1 1 Laboratory Results - last 24 hr 12/04/17 12/04/17 12/04/17 05:45 17:59 23:26 WBC RBC Hgb Hct MCV MCH MCHC RDW Plt Count MPV Neut % (Auto) Lymph % (Auto) [place] % (Auto) Eos % (Auto) Baso % (Auto) Absolute Neuts (auto) Absolute Lymphs (auto) Absolute Monos (auto) Absolute Eos (auto) Absolute Basos (auto) Absolute Nucleated RBC Nucleated RBC % Sodium Potassium Chloride Carbon Dioxide Anion Gap BUN Creatinine Est GFR ( Amer) Est GFR (Non-Af Amer) BUN/Creatinine Ratio Glucose POC Glucose (mg/dL) 195 H 218 H Calcium Magnesium TSH Free T4 Blood Type O Positive Antibody Screen Negative Crossmatch See Detail 12/05/17 12/05/17 04:42 04:42 WBC 11.7 H RBC 2.66 L Hgb 8.0 L Hct 24 L MCV 89 MCH 30 MCHC 34 RDW 16 H Plt Count 272 MPV 9.1 Neut % (Auto) 82.3 Lymph % (Auto) 10.2 L [place] % (Auto) 6.7 Eos % (Auto) 0.5 Baso % (Auto) 0.3 Absolute Neuts (auto) 9.6 H Absolute Lymphs (auto) 1.2 Absolute Monos (auto) 0.8 Absolute Eos (auto) 0.1 Absolute Basos (auto) 0 Absolute Nucleated RBC 0 Nucleated RBC % 0.2 Sodium 144 Potassium 3.5 Chloride 103 Carbon Dioxide 37 H Anion Gap 4 BUN 52 H Creatinine 1.26 H Est GFR ( Amer) 69.3 Est GFR (Non-Af Amer) 57.3 BUN/Creatinine Ratio 41.3 H Glucose 157 H POC Glucose (mg/dL) Calcium 8.1 L Magnesium 2.0 TSH 4.10 Free T4 1.05 Blood Type Antibody Screen Crossmatch Right foot wound vac intact toes warm +sensation foot calf NT and soft, no edema Assessment: []s/p I&D right foot POD #10 Plan: []Wound vac change today and q 3 days thereafter at SNF when stable medically for discharge
[2017-12-05] MEDS: Clopidogrel TAB* 75 MG PO SCH (15:28)
[2017-12-05] MEDS: Senna TAB PO SCH ×2 (15:44→20:25)
[2017-12-05] MEDS: Amiodarone TAB* 200 MG PO SCH (15:44)
[2017-12-05] MEDS: Ferrous Sulfate TAB* 325 MG PO SCH ×3 (15:44→20:24)
[2017-12-05] MEDS: CMC:Pantoprazole TAB (NF) 40 MG TAB PO SCH ×2 (15:44→20:25)
[2017-12-05] MEDS: Isosorbide Mononitrate ER TAB* 30 MG PO SCH (15:45)
[2017-12-05] MEDS: PARoxetine HCL TAB* 10 MG PO SCH (15:45)
[2017-12-05] MEDS: Aspirin EC TAB* 81 MG TAB.EC PO SCH (15:45)
[2017-12-05] MEDS: Lisinopril TAB* 10 MG PO SCH (15:45)
[2017-12-05] MEDS: Furosemide TAB* 40 MG PO SCH (15:45)
[2017-12-05] MEDS: Ascorbic Acid TAB* 500 MG PO SCH (15:45)
[2017-12-05] MEDS: Polyethylene Glycol 3350* 17 GM PACKET PO PRN (15:46)
[2017-12-05] MEDS: Atorvastatin* 80 MG TAB PO SCH (18:23)
--- NOTE | 2017-12-05 18:57 | PN ---
Subjective Date of Service: 12/05/17 Interval History: Patient seen today doing well. He was see during the EGD. He did have evidence of bleeding and blood clots in the duodenum, duodenal ulcer. S/p 2 units pRBC and Hct improved to 24 (from 20). No active bleed. discussed with GI and I agree with holding his plavix and decrease heparin to bid. Family History: Findings - unable Social History: Findings - unable comes from home though Past Medical History: Unchanged from Admission Objective Active Medications: Albuterol/Ipratropium (Duoneb (Albuterol 2.5 Mg/Ipratropium 0.5 Mg)) 1 neb INH Q4H PRN PRN Reason: SOB/WHEEZING Amiodarone HCl (Cordarone Tab*) 200 mg PO DAILY [facility] Last Admin: 12/05/17 15:44 Dose: 200 mg Aspirin (Aspirin Ec Tab*) 81 mg PO DAILY [facility] Last Admin: 12/05/17 15:45 Dose: 81 mg Atorvastatin Calcium (Lipitor*) 80 mg PO QPM [facility] Last Admin: 12/05/17 18:23 Dose: 80 mg Dextrose (D50w Syringe 50 Ml*) 12.5 gm IV PUSH .FOR FS < 60 - SS PRN PRN Reason: FS < 60 Ferrous Sulfate (Ferrous Sulfate Tab*) 325 mg PO TID [facility] Last Admin: 12/05/17 15:46 Dose: 325 mg Furosemide (Lasix Tab*) 40 mg PO DAILY [facility] Last Admin: 12/05/17 15:45 Dose: 40 mg Heparin Sodium (Porcine) (Heparin Flush Picc/Ml/Cvc(*)) 1 - 3 ml FLUSH 0600, 1800 [facility]; Protocol Last Admin: 12/05/17 18:23 Dose: 3 ml Heparin Sodium (Porcine) (Heparin Vial(*)) 5,000 units SUBCUT Q12HR [facility] Cefazolin Sodium/Dextrose (Kefzol 2 Gm Premix In Ors(*)) 2 gm in 50 mls @ 100 mls/hr IVPB Q8H [facility] Last Admin: 12/05/17 15:46 Dose: 100 mls/hr Insulin Glargine (Lantus(*)) 10 units SUBCUT BEDTIME [facility] Last Admin: 12/04/17 23:31 Dose: 10 units Insulin Human Lispro (Humalog*) 0 units SUBCUT ACHS [facility]; Protocol Last Admin: 12/05/17 18:24 Dose: 6 unit Isosorbide Mononitrate (Imdur Er Tab*) 30 mg PO DAILY [facility] Last Admin: 12/05/17 15:45 Dose: 30 mg Lisinopril (Prinivil Tab*) 10 mg PO DAILY [facility] Last Admin: 12/05/17 15:45 Dose: 10 mg Lorazepam (Ativan Inj*) 1 mg IV PUSH Q3H PRN PRN Reason: ANXIETY Last Admin: 12/05/17 09:20 Dose: 1 mg Melatonin (Melatonin) 3 mg PO BEDTIME PRN; Protocol PRN Reason: SLEEP Last Admin: 12/04/17 23:12 Dose: 3 mg Metoprolol Succinate (Toprol Xl Tab*) 50 mg PO BEDTIME [facility] Last Admin: 12/04/17 23:11 Dose: 50 mg Morphine Sulfate (Morphine Vial*) 2 mg IV Q4H PRN PRN Reason: PAIN - MILD Last Admin: 11/30/17 06:37 Dose: 2 mg Ondansetron HCl (Zofran Inj*) 4 mg IV Q4H PRN PRN Reason: NAUSEA Last Admin: 12/03/17 07:41 Dose: 4 mg Pantoprazole Sodium (Protonix Tab (Nf)) 40 mg PO BID [facility] Last Admin: 12/05/17 15:44 Dose: 40 mg Paroxetine HCl (Paxil Tab*) 20 mg PO DAILY [facility] Last Admin: 12/05/17 15:45 Dose: 20 mg Polyethylene Glycol/Electrolytes (Miralax*) 17 gm PO DAILY PRN PRN Reason: CONSTIPATION Last Admin: 12/05/17 15:46 Dose: 17 gm Senna (Senokot Tab*) 1 tab PO BID [facility] Last Admin: 12/05/17 15:44 Dose: 1 tab Vital Signs - 8 hr 12/05/17 15:49 Temperature 97.9 F Pulse Rate 68 Respiratory 17 Rate Blood Pressure 142/85 (mmHg) O2 Sat by Pulse 99 Oximetry Oxygen Devices in Use Now: High Flow Nasal Cannula Appearance: awake, alert. no chest pain. no acute distress Eyes: No Scleral Icterus Ears/Nose/Mouth/Throat: NL Teeth, Lips, Gums, Mucous Membranes Moist Neck: NL Appearance and Movements; NL JVP, Trachea Midline Respiratory: Symmetrical Chest Expansion and Respiratory Effort Cardiovascular: NL Sounds; No Murmurs; No JVD, - - irregularly irregular Abdominal: NL Sounds; No Tenderness; No Distention Extremities: - - Right lower extremety edema, left mid foot amputee Result Diagrams: 12/05/17 04:42 12/05/17 04:42 Microbiology and Other Data: Microbiology 11/21/17 00:23 Stool Occult Blood (CAN) - Final Stool EKG Data: rapid a fib but no ekg change seen in other facility Assess/Plan/Problems-Billing Assessment: 67 yr old wm with poor compliance with medical care type ii dm but insulin dep multiple med problems was sent to local er by ex because " he was not himself " pt was found to have rapid a fib got three doses of cardizem 20 mg iv from [facility] ---> he was found to have trop of [address] t changes despite of rapid a fib pt has two dorsum ulcer size of a dime with one draining puz initial wbc is 14 dx is dm infected foot ulcer with cellulitis Time line of events: 11/21Admission for diabetic foot ulcer sepsis, later vomited and aspirated and was intubated 11/22Extubated 11/23A. fib w/RVR + flash pulmonary edemaBiPAP 11/24A. fib with RVR + Levophed 11/26LHC reveals 3V disease and decision made to maximize medical therapy at this time /P debridement of RLE 11/28Diuretics given 11/29Hypertensive urgencyplaced on NTG gtt and ACEI 11/30I&D +wound Vac +regional nerve block 12/04/17 2 units pRBC ordered. GI consult called 12/05/17 s/p EGD Duodenal ulcer - Patient Problems (1) Anemia Current Visit: Yes Status: Acute Code(s): D64.9 - ANEMIA, UNSPECIFIED SNOMED Code(s): 922709758 Comment: - s/p EGD positive Duodenal ulcer - Given his his NSTEMI I will continue ASA; but will hold PLAVIX as per GI. Will readdress with them if we can resume in few days to week - I will keep him on Iron 325 mg TID; and PPI to bid. Along with stool softener and miralax. - S/p transfuse 2 units pRBC and continue to monitor - I did ask Dr. Barragan if she can review the blood smear as well (2) CHF (congestive heart failure) Current Visit: Yes Status: Acute Code(s): I50.9 - HEART FAILURE, UNSPECIFIED SNOMED Code(s): 68057021 Comment: - Echo date 11/21/17 reveiwed. EF was normal and preserved LV functions. - I think his plumonary edema was secondary to acute diastollic trigerred by his OR and went on to devellop pulmonary edema - s/p lasix IV and YUNIOR and I did change captopril 12.5 mg tid to lisinopril 20 mg daily; lasix 40 mg daily; and changed lopressor 25 mg tid to toprol XL 50 mg daily, I D/c nitropaste 2% ointment and placed him on imdur 30 mg daily - continue low salt diet to Cons carbohydrate diet ordered (3) Cellulitis and abscess of foot excluding toe Current Visit: Yes Status: Acute Code(s): L03.119 - CELLULITIS OF UNSPECIFIED PART OF LIMB; L02.619 - CUTANEOUS ABSCESS OF UNSPECIFIED FOOT SNOMED Code(s): 824301605 Comment: - secondary to his heel ulcer - s/p I& D - cefazolin 2 gm IV q8hr and wound vac - WBC is increasing up to 13,000 today. Will recheck CRP and ESR (4) Diabetes 1.5, managed as type 2 Current Visit: Yes Status: Acute Code(s): E10.9 - TYPE 1 DIABETES MELLITUS WITHOUT COMPLICATIONS SNOMED Code(s): 128982350 Comment: -Well-controlled -Continue insulin (5) Osteomyelitis Current Visit: No Status: Acute Code(s): M86.9 - OSTEOMYELITIS, UNSPECIFIED SNOMED Code(s): 74398127 Comment: - chronic right heel ulcer. - Continue IV cefazolin 2 gm IV q8rhs day - MRI 11/21/17 confirms the diagnosis - WBC rising will check repeat ESR and CRP (6) Septic shock Current Visit: Yes Status: Resolved Code(s): A41.9 - SEPSIS, UNSPECIFIED ORGANISM; R65.21 - SEVERE SEPSIS WITH SEPTIC SHOCK SNOMED Code(s): 80222460 Comment: - Patient records reviewed. He was admitted with tacchcycardia, hypotension required levophed in the setting of rigth foot osteomyelitis and cellulitis - Resolved off levophed currently - Currently on cefazolin 2 gm IV Q8hrs and s/p I&D with wound culture positive for MSSA (7) CAD (coronary artery disease) Current Visit: Yes Status: Acute Code(s): I25.10 - ATHSCL HEART DISEASE OF [place] CORONARY ARTERY W/O ANG PCTRS SNOMED Code(s): 64980236 Comment: - s/p NSTEMI with peak troponin of 13.08 on 11/21/17 and down to 3.9 on 11/23 -s/p LHC on 11/26 that revealed triple vessel disease not amneable for interventions - Cardiology recommended to continue maximal medical therapy. Will continue ASA , Plavix, ACEI, BB, and statins - Will transfuse 2 units today given his ongoing anemia. Source of anemia, unclear yet but probably due to acute illness and chronic disease. (8) Non-ST elevated myocardial infarction Current Visit: Yes Status: Resolved Code(s): I21.4 - NON-ST ELEVATION ( NSTEMI) MYOCARDIAL INFARCTION SNOMED Code(s): 064597562 Comment: - s/p NSTEMI with peak troponin of 13.08 on 11/21/17 and down to 3.9 on 11/23 -s/p LHC on 11/26 that revealed triple vessel disease not amneable for interventions - Cardiology recommended to continue maximal medical therapy. Will continue ASA , Plavix, ACEI, BB, and statins - Will transfuse 2 units pRBC today (9) Atrial fibrillation Current Visit: Yes Status: Acute Code(s): I48.91 - UNSPECIFIED ATRIAL FIBRILLATION SNOMED Code(s): 22292839 Comment: - Controlled rate. continue Amiodarone 200 mg daily. toprol Xl 50 mg daily (10) DVT prophylaxis Current Visit: Yes Status: Acute Code(s): NNQ5501 - SNOMED Code(s): 982961063 Comment: -Continue heparin SQ Status and Disposition: -For rehab placement
[2017-12-05] MEDS: Metoprolol Succinate XL TAB* 50 MG PO SCH (20:25)
[2017-12-05] MEDS: Insulin GLARGINE(*) 1 UNITS UNIT SUBCUT SCH (20:53)
[2017-12-06] MEDS: Melatonin 3 MG TAB PO PRN (01:47)
[2017-12-06] MEDS: LORazepam INJ* 2 MG/ML 1 ML VIAL IV PUSH PRN (03:25)
[2017-12-06] MEDS: ceFAZolin* 2 GM* Q8H (Duplex) IVPB SCH ×3 (05:10→20:42)
[2017-12-06 05:36] LABS: ABS Basophils 0 10^3/ul (0-0.2); ABS Eosinophils 0.1 10^3/ul (0-0.6); ABS Lymphocytes 0.9 10^3/ul (1.0-4.8); ABS Monocytes 0.7 10^3/ul (0-0.8); ABS Neutrophils 8.8 10^3/ul (1.5-7.7); ABS Nucleated RBC 0 10^3/ul; Eosinophil % 0.9 % (0-6); Hematocrit 21 % (42-52); Lymphocyte % 8.7 % (25-47); Mean Corpuscular HGB Conc 33 g/dl (31-36); Mean Corpuscular Hemoglobin 30 pg (27-31); Mean Corpuscular Volume 91 fL (80-94); Nucleated Red Blood Cells % 0.1; Platelet Count 244 10^3/ul (150-450); Red Blood Count 2.31 10^6/ul (4.00-5.40); Red Cell Distribution Width 16 % (10.5-15); White Blood Count 10.5 10^3/ul (3.5-10.8)
[2017-12-06 05:56] LABS: EGFR Non-African American 64.9 (>60)
[2017-12-06] MEDS: Insulin LISPRO* 1 UNITS UNIT SUBCUT SCH ×4 (08:05→20:54)
[2017-12-06] MEDS ORDERED: Furosemide IV* 10 MG/ML 2 ML VIAL (20 MG) IV ONE (08:56)
[2017-12-06] MEDS: Isosorbide Mononitrate ER TAB* 30 MG PO SCH (09:27)
[2017-12-06] MEDS: PARoxetine HCL TAB* 10 MG PO SCH (09:27)
[2017-12-06] MEDS: CMC:Pantoprazole TAB (NF) 40 MG TAB PO SCH ×2 (09:28→20:04)
[2017-12-06] MEDS: Lisinopril TAB* 10 MG PO SCH (09:28)
[2017-12-06] MEDS: Aspirin EC TAB* 81 MG TAB.EC PO SCH (09:28)
[2017-12-06] MEDS: Ferrous Sulfate TAB* 325 MG PO SCH ×3 (09:28→20:04)
[2017-12-06] MEDS: Heparin VIAL(*) 5000 UNITS/ML VIAL (FIVE THOUSAND) SUBCUT SCH ×2 (09:28→20:57)
[2017-12-06] MEDS: Amiodarone TAB* 200 MG PO SCH (09:28)
[2017-12-06] MEDS: Furosemide TAB* 40 MG PO SCH (09:28)
[2017-12-06] MEDS: Senna TAB PO SCH ×2 (09:28→20:04)
[2017-12-06] MEDS: Polyethylene Glycol 3350* 17 GM PACKET PO PRN (09:29)
--- NOTE | 2017-12-06 11:14 | PN ---
Subjective Date of Service: 12/06/17 Interval History: Patient seen this morning, he was still on his bipap from overnight. He was awaken and followed command. No events overnight. His Hgb/Hct this morning is down again to 08/30. S/p EGD yesterday and Duodenal ulcer was clipped. Plavix was held and heparin SQ decreased to bid. He remains on aspirin and protonix increased to bid. will transfuse 2 units again today (total 4 units in 2 days)! Family History: Findings - unable Social History: Findings - unable comes from home though Past Medical History: Unchanged from Admission Objective Active Medications: Albuterol/Ipratropium (Duoneb (Albuterol 2.5 Mg/Ipratropium 0.5 Mg)) 1 neb INH Q4H PRN PRN Reason: SOB/WHEEZING Amiodarone HCl (Cordarone Tab*) 200 mg PO DAILY [facility] Last Admin: 12/06/17 09:28 Dose: 200 mg Aspirin (Aspirin Ec Tab*) 81 mg PO DAILY [facility] Last Admin: 12/06/17 09:28 Dose: 81 mg Atorvastatin Calcium (Lipitor*) 80 mg PO QPM [facility] Last Admin: 12/05/17 18:23 Dose: 80 mg Dextrose (D50w Syringe 50 Ml*) 12.5 gm IV PUSH .FOR FS < 60 - SS PRN PRN Reason: FS < 60 Ferrous Sulfate (Ferrous Sulfate Tab*) 325 mg PO TID [facility] Last Admin: 12/06/17 09:28 Dose: 325 mg Furosemide (Lasix Tab*) 40 mg PO DAILY [facility] Last Admin: 12/06/17 09:28 Dose: 40 mg Heparin Sodium (Porcine) (Heparin Flush Picc/Ml/Cvc(*)) 1 - 3 ml FLUSH 0600, 1800 [facility]; Protocol Last Admin: 12/06/17 06:38 Dose: 1 ml Heparin Sodium (Porcine) (Heparin Vial(*)) 5,000 units SUBCUT Q12HR [facility] Last Admin: 12/06/17 09:28 Dose: 5,000 units Cefazolin Sodium/Dextrose (Kefzol 2 Gm Premix In Ors(*)) 2 gm in 50 mls @ 100 mls/hr IVPB Q8H [facility] Last Admin: 12/06/17 05:10 Dose: 100 mls/hr Insulin Glargine (Lantus(*)) 10 units SUBCUT BEDTIME [facility] Last Admin: 12/05/17 20:53 Dose: 10 units Insulin Human Lispro (Humalog*) 0 units SUBCUT ACHS [facility]; Protocol Last Admin: 12/06/17 08:05 Dose: 12 unit Isosorbide Mononitrate (Imdur Er Tab*) 30 mg PO DAILY [facility] Last Admin: 12/06/17 09:27 Dose: 30 mg Lisinopril (Prinivil Tab*) 10 mg PO DAILY [facility] Last Admin: 12/06/17 09:28 Dose: 10 mg Lorazepam (Ativan Inj*) 1 mg IV PUSH Q3H PRN PRN Reason: ANXIETY Last Admin: 12/06/17 03:25 Dose: 1 mg Melatonin (Melatonin) 3 mg PO BEDTIME PRN; Protocol PRN Reason: SLEEP Last Admin: 12/06/17 01:47 Dose: 3 mg Metoprolol Succinate (Toprol Xl Tab*) 50 mg PO BEDTIME [facility] Last Admin: 12/05/17 20:25 Dose: 50 mg Morphine Sulfate (Morphine Vial*) 2 mg IV Q4H PRN PRN Reason: PAIN - MILD Last Admin: 11/30/17 06:37 Dose: 2 mg Ondansetron HCl (Zofran Inj*) 4 mg IV Q4H PRN PRN Reason: NAUSEA Last Admin: 12/03/17 07:41 Dose: 4 mg Pantoprazole Sodium (Protonix Tab (Nf)) 40 mg PO BID [facility] Last Admin: 12/06/17 09:28 Dose: 40 mg Paroxetine HCl (Paxil Tab*) 20 mg PO DAILY [facility] Last Admin: 12/06/17 09:27 Dose: 20 mg Polyethylene Glycol/Electrolytes (Miralax*) 17 gm PO DAILY PRN PRN Reason: CONSTIPATION Last Admin: 12/06/17 09:29 Dose: 17 gm Senna (Senokot Tab*) 1 tab PO BID [facility] Last Admin: 12/06/17 09:28 Dose: 1 tab Vital Signs - 8 hr 12/06/17 12/06/17 12/06/17 03:20 03:25 05:22 Temperature 98.0 F Pulse Rate 72 Respiratory 20 20 18 Rate Blood Pressure 131/63 (mmHg) O2 Sat by Pulse 100 Oximetry 12/06/17 12/06/17 08:00 08:04 Temperature 97.8 F Pulse Rate 74 Respiratory 18 18 Rate Blood Pressure 136/66 (mmHg) O2 Sat by Pulse 98 Oximetry Oxygen Devices in Use Now: Nasal Cannula, BiPAP Appearance: resting asleep, doing well. taking po. He was on Bipap this morning Eyes: No Scleral Icterus, - - EOMI Ears/Nose/Mouth/Throat: NL Teeth, Lips, Gums, Clear Oropharnyx Neck: NL Appearance and Movements; NL JVP, Trachea Midline Respiratory: Symmetrical Chest Expansion and Respiratory Effort, Clear to Auscultation Cardiovascular: NL Sounds; No Murmurs; No JVD, No Edema, - - irregularly irregular Abdominal: NL Sounds; No Tenderness; No Distention Extremities: No Edema, - - Right lower extremety wound vac in place, dressing dry. Left lower extremety mid foot amputee Result Diagrams: 12/06/17 05:10 12/06/17 05:10 Microbiology and Other Data: Microbiology 11/21/17 00:23 Stool Occult Blood (CAN) - Final Stool EKG Data: rapid a fib but no ekg change seen in other facility Assess/Plan/Problems-Billing Assessment: 67 yr old wm with poor compliance with medical care type ii dm but insulin dep multiple med problems was sent to local er by ex because " he was not himself " pt was found to have rapid a fib got three doses of cardizem 20 mg iv from [facility] [place] ---> he was found to have trop of [address] t changes despite of rapid a fib pt has two dorsum ulcer size of a dime with one draining puz initial wbc is 14 dx is dm infected foot ulcer with cellulitis Time line of events: 11/21Admission for diabetic foot ulcer sepsis, later vomited and aspirated and was intubated 11/22Extubated 11/23A. fib w/RVR + flash pulmonary edemaBiPAP . fib with RVR + Levophed 11/26LHC reveals 3V disease and decision made to maximize medical therapy at this time /P debridement of RLE 11/28Diuretics given 11/29Hypertensive urgencyplaced on NTG gtt and ACEI 11/30I&D +wound Vac +regional nerve block 12/04/17 2 units pRBC ordered. GI consult called 12/05/17 s/p EGD Duodenal ulcer; plavix stopped, heparin decreased to bid (from tid) 12/06/17 Hct down to 21, 2 units ordered. - Patient Problems (1) Anemia Current Visit: Yes Status: Acute Code(s): D64.9 - ANEMIA, UNSPECIFIED SNOMED Code(s): 283272232 Comment: - s/p EGD positive Duodenal ulcer - Given his his NSTEMI I will continue ASA; but will hold PLAVIX as per GI. Will readdress with them if we can resume in few days to week - I will keep him on Iron 325 mg TID; and PPI to bid. Along with stool softener and miralax. - S/p transfuse 2 units pRBC 12/04/17 and Hct down again to 21 today 12/06/17. Will give 2 additional units (2) CHF (congestive heart failure) Current Visit: Yes Status: Acute Code(s): I50.9 - HEART FAILURE, UNSPECIFIED SNOMED Code(s): 07453601 Comment: - Echo date 11/21/17 reveiwed. EF was normal and preserved LV functions. - I think his plumonary edema was secondary to acute diastollic trigerred by his UT and went on to devellop pulmonary edema - s/p lasix IV and YUNIOR and I did change his captopril 12.5 mg tid to lisinopril 20 mg daily; lasix 40 mg daily; and changed lopressor 25 mg tid to toprol XL 50 mg daily, I D/c nitropaste 2% ointment and placed him on imdur 30 mg daily - continue low salt diet to Cons carbohydrate diet ordered - Patient is on Bipap at night. I could not find reason for his bipap other than his acute respiratory failure taper while in ICU. Currently he is in no respiratory distress. Will try to wean off Oxygen and I will try to downgrade to 2 liter NC and will check ABG in am. No BIPAP tonight (3) Osteomyelitis Current Visit: No Status: Acute Code(s): M86.9 - OSTEOMYELITIS, UNSPECIFIED SNOMED Code(s): 50595317 Comment: - chronic right heel ulcer. - MRI 11/21/17 confirms the diagnosis - cefazolin 2 gm IV q8hr Total Abx days # 11/07. Continue wound vac and wound care. Follow up with ID outpatient once discharged - WBC is increased up to 13,000 12/04/17 and back to down to 10.5 today. NO fever or chills. Will recheck CRP (214 on 11/20 down to 6.9 12/04/17) and ESR ( 85 on 11/20 down to 40 12/04/17) weekly (4) Cellulitis and abscess of foot excluding toe Current Visit: Yes Status: Acute Code(s): L03.119 - CELLULITIS OF UNSPECIFIED PART OF LIMB; L02.619 - CUTANEOUS ABSCESS OF UNSPECIFIED FOOT SNOMED Code(s): 361574017 Comment: - secondary to his heel ulcer - s/p I& D - cefazolin 2 gm IV q8hr Total Abx days # 11/07. Continue wound vac and wound care. Follow up with ID outpatient once discharged - WBC is increased up to 13,000 12/04/17 and back to down to 10.5 today. NO fever or chills. Will recheck CRP (214 on 11/20 down to 6.9 12/04/17) and ESR ( 85 on 11/20 down to 40 12/04/17) weekly (5) Diabetes 1.5, managed as type 2 Current Visit: Yes Status: Acute Code(s): E10.9 - TYPE 1 DIABETES MELLITUS WITHOUT COMPLICATIONS SNOMED Code(s): 890560534 Comment: -Well-controlled -Continue insulin, will adjust in am. It is elevated but his diet and post procedure and transfusion may have altered true BG reading. will keep his insulin the same and readdress in am (6) Septic shock Current Visit: Yes Status: Resolved Code(s): A41.9 - SEPSIS, UNSPECIFIED ORGANISM; R65.21 - SEVERE SEPSIS WITH SEPTIC SHOCK SNOMED Code(s): 37795343 Comment: - Patient records reviewed. He was admitted with tacchcycardia, hypotension required levophed in the setting of rigth foot osteomyelitis and cellulitis - Resolved off levophed currently - Currently on cefazolin 2 gm IV Q8hrs and s/p I&D with wound culture positive for MSSA (7) CAD (coronary artery disease) Current Visit: Yes Status: Acute Code(s): I25.10 - ATHSCL HEART DISEASE OF [place] CORONARY ARTERY W/O ANG PCTRS SNOMED Code(s): 83973936 Comment: - s/p NSTEMI with peak troponin of 13.08 on 11/21/17 and down to 3.9 on 11/23 -s/p LHC on 11/26 that revealed triple vessel disease not amneable for interventions - Cardiology recommended to continue maximal medical therapy. Will continue ASA , Plavix stopped due to anemia and Duodenal ulcer, ACEI, BB, and statins - s/p 2 units 12/04/17 and will transfuse 2 units today 12/06/17. (8) Non-ST elevated myocardial infarction Current Visit: Yes Status: Resolved Code(s): I21.4 - NON-ST ELEVATION ( NSTEMI) MYOCARDIAL INFARCTION SNOMED Code(s): 262083916 Comment: - s/p NSTEMI with peak troponin of 13.08 on 11/21/17 and down to 3.9 on 11/23 -s/p LHC on 11/26 that revealed triple vessel disease not amneable for interventions - Cardiology recommended to continue maximal medical therapy. Will continue ASA , Plavix stopped due to anemia and Duodenal ulcer, ACEI, BB, and statins - s/p 2 units 12/04/17 and will transfuse 2 units today 12/06/17. (9) Atrial fibrillation Current Visit: Yes Status: Acute Code(s): I48.91 - UNSPECIFIED ATRIAL FIBRILLATION SNOMED Code(s): 12605304 Comment: - Controlled rate. continue Amiodarone 200 mg daily. toprol Xl 50 mg daily (10) DVT prophylaxis Current Visit: Yes Status: Acute Code(s): SNW3665 - SNOMED Code(s): 440231682 Comment: - Continue heparin SQ decreased to bid due to duodenal ulcer and bleed. Status and Disposition: -For rehab placement
--- NOTE | 2017-12-06 15:29 | PN ---
Progress Note - Progress Note Date of Service: 12/06/17 SOAP: Subjective: Pt seen at bedside. No complaint of pain. Denies F/C, CP, SOB Vital Signs: Temp Pulse Resp BP Pulse Ox 98.2 F 70 18 135/63 98 12/06/17 11:57 12/06/17 11:57 12/06/17 11:57 12/06/17 11:57 12/06/17 11:57 Laboratory Last Values WBC 10.5 10^3/ul (3.5-10.8) 12/06/17 05:10 RBC 2.31 10^6/ul (4.00-5.40) L 12/06/17 05:10 Hgb 7.0 g/dl (14.0-18.0) L 12/06/17 05:10 Hct 21 % (42-52) L 12/06/17 05:10 MCV 91 fL (80-94) 12/06/17 05:10 MCH 30 pg (27-31) 12/06/17 05:10 MCHC 33 g/dl (31-36) 12/06/17 05:10 RDW 16 % (10.5-15) H 12/06/17 05:10 Plt Count 244 10^3/ul (150-450) 12/06/17 05:10 MPV 9.0 um3 (7.4-10.4) 12/06/17 05:10 Neut % (Auto) 83.4 % (38-83) H 12/06/17 05:10 Lymph % (Auto) 8.7 % (25-47) L 12/06/17 05:10 [place] % (Auto) 6.7 % (0-7) 12/06/17 05:10 Eos % (Auto) 0.9 % (0-6) 12/06/17 05:10 Baso % (Auto) 0.3 % (0-2) 12/06/17 05:10 Absolute Neuts (auto) 8.8 10^3/ul (1.5-7.7) H 12/06/17 05:10 Absolute Lymphs (auto) 0.9 10^3/ul (1.0-4.8) L 12/06/17 05:10 Absolute Monos (auto) 0.7 10^3/ul (0-0.8) 12/06/17 05:10 Absolute Eos (auto) 0.1 10^3/ul (0-0.6) 12/06/17 05:10 Absolute Basos (auto) 0 10^3/ul (0-0.2) 12/06/17 05:10 Absolute Nucleated RBC 0 10^3/ul 12/06/17 05:10 Nucleated RBC % 0.1 12/06/17 05:10 ESR 40 mm/Hr (0-40) 12/04/17 05:45 INR (Anticoag Therapy) 1.17 (0.77-1.02) H 11/21/17 22:00 APTT 56.0 seconds (26.0-36.3) H 11/24/17 23:58 Patient Temperature Not Reportable 11/22/17 05:12 ABG pH 7.37 (7.35-7.45) 11/22/17 05:12 ABG pH (Temp Correct) Not Reportable 11/22/17 05:12 ABG pCO2 35 mmHg (35-45) 11/22/17 05:12 ABG pCO2 (Temp Corrct Not Reportable 11/22/17 05:12 ABG pO2 93 mmHg (80-100) 11/22/17 05:12 ABG pO2 (Temp Correct Not Reportable 11/22/17 05:12 ABG HCO3 21.4 mmol/L (19-31) 11/22/17 05:12 ABG O2 Saturation 99.4 % (95-98) H 11/22/17 05:12 ABG Base Excess -4.5 (-2.0-2.0) L 11/22/17 05:12 VBG pH 7.27 (7.33-7.43) L 11/21/17 15:49 VBG pCO2 47 mmHg (41-51) 11/21/17 15:49 VBG pO2 42 mmHg (35-45) 11/21/17 15:49 VBG HCO3 20.4 mmol/L (24-28) L 11/21/17 15:49 VBG O2 Saturation 77.4 % (70-80) 11/21/17 15:49 VBG Base Excess -5.2 (0-4) L 11/21/17 15:49 Respiration Rate Not Reportable 11/22/17 05:12 O2 Delivery Device vent 11/22/17 05:12 Ventilator Type Not Reportable 11/22/17 05:12 Vent Mode Not Reportable 11/22/17 05:12 FiO2 25 11/22/17 05:12 Inspiratory Time Not Reportable 11/22/17 05:12 PEEP Not Reportable 11/22/17 05:12 Pressure Support Not Reportable 11/22/17 05:12 Pressure Control Not Reportable 11/22/17 05:12 EPAP Not Reportable 11/22/17 05:12 IPAP Not Reportable 11/22/17 05:12 BiPAP Not Reportable 11/22/17 05:12 Sodium 142 mmol/L (135-145) 12/06/17 05:10 Potassium 4.1 mmol/L (3.5-5.0) 12/06/17 05:10 Chloride 103 mmol/L (101-111) 12/06/17 05:10 Carbon Dioxide 39 mmol/L (22-32) H 12/06/17 05:10 Anion Gap 4 mmol/L (2-11) 12/05/17 04:42 BUN 51 mg/dL (6-24) H 12/06/17 05:10 Creatinine 1.13 mg/dL (0.67-1.17) 12/06/17 05:10 Est GFR ( Amer) 78.6 (>60) 12/06/17 05:10 Est GFR (Non-Af Amer) 64.9 (>60) 12/06/17 05:10 BUN/Creatinine Ratio 45.1 (8-20) H 12/06/17 05:10 Glucose 302 mg/dL (70-100) H 12/06/17 05:10 POC Glucose (mg/dL) 289 mg/dL (70-100) H 12/06/17 11:25 Hemoglobin A1c 7.2 % (4.0-5.6) H 11/21/17 06:03 Lactic Acid 1.7 mmol/L (0.5-2.0) 11/21/17 15:49 Calcium 7.9 mg/dL (8.6-10.3) L 12/06/17 05:10 Phosphorus 3.0 mg/dL (2.5-5.0) 12/06/17 05:10 Magnesium 2.1 mg/dL (1.9-2.7) 12/06/17 05:10 Iron 48 ug/dL (50-212) L 12/03/17 16:30 TIBC 216 mcg/dL (250-450) L 12/03/17 16:30 % Saturation 22 % (15-55) 12/03/17 16:30 Unsat Iron Binding 168 ug/dL 12/03/17 16:30 Transferrin 154 mg/dL (203-362) L 12/03/17 16:30 Ferritin 192.5 ng/mL (24-336) 12/03/17 16:30 Total Bilirubin 0.40 mg/dL (0.2-1.0) 12/02/17 05:45 Direct Bilirubin 0.30 mg/dL (0.03-0.18) H 11/21/17 15:49 Indirect Bilirubin 0.5 mg/dL (0.3-1.0) 11/21/17 15:49 AST 16 U/L (13-39) 12/02/17 05:45 ALT 3 U/L (7-52) L 12/02/17 05:45 Alkaline Phosphatase 67 U/L (34-104) 12/02/17 05:45 Total Creatine Kinase 652 U/L (10-223) H 11/21/17 22:00 CK-MB (CK-2) 76.6 ng/mL (0.6-6.3) H 11/21/17 22:00 Troponin I 3.90 ng/mL (<0.04) H* 11/23/17 05:10 C-Reactive Protein 6.90 mg/L (<8.01) 12/04/17 05:45 C-React Prot High Sens 189.30 mg/L (<2.00) H 11/21/17 06:03 B-Natriuretic Peptide 287 pg/mL (-100) H 11/20/17 23:33 Total Protein 5.3 g/dL (6.4-8.9) L 12/02/17 05:45 Total Protein (PEP) 5.3 g/dL (6.3 - 7.9) L 12/04/17 05:45 Albumin 2.5 g/dL (3.2-5.2) L 12/02/17 05:45 Albumin (PEP) 2.3 g/dL (3.4-4.7) L 12/04/17 05:45 Globulin 2.8 g/dL (2-4) 12/02/17 05:45 Albumin/Globulin Ratio 0.9 (1-3) L 12/02/17 05:45 Albumin/Globulin (PEP) 0.74 12/04/17 05:45 Mjmje-8-Jsdthqhzc 0.3 g/dL (0.1-0.3) 12/04/17 05:45 Vmlgh-8-Bnizqtubo 0.9 g/dL (0.6-1.0) 12/04/17 05:45 Sciv-9-Eddhhqfa 0.8 g/dL (0.7-1.2) 12/04/17 05:45 Gamma Globulins 1.0 g/dL (0.6-1.6) 12/04/17 05:45 PEP Impression See comment 12/04/17 05:45 Vitamin B12 597 pg/mL (180-914) 12/04/17 05:45 Folate 9.54 ng/mL (>3.99) 12/03/17 16:30 TSH 4.10 mcIU/mL (0.34-5.60) 12/05/17 04:42 Free T4 1.05 ng/dL (0.61-1.12) 12/05/17 04:42 Urine Color M[place]i 11/21/17 01:56 Urine Appearance Cloudy 11/21/17 01:56 Urine pH 5.0 (5-9) 11/21/17 01:56 Ur Specific [place] 1.028 (1.010-1.030) 11/21/17 01:56 Urine Protein 1+(30 mg/dl) (Negative) A 11/21/17 01:56 Urine Ketones Negative (Negative) 11/21/17 01:56 Urine Blood Negative (Negative) 11/21/17 01:56 Urine Nitrate Negative (Negative) 11/21/17 01:56 Urine Bilirubin Negative (Negative) 11/21/17 01:56 Urine Urobilinogen Negative (Negative) 11/21/17 01:56 Ur Leukocyte Esterase Trace (Negative) A 11/21/17 01:56 Urine WBC (Auto) 2+(11-20/hpf) (Absent) A 11/21/17 01:56 Urine RBC (Auto) Trace(0-2/hpf) (Absent) 11/21/17 01:56 Ur Squamous Epith Cells Present (Absent) A 11/21/17 01:56 Urine Bacteria Absent (Absent) 11/21/17 01:56 Hyaline Casts Present (Absent) A 11/21/17 01:56 Granular Casts Present (Absent) A 11/21/17 01:56 Urine Glucose Negative (Negative) 11/21/17 01:56 Urine Ascorbic Acid * (Negative) A 11/21/17 01:56 Vancomycin Trough 25.5 mcg/mL 11/24/17 06:12 Blood Type O Positive 12/04/17 05:45 Antibody Screen Negative 12/04/17 05:45 Crossmatch See Detail 12/04/17 05:45 Objective: Dressing C/D/I. Wound vac intact. Sensation intact to light touch. Calves soft, nontender Assessment: s/p I&D right foot POD #11 Plan: Wound vac changes q3 days. Next change Friday 12/08 IV abx
[2017-12-06] MEDS: Atorvastatin* 80 MG TAB PO SCH ×2 (17:19→17:21)
[2017-12-06] MEDS: Metoprolol Succinate XL TAB* 50 MG PO SCH (20:04)
[2017-12-06] MEDS: Insulin GLARGINE(*) 1 UNITS UNIT SUBCUT SCH (20:54)
[2017-12-06] MEDS ORDERED: LORazepam TAB(*) 0.5 MG PO ONE (23:45)
[2017-12-07] MEDS: ceFAZolin* 2 GM* Q8H (Duplex) IVPB SCH ×3 (05:02→21:06)
[2017-12-07 05:23] LABS: ABS Basophils 0 10^3/ul (0-0.2); ABS Eosinophils 0.2 10^3/ul (0-0.6); ABS Monocytes 0.8 10^3/ul (0-0.8); ABS Neutrophils 8.9 10^3/ul (1.5-7.7); ABS Nucleated RBC 0 10^3/ul; Eosinophil % 2.1 % (0-6); Hematocrit 25 % (42-52); Hemoglobin 8.4 g/dl (14.0-18.0); Lymphocyte % 9.5 % (25-47); Mean Corpuscular HGB Conc 33 g/dl (31-36); Mean Corpuscular Hemoglobin 30 pg (27-31); Mean Corpuscular Volume 90 fL (80-94); Mean Platelet Volume 9.1 um3 (7.4-10.4); Nucleated Red Blood Cells % 0; Platelet Count 218 10^3/ul (150-450); Red Cell Distribution Width 16 % (10.5-15)
[2017-12-07] MEDS ORDERED: Furosemide TAB* 20 MG PO SCH (09:00)
[2017-12-07] MEDS: Insulin LISPRO* 1 UNITS UNIT SUBCUT SCH ×4 (09:47→21:05)
[2017-12-07] MEDS: Senna TAB PO SCH ×2 (09:47→20:35)
[2017-12-07] MEDS: Heparin VIAL(*) 5000 UNITS/ML VIAL (FIVE THOUSAND) SUBCUT SCH ×2 (09:47→20:37)
[2017-12-07] MEDS: Lisinopril TAB* 10 MG PO SCH (09:48)
[2017-12-07] MEDS: PARoxetine HCL TAB* 10 MG PO SCH (09:48)
[2017-12-07] MEDS: Isosorbide Mononitrate ER TAB* 30 MG PO SCH (09:48)
[2017-12-07] MEDS: Amiodarone TAB* 200 MG PO SCH (09:48)
[2017-12-07] MEDS: Aspirin EC TAB* 81 MG TAB.EC PO SCH (09:48)
[2017-12-07] MEDS: Ferrous Sulfate TAB* 325 MG PO SCH ×3 (09:48→20:36)
--- NOTE | 2017-12-07 12:26 | PN ---
Subjective Date of Service: 12/07/17 Interval History: Patient seen this morning, He was stating "not breathing good"! Bedside vitals performed revealed saturation of 95% on 4 liters. BP 115/57; pulse 68. BG 201. Earlier labs noted to have HCO3- in his chemistry of 43* and ABG preformed confirmed metabolic alkalosis with compensatory respiratory acidosis. He was kept on Bipap all night. No active bleed. No other events. Family History: Findings - unable Social History: Findings - unable comes from home though Past Medical History: Unchanged from Admission Objective Active Medications: Albuterol/Ipratropium (Duoneb (Albuterol 2.5 Mg/Ipratropium 0.5 Mg)) 1 neb INH Q4H PRN PRN Reason: SOB/WHEEZING Amiodarone HCl (Cordarone Tab*) 200 mg PO DAILY [facility] Last Admin: 12/07/17 09:48 Dose: 200 mg Aspirin (Aspirin Ec Tab*) 81 mg PO DAILY [facility] Last Admin: 12/07/17 09:48 Dose: 81 mg Atorvastatin Calcium (Lipitor*) 80 mg PO QPM [facility] Last Admin: 12/06/17 17:21 Dose: Not Given Dextrose (D50w Syringe 50 Ml*) 12.5 gm IV PUSH .FOR FS < 60 - SS PRN PRN Reason: FS < 60 Ferrous Sulfate (Ferrous Sulfate Tab*) 325 mg PO TID [facility] Last Admin: 12/07/17 09:48 Dose: 325 mg Heparin Sodium (Porcine) (Heparin Flush Picc/Ml/Cvc(*)) 1 - 3 ml FLUSH 0600, 1800 [facility]; Protocol Last Admin: 12/07/17 06:02 Dose: 1 ml Heparin Sodium (Porcine) (Heparin Vial(*)) 5,000 units SUBCUT Q12HR [facility] Last Admin: 12/07/17 09:47 Dose: 5,000 units Cefazolin Sodium/Dextrose (Kefzol 2 Gm Premix In Ors(*)) 2 gm in 50 mls @ 100 mls/hr IVPB Q8H [facility] Last Admin: 12/07/17 05:02 Dose: 100 mls/hr Insulin Glargine (Lantus(*)) 10 units SUBCUT BEDTIME [facility] Last Admin: 12/06/17 20:54 Dose: 10 units Insulin Human Lispro (Humalog*) 0 units SUBCUT ACHS [facility]; Protocol Last Admin: 12/07/17 09:47 Dose: 6 unit Isosorbide Mononitrate (Imdur Er Tab*) 30 mg PO DAILY [facility] Last Admin: 12/07/17 09:48 Dose: 30 mg Lisinopril (Prinivil Tab*) 10 mg PO DAILY [facility] Last Admin: 12/07/17 09:48 Dose: 10 mg Metoprolol Succinate (Toprol Xl Tab*) 50 mg PO BEDTIME [facility] Last Admin: 12/06/17 20:04 Dose: 50 mg Omeprazole (Prilosec Cap*) 20 mg PO BID [facility] Ondansetron HCl (Zofran Inj*) 4 mg IV Q4H PRN PRN Reason: NAUSEA Last Admin: 12/03/17 07:41 Dose: 4 mg Paroxetine HCl (Paxil Tab*) 20 mg PO DAILY [facility] Last Admin: 12/07/17 09:48 Dose: 20 mg Polyethylene Glycol/Electrolytes (Miralax*) 17 gm PO DAILY PRN PRN Reason: CONSTIPATION Last Admin: 12/06/17 09:29 Dose: 17 gm Senna (Senokot Tab*) 1 tab PO BID [facility] Last Admin: 12/07/17 09:47 Dose: 1 tab Vital Signs - 8 hr 12/07/17 12/07/17 12/07/17 07:29 08:00 09:15 Temperature 98.6 F Pulse Rate 61 Respiratory 16 16 16 Rate Blood Pressure 120/55 115/57 (mmHg) O2 Sat by Pulse 99 95 Oximetry Oxygen Devices in Use Now: Nasal Cannula, BiPAP Appearance: Awake, alert. no acute distress. pleasant Eyes: No Scleral Icterus, PERRLA Ears/Nose/Mouth/Throat: NL Teeth, Lips, Gums, Clear Oropharnyx, Mucous Membranes Moist Neck: NL Appearance and Movements; NL JVP Respiratory: Symmetrical Chest Expansion and Respiratory Effort, Clear to Auscultation Cardiovascular: NL Sounds; No Murmurs; No JVD, RRR, No Edema Abdominal: NL Sounds; No Tenderness; No Distention Extremities: - - Right lower extremety wound vac in place, dressing dry. Left lower extremety mid foot amputee Result Diagrams: 12/07/17 05:08 12/07/17 05:08 Microbiology and Other Data: Microbiology 11/21/17 00:23 Stool Occult Blood (CAN) - Final Stool Assess/Plan/Problems-Billing Assessment: 67 yr old wm with poor compliance with medical care type ii dm but insulin dep multiple med problems was sent to local er by ex because " he was not himself " pt was found to have rapid a fib got three doses of cardizem 20 mg iv from [facility] ---> he was found to have trop of [address] t changes despite of rapid a fib pt has two dorsum ulcer size of a dime with one draining puz initial wbc is 14 dx is dm infected foot ulcer with cellulitis Time line of events: 11/21Admission for diabetic foot ulcer sepsis, later vomited and aspirated and was intubated 11/22Extubated . fib w/RVR + flash pulmonary edemaBiPAP . fib with RVR + Levophed 11/26LHC reveals 3V disease and decision made to maximize medical therapy at this time /P debridement of RLE 11/28Diuretics given 11/29Hypertensive urgencyplaced on NTG gtt and ACEI 11/30I&D +wound Vac +regional nerve block 12/04/17 2 units pRBC ordered. GI consult called 12/05/17 s/p EGD Duodenal ulcer; plavix stopped, heparin decreased to bid (from tid) 12/06/17 Hct down to 21, 2 units ordered. 12/07/17 ordered to d/c bipap due to respiratory alkalosis - Patient Problems (1) Non-ST elevated myocardial infarction Current Visit: Yes Status: Resolved Code(s): I21.4 - NON-ST ELEVATION ( NSTEMI) MYOCARDIAL INFARCTION SNOMED Code(s): 166145281 Comment: -s/p NSTEMI with peak troponin of 13.08 on 11/21/17 and down to 3.9 on 11/23 -s/p LHC on 11/26 that revealed triple vessel disease not amneable for interventions - Cardiology recommended to continue maximal medical therapy. Will continue ASA , but I stopped Plavix due to anemia and Duodenal ulcer, continue ACEI, BB, and statins - s/p 2 units 12/04/17 and transfused 2 units 12/06/17. - I did change his captopril 12.5 mg tid to lisinopril 20 mg daily; lasix 40 mg from IV to po daily; and changed lopressor 25 mg tid to toprol XL 50 mg daily, I did change nitropaste 2% ointment and placed him on imdur 30 mg daily, Also I decreased amiodarone from 400mg daily to 200 mg daily. - Will follow up with cardiology in regard to further recomendation and if they approve of the changes made above (2) CAD (coronary artery disease) Current Visit: Yes Status: Acute Code(s): I25.10 - ATHSCL HEART DISEASE OF [place] CORONARY ARTERY W/O ANG PCTRS SNOMED Code(s): 46168782 Comment: -s/p NSTEMI with peak troponin of 13.08 on 11/21/17 and down to 3.9 on 11/23 -s/p LHC on 11/26 that revealed triple vessel disease not amneable for interventions - Cardiology recommended to continue maximal medical therapy. Will continue ASA , but I stopped Plavix due to anemia and Duodenal ulcer, continue ACEI, BB, and statins - s/p 2 units 12/04/17 and transfused 2 units 12/06/17. - I did change his captopril 12.5 mg tid to lisinopril 20 mg daily; lasix 40 mg from IV to po daily; and changed lopressor 25 mg tid to toprol XL 50 mg daily, I did change nitropaste 2% ointment and placed him on imdur 30 mg daily, Also I decreased amiodarone from 400mg daily to 200 mg daily. - Will follow up with cardiology in regard to further recomendation and if they approve of the changes made above (3) Atrial fibrillation Current Visit: Yes Status: Acute Code(s): I48.91 - UNSPECIFIED ATRIAL FIBRILLATION SNOMED Code(s): 86521723 Comment: - I decreased his Amiodarone from 400 mg to 200 mg daily. Now on toprol Xl 50 mg daily - - Last EKG 11/23/17 was NSR. His rate controlled and appear regular. I Will get EKG to ensure stable NSR and will need to discuss with cardiology further follow up (4) CHF (congestive heart failure) Current Visit: Yes Status: Acute Code(s): I50.9 - HEART FAILURE, UNSPECIFIED SNOMED Code(s): 78797541 Comment: - Echo date 11/21/17 reveiwed. EF was normal and preserved LV functions. - I think his plumonary edema was secondary to acute diastollic trigerred by his WI and went on to devellop pulmonary edema - s/p lasix IV and YUNIOR and I did change his captopril 12.5 mg tid to lisinopril 20 mg daily; lasix 40 mg daily; and changed lopressor 25 mg tid to toprol XL 50 mg daily, I did change nitropaste 2% ointment and placed him on imdur 30 mg daily - continue low salt diet to Cons carbohydrate diet ordered - Patient is on Bipap at night. I could not find reason for his bipap other than his acute respiratory failure taper while in ICU. Currently he is in no respiratory distress. Given his respiratory alkalosis I am going to wean off D/ c bipap as it is probably causing hyperventilation and causing respiratory alkalosis and compensatory respiratory acidosis. I will try to wean off Oxygen and I will try to downgrade to 2 liter NC . Will check Stat BNP and CXR if no sign of volume overload, I will d/c lasix completly and give on dose of diamox with IVF to reverse his metabolic alkalosis (from diuretic retraction alkalosis) (5) Anemia Current Visit: Yes Status: Acute Code(s): D64.9 - ANEMIA, UNSPECIFIED SNOMED Code(s): 362812516 Comment: - s/p EGD positive Duodenal ulcer - Given his his NSTEMI I will continue ASA; but will hold PLAVIX as per GI. Will readdress with them if we can resume in few days to week - I will keep him on Iron 325 mg TID; and PPI to bid. Along with stool softener and miralax. - S/p transfuse 2 units pRBC 12/04/17 and Hct down again to 21 on 12/06/17. Will give 2 additional units. - Hct at 25 today 12/07/17 (6) Osteomyelitis Current Visit: No Status: Acute Code(s): M86.9 - OSTEOMYELITIS, UNSPECIFIED SNOMED Code(s): 41444153 Comment: - chronic right heel ulcer. - MRI 11/21/17 confirms the diagnosis - cefazolin 2 gm IV q8hr Total Abx days # 16/42 (I documented in error yesterday 11/07 in error. Actually referring to ID note today 12/07/17 will be day # 16/42). Continue wound vac and wound care. Follow up with ID outpatient once discharged - WBC is increased up to 13,000 12/04/17 and back to down to 10.5 today. NO fever or chills. Will recheck CRP (214 on 11/20 down to 6.9 12/04/17) and ESR ( 85 on 11/20 down to 40 12/04/17) weekly (7) Cellulitis and abscess of foot excluding toe Current Visit: Yes Status: Acute Code(s): L03.119 - CELLULITIS OF UNSPECIFIED PART OF LIMB; L02.619 - CUTANEOUS ABSCESS OF UNSPECIFIED FOOT SNOMED Code(s): 935375909 Comment: - secondary to his heel ulcer - s/p I& D - cefazolin 2 gm IV q8hr Total Abx days # 16/42 (I documented in error yesterday 11/07 in error. Actually referring to ID note today 12/07/17 will be day # 16/42. Continue wound vac and wound care. Follow up with ID outpatient once discharged - WBC is increased up to 13,000 12/04/17 and back to down to 10.5 today. NO fever or chills. Will recheck CRP (214 on 11/20 down to 6.9 12/04/17) and ESR ( 85 on 11/20 down to 40 12/04/17) weekly (8) Diabetes 1.5, managed as type 2 Current Visit: Yes Status: Acute Code(s): E10.9 - TYPE 1 DIABETES MELLITUS WITHOUT COMPLICATIONS SNOMED Code(s): 739332919 Comment: - elevated. I will continue insulin coverage. I will increase lantus form 10 units to 16 units. (9) Septic shock Current Visit: Yes Status: Resolved Code(s): A41.9 - SEPSIS, UNSPECIFIED ORGANISM; R65.21 - SEVERE SEPSIS WITH SEPTIC SHOCK SNOMED Code(s): 63292869 Comment: - Patient records reviewed. He was admitted with tacchcycardia, hypotension required levophed in the setting of rigth foot osteomyelitis and cellulitis - Resolved off levophed currently - Currently on cefazolin 2 gm IV Q8hrs and s/p I&D with wound culture positive for MSSA (10) DVT prophylaxis Current Visit: Yes Status: Acute Code(s): IXE0404 - SNOMED Code(s): 795569651 Comment: - Continue heparin SQ decreased to bid due to duodenal ulcer and bleed. Status and Disposition: -For rehab placement
[2017-12-07] MEDS: CMC:Pantoprazole TAB (NF) 40 MG TAB PO SCH (12:48)
[2017-12-07] MEDS: Omeprazole CAP* 20 MG PO SCH ×2 (13:54→20:35)
--- NOTE | 2017-12-07 13:58 | PN ---
Progress Note - Progress Note Date of Service: 12/07/17 SOAP: Subjective: Pt seen and examined at bedside. No complaints today. No complaint of pain. Denies CP, SOB, F/C. Vital Signs: Temp Pulse Resp BP Pulse Ox 97.5 F 69 16 121/55 97 12/07/17 13:02 12/07/17 13:02 12/07/17 13:02 12/07/17 13:02 12/07/17 13:02 Laboratory Last Values WBC 11.0 10^3/ul (3.5-10.8) H 12/07/17 05:08 RBC 2.80 10^6/ul (4.00-5.40) L 12/07/17 05:08 Hgb 8.4 g/dl (14.0-18.0) L 12/07/17 05:08 Hct 25 % (42-52) L 12/07/17 05:08 MCV 90 fL (80-94) 12/07/17 05:08 MCH 30 pg (27-31) 12/07/17 05:08 MCHC 33 g/dl (31-36) 12/07/17 05:08 RDW 16 % (10.5-15) H 12/07/17 05:08 Plt Count 218 10^3/ul (150-450) 12/07/17 05:08 MPV 9.1 um3 (7.4-10.4) 12/07/17 05:08 Neut % (Auto) 80.5 % (38-83) 12/07/17 05:08 Lymph % (Auto) 9.5 % (25-47) L 12/07/17 05:08 [place] % (Auto) 7.5 % (0-7) H 12/07/17 05:08 Eos % (Auto) 2.1 % (0-6) 12/07/17 05:08 Baso % (Auto) 0.4 % (0-2) 12/07/17 05:08 Absolute Neuts (auto) 8.9 10^3/ul (1.5-7.7) H 12/07/17 05:08 Absolute Lymphs (auto) 1.0 10^3/ul (1.0-4.8) 12/07/17 05:08 Absolute Monos (auto) 0.8 10^3/ul (0-0.8) 12/07/17 05:08 Absolute Eos (auto) 0.2 10^3/ul (0-0.6) 12/07/17 05:08 Absolute Basos (auto) 0 10^3/ul (0-0.2) 12/07/17 05:08 Absolute Nucleated RBC 0 10^3/ul 12/07/17 05:08 Nucleated RBC % 0 12/07/17 05:08 ESR 40 mm/Hr (0-40) 12/04/17 05:45 INR (Anticoag Therapy) 1.17 (0.77-1.02) H 11/21/17 22:00 APTT 56.0 seconds (26.0-36.3) H 11/24/17 23:58 Patient Temperature Not Reportable 11/22/17 05:12 ABG pH 7.49 (7.35-7.45) H 12/07/17 06:05 ABG pH (Temp Correct) Not Reportable 11/22/17 05:12 ABG pCO2 58 mmHg (35-45) H 12/07/17 06:05 ABG pCO2 (Temp Corrct Not Reportable 11/22/17 05:12 ABG pO2 98 mmHg (80-100) 12/07/17 06:05 ABG pO2 (Temp Correct Not Reportable 11/22/17 05:12 ABG HCO3 39.4 mmol/L (19-31) H 12/07/17 06:05 ABG O2 Saturation 99.1 % (95-98) H 12/07/17 06:05 ABG Base Excess 18.6 (-2.0-2.0) H 12/07/17 06:05 VBG pH 7.27 (7.33-7.43) L 11/21/17 15:49 VBG pCO2 47 mmHg (41-51) 11/21/17 15:49 VBG pO2 42 mmHg (35-45) 11/21/17 15:49 VBG HCO3 20.4 mmol/L (24-28) L 11/21/17 15:49 VBG O2 Saturation 77.4 % (70-80) 11/21/17 15:49 VBG Base Excess -5.2 (0-4) L 11/21/17 15:49 Respiration Rate Not Reportable 11/22/17 05:12 O2 Delivery Device vent 11/22/17 05:12 Ventilator Type Not Reportable 11/22/17 05:12 Vent Mode Not Reportable 11/22/17 05:12 FiO2 25 11/22/17 05:12 Inspiratory Time Not Reportable 11/22/17 05:12 PEEP Not Reportable 11/22/17 05:12 Pressure Support Not Reportable 11/22/17 05:12 Pressure Control Not Reportable 11/22/17 05:12 EPAP Not Reportable 11/22/17 05:12 IPAP Not Reportable 11/22/17 05:12 BiPAP Not Reportable 11/22/17 05:12 Sodium 143 mmol/L (135-145) 12/07/17 05:08 Potassium 3.7 mmol/L (3.5-5.0) 12/07/17 05:08 Chloride 101 mmol/L (101-111) 12/07/17 05:08 Carbon Dioxide 43 mmol/L (22-32) H* 12/07/17 05:08 Anion Gap Not Reportable 12/07/17 05:08 BUN 41 mg/dL (6-24) H 12/07/17 05:08 Creatinine 1.16 mg/dL (0.67-1.17) 12/07/17 05:08 Est GFR ( Amer) 76.2 (>60) 12/07/17 05:08 Est GFR (Non-Af Amer) 63.0 (>60) 12/07/17 05:08 BUN/Creatinine Ratio 35.3 (8-20) H 12/07/17 05:08 Glucose 194 mg/dL (70-100) H 12/07/17 05:08 POC Glucose (mg/dL) 196 mg/dL (70-100) H 12/07/17 12:59 Hemoglobin A1c 7.2 % (4.0-5.6) H 11/21/17 06:03 Lactic Acid 1.7 mmol/L (0.5-2.0) 11/21/17 15:49 Calcium 7.9 mg/dL (8.6-10.3) L 12/07/17 05:08 Phosphorus 2.6 mg/dL (2.5-5.0) 12/07/17 05:08 Magnesium 2.0 mg/dL (1.9-2.7) 12/07/17 05:08 Iron 48 ug/dL (50-212) L 12/03/17 16:30 TIBC 216 mcg/dL (250-450) L 12/03/17 16:30 % Saturation 22 % (15-55) 12/03/17 16:30 Unsat Iron Binding 168 ug/dL 12/03/17 16:30 Transferrin 154 mg/dL (203-362) L 12/03/17 16:30 Ferritin 192.5 ng/mL (24-336) 12/03/17 16:30 Total Bilirubin 0.40 mg/dL (0.2-1.0) 12/02/17 05:45 Direct Bilirubin 0.30 mg/dL (0.03-0.18) H 11/21/17 15:49 Indirect Bilirubin 0.5 mg/dL (0.3-1.0) 11/21/17 15:49 AST 16 U/L (13-39) 12/02/17 05:45 ALT 3 U/L (7-52) L 12/02/17 05:45 Alkaline Phosphatase 67 U/L (34-104) 12/02/17 05:45 Total Creatine Kinase 652 U/L (10-223) H 11/21/17 22:00 CK-MB (CK-2) 76.6 ng/mL (0.6-6.3) H 11/21/17 22:00 Troponin I 3.90 ng/mL (<0.04) H* 11/23/17 05:10 C-Reactive Protein 6.90 mg/L (<8.01) 12/04/17 05:45 C-React Prot High Sens 189.30 mg/L (<2.00) H 11/21/17 06:03 B-Natriuretic Peptide 842 pg/mL (-100) H 12/07/17 05:08 Total Protein 5.3 g/dL (6.4-8.9) L 12/02/17 05:45 Total Protein (PEP) 5.3 g/dL (6.3 - 7.9) L 12/04/17 05:45 Albumin 2.5 g/dL (3.2-5.2) L 12/02/17 05:45 Albumin (PEP) 2.3 g/dL (3.4-4.7) L 12/04/17 05:45 Globulin 2.8 g/dL (2-4) 12/02/17 05:45 Albumin/Globulin Ratio 0.9 (1-3) L 12/02/17 05:45 Albumin/Globulin (PEP) 0.74 12/04/17 05:45 Spupl-8-Hcafzvjbq 0.3 g/dL (0.1-0.3) 12/04/17 05:45 Vlnzr-7-Jaxvvpedh 0.9 g/dL (0.6-1.0) 12/04/17 05:45 Pips-0-Ctwhqdrx 0.8 g/dL (0.7-1.2) 12/04/17 05:45 Gamma Globulins 1.0 g/dL (0.6-1.6) 12/04/17 05:45 PEP Impression See comment 12/04/17 05:45 Vitamin B12 597 pg/mL (180-914) 12/04/17 05:45 Folate 9.54 ng/mL (>3.99) 12/03/17 16:30 TSH 4.10 mcIU/mL (0.34-5.60) 12/05/17 04:42 Free T4 1.05 ng/dL (0.61-1.12) 12/05/17 04:42 Urine Color Marni 11/21/17 01:56 Urine Appearance Cloudy 11/21/17 01:56 Urine pH 5.0 (5-9) 11/21/17 01:56 Ur Specific Farnam 1.028 (1.010-1.030) 11/21/17 01:56 Urine Protein 1+(30 mg/dl) (Negative) A 11/21/17 01:56 Urine Ketones Negative (Negative) 11/21/17 01:56 Urine Blood Negative (Negative) 11/21/17 01:56 Urine Nitrate Negative (Negative) 11/21/17 01:56 Urine Bilirubin Negative (Negative) 11/21/17 01:56 Urine Urobilinogen Negative (Negative) 11/21/17 01:56 Ur Leukocyte Esterase Trace (Negative) A 11/21/17 01:56 Urine WBC (Auto) 2+(11-20/hpf) (Absent) A 11/21/17 01:56 Urine RBC (Auto) Trace(0-2/hpf) (Absent) 11/21/17 01:56 Ur Squamous Epith Cells Present (Absent) A 11/21/17 01:56 Urine Bacteria Absent (Absent) 11/21/17 01:56 Hyaline Casts Present (Absent) A 11/21/17 01:56 Granular Casts Present (Absent) A 11/21/17 01:56 Urine Glucose Negative (Negative) 11/21/17 01:56 Urine Ascorbic Acid * (Negative) A 11/21/17 01:56 Vancomycin Trough 25.5 mcg/mL 11/24/17 06:12 Blood Type O Positive 12/04/17 05:45 Antibody Screen Negative 12/04/17 05:45 Crossmatch See Detail 12/04/17 05:45 Objective: Dressing C/D/I. Wound vac intact. sensation intact to light touch distally. 2+ DP pulses. Assessment: 67 yo male s/p I&D right foot POD #12 Plan: Would vac to be changed Friday 12/08. Changes are q3 days.
--- NOTE | 2017-12-07 14:35 | RAD ---
INDICATION: Shortness of breath. COMPARISON: Comparison is made with a prior study from November 25, 2017. TECHNIQUE: AP and lateral views of the chest were obtained. FINDINGS: The heart is within normal limits in size. There is prominence of the interstitial markings and small to moderate size bilateral pleural effusions left greater than right suggestive of congestive heart failure less likely pneumonia. There appears be slight progression from the prior study. IMPRESSION: FINDINGS SUGGESTIVE OF CONGESTIVE HEART FAILURE LESS LIKELY PNEUMONIA DEMONSTRATING SLIGHT PROGRESSION.
[2017-12-07] MEDS ORDERED: acetaZOLAMIDE TAB* 250 MG PO ONE (16:00)
[2017-12-07] MEDS: Atorvastatin* 80 MG TAB PO SCH (17:25)
[2017-12-07] MEDS: Metoprolol Succinate XL TAB* 50 MG PO SCH (20:36)
[2017-12-07] MEDS ORDERED: Insulin GLARGINE(*) 1 UNITS UNIT SUBCUT SCH (21:00)
--- NOTE | 2017-12-08 03:56 | PRO ---
DATE: 12/05/17 - ROOM #[id number] REFERRING PHYSICIAN: Bobo Erwin DO.* PROCEDURE: Upper gastrointestinal endoscopy and clipping of prepyloric gastric ulcer, 5 mm, at 9 o'clock orientation. INDICATION: This 67-year-old diabetic who was admitted septic and has osteomyelitis and foot infection followed by myocardial infarction and was replaced on Plavix and aspirin and low-dose heparin prophylaxis. He has had a fall in hemoglobin. He has not had any overt bleeding. Dr. Hermosillo saw him yesterday in consultation. ENDOSCOPIST: Tigre. MEDICATIONS: Midazolam 3, fentanyl 25. FINDINGS: He is a chronically ill-appearing, middle-aged man, in no overt distress. Informed consent was obtained from the patient's son including explanation of DNR protocol for procedure. He was positioned on his side and conscious sedation induced with small incremental doses of medicine. He tolerated the exam very well. ESOPHAGOGASTRODUODENOSCOPY: Larynx - symmetric, limited views. Esophagus - easily entered with a pediatric slim scope. There were no abnormalities in the esophagus, upper, mid, and lower esophagus with EG junction at 39. Stomach - the cardia, fundus and body was normal. In the antrum, there was some blood staining mostly appearing old. It washed clear. Eventually, a small ulcer was seen in the prepyloric area 9 to 10 o'clock orientation about 5 mm and seemed to have a central red spot. There was no active bleeding and no attached clot. Duodenum - the pylorus, bulb, and second through fourth portions appeared normal , although slight amount of red irritation at the second portion of the duodenum. There was no typical AVM. Given the findings and the desire to place a clip, the pediatric scope was withdrawn and an adult scope used. He tolerated this with some additional pre- medication better than anticipated. A single clip was placed 2 to 3 mm apart from the red spot gathering enough mucosa to appear to impede flow to the stigmata. He tolerated this well and there were no complications. IMPRESSION: Prepyloric gastric ulcer - now clipped. Discussion was held with the hospitalist about holding Plavix for 1 week, possibly 2, and reducing the intensity of heparin for the moment. He is on a PPI drip and that should be continued another 24 hours and then converted to twice a day oral. [id number]/[facility] #: [id number] [facility]
[2017-12-08] MEDS: ceFAZolin* 2 GM* Q8H (Duplex) IVPB SCH ×3 (05:50→22:16)
[2017-12-08 06:56] LABS: ABS Basophils 0 10^3/ul (0-0.2); ABS Eosinophils 0.3 10^3/ul (0-0.6); ABS Lymphocytes 1.1 10^3/ul (1.0-4.8); ABS Monocytes 0.8 10^3/ul (0-0.8); ABS Neutrophils 9.7 10^3/ul (1.5-7.7); ABS Nucleated RBC 0 10^3/ul; Eosinophil % 2.4 % (0-6); Hematocrit 29 % (42-52); Hemoglobin 9.4 g/dl (14.0-18.0); Lymphocyte % 9.5 % (25-47); Mean Corpuscular HGB Conc 33 g/dl (31-36); Mean Corpuscular Hemoglobin 30 pg (27-31); Mean Corpuscular Volume 92 fL (80-94); Mean Platelet Volume 9.3 um3 (7.4-10.4); Nucleated Red Blood Cells % 0.1; Platelet Count 200 10^3/ul (150-450); Red Blood Count 3.15 10^6/ul (4.00-5.40); Red Cell Distribution Width 16 % (10.5-15); White Blood Count 11.9 10^3/ul (3.5-10.8)
[2017-12-08 07:21] LABS: EGFR Non-African American 67.7 (>60)
[2017-12-08] MEDS: Isosorbide Mononitrate ER TAB* 30 MG PO SCH (09:44)
[2017-12-08] MEDS: Senna TAB PO SCH ×2 (09:44→22:32)
[2017-12-08] MEDS: PARoxetine HCL TAB* 10 MG PO SCH (09:44)
[2017-12-08] MEDS: Amiodarone TAB* 200 MG PO SCH (09:45)
[2017-12-08] MEDS: Ferrous Sulfate TAB* 325 MG PO SCH ×3 (09:45→22:32)
[2017-12-08] MEDS: Lisinopril TAB* 10 MG PO SCH (09:45)
[2017-12-08] MEDS: Heparin VIAL(*) 5000 UNITS/ML VIAL (FIVE THOUSAND) SUBCUT SCH ×2 (09:45→22:39)
[2017-12-08] MEDS: Omeprazole CAP* 20 MG PO SCH ×2 (09:45→22:32)
[2017-12-08] MEDS: Aspirin EC TAB* 81 MG TAB.EC PO SCH (09:45)
[2017-12-08] MEDS: Insulin LISPRO* 1 UNITS UNIT SUBCUT SCH ×4 (09:46→22:47)
--- NOTE | 2017-12-08 15:16 | PN ---
Progress Note - Progress Note Date of Service: 12/08/17 SOAP: Subjective: [] Patient seen and examined at bedside. He has no complaints today. Objective: []General: Well appearing, NAD Dressing C/D/I, no erythema or maceration surrounding sponge. Wound vac intact with good suction. Sensation intact to light touch distally. Able to flex and extend at MTPs and ankle. Assessment: 67 yo male s/p I&D right foot Plan: Nursing to perform vac change today. Changes are q3 days. Vital Signs Temp 97.6 F 12/08/17 07:59 Pulse 63 12/08/17 07:59 Resp 18 12/08/17 08:00 BP 118/68 12/08/17 12:29 Pulse Ox 97 12/08/17 07:59 Intake & Output 12/07/17 12/08/17 12/08/17 18:59 06:59 18:59 Intake Total 599 275 220 Output Total 550 1000 250 Balance 49 -725 -30 Intake: IV Fluids 20 65 ABX - CEFAZOLIN 65 NS 20 IVPB 55 ABX - CEFAZOLIN 55 Oral 524 210 220 Output: Urine 200 Michael 550 800 250 Other: Estimated Stool Amount Large Laboratory Last Values WBC 11.9 10^3/ul (3.5-10.8) H 12/08/17 06:30 RBC 3.15 10^6/ul (4.00-5.40) L 12/08/17 06:30 Hgb 9.4 g/dl (14.0-18.0) L 12/08/17 06:30 Hct 29 % (42-52) L 12/08/17 06:30 MCV 92 fL (80-94) 12/08/17 06:30 MCH 30 pg (27-31) 12/08/17 06:30 MCHC 33 g/dl (31-36) 12/08/17 06:30 RDW 16 % (10.5-15) H 12/08/17 06:30 Plt Count 200 10^3/ul (150-450) 12/08/17 06:30 MPV 9.3 um3 (7.4-10.4) 12/08/17 06:30 Neut % (Auto) 81.0 % (38-83) 12/08/17 06:30 Lymph % (Auto) 9.5 % (25-47) L 12/08/17 06:30 [place] % (Auto) 6.8 % (0-7) 12/08/17 06:30 Eos % (Auto) 2.4 % (0-6) 12/08/17 06:30 Baso % (Auto) 0.3 % (0-2) 12/08/17 06:30 Absolute Neuts (auto) 9.7 10^3/ul (1.5-7.7) H 12/08/17 06:30 Absolute Lymphs (auto) 1.1 10^3/ul (1.0-4.8) 12/08/17 06:30 Absolute Monos (auto) 0.8 10^3/ul (0-0.8) 12/08/17 06:30 Absolute Eos (auto) 0.3 10^3/ul (0-0.6) 12/08/17 06:30 Absolute Basos (auto) 0 10^3/ul (0-0.2) 12/08/17 06:30 Absolute Nucleated RBC 0 10^3/ul 12/08/17 06:30 Nucleated RBC % 0.1 12/08/17 06:30 ESR 40 mm/Hr (0-40) 12/04/17 05:45 INR (Anticoag Therapy) 1.17 (0.77-1.02) H 11/21/17 22:00 APTT 56.0 seconds (26.0-36.3) H 11/24/17 23:58 Patient Temperature Not Reportable 12/08/17 07:25 ABG pH 7.43 (7.35-7.45) 12/08/17 07:25 ABG pH (Temp Correct) Not Reportable 12/08/17 07:25 ABG pCO2 54 mmHg (35-45) H 12/08/17 07:25 ABG pCO2 (Temp Corrct Not Reportable 12/08/17 07:25 ABG pO2 86 mmHg (80-100) 12/08/17 07:25 ABG pO2 (Temp Correct Not Reportable 12/08/17 07:25 ABG HCO3 32.8 mmol/L (19-31) H 12/08/17 07:25 ABG O2 Saturation 98.5 % (95-98) H 12/08/17 07:25 ABG Base Excess 10.1 (-2.0-2.0) H 12/08/17 07:25 VBG pH 7.27 (7.33-7.43) L 11/21/17 15:49 VBG pCO2 47 mmHg (41-51) 11/21/17 15:49 VBG pO2 42 mmHg (35-45) 11/21/17 15:49 VBG HCO3 20.4 mmol/L (24-28) L 11/21/17 15:49 VBG O2 Saturation 77.4 % (70-80) 11/21/17 15:49 VBG Base Excess -5.2 (0-4) L 11/21/17 15:49 Respiration Rate Not Reportable 12/08/17 07:25 O2 Delivery Device n/c 12/08/17 07:25 Ventilator Type Not Reportable 12/08/17 07:25 Vent Mode Not Reportable 12/08/17 07:25 FiO2 3 12/08/17 07:25 Inspiratory Time Not Reportable 12/08/17 07:25 PEEP Not Reportable 12/08/17 07:25 Pressure Support Not Reportable 12/08/17 07:25 Pressure Control Not Reportable 12/08/17 07:25 EPAP Not Reportable 12/08/17 07:25 IPAP Not Reportable 12/08/17 07:25 BiPAP Not Reportable 12/08/17 07:25 Sodium 141 mmol/L (135-145) 12/08/17 06:30 Potassium 3.8 mmol/L (3.5-5.0) 12/08/17 06:30 Chloride 102 mmol/L (101-111) 12/08/17 06:30 Carbon Dioxide 35 mmol/L (22-32) H 12/08/17 06:30 Anion Gap 4 mmol/L (2-11) 12/08/17 06:30 BUN 30 mg/dL (6-24) H 12/08/17 06:30 Creatinine 1.09 mg/dL (0.67-1.17) 12/08/17 06:30 Est GFR ( Amer) 81.9 (>60) 12/08/17 06:30 Est GFR (Non-Af Amer) 67.7 (>60) 12/08/17 06:30 BUN/Creatinine Ratio 27.5 (8-20) H 12/08/17 06:30 Glucose 173 mg/dL (70-100) H 12/08/17 06:30 POC Glucose (mg/dL) 206 mg/dL (70-100) H 12/08/17 10:56 Hemoglobin A1c 7.2 % (4.0-5.6) H 11/21/17 06:03 Lactic Acid 1.7 mmol/L (0.5-2.0) 11/21/17 15:49 Calcium 8.4 mg/dL (8.6-10.3) L 12/08/17 06:30 Phosphorus 3.2 mg/dL (2.5-5.0) 12/08/17 06:30 Magnesium 2.2 mg/dL (1.9-2.7) 12/08/17 06:30 Iron 48 ug/dL (50-212) L 12/03/17 16:30 TIBC 216 mcg/dL (250-450) L 12/03/17 16:30 % Saturation 22 % (15-55) 12/03/17 16:30 Unsat Iron Binding 168 ug/dL 12/03/17 16:30 Transferrin 154 mg/dL (203-362) L 12/03/17 16:30 Ferritin 192.5 ng/mL (24-336) 12/03/17 16:30 Total Bilirubin 0.40 mg/dL (0.2-1.0) 12/02/17 05:45 Direct Bilirubin 0.30 mg/dL (0.03-0.18) H 11/21/17 15:49 Indirect Bilirubin 0.5 mg/dL (0.3-1.0) 11/21/17 15:49 AST 16 U/L (13-39) 12/02/17 05:45 ALT 3 U/L (7-52) L 12/02/17 05:45 Alkaline Phosphatase 67 U/L (34-104) 12/02/17 05:45 Total Creatine Kinase 652 U/L (10-223) H 11/21/17 22:00 CK-MB (CK-2) 76.6 ng/mL (0.6-6.3) H 11/21/17 22:00 Troponin I 3.90 ng/mL (<0.04) H* 11/23/17 05:10 C-Reactive Protein 6.90 mg/L (<8.01) 12/04/17 05:45 C-React Prot High Sens 189.30 mg/L (<2.00) H 11/21/17 06:03 B-Natriuretic Peptide 842 pg/mL (-100) H 12/07/17 05:08 Total Protein 5.3 g/dL (6.4-8.9) L 12/02/17 05:45 Total Protein (PEP) 5.3 g/dL (6.3 - 7.9) L 12/04/17 05:45 Albumin 2.5 g/dL (3.2-5.2) L 12/02/17 05:45 Albumin (PEP) 2.3 g/dL (3.4-4.7) L 12/04/17 05:45 Globulin 2.8 g/dL (2-4) 12/02/17 05:45 Albumin/Globulin Ratio 0.9 (1-3) L 12/02/17 05:45 Albumin/Globulin (PEP) 0.74 12/04/17 05:45 Djhwp-0-Ejaljdieb 0.3 g/dL (0.1-0.3) 12/04/17 05:45 Wsvsm-5-Kmnujjzzw 0.9 g/dL (0.6-1.0) 12/04/17 05:45 Txom-7-Zjdnbcav 0.8 g/dL (0.7-1.2) 12/04/17 05:45 Gamma Globulins 1.0 g/dL (0.6-1.6) 12/04/17 05:45 PEP Impression See comment 12/04/17 05:45 Vitamin B12 597 pg/mL (180-914) 12/04/17 05:45 Folate 9.54 ng/mL (>3.99) 12/03/17 16:30 TSH 4.10 mcIU/mL (0.34-5.60) 12/05/17 04:42 Free T4 1.05 ng/dL (0.61-1.12) 12/05/17 04:42 Urine Color Marni 11/21/17 01:56 Urine Appearance Cloudy 11/21/17 01:56 Urine pH 5.0 (5-9) 11/21/17 01:56 Ur Specific [place] 1.028 (1.010-1.030) 11/21/17 01:56 Urine Protein 1+(30 mg/dl) (Negative) A 11/21/17 01:56 Urine Ketones Negative (Negative) 11/21/17 01:56 Urine Blood Negative (Negative) 11/21/17 01:56 Urine Nitrate Negative (Negative) 11/21/17 01:56 Urine Bilirubin Negative (Negative) 11/21/17 01:56 Urine Urobilinogen Negative (Negative) 11/21/17 01:56 Ur Leukocyte Esterase Trace (Negative) A 11/21/17 01:56 Urine WBC (Auto) 2+(11-20/hpf) (Absent) A 11/21/17 01:56 Urine RBC (Auto) Trace(0-2/hpf) (Absent) 11/21/17 01:56 Ur Squamous Epith Cells Present (Absent) A 11/21/17 01:56 Urine Bacteria Absent (Absent) 11/21/17 01:56 Hyaline Casts Present (Absent) A 11/21/17 01:56 Granular Casts Present (Absent) A 11/21/17 01:56 Urine Glucose Negative (Negative) 11/21/17 01:56 Urine Ascorbic Acid * (Negative) A 11/21/17 01:56 Vancomycin Trough 25.5 mcg/mL 11/24/17 06:12 Blood Type O Positive 12/04/17 05:45 Antibody Screen Negative 12/04/17 05:45 Crossmatch See Detail 12/04/17 05:45
[2017-12-08] MEDS: Atorvastatin* 80 MG TAB PO SCH (17:34)
[2017-12-08] MEDS ORDERED: acetaZOLAMIDE TAB* 250 MG PO ONE (18:50)
--- NOTE | 2017-12-08 19:25 | PN ---
Subjective Date of Service: 12/08/17 Interval History: Seen this evening. no events last night. he is off the Bipap and tolerated the nasal canula well. He responded well to one dose of Diamox last night Family History: Findings - unable Social History: Findings - unable comes from home though Past Medical History: Unchanged from Admission Objective Active Medications: Albuterol/Ipratropium (Duoneb (Albuterol 2.5 Mg/Ipratropium 0.5 Mg)) 1 neb INH Q4H PRN PRN Reason: SOB/WHEEZING Amiodarone HCl (Cordarone Tab*) 200 mg PO DAILY [facility] Last Admin: 12/08/17 09:45 Dose: 200 mg Aspirin (Aspirin Ec Tab*) 81 mg PO DAILY [facility] Last Admin: 12/08/17 09:45 Dose: 81 mg Atorvastatin Calcium (Lipitor*) 80 mg PO QPM [facility] Last Admin: 12/08/17 17:34 Dose: 80 mg Dextrose (D50w Syringe 50 Ml*) 12.5 gm IV PUSH .FOR FS < 60 - SS PRN PRN Reason: FS < 60 Ferrous Sulfate (Ferrous Sulfate Tab*) 325 mg PO TID [facility] Last Admin: 12/08/17 13:17 Dose: 325 mg Heparin Sodium (Porcine) (Heparin Flush Picc/Ml/Cvc(*)) 1 - 3 ml FLUSH 0600, 1800 [facility]; Protocol Last Admin: 12/08/17 17:38 Dose: Not Given Heparin Sodium (Porcine) (Heparin Vial(*)) 5,000 units SUBCUT Q12HR [facility] Last Admin: 12/08/17 09:45 Dose: 5,000 units Cefazolin Sodium/Dextrose (Kefzol 2 Gm Premix In Ors(*)) 2 gm in 50 mls @ 100 mls/hr IVPB Q8H [facility] Last Admin: 12/08/17 13:17 Dose: 100 mls/hr Insulin Glargine (Lantus(*)) 16 units SUBCUT BEDTIME [facility] Last Admin: 12/07/17 21:03 Dose: 16 units Insulin Human Lispro (Humalog*) 0 units SUBCUT ACHS [facility]; Protocol Last Admin: 12/08/17 17:36 Dose: 250 unit Isosorbide Mononitrate (Imdur Er Tab*) 30 mg PO DAILY [facility] Last Admin: 12/08/17 09:44 Dose: 30 mg Lisinopril (Prinivil Tab*) 10 mg PO DAILY [facility] Last Admin: 12/08/17 09:45 Dose: 10 mg Metoprolol Succinate (Toprol Xl Tab*) 50 mg PO BEDTIME [facility] Last Admin: 12/07/17 20:36 Dose: 50 mg Omeprazole (Prilosec Cap*) 20 mg PO BID [facility] Last Admin: 12/08/17 09:45 Dose: 20 mg Ondansetron HCl (Zofran Inj*) 4 mg IV Q4H PRN PRN Reason: NAUSEA Last Admin: 12/03/17 07:41 Dose: 4 mg Paroxetine HCl (Paxil Tab*) 20 mg PO DAILY [facility] Last Admin: 12/08/17 09:44 Dose: 20 mg Polyethylene Glycol/Electrolytes (Miralax*) 17 gm PO DAILY PRN PRN Reason: CONSTIPATION Last Admin: 12/06/17 09:29 Dose: 17 gm Senna (Senokot Tab*) 1 tab PO BID [facility] Last Admin: 12/08/17 09:44 Dose: 1 tab Vital Signs - 8 hr 12/08/17 12/08/17 12/08/17 12:17 12:29 15:39 Temperature 98.1 F 98.6 F Pulse Rate 95 69 Respiratory 14 16 Rate Blood Pressure 148/103 118/68 117/61 (mmHg) O2 Sat by Pulse 100 93 Oximetry Oxygen Devices in Use Now: Nasal Cannula Appearance: Feels better today post diamox yesterday. off the bipap Ears/Nose/Mouth/Throat: NL Teeth, Lips, Gums, Clear Oropharnyx Neck: NL Appearance and Movements; NL JVP, Trachea Midline Respiratory: Symmetrical Chest Expansion and Respiratory Effort, Clear to Auscultation Cardiovascular: NL Sounds; No Murmurs; No JVD, - Extremities: - - Right lower extremety wound vac in place, dressing dry. Left lower extremety mid foot amputee Result Diagrams: 12/08/17 06:30 12/08/17 06:30 Microbiology and Other Data: Microbiology 11/21/17 00:23 Stool Occult Blood (CAN) - Final Stool EKG Data: rapid a fib but no ekg change seen in other facility Assess/Plan/Problems-Billing Assessment: 67 yr old wm with poor compliance with medical care type ii dm but insulin dep multiple med problems was sent to local er [facility] because " he was not himself " pt was found to have rapid a fib got three doses of cardizem 20 mg iv [facility] ---> he was found to have trop of [address] t changes despite of rapid a fib pt has two dorsum ulcer size of a dime with one draining puz initial wbc is 14 dx is dm infected foot ulcer with cellulitis Time line of events: 11/21Admission for diabetic foot ulcer sepsis, later vomited and aspirated and was intubated 11/22Extubated . fib w/RVR + flash pulmonary edemaBiPAP 11/24A. fib with RVR + Levophed 11/26LHC reveals 3V disease and decision made to maximize medical therapy at this time /P debridement of RLE 11/28Diuretics given 11/29Hypertensive urgencyplaced on NTG gtt and ACEI 11/30I&D +wound Vac +regional nerve block 12/04/17 2 units pRBC ordered. GI consult called 12/05/17 s/p EGD Duodenal ulcer; plavix stopped, heparin decreased to bid (from tid) 12/06/17 Hct down to 21, 2 units ordered. 12/07/17 ordered to d/c bipap due to respiratory/metabolic alkalosis - Patient Problems (1) Non-ST elevated myocardial infarction Current Visit: Yes Status: Resolved Code(s): I21.4 - NON-ST ELEVATION ( NSTEMI) MYOCARDIAL INFARCTION SNOMED Code(s): 286990391 Comment: -s/p NSTEMI with peak troponin of 13.08 on 11/21/17 and down to 3.9 on 11/23 -s/p LHC on 11/26 that revealed triple vessel disease not amneable for interventions - Cardiology recommended to continue maximal medical therapy. I Will continue ASA, but I stopped Plavix due to anemia and Duodenal ulcer, continue ACEI, BB, and statins - s/p 2 units 12/04/17 and transfused 2 units 12/06/17. - I did change his captopril 12.5 mg tid to lisinopril 20 mg daily; lasix 40 mg from IV to po daily; and changed lopressor 25 mg tid to toprol XL 50 mg daily, I did change nitropaste 2% ointment and placed him on imdur 30 mg daily, Also I decreased amiodarone from 400mg daily to 200 mg daily. - He needs to follow up with with cardiology as outpatient in [facility] with Dr. Cameron as outpatient. I verbally discussed the case with Dr. Ayon who agreed with the change I made off and agreed with holding plavix given hid duodenal ulcer. We need to discuss with GI when can we resume plavix if ok by GI (2) CAD (coronary artery disease) Current Visit: Yes Status: Acute Code(s): I25.10 - ATHSCL HEART DISEASE OF [place] CORONARY ARTERY W/O ANG PCTRS SNOMED Code(s): 18155114 Comment: -s/p NSTEMI with peak troponin of 13.08 on 11/21/17 and down to 3.9 on 11/23 -s/p LHC on 11/26 that revealed triple vessel disease not amneable for interventions - Cardiology recommended to continue maximal medical therapy. Will continue ASA , but I stopped Plavix due to anemia and Duodenal ulcer, continue ACEI, BB, and statins - s/p 2 units 12/04/17 and transfused 2 units 12/06/17. - I did change his captopril 12.5 mg tid to lisinopril 20 mg daily; lasix 40 mg from IV to po daily; and changed lopressor 25 mg tid to toprol XL 50 mg daily, I did change nitropaste 2% ointment and placed him on imdur 30 mg daily, Also I decreased amiodarone from 400mg daily to 200 mg daily. - He needs to follow up with with cardiology as outpatient in [facility] with Dr. Cameron as outpatient. I verbally discussed the case with Dr. Ayon who agreed with the change I made off and agreed with holding plavix given hid duodenal ulcer. We need to discuss with GI when can we resume plavix if ok by GI (3) Atrial fibrillation Current Visit: Yes Status: Acute Code(s): I48.91 - UNSPECIFIED ATRIAL FIBRILLATION SNOMED Code(s): 31345498 Comment: - I decreased his Amiodarone from 400 mg to 200 mg daily. Now on toprol Xl 50 mg daily - Last EKG 11/23/17 was NSR. His rate controlled and appear regular. I Will get EKG in am to ensure stable NSR - He needs to follow up with with cardiology as outpatient in [facility] with Dr. Cameron as outpatient. I verbally discussed the case with Dr. Ayon who agreed with the change I made off and agreed with holding plavix given hid duodenal ulcer. We need to discuss with GI when can we resume plavix if ok by GI (4) CHF (congestive heart failure) Current Visit: Yes Status: Acute Code(s): I50.9 - HEART FAILURE, UNSPECIFIED SNOMED Code(s): 30267196 Comment: - Echo date 11/21/17 reveiwed. EF was normal and preserved LV functions. - I think his plumonary edema was secondary to acute diastollic trigerred by his VT and went on to devellop pulmonary edema - Patient was on Bipap at night until last night 12/07/17. I could not find reason for his bipap other than his acute respiratory failure taper while in ICU. Given his respiratory alkalosis I did wean him off bipap as it is probably causing hyperventilation inducing respiratory alkalosis with a compensatory respiratory acidosis! Also he does have metabolic alkalosis due to retraction alkalosis. I did d/c his IV lasix completly and gave on dose of diamox 12/07/17 to reverse his metabolic alkalosis (from diuretic retraction alkalosis) and stimulate respiratory drive to correct his respiratory acidosis. Today 12/08/17 ABG did show improvement of his CO2 from 58 to 54 (Off bipap - improved ventilation off bipap by Diamox alone) and bicarb down from 39 to 32 and his PH Normalized. Hene he did have good response to Diamox 500 mg x1. I will given only 250 mg once today. He may need to go back on lasix probably 20 mg po daily starting 12/11/17. (5) Anemia Current Visit: Yes Status: Acute Code(s): D64.9 - ANEMIA, UNSPECIFIED SNOMED Code(s): 780443832 Comment: - s/p EGD positive Duodenal ulcer with evidence of recent bleed - Given his his NSTEMI I will continue ASA; but will hold PLAVIX as per GI. Need to discuss with Karson when can we resume his plavix - I will keep him on Iron 325 mg TID; and PPI to bid. Along with stool softener and miralax. - S/p transfuse 2 units pRBC 12/04/17 and Hct down again to 21 on 12/06/17. - Hct at 25 today 12/07/17. Hct 29 12/08/17 (6) Osteomyelitis Current Visit: No Status: Acute Code(s): M86.9 - OSTEOMYELITIS, UNSPECIFIED SNOMED Code(s): 95915555 Comment: - chronic right heel ulcer. - MRI 11/21/17 confirms the diagnosis - cefazolin 2 gm IV q8hr Total Abx days # 17/42. Continue wound vac and wound care. Follow up with ID outpatient once discharged - follow up CRP (214 on 11/20 down to 6.9 12/04/17) and ESR (85 on 11/20 down to 40 12/04/17) weekly (7) Cellulitis and abscess of foot excluding toe Current Visit: Yes Status: Acute Code(s): L03.119 - CELLULITIS OF UNSPECIFIED PART OF LIMB; L02.619 - CUTANEOUS ABSCESS OF UNSPECIFIED FOOT SNOMED Code(s): 456766986 Comment: - secondary to his heel ulcer - s/p I& D - cefazolin 2 gm IV q8hr Total Abx days # 17/42. Continue wound vac and wound care Q 3 days. Follow up with ID outpatient once discharged - f/u CRP (214 on 11/20 down to 6.9 12/04/17) and ESR (85 on 11/20 down to 40 ) weekly (8) Diabetes 1.5, managed as type 2 Current Visit: Yes Status: Acute Code(s): E10.9 - TYPE 1 DIABETES MELLITUS WITHOUT COMPLICATIONS SNOMED Code(s): 433956678 Comment: - improved but still elevated. I will continue insulin coverage. I will increase lantus form 16 units to 20 units. (9) Septic shock Current Visit: Yes Status: Resolved Code(s): A41.9 - SEPSIS, UNSPECIFIED ORGANISM; R65.21 - SEVERE SEPSIS WITH SEPTIC SHOCK SNOMED Code(s): 16281791 Comment: - Patient records reviewed. He was admitted with tacchcycardia, hypotension required levophed in the setting of rigth foot osteomyelitis and cellulitis - Resolved off levophed currently - Currently on cefazolin 2 gm IV Q8hrs and s/p I&D with wound culture positive for MSSA (10) DVT prophylaxis Current Visit: Yes Status: Acute Code(s): FIV9678 - SNOMED Code(s): 325419812 Comment: - Continue heparin SQ decreased to bid due to duodenal ulcer and bleed. Status and Disposition: -For rehab placement
[2017-12-08] MEDS: Metoprolol Succinate XL TAB* 50 MG PO SCH (22:32)
[2017-12-08] MEDS: Insulin GLARGINE(*) 1 UNITS UNIT SUBCUT SCH (22:45)
[2017-12-09] MEDS: ceFAZolin* 2 GM* Q8H (Duplex) IVPB SCH ×3 (05:15→21:54)
[2017-12-09 07:09] LABS: ABS Basophils 0 10^3/ul (0-0.2); ABS Eosinophils 0.3 10^3/ul (0-0.6); ABS Monocytes 0.7 10^3/ul (0-0.8); ABS Neutrophils 8.9 10^3/ul (1.5-7.7); ABS Nucleated RBC 0 10^3/ul; Eosinophil % 2.6 % (0-6); Hematocrit 27 % (42-52); Hemoglobin 9.1 g/dl (14.0-18.0); Lymphocyte % 9.2 % (25-47); Mean Corpuscular HGB Conc 34 g/dl (31-36); Mean Corpuscular Hemoglobin 31 pg (27-31); Mean Corpuscular Volume 91 fL (80-94); Mean Platelet Volume 9.4 um3 (7.4-10.4); Nucleated Red Blood Cells % 0; Platelet Count 179 10^3/ul (150-450); Red Cell Distribution Width 16 % (10.5-15); White Blood Count 10.9 10^3/ul (3.5-10.8)
[2017-12-09 07:28] LABS: EGFR Non-African American 73.1 (>60)
[2017-12-09] MEDS: Insulin LISPRO* 1 UNITS UNIT SUBCUT SCH ×4 (08:58→22:00)
[2017-12-09] MEDS: Heparin VIAL(*) 5000 UNITS/ML VIAL (FIVE THOUSAND) SUBCUT SCH ×2 (08:58→22:00)
[2017-12-09] MEDS: PARoxetine HCL TAB* 10 MG PO SCH (08:59)
[2017-12-09] MEDS: Amiodarone TAB* 200 MG PO SCH (08:59)
[2017-12-09] MEDS: Ferrous Sulfate TAB* 325 MG PO SCH ×3 (08:59→22:00)
[2017-12-09] MEDS: Senna TAB PO SCH ×2 (08:59→21:59)
[2017-12-09] MEDS: Aspirin EC TAB* 81 MG TAB.EC PO SCH (08:59)
[2017-12-09] MEDS: Isosorbide Mononitrate ER TAB* 30 MG PO SCH (09:00)
[2017-12-09] MEDS: Lisinopril TAB* 10 MG PO SCH (09:00)
[2017-12-09] MEDS: Omeprazole CAP* 20 MG PO SCH ×2 (09:00→22:00)
--- NOTE | 2017-12-09 09:35 | PN ---
Progress Note - Progress Note Date of Service: 12/09/17 SOAP: Subjective: []Patient was seen and examined at bedside. He is more coherent today stating that this is the first day he feels alert to his situation and has many questions about his medical conditions. Denies any chest pain, shortness of breath, dizziness or right foot pain. He is very grateful for his care. Per nursing, she went over many of the same questions with him earlier this morning. Objective: []General: Well appearing, NAD. Dressing C/D/I, no erythema or maceration surrounding sponge and no proximally tracking erythema. Wound vac intact with good suction. Sensation intact to light touch distally. Able to flex and extend at MTPs and ankle. DP2+ Assessment: 67 yo male s/p I&D right foot Plan: Next vac change 12/10 or 12/11 okay. Okay for discharge from orthopedic standpoint. We will continue to follow him and see him PRN while he is in house. Follow up 1 week after discharge with Dr Kimball Discharge per medicine when ready Needs vac change every 3 days Heel weight bearing RLE All of patients questions were answered to his satisfaction. I am happy to review his hospital course with him again as needed Vital Signs Temp 97.7 F 12/09/17 07:30 Pulse 60 12/09/17 07:30 Resp 22 12/09/17 07:34 BP 111/72 12/09/17 07:30 Pulse Ox 96 12/09/17 07:30 Intake & Output 12/08/17 12/09/17 12/09/17 18:59 06:59 18:59 Intake Total 220 1200 Output Total 250 650 Balance -30 550 Intake: Oral 220 1200 Output: Urine 200 Michael 250 450 Other: Estimated Void Large Date of Last Bowel 12/09/17 Movement # Bowel Movements 1 Estimated Stool Amount Small # Voids 1 Laboratory Last Values WBC 10.9 10^3/ul (3.5-10.8) H 12/09/17 06:45 RBC 3.00 10^6/ul (4.00-5.40) L 12/09/17 06:45 Hgb 9.1 g/dl (14.0-18.0) L 12/09/17 06:45 Hct 27 % (42-52) L 12/09/17 06:45 MCV 91 fL (80-94) 12/09/17 06:45 MCH 31 pg (27-31) 12/09/17 06:45 MCHC 34 g/dl (31-36) 12/09/17 06:45 RDW 16 % (10.5-15) H 12/09/17 06:45 Plt Count 179 10^3/ul (150-450) 12/09/17 06:45 MPV 9.4 um3 (7.4-10.4) 12/09/17 06:45 Neut % (Auto) 81.7 % (38-83) 12/09/17 06:45 Lymph % (Auto) 9.2 % (25-47) L 12/09/17 06:45 Aiken % (Auto) 6.1 % (0-7) 12/09/17 06:45 Eos % (Auto) 2.6 % (0-6) 12/09/17 06:45 Baso % (Auto) 0.4 % (0-2) 12/09/17 06:45 Absolute Neuts (auto) 8.9 10^3/ul (1.5-7.7) H 12/09/17 06:45 Absolute Lymphs (auto) 1.0 10^3/ul (1.0-4.8) 12/09/17 06:45 Absolute Monos (auto) 0.7 10^3/ul (0-0.8) 12/09/17 06:45 Absolute Eos (auto) 0.3 10^3/ul (0-0.6) 12/09/17 06:45 Absolute Basos (auto) 0 10^3/ul (0-0.2) 12/09/17 06:45 Absolute Nucleated RBC 0 10^3/ul 12/09/17 06:45 Nucleated RBC % 0 12/09/17 06:45 ESR 40 mm/Hr (0-40) 12/04/17 05:45 INR (Anticoag Therapy) 1.17 (0.77-1.02) H 11/21/17 22:00 APTT 56.0 seconds (26.0-36.3) H 11/24/17 23:58 Patient Temperature Not Reportable 12/08/17 07:25 ABG pH 7.43 (7.35-7.45) 12/08/17 07:25 ABG pH (Temp Correct) Not Reportable 12/08/17 07:25 ABG pCO2 54 mmHg (35-45) H 12/08/17 07:25 ABG pCO2 (Temp Corrct Not Reportable 12/08/17 07:25 ABG pO2 86 mmHg (80-100) 12/08/17 07:25 ABG pO2 (Temp Correct Not Reportable 12/08/17 07:25 ABG HCO3 32.8 mmol/L (19-31) H 12/08/17 07:25 ABG O2 Saturation 98.5 % (95-98) H 12/08/17 07:25 ABG Base Excess 10.1 (-2.0-2.0) H 12/08/17 07:25 VBG pH 7.27 (7.33-7.43) L 11/21/17 15:49 VBG pCO2 47 mmHg (41-51) 11/21/17 15:49 VBG pO2 42 mmHg (35-45) 11/21/17 15:49 VBG HCO3 20.4 mmol/L (24-28) L 11/21/17 15:49 VBG O2 Saturation 77.4 % (70-80) 11/21/17 15:49 VBG Base Excess -5.2 (0-4) L 11/21/17 15:49 Respiration Rate Not Reportable 12/08/17 07:25 O2 Delivery Device n/c 12/08/17 07:25 Ventilator Type Not Reportable 12/08/17 07:25 Vent Mode Not Reportable 12/08/17 07:25 FiO2 3 12/08/17 07:25 Inspiratory Time Not Reportable 12/08/17 07:25 PEEP Not Reportable 12/08/17 07:25 Pressure Support Not Reportable 12/08/17 07:25 Pressure Control Not Reportable 12/08/17 07:25 EPAP Not Reportable 12/08/17 07:25 IPAP Not Reportable 12/08/17 07:25 BiPAP Not Reportable 12/08/17 07:25 Sodium 138 mmol/L (135-145) 12/09/17 06:45 Potassium 3.8 mmol/L (3.5-5.0) 12/09/17 06:45 Chloride 104 mmol/L (101-111) 12/09/17 06:45 Carbon Dioxide 32 mmol/L (22-32) 12/09/17 06:45 Anion Gap 2 mmol/L (2-11) 12/09/17 06:45 BUN 25 mg/dL (6-24) H 12/09/17 06:45 Creatinine 1.02 mg/dL (0.67-1.17) 12/09/17 06:45 Est GFR ( Amer) 88.4 (>60) 12/09/17 06:45 Est GFR (Non-Af Amer) 73.1 (>60) 12/09/17 06:45 BUN/Creatinine Ratio 24.5 (8-20) H 12/09/17 06:45 Glucose 155 mg/dL (70-100) H 12/09/17 06:45 POC Glucose (mg/dL) 239 mg/dL (70-100) H 12/08/17 22:40 Hemoglobin A1c 7.2 % (4.0-5.6) H 11/21/17 06:03 Lactic Acid 1.7 mmol/L (0.5-2.0) 11/21/17 15:49 Calcium 8.1 mg/dL (8.6-10.3) L 12/09/17 06:45 Phosphorus 3.2 mg/dL (2.5-5.0) 12/08/17 06:30 Magnesium 2.2 mg/dL (1.9-2.7) 12/08/17 06:30 Iron 48 ug/dL (50-212) L 12/03/17 16:30 TIBC 216 mcg/dL (250-450) L 12/03/17 16:30 % Saturation 22 % (15-55) 12/03/17 16:30 Unsat Iron Binding 168 ug/dL 12/03/17 16:30 Transferrin 154 mg/dL (203-362) L 12/03/17 16:30 Ferritin 192.5 ng/mL (24-336) 12/03/17 16:30 Total Bilirubin 0.40 mg/dL (0.2-1.0) 12/02/17 05:45 Direct Bilirubin 0.30 mg/dL (0.03-0.18) H 11/21/17 15:49 Indirect Bilirubin 0.5 mg/dL (0.3-1.0) 11/21/17 15:49 AST 16 U/L (13-39) 12/02/17 05:45 ALT 3 U/L (7-52) L 12/02/17 05:45 Alkaline Phosphatase 67 U/L (34-104) 12/02/17 05:45 Total Creatine Kinase 652 U/L (10-223) H 11/21/17 22:00 CK-MB (CK-2) 76.6 ng/mL (0.6-6.3) H 11/21/17 22:00 Troponin I 3.90 ng/mL (<0.04) H* 11/23/17 05:10 C-Reactive Protein 6.90 mg/L (<8.01) 12/04/17 05:45 C-React Prot High Sens 189.30 mg/L (<2.00) H 11/21/17 06:03 B-Natriuretic Peptide 842 pg/mL (-100) H 12/07/17 05:08 Total Protein 5.3 g/dL (6.4-8.9) L 12/02/17 05:45 Total Protein (PEP) 5.3 g/dL (6.3 - 7.9) L 12/04/17 05:45 Albumin 2.5 g/dL (3.2-5.2) L 12/02/17 05:45 Albumin (PEP) 2.3 g/dL (3.4-4.7) L 12/04/17 05:45 Globulin 2.8 g/dL (2-4) 12/02/17 05:45 Albumin/Globulin Ratio 0.9 (1-3) L 12/02/17 05:45 Albumin/Globulin (PEP) 0.74 12/04/17 05:45 Otoem-2-Ljsrkfgkw 0.3 g/dL (0.1-0.3) 12/04/17 05:45 Accty-4-Kvbjxivyr 0.9 g/dL (0.6-1.0) 12/04/17 05:45 Ugaf-6-Lwrbhdhm 0.8 g/dL (0.7-1.2) 12/04/17 05:45 Gamma Globulins 1.0 g/dL (0.6-1.6) 12/04/17 05:45 PEP Impression See comment 12/04/17 05:45 Vitamin B12 597 pg/mL (180-914) 12/04/17 05:45 Folate 9.54 ng/mL (>3.99) 12/03/17 16:30 TSH 4.10 mcIU/mL (0.34-5.60) 12/05/17 04:42 Free T4 1.05 ng/dL (0.61-1.12) 12/05/17 04:42 Urine Color Marni 11/21/17 01:56 Urine Appearance Cloudy 11/21/17 01:56 Urine pH 5.0 (5-9) 11/21/17 01:56 Ur Specific Redford 1.028 (1.010-1.030) 11/21/17 01:56 Urine Protein 1+(30 mg/dl) (Negative) A 11/21/17 01:56 Urine Ketones Negative (Negative) 11/21/17 01:56 Urine Blood Negative (Negative) 11/21/17 01:56 Urine Nitrate Negative (Negative) 11/21/17 01:56 Urine Bilirubin Negative (Negative) 11/21/17 01:56 Urine Urobilinogen Negative (Negative) 11/21/17 01:56 Ur Leukocyte Esterase Trace (Negative) A 11/21/17 01:56 Urine WBC (Auto) 2+(11-20/hpf) (Absent) A 11/21/17 01:56 Urine RBC (Auto) Trace(0-2/hpf) (Absent) 11/21/17 01:56 Ur Squamous Epith Cells Present (Absent) A 11/21/17 01:56 Urine Bacteria Absent (Absent) 11/21/17 01:56 Hyaline Casts Present (Absent) A 11/21/17 01:56 Granular Casts Present (Absent) A 11/21/17 01:56 Urine Glucose Negative (Negative) 11/21/17 01:56 Urine Ascorbic Acid * (Negative) A 11/21/17 01:56 Vancomycin Trough 25.5 mcg/mL 11/24/17 06:12 Blood Type O Positive 12/04/17 05:45 Antibody Screen Negative 12/04/17 05:45 Crossmatch See Detail 12/04/17 05:45
--- NOTE | 2017-12-09 17:21 | PN ---
Subjective Date of Service: 12/09/17 Interval History: Pt on 4L. Denies chest pain, SOB, abdominal pain, fevers, chills, ACOSTA. Attests to BM just before dinner, did not look at it. Family History: Findings - unable Social History: Findings - unable comes from home though Past Medical History: Unchanged from Admission Objective Active Medications: Albuterol/Ipratropium (Duoneb (Albuterol 2.5 Mg/Ipratropium 0.5 Mg)) 1 neb INH Q4H PRN PRN Reason: SOB/WHEEZING Amiodarone HCl (Cordarone Tab*) 200 mg PO DAILY [facility] Last Admin: 12/09/17 08:59 Dose: 200 mg Aspirin (Aspirin Ec Tab*) 81 mg PO DAILY [facility] Last Admin: 12/09/17 08:59 Dose: 81 mg Atorvastatin Calcium (Lipitor*) 80 mg PO QPM [facility] Last Admin: 12/08/17 17:34 Dose: 80 mg Dextrose (D50w Syringe 50 Ml*) 12.5 gm IV PUSH .FOR FS < 60 - SS PRN PRN Reason: FS < 60 Ferrous Sulfate (Ferrous Sulfate Tab*) 325 mg PO TID [facility] Last Admin: 12/09/17 13:56 Dose: 325 mg Heparin Sodium (Porcine) (Heparin Flush Picc/Ml/Cvc(*)) 1 - 3 ml FLUSH 0600, 1800 [facility]; Protocol Last Admin: 12/09/17 13:56 Dose: 1 ml Heparin Sodium (Porcine) (Heparin Vial(*)) 5,000 units SUBCUT Q12HR [facility] Last Admin: 12/09/17 08:58 Dose: 5,000 units Cefazolin Sodium/Dextrose (Kefzol 2 Gm Premix In Ors(*)) 2 gm in 50 mls @ 100 mls/hr IVPB Q8H [facility] Last Admin: 12/09/17 13:10 Dose: 100 mls/hr Insulin Glargine (Lantus(*)) 20 units SUBCUT BEDTIME [facility] Last Admin: 12/08/17 22:45 Dose: 20 unit Insulin Human Lispro (Humalog*) 0 units SUBCUT ACHS [facility]; Protocol Last Admin: 12/09/17 12:43 Dose: 3 unit Isosorbide Mononitrate (Imdur Er Tab*) 30 mg PO DAILY [facility] Last Admin: 12/09/17 09:00 Dose: 30 mg Lisinopril (Prinivil Tab*) 10 mg PO DAILY [facility] Last Admin: 12/09/17 09:00 Dose: 10 mg Metoprolol Succinate (Toprol Xl Tab*) 50 mg PO BEDTIME [facility] Last Admin: 12/08/17 22:32 Dose: 50 mg Omeprazole (Prilosec Cap*) 20 mg PO BID [facility] Last Admin: 12/09/17 09:00 Dose: 20 mg Ondansetron HCl (Zofran Inj*) 4 mg IV Q4H PRN PRN Reason: NAUSEA Last Admin: 12/03/17 07:41 Dose: 4 mg Paroxetine HCl (Paxil Tab*) 20 mg PO DAILY [facility] Last Admin: 12/09/17 08:59 Dose: 20 mg Polyethylene Glycol/Electrolytes (Miralax*) 17 gm PO DAILY PRN PRN Reason: CONSTIPATION Last Admin: 12/06/17 09:29 Dose: 17 gm Senna (Senokot Tab*) 1 tab PO BID [facility] Last Admin: 12/09/17 08:59 Dose: 1 tab Vital Signs - 8 hr 12/09/17 11:35 Temperature 98.1 F Pulse Rate 66 Respiratory 16 Rate Blood Pressure 138/66 (mmHg) O2 Sat by Pulse 98 Oximetry Oxygen Devices in Use Now: Nasal Cannula Appearance: NAD Eyes: No Scleral Icterus Ears/Nose/Mouth/Throat: NL Teeth, Lips, Gums Neck: NL Appearance and Movements; NL JVP Respiratory: Symmetrical Chest Expansion and Respiratory Effort, - - distant lung sounds b/l. no wheezing or rhonchi. Cardiovascular: NL Sounds; No Murmurs; No JVD, RRR Abdominal: NL Sounds; No Tenderness; No Distention, No Hepatosplenomegaly Extremities: - - 1+ edema in b/l shins Skin: No Rash or Ulcers Neurological: Alert and Oriented x 3 Nutrition: Taking PO's Result Diagrams: 12/09/17 06:45 12/09/17 06:45 Additional Lab and Data: Laboratory Results - last 24 hr 12/08/17 12/09/17 12/09/17 22:40 06:45 06:45 WBC 10.9 H RBC 3.00 L Hgb 9.1 L Hct 27 L MCV 91 MCH 31 MCHC 34 RDW 16 H Plt Count 179 MPV 9.4 Neut % (Auto) 81.7 Lymph % (Auto) 9.2 L Heard % (Auto) 6.1 Eos % (Auto) 2.6 Baso % (Auto) 0.4 Absolute Neuts (auto) 8.9 H Absolute Lymphs (auto) 1.0 Absolute Monos (auto) 0.7 Absolute Eos (auto) 0.3 Absolute Basos (auto) 0 Absolute Nucleated RBC 0 Nucleated RBC % 0 Sodium 138 Potassium 3.8 Chloride 104 Carbon Dioxide 32 Anion Gap 2 BUN 25 H Creatinine 1.02 Est GFR ( Amer) 88.4 Est GFR (Non-Af Amer) 73.1 BUN/Creatinine Ratio 24.5 H Glucose 155 H POC Glucose (mg/dL) 239 H Calcium 8.1 L 12/09/17 12/09/17 12/09/17 11:38 16:51 21:43 WBC RBC Hgb Hct MCV MCH MCHC RDW Plt Count MPV Neut % (Auto) Lymph % (Auto) Heard % (Auto) Eos % (Auto) Baso % (Auto) Absolute Neuts (auto) Absolute Lymphs (auto) Absolute Monos (auto) Absolute Eos (auto) Absolute Basos (auto) Absolute Nucleated RBC Nucleated RBC % Sodium Potassium Chloride Carbon Dioxide Anion Gap BUN Creatinine Est GFR ( Amer) Est GFR (Non-Af Amer) BUN/Creatinine Ratio Glucose POC Glucose (mg/dL) 174 H 109 H 203 H Calcium Microbiology and Other Data: Microbiology 11/20/17 23:32 Blood Venous Aerobic Blood Culture - Final No Growth Day 5 11/20/17 23:32 Blood Venous Anaerobic Blood Culture - Final No Growth Day 5 11/20/17 23:32 Blood Venous Aerobic Blood Culture - Final No Growth Day 5 11/20/17 23:32 Blood Venous Anaerobic Blood Culture - Final No Growth Day 5 11/21/17 11:30 Foot Right Skin and Soft Tissue MRSA/MSSA (PCR - Final Mrsa Negative S.aureus Positive 11/21/17 11:30 Foot Right Gram Stain - Final 11/21/17 11:30 Foot Right Wound Culture - Final Staphylococcus Aureus 11/21/17 01:56 Urine Urine Culture - Final No Growth (<1,000 CFU/mL) 11/21/17 05:30 Nasal Nasal Screen MRSA (PCR) - Final Mrsa Not Detected 11/21/17 00:23 Stool Stool Occult Blood (CAN) - Final EKG Data: rapid a fib but no ekg change seen in other facility Assess/Plan/Problems-Billing Assessment: 67 yr old PMH IDDMT2, CAD s/p CABG, CKDIII, PVD, HTN, HLD, R BKA, L TMA presented to [facility] with Afib w/ RVR and left dorsal foot ulcer. Vomited/ Aspirated needed Intubation. Septic Shock needing pressors. Troponin peaked 13 on 11/21 and LHC showed triple vessel disease. No stent, medically managed. S/p wound vac and currently cefazolin 6 week course for MSSA. Course complicated by anemia, EGD found prepyloric gastric ulcer. s/p 4u pRBC total. Hypoxic respiratory failure. Encephalopathy now improving. Planned to [facility] . Time line of events: 11/21 Admission for diabetic foot ulcer sepsis, later vomited and aspirated and was intubated 11/22 Extubated 11/23 A. fib w/RVR + flash pulmonary edemaBiPAP 11/24 A. fib with RVR + Levophed 11/26 LHC reveals 3V disease and decision made to maximize medical therapy at this time 11/27 S/P debridement of RLE 11/28 Diuretics given 11/29Hypertensive urgency - placed on NTG gtt and ACEI 11/30I&D +wound Vac +regional nerve block 12/04/17 2 units pRBC ordered. GI consult called 12/05/17 s/p EGD Duodenal ulcer; plavix stopped, heparin decreased to bid (from tid) 12/06/17 Hct down to 21, 2 units ordered. 12/07/17 ordered to d/c bipap due to respiratory/metabolic alkalosis - Patient Problems (1) Anemia Current Visit: Yes Status: Acute Code(s): D64.9 - ANEMIA, UNSPECIFIED SNOMED Code(s): 994214362 Comment: - s/p EGD positive pre-pyloric gastric ulcer with evidence of recent bleed - Given his his NSTEMI I will continue ASA; but will continue hold PLAVIX as per GI 1-2 weeks. - Iron 325 mg TID - PPI bid. - stool softener and miralax. - S/p transfuse 2 units pRBC 12/04/17 and Hct down again to 21 on 12/06/17. - Hct at 25 today 12/07/17. Hct 29 12/08/17 (2) Atrial fibrillation Current Visit: Yes Status: Acute Code(s): I48.91 - UNSPECIFIED ATRIAL FIBRILLATION SNOMED Code(s): 80449072 Comment: - Amiodarone 200 mg po daily. - Metoprol Xl 50 mg daily - EKG 12/09/17 was NSR - Follow up with with cardiology as outpatient in [place] and with Dr. Cameron as outpatient. - not on a/c in setting of recent UGIB (3) CAD (coronary artery disease) Current Visit: Yes Status: Acute Code(s): I25.10 - ATHSCL HEART DISEASE OF [place] CORONARY ARTERY W/O ANG PCTRS SNOMED Code(s): 78448904 Comment: -s/p NSTEMI with peak troponin of 13.08 on 11/21/17 and down to 3.9 on 11/23 -s/p LHC on 11/26 that revealed triple vessel disease not amneable for interventions - Cardiology recommended to continue maximal medical therapy. Will continue ASA , but Plavix held for 1-2 weeks due to anemia and gastric ulcer Continue ACEI, BB, and statins - s/p 2 units 12/04/17 and transfused 2 units 12/06/17. - Lisinopril 20 mg daily; lasix 40 mg po daily; toprol XL 50 mg daily, imdur 30 mg daily, Also I decreased amiodarone from 400mg daily to 200 mg daily. - He needs to follow up with with cardiology as outpatient in [place] with Dr. Cameron as outpatient. (4) CHF (congestive heart failure) Current Visit: Yes Status: Acute Code(s): I50.9 - HEART FAILURE, UNSPECIFIED SNOMED Code(s): 72686726 Comment: - Echo date 11/21/17 reviewed. EF was normal and preserved LV functions. resume lasix - at 20 mg po daily (5) Diabetes 1.5, managed as type 2 Current Visit: Yes Status: Acute Code(s): E10.9 - TYPE 1 DIABETES MELLITUS WITHOUT COMPLICATIONS SNOMED Code(s): 189820785 Comment: - improved but still elevated. I will continue insulin coverage. I will increase lantus form 16 units to 20 units. (6) Non-ST elevation myocardial infarction (NSTEMI) greater than 8 weeks ago Current Visit: Yes Status: Acute Code(s): I25.2 - OLD MYOCARDIAL INFARCTION SNOMED Code(s): 805712262 (7) Septic shock Current Visit: Yes Status: Resolved Code(s): A41.9 - SEPSIS, UNSPECIFIED ORGANISM; R65.21 - SEVERE SEPSIS WITH SEPTIC SHOCK SNOMED Code(s): 66035814 Comment: - Patient records reviewed. He was admitted with tachycardia, hypotension required levophed in the setting of rigth foot osteomyelitis and cellulitis - Resolved off levophed currently - Currently on cefazolin 2 gm IV Q8hrs and s/p I&D with wound culture positive for MSSA (8) DVT prophylaxis Current Visit: No Status: Acute Code(s): LED7816 - SNOMED Code(s): 856562901 Comment: HSQ Status and Disposition: -For rehab placement, likely to [facility] 12/10 Attending: Bridger Emery
[2017-12-09] MEDS: Furosemide TAB* 20 MG PO SCH (18:27)
[2017-12-09] MEDS: Atorvastatin* 80 MG TAB PO SCH (18:27)
[2017-12-09] MEDS: Metoprolol Succinate XL TAB* 50 MG PO SCH (22:00)
[2017-12-09] MEDS: Insulin GLARGINE(*) 1 UNITS UNIT SUBCUT SCH (22:00)
[2017-12-09] MEDS: Polyethylene Glycol 3350* 17 GM PACKET PO PRN (22:00)
[2017-12-10] MEDS: ceFAZolin* 2 GM* Q8H (Duplex) IVPB SCH ×3 (06:02→22:43)
[2017-12-10] MEDS: Insulin LISPRO* 1 UNITS UNIT SUBCUT SCH ×4 (09:18→22:49)
[2017-12-10] MEDS: Aspirin EC TAB* 81 MG TAB.EC PO SCH (09:19)
[2017-12-10] MEDS: Polyethylene Glycol 3350* 17 GM PACKET PO PRN (09:19)
[2017-12-10] MEDS: Ferrous Sulfate TAB* 325 MG PO SCH ×3 (09:19→22:35)
[2017-12-10] MEDS: Omeprazole CAP* 20 MG PO SCH ×2 (09:19→22:34)
[2017-12-10] MEDS: Isosorbide Mononitrate ER TAB* 30 MG PO SCH (09:19)
[2017-12-10] MEDS: Heparin VIAL(*) 5000 UNITS/ML VIAL (FIVE THOUSAND) SUBCUT SCH ×2 (09:19→22:37)
[2017-12-10] MEDS: Senna TAB PO SCH ×2 (09:19→22:35)
[2017-12-10] MEDS: Lisinopril TAB* 10 MG PO SCH (09:19)
[2017-12-10] MEDS: Amiodarone TAB* 200 MG PO SCH (09:19)
[2017-12-10] MEDS: Furosemide TAB* 20 MG PO SCH (09:19)
[2017-12-10] MEDS: PARoxetine HCL TAB* 10 MG PO SCH (09:19)
--- NOTE | 2017-12-10 10:17 | PN ---
Progress Note - Progress Note Date of Service: 12/10/17 SOAP: Subjective: CC: right foot infection HPI: 67 year old man with septic shock due to right foot infection s/p I&D. He has a vac dressing, denies pain. No fever, rash, chest pain, or diarrhea. Objective: Vital Signs Temp 37.0 C 12/10/17 07:55 Pulse 68 12/10/17 07:55 Resp 16 12/10/17 07:55 BP 137/67 12/10/17 07:55 Pulse Ox 100 12/10/17 07:55 Intake & Output 12/09/17 12/10/17 12/10/17 18:59 06:59 18:59 Intake Total 685 770 100 Output Total 245 300 50 Balance 440 470 50 Intake: IV Fluids 30 NS 30 IVPB 55 50 ABX - CEFAZOLIN 55 50 Oral 600 720 100 Output: Urine 245 300 50 Other: # Bowel Movements 0 Gen:awake, no distress Neuro: alert, Ox2 HEENT: no thrush Heart:RRR no murmur Lungs:CTA BL Abd:+BS NTND soft Skin: no rash MSK: R dorsal vac no surrounding erythema Laboratory Results - last 24 hr 12/09/17 12/09/17 12/09/17 11:38 16:51 21:43 POC Glucose (mg/dL) 174 H 109 H 203 H 12/10/17 08:24 POC Glucose (mg/dL) 109 H Assessment: 1. MSSA chronic osteomyelitis, infective myositis, cellulitis of right foot s/p I&D 2. NSTEMI, 3 vessel disease by catheterization 3. PAD 4. Diabetes mellitus Plan: 1. ancef 2 gm IV Q8hrs day continue weekly labs 2. wound vac per orthopedics
--- NOTE | 2017-12-10 13:42 | PN ---
Progress Note - Progress Note Date of Service: 12/10/17 SOAP: Subjective: []Patient seen and examined at bedside. He feels well without any complaints. He again asked me where he was today. Objective: []General: Well appearing, NAD. Wound vac was changed. Wound roughly [id number] mm. EHL still exposed. No purulence. No maceration or erythema surrounding wound. Wound vac hooked backup , good suction achieved. Sensation intact to light touch distally. Able to flex and extend at MTPs and ankle. DP2+ Assessment: 67 yo male s/p I&D right foot Plan: Next vac change 12/12 , Q 3 days. Okay for discharge from orthopedic standpoint. We will continue to follow him and see him PRN while he is in house. Follow up 1 week after discharge with Dr Kimball Discharge per medicine when ready Heel weight bearing RLE If vac falls off while at SNF please do saline wet to dry dressings and call orthopedic office. If healthcare worker with wound vac experience is present at facility at time of disfunction please place a new vac with a black sponge and suction set to 125, resuming Q 3 day changes thereafter. Vital Signs Temp 98.0 F 12/10/17 11:10 Pulse 68 12/10/17 11:10 Resp 16 12/10/17 11:10 BP 130/60 12/10/17 11:10 Pulse Ox 100 12/10/17 11:10 Intake & Output 12/09/17 12/10/17 12/10/17 18:59 06:59 18:59 Intake Total 685 770 100 Output Total 245 300 50 Balance 440 470 50 Intake: IV Fluids 30 NS 30 IVPB 55 50 ABX - CEFAZOLIN 55 50 Oral 600 720 100 Output: Urine 245 300 50 Other: # Bowel Movements 0 Laboratory Last Values WBC 10.9 10^3/ul (3.5-10.8) H 12/09/17 06:45 RBC 3.00 10^6/ul (4.00-5.40) L 12/09/17 06:45 Hgb 9.1 g/dl (14.0-18.0) L 12/09/17 06:45 Hct 27 % (42-52) L 12/09/17 06:45 MCV 91 fL (80-94) 12/09/17 06:45 MCH 31 pg (27-31) 12/09/17 06:45 MCHC 34 g/dl (31-36) 12/09/17 06:45 RDW 16 % (10.5-15) H 12/09/17 06:45 Plt Count 179 10^3/ul (150-450) 12/09/17 06:45 MPV 9.4 um3 (7.4-10.4) 12/09/17 06:45 Neut % (Auto) 81.7 % (38-83) 12/09/17 06:45 Lymph % (Auto) 9.2 % (25-47) L 12/09/17 06:45 [place] % (Auto) 6.1 % (0-7) 12/09/17 06:45 Eos % (Auto) 2.6 % (0-6) 12/09/17 06:45 Baso % (Auto) 0.4 % (0-2) 12/09/17 06:45 Absolute Neuts (auto) 8.9 10^3/ul (1.5-7.7) H 12/09/17 06:45 Absolute Lymphs (auto) 1.0 10^3/ul (1.0-4.8) 12/09/17 06:45 Absolute Monos (auto) 0.7 10^3/ul (0-0.8) 12/09/17 06:45 Absolute Eos (auto) 0.3 10^3/ul (0-0.6) 12/09/17 06:45 Absolute Basos (auto) 0 10^3/ul (0-0.2) 12/09/17 06:45 Absolute Nucleated RBC 0 10^3/ul 12/09/17 06:45 Nucleated RBC % 0 12/09/17 06:45 ESR 40 mm/Hr (0-40) 12/04/17 05:45 INR (Anticoag Therapy) 1.17 (0.77-1.02) H 11/21/17 22:00 APTT 56.0 seconds (26.0-36.3) H 11/24/17 23:58 Patient Temperature Not Reportable 12/08/17 07:25 ABG pH 7.43 (7.35-7.45) 12/08/17 07:25 ABG pH (Temp Correct) Not Reportable 12/08/17 07:25 ABG pCO2 54 mmHg (35-45) H 12/08/17 07:25 ABG pCO2 (Temp Corrct Not Reportable 12/08/17 07:25 ABG pO2 86 mmHg (80-100) 12/08/17 07:25 ABG pO2 (Temp Correct Not Reportable 12/08/17 07:25 ABG HCO3 32.8 mmol/L (19-31) H 12/08/17 07:25 ABG O2 Saturation 98.5 % (95-98) H 12/08/17 07:25 ABG Base Excess 10.1 (-2.0-2.0) H 12/08/17 07:25 VBG pH 7.27 (7.33-7.43) L 11/21/17 15:49 VBG pCO2 47 mmHg (41-51) 11/21/17 15:49 VBG pO2 42 mmHg (35-45) 11/21/17 15:49 VBG HCO3 20.4 mmol/L (24-28) L 11/21/17 15:49 VBG O2 Saturation 77.4 % (70-80) 11/21/17 15:49 VBG Base Excess -5.2 (0-4) L 11/21/17 15:49 Respiration Rate Not Reportable 12/08/17 07:25 O2 Delivery Device n/c 12/08/17 07:25 Ventilator Type Not Reportable 12/08/17 07:25 Vent Mode Not Reportable 12/08/17 07:25 FiO2 3 12/08/17 07:25 Inspiratory Time Not Reportable 12/08/17 07:25 PEEP Not Reportable 12/08/17 07:25 Pressure Support Not Reportable 12/08/17 07:25 Pressure Control Not Reportable 12/08/17 07:25 EPAP Not Reportable 12/08/17 07:25 IPAP Not Reportable 12/08/17 07:25 BiPAP Not Reportable 12/08/17 07:25 Sodium 138 mmol/L (135-145) 12/09/17 06:45 Potassium 3.8 mmol/L (3.5-5.0) 12/09/17 06:45 Chloride 104 mmol/L (101-111) 12/09/17 06:45 Carbon Dioxide 32 mmol/L (22-32) 12/09/17 06:45 Anion Gap 2 mmol/L (2-11) 12/09/17 06:45 BUN 25 mg/dL (6-24) H 12/09/17 06:45 Creatinine 1.02 mg/dL (0.67-1.17) 12/09/17 06:45 Est GFR ( Amer) 88.4 (>60) 12/09/17 06:45 Est GFR (Non-Af Amer) 73.1 (>60) 12/09/17 06:45 BUN/Creatinine Ratio 24.5 (8-20) H 12/09/17 06:45 Glucose 155 mg/dL (70-100) H 12/09/17 06:45 POC Glucose (mg/dL) 173 mg/dL (70-100) H 12/10/17 11:51 Hemoglobin A1c 7.2 % (4.0-5.6) H 11/21/17 06:03 Lactic Acid 1.7 mmol/L (0.5-2.0) 11/21/17 15:49 Calcium 8.1 mg/dL (8.6-10.3) L 12/09/17 06:45 Phosphorus 3.2 mg/dL (2.5-5.0) 12/08/17 06:30 Magnesium 2.2 mg/dL (1.9-2.7) 12/08/17 06:30 Iron 48 ug/dL (50-212) L 12/03/17 16:30 TIBC 216 mcg/dL (250-450) L 12/03/17 16:30 % Saturation 22 % (15-55) 12/03/17 16:30 Unsat Iron Binding 168 ug/dL 12/03/17 16:30 Transferrin 154 mg/dL (203-362) L 12/03/17 16:30 Ferritin 192.5 ng/mL (24-336) 12/03/17 16:30 Total Bilirubin 0.40 mg/dL (0.2-1.0) 12/02/17 05:45 Direct Bilirubin 0.30 mg/dL (0.03-0.18) H 11/21/17 15:49 Indirect Bilirubin 0.5 mg/dL (0.3-1.0) 11/21/17 15:49 AST 16 U/L (13-39) 12/02/17 05:45 ALT 3 U/L (7-52) L 12/02/17 05:45 Alkaline Phosphatase 67 U/L (34-104) 12/02/17 05:45 Total Creatine Kinase 652 U/L (10-223) H 11/21/17 22:00 CK-MB (CK-2) 76.6 ng/mL (0.6-6.3) H 11/21/17 22:00 Troponin I 3.90 ng/mL (<0.04) H* 11/23/17 05:10 C-Reactive Protein 6.90 mg/L (<8.01) 12/04/17 05:45 C-React Prot High Sens 189.30 mg/L (<2.00) H 11/21/17 06:03 B-Natriuretic Peptide 842 pg/mL (-100) H 12/07/17 05:08 Total Protein 5.3 g/dL (6.4-8.9) L 12/02/17 05:45 Total Protein (PEP) 5.3 g/dL (6.3 - 7.9) L 12/04/17 05:45 Albumin 2.5 g/dL (3.2-5.2) L 12/02/17 05:45 Albumin (PEP) 2.3 g/dL (3.4-4.7) L 12/04/17 05:45 Globulin 2.8 g/dL (2-4) 12/02/17 05:45 Albumin/Globulin Ratio 0.9 (1-3) L 12/02/17 05:45 Albumin/Globulin (PEP) 0.74 12/04/17 05:45 Xsfsv-5-Lujxrpgsa 0.3 g/dL (0.1-0.3) 12/04/17 05:45 Tjfcf-2-Mfvwuejzz 0.9 g/dL (0.6-1.0) 12/04/17 05:45 Iqqe-5-Shyeewfs 0.8 g/dL (0.7-1.2) 12/04/17 05:45 Gamma Globulins 1.0 g/dL (0.6-1.6) 12/04/17 05:45 PEP Impression See comment 12/04/17 05:45 Vitamin B12 597 pg/mL (180-914) 12/04/17 05:45 Folate 9.54 ng/mL (>3.99) 12/03/17 16:30 TSH 4.10 mcIU/mL (0.34-5.60) 12/05/17 04:42 Free T4 1.05 ng/dL (0.61-1.12) 12/05/17 04:42 Urine Color Marni 11/21/17 01:56 Urine Appearance Cloudy 11/21/17 01:56 Urine pH 5.0 (5-9) 11/21/17 01:56 Ur Specific [place] 1.028 (1.010-1.030) 11/21/17 01:56 Urine Protein 1+(30 mg/dl) (Negative) A 11/21/17 01:56 Urine Ketones Negative (Negative) 11/21/17 01:56 Urine Blood Negative (Negative) 11/21/17 01:56 Urine Nitrate Negative (Negative) 11/21/17 01:56 Urine Bilirubin Negative (Negative) 11/21/17 01:56 Urine Urobilinogen Negative (Negative) 11/21/17 01:56 Ur Leukocyte Esterase Trace (Negative) A 11/21/17 01:56 Urine WBC (Auto) 2+(11-20/hpf) (Absent) A 11/21/17 01:56 Urine RBC (Auto) Trace(0-2/hpf) (Absent) 11/21/17 01:56 Ur Squamous Epith Cells Present (Absent) A 11/21/17 01:56 Urine Bacteria Absent (Absent) 11/21/17 01:56 Hyaline Casts Present (Absent) A 11/21/17 01:56 Granular Casts Present (Absent) A 11/21/17 01:56 Urine Glucose Negative (Negative) 11/21/17 01:56 Urine Ascorbic Acid * (Negative) A 11/21/17 01:56 Vancomycin Trough 25.5 mcg/mL 11/24/17 06:12 Blood Type O Positive 12/04/17 05:45 Antibody Screen Negative 12/04/17 05:45 Crossmatch See Detail 12/04/17 05:45
--- NOTE | 2017-12-10 17:06 | PN ---
Subjective Date of Service: 12/10/17 Interval History: JORDAN, RNs encouraging to get to chair for 1 hour - otherwise wanting to "relax " in bed all day. Denies SOB, chest pain, abdominal pain. noted to be incontinent of stool and urine. No [facility] was available today. Family History: Findings - unable Social History: Findings - unable comes from home though Past Medical History: Unchanged from Admission Objective Active Medications: Albuterol/Ipratropium (Duoneb (Albuterol 2.5 Mg/Ipratropium 0.5 Mg)) 1 neb INH Q4H PRN PRN Reason: SOB/WHEEZING Amiodarone HCl (Cordarone Tab*) 200 mg PO DAILY [facility] Last Admin: 12/10/17 09:19 Dose: 200 mg Aspirin (Aspirin Ec Tab*) 81 mg PO DAILY [facility] Last Admin: 12/10/17 09:19 Dose: 81 mg Atorvastatin Calcium (Lipitor*) 80 mg PO QPM [facility] Last Admin: 12/09/17 18:27 Dose: 80 mg Dextrose (D50w Syringe 50 Ml*) 12.5 gm IV PUSH .FOR FS < 60 - SS PRN PRN Reason: FS < 60 Ferrous Sulfate (Ferrous Sulfate Tab*) 325 mg PO TID [facility] Last Admin: 12/10/17 14:01 Dose: 325 mg Furosemide (Lasix Tab*) 20 mg PO DAILY [facility] Last Admin: 12/10/17 09:19 Dose: 20 mg Heparin Sodium (Porcine) (Heparin Flush Picc/Ml/Cvc(*)) 1 - 3 ml FLUSH 0600, 1800 [facility]; Protocol Last Admin: 12/10/17 06:38 Dose: 3 ml Heparin Sodium (Porcine) (Heparin Vial(*)) 5,000 units SUBCUT Q12HR [facility] Last Admin: 12/10/17 09:19 Dose: 5,000 units Cefazolin Sodium/Dextrose (Kefzol 2 Gm Premix In Ors(*)) 2 gm in 50 mls @ 100 mls/hr IVPB Q8H [facility] Last Admin: 12/10/17 14:00 Dose: 100 mls/hr Insulin Glargine (Lantus(*)) 20 units SUBCUT BEDTIME [facility] Last Admin: 12/09/17 22:00 Dose: 20 unit Insulin Human Lispro (Humalog*) 0 units SUBCUT ACHS [facility]; Protocol Last Admin: 12/10/17 14:00 Dose: 3 unit Isosorbide Mononitrate (Imdur Er Tab*) 30 mg PO DAILY [facility] Last Admin: 12/10/17 09:19 Dose: 30 mg Lisinopril (Prinivil Tab*) 10 mg PO DAILY [facility] Last Admin: 12/10/17 09:19 Dose: 10 mg Metoprolol Succinate (Toprol Xl Tab*) 50 mg PO BEDTIME [facility] Last Admin: 12/09/17 22:00 Dose: 50 mg Omeprazole (Prilosec Cap*) 20 mg PO BID [facility] Last Admin: 12/10/17 09:19 Dose: 20 mg Ondansetron HCl (Zofran Inj*) 4 mg IV Q4H PRN PRN Reason: NAUSEA Last Admin: 12/03/17 07:41 Dose: 4 mg Paroxetine HCl (Paxil Tab*) 20 mg PO DAILY [facility] Last Admin: 12/10/17 09:19 Dose: 20 mg Polyethylene Glycol/Electrolytes (Miralax*) 17 gm PO DAILY PRN PRN Reason: CONSTIPATION Last Admin: 12/10/17 09:19 Dose: 17 gm Senna (Senokot Tab*) 1 tab PO BID [facility] Last Admin: 12/10/17 09:19 Dose: 1 tab Vital Signs - 8 hr 12/10/17 12/10/17 11:10 14:39 Temperature 98.0 F 98.5 F Pulse Rate 68 68 Respiratory 16 16 Rate Blood Pressure 130/60 131/55 (mmHg) O2 Sat by Pulse 100 100 Oximetry Oxygen Devices in Use Now: Nasal Cannula Appearance: NAD, lying in bed. Eyes: No Scleral Icterus, PERRLA Ears/Nose/Mouth/Throat: NL Teeth, Lips, Gums Respiratory: Symmetrical Chest Expansion and Respiratory Effort, Clear to Auscultation Cardiovascular: NL Sounds; No Murmurs; No JVD, RRR Abdominal: NL Sounds; No Tenderness; No Distention, No Hepatosplenomegaly Extremities: No Edema, - - left dorsum wound vacc. Skin: No Rash or Ulcers Neurological: Alert and Oriented x 3, NL Sensation Nutrition: Taking PO's Result Diagrams: 12/09/17 06:45 12/09/17 06:45 Additional Lab and Data: Laboratory Results - last 24 hr 12/09/17 12/09/17 12/10/17 16:51 21:43 08:24 POC Glucose (mg/dL) 109 H 203 H 109 H 12/10/17 12/10/17 11:51 16:35 POC Glucose (mg/dL) 173 H 167 H Microbiology and Other Data: Microbiology 11/20/17 23:32 Blood Venous Aerobic Blood Culture - Final No Growth Day 5 11/20/17 23:32 Blood Venous Anaerobic Blood Culture - Final No Growth Day 5 11/20/17 23:32 Blood Venous Aerobic Blood Culture - Final No Growth Day 5 11/20/17 23:32 Blood Venous Anaerobic Blood Culture - Final No Growth Day 5 11/21/17 11:30 Foot Right Skin and Soft Tissue MRSA/MSSA (PCR - Final Mrsa Negative S.aureus Positive 11/21/17 11:30 Foot Right Gram Stain - Final 11/21/17 11:30 Foot Right Wound Culture - Final Staphylococcus Aureus 11/21/17 01:56 Urine Urine Culture - Final No Growth (<1,000 CFU/mL) 11/21/17 05:30 Nasal Nasal Screen MRSA (PCR) - Final Mrsa Not Detected 11/21/17 00:23 Stool Stool Occult Blood (CAN) - Final Assess/Plan/Problems-Billing Assessment: 67 yr old PMH IDDMT2, CAD s/p CABG, CKDIII, PVD, HTN, HLD, R BKA, L TMA presented to [place] with Afib w/ RVR and left dorsal foot ulcer. Vomited/ Aspirated needed Intubation. Septic Shock needing pressors. Troponin peaked 13 on 11/21 and LHC showed triple vessel disease. No stent, medically managed. S/p wound vac and currently cefazolin 6 week course for MSSA. Course complicated by anemia, EGD found prepyloric gastric ulcer. s/p 4u pRBC total. Hypoxic respiratory failure. Encephalopathy now improving. Planned to [facility] . Time line of events: 11/21 Admission for diabetic foot ulcer sepsis, later vomited and aspirated and was intubated 11/22 Extubated 11/23 A. fib w/RVR + flash pulmonary edemaBiPAP 11/24 A. fib with RVR + Levophed 11/26 LHC reveals 3V disease and decision made to maximize medical therapy at this time 11/27 S/P debridement of RLE 11/28 Diuretics given 11/29Hypertensive urgency - placed on NTG gtt and ACEI 11/30I&D +wound Vac +regional nerve block 12/04/17 2 units pRBC ordered. GI consult called 12/05/17 s/p EGD Duodenal ulcer; plavix stopped, heparin decreased to bid (from tid) 12/06/17 Hct down to 21, 2 units ordered. 12/07/17 ordered to d/c bipap due to respiratory/metabolic alkalosis 12/09/17 cleared medically for discharge but awaiting [facility] Bed. - Patient Problems (1) Anemia Current Visit: Yes Status: Acute Code(s): D64.9 - ANEMIA, UNSPECIFIED SNOMED Code(s): 455828237 Comment: - s/p EGD positive pre-pyloric gastric ulcer with evidence of recent bleed - Given his his NSTEMI I will continue ASA; but will continue hold PLAVIX as per GI 1-2 weeks (EGD 12/05 so between 12/12 and 12/19) - Iron 325 mg TID - PPI bid. - stool softener and miralax. - S/p transfuse 2 units pRBC 12/04/17 and Hct down again to 21 on 12/06/17. - Hct at 25 12/07/17. Hct 29 12/08/17 (2) Atrial fibrillation Current Visit: Yes Status: Acute Code(s): I48.91 - UNSPECIFIED ATRIAL FIBRILLATION SNOMED Code(s): 30953986 Comment: - Amiodarone 200 mg po daily. - Metoprol Xl 50 mg daily - EKG 12/09/17 was NSR - Follow up with with cardiology as outpatient in [place] and with Dr. Cameron as outpatient. - not on a/c in setting of recent UGIB (3) CAD (coronary artery disease) Current Visit: Yes Status: Acute Code(s): I25.10 - ATHSCL HEART DISEASE OF [place] CORONARY ARTERY W/O ANG PCTRS SNOMED Code(s): 94290537 Comment: -s/p NSTEMI with peak troponin of 13.08 on 11/21/17 and down to 3.9 on 11/23 -s/p LHC on 11/26 that revealed triple vessel disease not amneable for interventions - Cardiology recommended to continue maximal medical therapy. Will continue ASA , but Plavix held for 1-2 weeks due to anemia and gastric ulcer Continue ACEI, BB, and statins - s/p 2 units 12/04/17 and transfused 2 units 12/06/17. - Lisinopril 20 mg daily; lasix 40 mg po daily; toprol XL 50 mg daily, imdur 30 mg daily, Also I decreased amiodarone from 400mg daily to 200 mg daily. - He needs to follow up with with cardiology as outpatient in [place] with Dr. Cameron as outpatient. (4) CHF (congestive heart failure) Current Visit: Yes Status: Acute Code(s): I50.9 - HEART FAILURE, UNSPECIFIED SNOMED Code(s): 54530288 Comment: - Echo date 11/21/17 reviewed. EF was normal and preserved LV functions. continue lasix 20 mg po daily (5) Diabetes 1.5, managed as type 2 Current Visit: Yes Status: Acute Code(s): E10.9 - TYPE 1 DIABETES MELLITUS WITHOUT COMPLICATIONS SNOMED Code(s): 198773050 Comment: SSI + Lantus 20 units. (6) Non-ST elevation myocardial infarction (NSTEMI) greater than 8 weeks ago Current Visit: Yes Status: Acute Code(s): I25.2 - OLD MYOCARDIAL INFARCTION SNOMED Code(s): 610574354 (7) Septic shock Current Visit: Yes Status: Resolved Code(s): A41.9 - SEPSIS, UNSPECIFIED ORGANISM; R65.21 - SEVERE SEPSIS WITH SEPTIC SHOCK SNOMED Code(s): 70595156 Comment: - Patient records reviewed. He was admitted with tachycardia, hypotension required levophed in the setting of rigth foot osteomyelitis and cellulitis - Resolved off levophed currently - Currently on cefazolin 2 gm IV Q8hrs and s/p I&D with wound culture positive for MSSA (8) DVT prophylaxis Current Visit: No Status: Acute Code(s): JGW2071 - SNOMED Code(s): 178552320 Comment: HSQ Status and Disposition: -For rehab placement, likely to [facility] 12/12? Attending: Bridger Emery
[2017-12-10] MEDS: Atorvastatin* 80 MG TAB PO SCH (17:21)
[2017-12-10] MEDS: Metoprolol Succinate XL TAB* 50 MG PO SCH (22:33)
[2017-12-10] MEDS: Insulin GLARGINE(*) 1 UNITS UNIT SUBCUT SCH (22:50)
[2017-12-11] MEDS ORDERED: Furosemide IV* 10 MG/ML VIAL (40 MG) IV ONE ×2 (00:10→04:31)
[2017-12-11] MEDS ORDERED: Morphine VIAL* 4 MG/ML VIAL (1 ml vial) IV ONE (04:31)
[2017-12-11] MEDS: ceFAZolin* 2 GM* Q8H (Duplex) IVPB SCH ×3 (05:12→21:03)
[2017-12-11 07:56] LABS: EGFR Non-African American 67.7 (>60)
[2017-12-11] MEDS: Insulin LISPRO* 1 UNITS UNIT SUBCUT SCH ×4 (10:02→21:20)
[2017-12-11] MEDS: Heparin VIAL(*) 5000 UNITS/ML VIAL (FIVE THOUSAND) SUBCUT SCH ×2 (10:09→21:09)
[2017-12-11] MEDS: Amiodarone TAB* 200 MG PO SCH (10:11)
[2017-12-11] MEDS: Furosemide TAB* 20 MG PO SCH (10:12)
[2017-12-11] MEDS: Senna TAB PO SCH ×2 (10:12→21:01)
[2017-12-11] MEDS: Lisinopril TAB* 10 MG PO SCH (10:12)
[2017-12-11] MEDS: PARoxetine HCL TAB* 10 MG PO SCH (10:14)
[2017-12-11] MEDS: Aspirin EC TAB* 81 MG TAB.EC PO SCH (10:15)
[2017-12-11] MEDS: Omeprazole CAP* 20 MG PO SCH ×2 (10:16→21:01)
[2017-12-11] MEDS: Isosorbide Mononitrate ER TAB* 30 MG PO SCH (10:17)
[2017-12-11] MEDS: Ferrous Sulfate TAB* 325 MG PO SCH ×3 (10:17→21:01)
--- NOTE | 2017-12-11 16:29 | PN ---
Subjective Interval History: noticed to pale diaphoretic with rales last night. got IV lasix 40mg. Later got morphine and started to projectile vomit. Bipap removed. wound vacc had come off. Pt barely remembers the SOB, does have vague recollections of vomiting. Afebrile. No cough. No current N/V or abdominal pain. to chair for 1 hour today. Family History: Findings - unable Social History: Findings - unable comes from home though Past Medical History: Unchanged from Admission Objective Active Medications: Albuterol/Ipratropium (Duoneb (Albuterol 2.5 Mg/Ipratropium 0.5 Mg)) 1 neb INH Q4H PRN PRN Reason: SOB/WHEEZING Amiodarone HCl (Cordarone Tab*) 200 mg PO DAILY [facility] Last Admin: 12/11/17 10:11 Dose: 200 mg Aspirin (Aspirin Ec Tab*) 81 mg PO DAILY [facility] Last Admin: 12/11/17 10:15 Dose: 81 mg Atorvastatin Calcium (Lipitor*) 80 mg PO QPM [facility] Last Admin: 12/10/17 17:21 Dose: 80 mg Dextrose (D50w Syringe 50 Ml*) 12.5 gm IV PUSH .FOR FS < 60 - SS PRN PRN Reason: FS < 60 Ferrous Sulfate (Ferrous Sulfate Tab*) 325 mg PO TID [facility] Last Admin: 12/11/17 13:41 Dose: 325 mg Furosemide (Lasix Tab*) 20 mg PO DAILY [facility] Last Admin: 12/11/17 10:12 Dose: 20 mg Heparin Sodium (Porcine) (Heparin Flush Picc/Ml/Cvc(*)) 1 - 3 ml FLUSH 0600, 1800 [facility]; Protocol Last Admin: 12/11/17 07:02 Dose: 3 ml Heparin Sodium (Porcine) (Heparin Vial(*)) 5,000 units SUBCUT Q12HR [facility] Last Admin: 12/11/17 10:09 Dose: 5,000 units Cefazolin Sodium/Dextrose (Kefzol 2 Gm Premix In Ors(*)) 2 gm in 50 mls @ 100 mls/hr IVPB Q8H [facility] Last Admin: 12/11/17 13:42 Dose: 100 mls/hr Insulin Glargine (Lantus(*)) 20 units SUBCUT BEDTIME [facility] Last Admin: 12/10/17 22:50 Dose: 20 unit Insulin Human Lispro (Humalog*) 0 units SUBCUT ACHS [facility]; Protocol Last Admin: 12/11/17 13:41 Dose: 6 unit Isosorbide Mononitrate (Imdur Er Tab*) 30 mg PO DAILY [facility] Last Admin: 12/11/17 10:17 Dose: 30 mg Lisinopril (Prinivil Tab*) 10 mg PO DAILY [facility] Last Admin: 12/11/17 10:12 Dose: 10 mg Metoprolol Succinate (Toprol Xl Tab*) 50 mg PO BEDTIME [facility] Last Admin: 12/10/17 22:33 Dose: 50 mg Omeprazole (Prilosec Cap*) 20 mg PO BID [facility] Last Admin: 12/11/17 10:16 Dose: 20 mg Ondansetron HCl (Zofran Inj*) 4 mg IV Q4H PRN PRN Reason: NAUSEA Last Admin: 12/03/17 07:41 Dose: 4 mg Paroxetine HCl (Paxil Tab*) 20 mg PO DAILY [facility] Last Admin: 12/11/17 10:14 Dose: 20 mg Polyethylene Glycol/Electrolytes (Miralax*) 17 gm PO DAILY PRN PRN Reason: CONSTIPATION Last Admin: 12/10/17 09:19 Dose: 17 gm Senna (Senokot Tab*) 1 tab PO BID [facility] Last Admin: 12/11/17 10:12 Dose: 1 tab Vital Signs - 8 hr 12/11/17 12/11/17 12/11/17 10:45 11:08 15:44 Temperature 98.3 F 98.4 F Pulse Rate 64 77 77 Respiratory 24 18 16 Rate Blood Pressure 132/60 103/59 83/52 (mmHg) O2 Sat by Pulse 97 96 Oximetry Oxygen Devices in Use Now: Nasal Cannula Appearance: NAD Eyes: No Scleral Icterus Ears/Nose/Mouth/Throat: NL Teeth, Lips, Gums Neck: NL Appearance and Movements; NL JVP, Trachea Midline Respiratory: Clear to Auscultation Cardiovascular: NL Sounds; No Murmurs; No JVD, RRR Abdominal: NL Sounds; No Tenderness; No Distention, No Hepatosplenomegaly Extremities: - - trace edema b/l shins. wound vacc to right dorsal foot. Skin: No Rash or Ulcers, - Neurological: Alert and Oriented x 3 Result Diagrams: 12/09/17 06:45 12/11/17 07:00 Additional Lab and Data: Laboratory Results - last 24 hr 12/10/17 12/11/17 12/11/17 22:40 00:10 07:00 Sodium 141 Potassium 4.0 Chloride 107 Carbon Dioxide 29 Anion Gap 5 BUN 23 Creatinine 1.09 Est GFR ( Amer) 81.9 Est GFR (Non-Af Amer) 67.7 BUN/Creatinine Ratio 21.1 H Glucose 197 H POC Glucose (mg/dL) 258 H 268 H Calcium 8.0 L 12/11/17 12/11/17 12/11/17 08:28 12:08 16:15 Sodium Potassium Chloride Carbon Dioxide Anion Gap BUN Creatinine Est GFR ( Amer) Est GFR (Non-Af Amer) BUN/Creatinine Ratio Glucose POC Glucose (mg/dL) 211 H 210 H 249 H Calcium Microbiology and Other Data: Microbiology 11/20/17 23:32 Blood Venous Aerobic Blood Culture - Final No Growth Day 5 11/20/17 23:32 Blood Venous Anaerobic Blood Culture - Final No Growth Day 5 11/20/17 23:32 Blood Venous Aerobic Blood Culture - Final No Growth Day 5 11/20/17 23:32 Blood Venous Anaerobic Blood Culture - Final No Growth Day 5 11/21/17 11:30 Foot Right Skin and Soft Tissue MRSA/MSSA (PCR - Final Mrsa Negative S.aureus Positive 11/21/17 11:30 Foot Right Gram Stain - Final 11/21/17 11:30 Foot Right Wound Culture - Final Staphylococcus Aureus 11/21/17 01:56 Urine Urine Culture - Final No Growth (<1,000 CFU/mL) 11/21/17 05:30 Nasal Nasal Screen MRSA (PCR) - Final Mrsa Not Detected 11/21/17 00:23 Stool Stool Occult Blood (CAN) - Final EKG Data: rapid a fib but no ekg change seen in other facility Assess/Plan/Problems-Billing Assessment: 67 yr old PMH IDDMT2, CAD s/p CABG, CKDIII, PVD, HTN, HLD, R BKA, L TMA presented to [place] with Afib w/ RVR and left dorsal foot ulcer. Vomited/ Aspirated needed Intubation. Septic Shock needing pressors. Troponin peaked 13 on 11/21 and LHC showed triple vessel disease. No stent, medically managed. S/p wound vac and currently cefazolin 6 week course for MSSA. Course complicated by anemia, EGD found prepyloric gastric ulcer. s/p 4u pRBC total. Hypoxic respiratory failure. Encephalopathy now improving. Planned to [facility] . Time line of events: 11/21 Admission for diabetic foot ulcer sepsis, later vomited and aspirated and was intubated 11/22 Extubated 11/23 A. fib w/RVR + flash pulmonary edemaBiPAP 11/24 A. fib with RVR + Levophed 11/26 LHC reveals 3V disease and decision made to maximize medical therapy at this time 11/27 S/P debridement of RLE 11/28 Diuretics given 11/29Hypertensive urgency - placed on NTG gtt and ACEI 11/30I&D +wound Vac +regional nerve block 12/04/17 2 units pRBC ordered. GI consult called 12/05/17 s/p EGD Duodenal ulcer; plavix stopped, heparin decreased to bid (from tid) 12/06/17 Hct down to 21, 2 units ordered. 12/07/17 ordered to d/c bipap due to respiratory/metabolic alkalosis 12/09/17 cleared medically for discharge but awaiting [facility] Bed. 11/10/17 overnight: additional lasix given for diaphoresis.went back on bipap until projectile vomit after morphine, - Patient Problems (1) Anemia Current Visit: Yes Status: Acute Code(s): D64.9 - ANEMIA, UNSPECIFIED SNOMED Code(s): 447424563 Comment: - s/p EGD positive pre-pyloric gastric ulcer with evidence of recent bleed - Given his his NSTEMI I will continue ASA; but will continue hold PLAVIX as per GI 1-2 weeks (EGD 12/05 so between 12/12 and 12/19) - Iron 325 mg TID - PPI bid. - stool softener and miralax. - S/p transfuse 2 units pRBC 12/04/17 and Hct down again to 21 on 12/06/17. - Hct at 25 12/07/17. Hct 29 12/08/17 (2) Atrial fibrillation Current Visit: Yes Status: Acute Code(s): I48.91 - UNSPECIFIED ATRIAL FIBRILLATION SNOMED Code(s): 01750955 Comment: - Amiodarone 200 mg po daily. - Metoprol Xl 50 mg daily - EKG 12/09/17 was NSR - Follow up with with cardiology as outpatient in [place] and with Dr. Cameron as outpatient. - not on a/c in setting of recent UGIB (3) CAD (coronary artery disease) Current Visit: Yes Status: Acute Code(s): I25.10 - ATHSCL HEART DISEASE OF [place] CORONARY ARTERY W/O ANG PCTRS SNOMED Code(s): 70471409 Comment: -s/p NSTEMI with peak troponin of 13.08 on 11/21/17 and down to 3.9 on 11/23 -s/p LHC on 11/26 that revealed triple vessel disease not amneable for interventions - Cardiology recommended to continue maximal medical therapy. Will continue ASA , but Plavix held for 1-2 weeks due to anemia and gastric ulcer Continue ACEI, BB, and statins - s/p 2 units 12/04/17 and transfused 2 units 12/06/17. - Lisinopril 20 mg daily; lasix 40 mg po daily; toprol XL 50 mg daily, imdur 30 mg daily, Also I decreased amiodarone from 400mg daily to 200 mg daily. - He needs to follow up with with cardiology as outpatient in [place] with Dr. Cameron as outpatient. (4) CHF (congestive heart failure) Current Visit: Yes Status: Acute Code(s): I50.9 - HEART FAILURE, UNSPECIFIED SNOMED Code(s): 04053785 Comment: - Echo date 11/21/17 reviewed. EF was normal and preserved LV functions. continue lasix but increase to 40 mg po daily (5) Diabetes 1.5, managed as type 2 Current Visit: Yes Status: Acute Code(s): E10.9 - TYPE 1 DIABETES MELLITUS WITHOUT COMPLICATIONS SNOMED Code(s): 746016895 Comment: SSI + Lantus 20 units. (6) Non-ST elevation myocardial infarction (NSTEMI) greater than 8 weeks ago Current Visit: Yes Status: Acute Code(s): I25.2 - OLD MYOCARDIAL INFARCTION SNOMED Code(s): 694111815 (7) Septic shock Current Visit: Yes Status: Resolved Code(s): A41.9 - SEPSIS, UNSPECIFIED ORGANISM; R65.21 - SEVERE SEPSIS WITH SEPTIC SHOCK SNOMED Code(s): 84797825 Comment: - Patient records reviewed. He was admitted with tachycardia, hypotension required levophed in the setting of rigth foot osteomyelitis and cellulitis - Resolved off levophed currently - Currently on cefazolin 2 gm IV Q8hrs and s/p I&D with wound culture positive for MSSA (8) DVT prophylaxis Current Visit: No Status: Acute Code(s): ZXN0298 - SNOMED Code(s): 996071966 Comment: HSQ Status and Disposition: -For rehab placement, likely to [place] [facility] 12/12?
[2017-12-11] MEDS: Atorvastatin* 80 MG TAB PO SCH (18:55)
[2017-12-11] MEDS: Metoprolol Succinate XL TAB* 50 MG PO SCH (21:01)
[2017-12-11] MEDS: Insulin GLARGINE(*) 1 UNITS UNIT SUBCUT SCH (21:20)
[2017-12-12] MEDS: ceFAZolin* 2 GM* Q8H (Duplex) IVPB SCH ×3 (04:57→21:01)
[2017-12-12] MEDS: Insulin LISPRO* 1 UNITS UNIT SUBCUT SCH ×4 (07:32→20:39)
[2017-12-12] MEDS ORDERED: Furosemide TAB* 20 MG PO SCH (09:00)
[2017-12-12] MEDS: Heparin VIAL(*) 5000 UNITS/ML VIAL (FIVE THOUSAND) SUBCUT SCH ×2 (09:56→20:39)
[2017-12-12] MEDS: Isosorbide Mononitrate ER TAB* 30 MG PO SCH (09:57)
[2017-12-12] MEDS: Omeprazole CAP* 20 MG PO SCH ×2 (09:57→20:36)
[2017-12-12] MEDS: Senna TAB PO SCH ×2 (09:57→20:36)
[2017-12-12] MEDS: Amiodarone TAB* 200 MG PO SCH (09:58)
[2017-12-12] MEDS: Ferrous Sulfate TAB* 325 MG PO SCH ×3 (09:58→20:36)
[2017-12-12] MEDS: Aspirin EC TAB* 81 MG TAB.EC PO SCH (09:58)
[2017-12-12] MEDS: PARoxetine HCL TAB* 10 MG PO SCH (09:58)
[2017-12-12] MEDS: Lisinopril TAB* 10 MG PO SCH (09:59)
[2017-12-12] MEDS: Polyethylene Glycol 3350* 17 GM PACKET PO PRN (10:00)
--- NOTE | 2017-12-12 12:02 | PN ---
Progress Note - Progress Note Date of Service: 12/12/17 SOAP: Subjective: []Patient seen at bedside with nurse for wound vac change. No change orthopedically. No new complaints offered, denies foot pain. Objective: [] Vital Signs Temp 97.8 F 12/12/17 08:01 Pulse 66 12/12/17 08:01 Resp 16 12/12/17 08:01 BP 129/65 12/12/17 08:01 Pulse Ox 100 12/12/17 08:01 Intake & Output 12/11/17 12/12/17 12/12/17 18:59 06:59 18:59 Intake Total 800 871 Output Total 600 500 Balance 200 371 Weight 190 lb 11.2 oz Intake: IV Fluids 43 NS 43 IVPB 113 ABX - CEFAZOLIN 113 Oral 800 715 Output: Urine 0 500 Michael 600 Other: # Bowel Movements 0 Laboratory Results - last 24 hr 12/11/17 12/11/17 12/11/17 12:08 16:15 21:15 POC Glucose (mg/dL) 210 H 249 H 139 H 12/12/17 07:16 POC Glucose (mg/dL) 54 L Wound vac removed No drainage in canister Minimal edema foot/ankle, no erythema mild maceration of wound, tendon still visible, no evidence of gross purulence active DF/PF right ankle without pain New wound vac applied by nurse (Jazmyn) Assessment: []Right dorsal foot ulceration, s/p I&D Plan: []Continue with wound vac change q 3 days, next Friday 12/15 Continue with Cefazolin as recommended by Dr. Gabino Dunlap for discharge from ortho standpoint with continued wound vac changes as directed. Follow up with Dr. Kimball one week after discharge
[2017-12-12] MEDS: Atorvastatin* 80 MG TAB PO SCH (18:21)
[2017-12-12] MEDS: Metoprolol Succinate XL TAB* 50 MG PO SCH (20:36)
[2017-12-12] MEDS: Insulin GLARGINE(*) 1 UNITS UNIT SUBCUT SCH (20:39)
--- NOTE | 2017-12-12 21:47 | PN ---
Subjective Date of Service: 12/12/17 Interval History: BG 52 in AM reportedly ate very well during day and BG up to 330 at dinner time was incontinent of stool - otherwise without complaints. He state he has a property in [place] that he lives alone in, his ex- and daughter live in the adjacent property. Family History: Findings - unable Social History: Findings - unable comes from home though Past Medical History: Unchanged from Admission Objective Active Medications: Albuterol/Ipratropium (Duoneb (Albuterol 2.5 Mg/Ipratropium 0.5 Mg)) 1 neb INH Q4H PRN PRN Reason: SOB/WHEEZING Amiodarone HCl (Cordarone Tab*) 200 mg PO DAILY [facility] Last Admin: 12/12/17 09:58 Dose: 200 mg Aspirin (Aspirin Ec Tab*) 81 mg PO DAILY [facility] Last Admin: 12/12/17 09:58 Dose: 81 mg Atorvastatin Calcium (Lipitor*) 80 mg PO QPM [facility] Last Admin: 12/12/17 18:21 Dose: 80 mg Dextrose (D50w Syringe 50 Ml*) 12.5 gm IV PUSH .FOR FS < 60 - SS PRN PRN Reason: FS < 60 Ferrous Sulfate (Ferrous Sulfate Tab*) 325 mg PO TID [facility] Last Admin: 12/12/17 20:36 Dose: 325 mg Furosemide (Lasix Tab*) 40 mg PO DAILY [facility] Last Admin: 12/12/17 09:57 Dose: 40 mg Heparin Sodium (Porcine) (Heparin Flush Picc/Ml/Cvc(*)) 1 - 3 ml FLUSH 0600, 1800 [facility]; Protocol Last Admin: 12/12/17 18:21 Dose: 3 ml Heparin Sodium (Porcine) (Heparin Vial(*)) 5,000 units SUBCUT Q12HR [facility] Last Admin: 12/12/17 20:39 Dose: 5,000 units Cefazolin Sodium/Dextrose (Kefzol 2 Gm Premix In Ors(*)) 2 gm in 50 mls @ 100 mls/hr IVPB Q8H [facility] Last Admin: 12/12/17 21:01 Dose: 100 mls/hr Insulin Glargine (Lantus(*)) 15 units SUBCUT BEDTIME [facility] Last Admin: 12/12/17 20:39 Dose: 15 units Insulin Human Lispro (Humalog*) 0 units SUBCUT ACHS [facility]; Protocol Last Admin: 12/12/17 20:39 Dose: 15 unit Isosorbide Mononitrate (Imdur Er Tab*) 30 mg PO DAILY [facility] Last Admin: 12/12/17 09:57 Dose: 30 mg Lisinopril (Prinivil Tab*) 10 mg PO DAILY [facility] Last Admin: 12/12/17 09:59 Dose: 10 mg Metoprolol Succinate (Toprol Xl Tab*) 50 mg PO BEDTIME [facility] Last Admin: 12/12/17 20:36 Dose: 50 mg Omeprazole (Prilosec Cap*) 20 mg PO BID [facility] Last Admin: 12/12/17 20:36 Dose: 20 mg Ondansetron HCl (Zofran Inj*) 4 mg IV Q4H PRN PRN Reason: NAUSEA Last Admin: 12/03/17 07:41 Dose: 4 mg Paroxetine HCl (Paxil Tab*) 20 mg PO DAILY [facility] Last Admin: 12/12/17 09:58 Dose: 20 mg Polyethylene Glycol/Electrolytes (Miralax*) 17 gm PO DAILY PRN PRN Reason: CONSTIPATION Last Admin: 12/12/17 10:00 Dose: 17 gm Senna (Senokot Tab*) 1 tab PO BID [facility] Last Admin: 12/12/17 20:36 Dose: 1 tab Vital Signs - 8 hr 12/12/17 15:53 Temperature 99.3 F Pulse Rate 78 Respiratory 16 Rate Blood Pressure 135/72 (mmHg) O2 Sat by Pulse 98 Oximetry Oxygen Devices in Use Now: Nasal Cannula Appearance: NAD, sitting in chair eating dinner Eyes: No Scleral Icterus, PERRLA Ears/Nose/Mouth/Throat: NL Teeth, Lips, Gums Neck: NL Appearance and Movements; NL JVP Respiratory: Symmetrical Chest Expansion and Respiratory Effort, Clear to Auscultation, - - fine rales at bases Cardiovascular: NL Sounds; No Murmurs; No JVD Abdominal: NL Sounds; No Tenderness; No Distention Extremities: - - trace edema in legs. wound vacc on right foot. Neurological: Alert and Oriented x 3 Nutrition: Taking PO's Result Diagrams: 12/09/17 06:45 12/11/17 07:00 Additional Lab and Data: Laboratory Results - last 24 hr 12/11/17 12/12/17 12/12/17 21:15 07:16 12:08 POC Glucose (mg/dL) 139 H 54 L 204 H 12/12/17 12/12/17 16:35 20:19 POC Glucose (mg/dL) 335 H 352 H Microbiology and Other Data: Microbiology 11/20/17 23:32 Blood Venous Aerobic Blood Culture - Final No Growth Day 5 11/20/17 23:32 Blood Venous Anaerobic Blood Culture - Final No Growth Day 5 11/20/17 23:32 Blood Venous Aerobic Blood Culture - Final No Growth Day 5 11/20/17 23:32 Blood Venous Anaerobic Blood Culture - Final No Growth Day 5 11/21/17 11:30 Foot Right Skin and Soft Tissue MRSA/MSSA (PCR - Final Mrsa Negative S.aureus Positive 11/21/17 11:30 Foot Right Gram Stain - Final 11/21/17 11:30 Foot Right Wound Culture - Final Staphylococcus Aureus 11/21/17 01:56 Urine Urine Culture - Final No Growth (<1,000 CFU/mL) 11/21/17 05:30 Nasal Nasal Screen MRSA (PCR) - Final Mrsa Not Detected 11/21/17 00:23 Stool Stool Occult Blood (CAN) - Final EKG Data: rapid a fib but no ekg change seen in other facility Assess/Plan/Problems-Billing Assessment: 67 yr old PMH IDDMT2, CAD s/p CABG, CKDIII, PVD, HTN, HLD, R BKA, L TMA presented to [place] with Afib w/ RVR and left dorsal foot ulcer. Vomited/ Aspirated needed Intubation. Septic Shock needing pressors. Troponin peaked 13 on 11/21 and LHC showed triple vessel disease. No stent, medically managed. S/p wound vac and currently cefazolin 6 week course for MSSA. Course complicated by anemia, EGD found prepyloric gastric ulcer. s/p 4u pRBC total. Hypoxic respiratory failure. Encephalopathy now improved. Planned to [facility] when they have bed available. Time line of events: 11/21 Admission for diabetic foot ulcer sepsis, later vomited and aspirated and was intubated 11/22 Extubated 11/23 A. fib w/RVR + flash pulmonary edemaBiPAP 11/24 A. fib with RVR + Levophed 11/26 LHC reveals 3V disease and decision made to maximize medical therapy at this time 11/27 S/P debridement of RLE 11/28 Diuretics given 11/29Hypertensive urgency - placed on NTG gtt and ACEI 11/30I&D +wound Vac +regional nerve block 12/04/17 2 units pRBC ordered. GI consult called 12/05/17 s/p EGD Duodenal ulcer; plavix stopped, heparin decreased to bid (from tid) 12/06/17 Hct down to 21, 2 units ordered. 12/07/17 ordered to d/c bipap due to respiratory/metabolic alkalosis 12/09/17 cleared medically for discharge but awaiting [facility]. 11/10/17 overnight: additional lasix given for diaphoresis.went back on bipap until projectile vomit after morphine, - Patient Problems (1) Anemia Current Visit: Yes Status: Acute Code(s): D64.9 - ANEMIA, UNSPECIFIED SNOMED Code(s): 726923352 Comment: - s/p EGD positive pre-pyloric gastric ulcer with evidence of recent bleed - Given his his NSTEMI I will continue ASA; will restart plavix tomorrow - PLAVIX as per GI 1-2 weeks (EGD 12/05 so between 12/12 and 12/19) - Iron 325 mg TID - PPI bid. - stool softener and miralax. - S/p transfuse 2 units pRBC 12/04/17 and Hct down again to 21 on 12/06/17. - Hct at 25 12/07/17. Hct 29 12/08/17 (2) Atrial fibrillation Current Visit: Yes Status: Acute Code(s): I48.91 - UNSPECIFIED ATRIAL FIBRILLATION SNOMED Code(s): 91303117 Comment: - Amiodarone 200 mg po daily. - Metoprol Xl 50 mg daily - EKG 12/09/17 was NSR - Follow up with with cardiology as outpatient in [place] and with Dr. Cameron as outpatient. - not on a/c in setting of recent UGIB (3) CAD (coronary artery disease) Current Visit: Yes Status: Acute Code(s): I25.10 - ATHSCL HEART DISEASE OF [place] CORONARY ARTERY W/O ANG PCTRS SNOMED Code(s): 48727677 Comment: -s/p NSTEMI with peak troponin of 13.08 on 11/21/17 and down to 3.9 on 11/23 -s/p LHC on 11/26 that revealed triple vessel disease not amneable for interventions - Cardiology recommended to continue maximal medical therapy. Will continue ASA , but Plavix held for 1-2 weeks due to anemia and gastric ulcer. Will restart Continue ACEI, BB, and statins - s/p 2 units 12/04/17 and transfused 2 units 12/06/17. - Lisinopril 20 mg daily; lasix 40 mg po daily; toprol XL 50 mg daily, imdur 30 mg daily, amiodarone 200 mg daily. - He needs to follow up with with cardiology as outpatient in [place] with Dr. Cameron as outpatient. (4) CHF (congestive heart failure) Current Visit: Yes Status: Acute Code(s): I50.9 - HEART FAILURE, UNSPECIFIED SNOMED Code(s): 14444897 Comment: - Echo date 11/21/17 reviewed. EF was normal and preserved LV functions. continue lasix but increase to 40 mg po daily repeat BNP 12/13 daily weights strict ios (5) Diabetes 1.5, managed as type 2 Current Visit: Yes Status: Acute Code(s): E10.9 - TYPE 1 DIABETES MELLITUS WITHOUT COMPLICATIONS SNOMED Code(s): 102178770 Comment: SSI + reduced lantus to 15U from 20U given BG 50s this AM. monitor (6) Non-ST elevation myocardial infarction (NSTEMI) greater than 8 weeks ago Current Visit: Yes Status: Acute Code(s): I25.2 - OLD MYOCARDIAL INFARCTION SNOMED Code(s): 779401977 (7) Septic shock Current Visit: Yes Status: Resolved Code(s): A41.9 - SEPSIS, UNSPECIFIED ORGANISM; R65.21 - SEVERE SEPSIS WITH SEPTIC SHOCK SNOMED Code(s): 99707928 Comment: - Patient records reviewed. He was admitted with tachycardia, hypotension required levophed in the setting of rigth foot osteomyelitis and cellulitis - Resolved off levophed currently - Currently on cefazolin 2 gm IV Q8hrs and s/p I&D with wound culture positive for MSSA (8) DVT prophylaxis Current Visit: No Status: Acute Code(s): PGK6001 - SNOMED Code(s): 195191765 Comment: HSQ Status and Disposition: -For rehab placement, to [facility] when available
[2017-12-12] MEDS: Ondansetron INJ* 2 MG/ML VIAL IV PRN (23:13)
[2017-12-13] MEDS: ceFAZolin* 2 GM* Q8H (Duplex) IVPB SCH ×3 (04:58→20:18)
[2017-12-13 05:11] LABS: ABS Basophils 0.1 10^3/ul (0-0.2); ABS Eosinophils 0.2 10^3/ul (0-0.6); ABS Lymphocytes 0.9 10^3/ul (1.0-4.8); ABS Monocytes 0.8 10^3/ul (0-0.8); ABS Neutrophils 7.8 10^3/ul (1.5-7.7); ABS Nucleated RBC 0 10^3/ul; Eosinophil % 2.4 % (0-6); Hematocrit 26 % (42-52); Hemoglobin 8.6 g/dl (14.0-18.0); Lymphocyte % 9.1 % (25-47); Mean Corpuscular HGB Conc 34 g/dl (31-36); Mean Corpuscular Hemoglobin 31 pg (27-31); Mean Corpuscular Volume 92 fL (80-94); Mean Platelet Volume 9.3 fL (7.4-10.4); Nucleated Red Blood Cells % 0; Platelet Count 146 10^3/ul (150-450); Red Cell Distribution Width 17 % (10.5-15); White Blood Count 9.8 10^3/ul (3.5-10.8)
[2017-12-13 05:27] LABS: EGFR Non-African American 71.5 (>60)
[2017-12-13] MEDS ORDERED: Furosemide IV* 10 MG/ML VIAL (40 MG) IV ONE ×2 (07:17→16:11)
[2017-12-13] MEDS: Heparin VIAL(*) 5000 UNITS/ML VIAL (FIVE THOUSAND) SUBCUT SCH ×2 (07:57→21:07)
[2017-12-13] MEDS: Clopidogrel TAB* 75 MG PO SCH (07:58)
[2017-12-13] MEDS: Ferrous Sulfate TAB* 325 MG PO SCH ×3 (07:58→21:08)
[2017-12-13] MEDS: PANTOPRAZOLE 40 MG PO SCH (07:58)
[2017-12-13] MEDS: Isosorbide Mononitrate ER TAB* 30 MG PO SCH (07:58)
[2017-12-13] MEDS: Insulin LISPRO* 1 UNITS UNIT SUBCUT SCH ×4 (07:58→21:07)
[2017-12-13] MEDS: PARoxetine HCL TAB* 10 MG PO SCH (07:58)
[2017-12-13] MEDS: Aspirin EC TAB* 81 MG TAB.EC PO SCH (07:58)
[2017-12-13] MEDS: Senna TAB PO SCH ×2 (07:58→21:09)
[2017-12-13] MEDS: Lisinopril TAB* 10 MG PO SCH (07:58)
[2017-12-13] MEDS: Amiodarone TAB* 200 MG PO SCH (07:59)
--- NOTE | 2017-12-13 10:09 | PN ---
Progress Note - Progress Note Date of Service: 12/13/17 SOAP: Subjective: [pt denies R foot pain. No complaints.] Objective: [A and O x3 NAD. Appears comfortable resting in bed Wound vac R foot in place. Calves soft, NT. Distal NV function intact. Vital Signs: Temp Pulse Resp BP Pulse Ox 98.6 F 73 18 108/55 91 12/13/17 03:09 12/13/17 03:09 12/13/17 03:09 12/13/17 03:16 12/13/17 03:09 Laboratory Results - last 24 hr 12/12/17 12/12/17 12/12/17 12:08 16:35 20:19 WBC RBC Hgb Hct MCV MCH MCHC RDW Plt Count MPV Neut % (Auto) Lymph % (Auto) Pierce % (Auto) Eos % (Auto) Baso % (Auto) Absolute Neuts (auto) Absolute Lymphs (auto) Absolute Monos (auto) Absolute Eos (auto) Absolute Basos (auto) Absolute Nucleated RBC Nucleated RBC % Sodium Potassium Chloride Carbon Dioxide Anion Gap BUN Creatinine Est GFR ( Amer) Est GFR (Non-Af Amer) BUN/Creatinine Ratio Glucose POC Glucose (mg/dL) 204 H 335 H 352 H Calcium B-Natriuretic Peptide 12/13/17 12/13/17 12/13/17 05:00 05:00 05:00 WBC 9.8 RBC 2.80 L Hgb 8.6 L Hct 26 L MCV 92 MCH 31 MCHC 34 RDW 17 H Plt Count 146 L MPV 9.3 Neut % (Auto) 79.4 Lymph % (Auto) 9.1 L Pierce % (Auto) 8.5 H Eos % (Auto) 2.4 Baso % (Auto) 0.6 Absolute Neuts (auto) 7.8 H Absolute Lymphs (auto) 0.9 L Absolute Monos (auto) 0.8 Absolute Eos (auto) 0.2 Absolute Basos (auto) 0.1 Absolute Nucleated RBC 0 Nucleated RBC % 0 Sodium 141 Potassium 4.1 Chloride 107 Carbon Dioxide 31 Anion Gap 3 BUN 27 H Creatinine 1.04 Est GFR ( Amer) 86.5 Est GFR (Non-Af Amer) 71.5 BUN/Creatinine Ratio 26.0 H Glucose 65 L POC Glucose (mg/dL) Calcium 8.1 L B-Natriuretic Peptide 907 H 12/13/17 07:12 WBC RBC Hgb Hct MCV MCH MCHC RDW Plt Count MPV Neut % (Auto) Lymph % (Auto) Pierce % (Auto) Eos % (Auto) Baso % (Auto) Absolute Neuts (auto) Absolute Lymphs (auto) Absolute Monos (auto) Absolute Eos (auto) Absolute Basos (auto) Absolute Nucleated RBC Nucleated RBC % Sodium Potassium Chloride Carbon Dioxide Anion Gap BUN Creatinine Est GFR ( Amer) Est GFR (Non-Af Amer) BUN/Creatinine Ratio Glucose POC Glucose (mg/dL) 91 Calcium B-Natriuretic Peptide ] Assessment: [67 yo male with R dorsal foot ulceration s/p I and D on 11/26/17] Plan: [Con't wound vac. Change q 3 days, next Friday12/15/17 Con't IV abx per ID (cefazolin) Ok for D/C from ortho standpoint with con't wound vac changes as directed F/U with Dr. Kimball one week after D/C]
--- NOTE | 2017-12-13 16:17 | PN ---
Subjective Date of Service: 12/13/17 Interval History: Labs rechecked, stable. Forgetful. No complaints. Denies abdominal pain, shortness of breath, chest pain , foot pain. Eating. Family History: Findings - unable Social History: Findings - unable comes from home though Past Medical History: Unchanged from Admission Objective Active Medications: Albuterol/Ipratropium (Duoneb (Albuterol 2.5 Mg/Ipratropium 0.5 Mg)) 1 neb INH Q4H PRN PRN Reason: SOB/WHEEZING Amiodarone HCl (Cordarone Tab*) 200 mg PO DAILY [facility] Last Admin: 12/13/17 07:59 Dose: 200 mg Aspirin (Aspirin Ec Tab*) 81 mg PO DAILY [facility] Last Admin: 12/13/17 07:58 Dose: 81 mg Atorvastatin Calcium (Lipitor*) 80 mg PO QPM [facility] Last Admin: 12/12/17 18:21 Dose: 80 mg Clopidogrel Bisulfate (Plavix Tab*) 75 mg PO DAILY [facility] Last Admin: 12/13/17 07:58 Dose: 75 mg Dextrose (D50w Syringe 50 Ml*) 12.5 gm IV PUSH .FOR FS < 60 - SS PRN PRN Reason: FS < 60 Ferrous Sulfate (Ferrous Sulfate Tab*) 325 mg PO TID [facility] Last Admin: 12/13/17 13:32 Dose: 325 mg Furosemide (Lasix Tab*) 40 mg PO DAILY [facility] Furosemide (Lasix Iv*) 40 mg IV ONCE ONE Stop: 12/13/17 16:12 Heparin Sodium (Porcine) (Heparin Flush Picc/Ml/Cvc(*)) 1 - 3 ml FLUSH 0600, 1800 [facility]; Protocol Last Admin: 12/13/17 05:56 Dose: 3 ml Heparin Sodium (Porcine) (Heparin Vial(*)) 5,000 units SUBCUT Q12HR [facility] Last Admin: 12/13/17 07:57 Dose: 5,000 units Cefazolin Sodium/Dextrose (Kefzol 2 Gm Premix In Ors(*)) 2 gm in 50 mls @ 100 mls/hr IVPB Q8H [facility] Last Admin: 12/13/17 13:32 Dose: 100 mls/hr Insulin Glargine (Lantus(*)) 15 units SUBCUT BEDTIME [facility] Last Admin: 12/12/17 20:39 Dose: 15 units Insulin Human Lispro (Humalog*) 0 units SUBCUT ACHS [facility]; Protocol Last Admin: 12/13/17 11:54 Dose: 3 unit Isosorbide Mononitrate (Imdur Er Tab*) 30 mg PO DAILY [facility] Last Admin: 12/13/17 07:58 Dose: 30 mg Lisinopril (Prinivil Tab*) 10 mg PO DAILY [facility] Last Admin: 12/13/17 07:58 Dose: 10 mg Metoprolol Succinate (Toprol Xl Tab*) 50 mg PO BEDTIME [facility] Last Admin: 12/12/17 20:36 Dose: 50 mg Ondansetron HCl (Zofran Inj*) 4 mg IV Q4H PRN PRN Reason: NAUSEA Last Admin: 12/12/17 23:13 Dose: 4 mg Pantoprazole Sodium (Protonix Tab (Nf)) 40 mg PO DAILY [facility] Last Admin: 12/13/17 07:58 Dose: 40 mg Paroxetine HCl (Paxil Tab*) 20 mg PO DAILY [facility] Last Admin: 12/13/17 07:58 Dose: 20 mg Polyethylene Glycol/Electrolytes (Miralax*) 17 gm PO DAILY PRN PRN Reason: CONSTIPATION Last Admin: 12/12/17 10:00 Dose: 17 gm Senna (Senokot Tab*) 1 tab PO BID [facility] Last Admin: 12/13/17 07:58 Dose: 1 tab Vital Signs - 8 hr 12/13/17 12:06 Temperature 98.5 F Pulse Rate 70 Respiratory 16 Rate Blood Pressure 113/61 (mmHg) O2 Sat by Pulse 97 Oximetry Oxygen Devices in Use Now: Nasal Cannula Appearance: NAD, sitting in chair. Eyes: No Scleral Icterus, PERRLA Ears/Nose/Mouth/Throat: NL Teeth, Lips, Gums Neck: NL Appearance and Movements; NL JVP Respiratory: - - decreased at b/l bases. no wheezing rales or rhonchi. Cardiovascular: NL Sounds; No Murmurs; No JVD, RRR Extremities: - - trace LE edema. s/p left TMA, right dorsal wound vacc Neurological: - - oriented to name. not location. following commands. Nutrition: Taking PO's Result Diagrams: 12/13/17 05:00 12/13/17 05:00 Additional Lab and Data: Laboratory Results - last 24 hr 12/12/17 12/12/1712/13/18 16:35 20:19 05:00 WBC RBC Hgb Hct MCV MCH MCHC RDW Plt Count MPV Neut % (Auto) Lymph % (Auto) Divide % (Auto) Eos % (Auto) Baso % (Auto) Absolute Neuts (auto) Absolute Lymphs (auto) Absolute Monos (auto) Absolute Eos (auto) Absolute Basos (auto) Absolute Nucleated RBC Nucleated RBC % Sodium 141 Potassium 4.1 Chloride 107 Carbon Dioxide 31 Anion Gap 3 BUN 27 H Creatinine 1.04 Est GFR ( Amer) 86.5 Est GFR (Non-Af Amer) 71.5 BUN/Creatinine Ratio 26.0 H Glucose 65 L POC Glucose (mg/dL) 335 H 352 H Calcium 8.1 L B-Natriuretic Peptide 12/13/17 12/13/17 12/13/17 05:00 05:00 07:12 WBC 9.8 RBC 2.80 L Hgb 8.6 L Hct 26 L MCV 92 MCH 31 MCHC 34 RDW 17 H Plt Count 146 L MPV 9.3 Neut % (Auto) 79.4 Lymph % (Auto) 9.1 L Divide % (Auto) 8.5 H Eos % (Auto) 2.4 Baso % (Auto) 0.6 Absolute Neuts (auto) 7.8 H Absolute Lymphs (auto) 0.9 L Absolute Monos (auto) 0.8 Absolute Eos (auto) 0.2 Absolute Basos (auto) 0.1 Absolute Nucleated RBC 0 Nucleated RBC % 0 Sodium Potassium Chloride Carbon Dioxide Anion Gap BUN Creatinine Est GFR ( Amer) Est GFR (Non-Af Amer) BUN/Creatinine Ratio Glucose POC Glucose (mg/dL) 91 Calcium B-Natriuretic Peptide 907 H 12/13/17 11:37 WBC RBC Hgb Hct MCV MCH MCHC RDW Plt Count MPV Neut % (Auto) Lymph % (Auto) Divide % (Auto) Eos % (Auto) Baso % (Auto) Absolute Neuts (auto) Absolute Lymphs (auto) Absolute Monos (auto) Absolute Eos (auto) Absolute Basos (auto) Absolute Nucleated RBC Nucleated RBC % Sodium Potassium Chloride Carbon Dioxide Anion Gap BUN Creatinine Est GFR ( Amer) Est GFR (Non-Af Amer) BUN/Creatinine Ratio Glucose POC Glucose (mg/dL) 174 H Calcium B-Natriuretic Peptide Microbiology and Other Data: Microbiology 11/20/17 23:32 Blood Venous Aerobic Blood Culture - Final No Growth Day 5 11/20/17 23:32 Blood Venous Anaerobic Blood Culture - Final No Growth Day 5 11/20/17 23:32 Blood Venous Aerobic Blood Culture - Final No Growth Day 5 11/20/17 23:32 Blood Venous Anaerobic Blood Culture - Final No Growth Day 5 11/21/17 11:30 Foot Right Skin and Soft Tissue MRSA/MSSA (PCR - Final Mrsa Negative S.aureus Positive 11/21/17 11:30 Foot Right Gram Stain - Final 11/21/17 11:30 Foot Right Wound Culture - Final Staphylococcus Aureus 11/21/17 01:56 Urine Urine Culture - Final No Growth (<1,000 CFU/mL) 11/21/17 05:30 Nasal Nasal Screen MRSA (PCR) - Final Mrsa Not Detected 11/21/17 00:23 Stool Stool Occult Blood (CAN) - Final Assess/Plan/Problems-Billing Assessment: 67 yr old PMH IDDMT2, CAD s/p CABG, CKDIII, PVD, HTN, HLD, R BKA, L TMA presented to [place] with Afib w/ RVR and left dorsal foot ulcer. Vomited/ Aspirated needed Intubation. Septic Shock needing pressors. Troponin peaked 13 on 11/21 and LHC showed triple vessel disease. No stent, medically managed. S/p wound vac and currently cefazolin 6 week course for MSSA. Course complicated by anemia, EGD found prepyloric gastric ulcer. s/p 4u pRBC total. Hypoxic respiratory failure. Encephalopathy now improved. Planned to [place] [facility] when they have bed available. Time line of events: 11/21 Admission for diabetic foot ulcer sepsis, later vomited and aspirated and was intubated 11/22 Extubated 11/23 A. fib w/RVR + flash pulmonary edemaBiPAP 11/24 A. fib with RVR + Levophed 11/26 LHC reveals 3V disease and decision made to maximize medical therapy at this time 11/27 S/P debridement of RLE 11/28 Diuretics given 11/29Hypertensive urgency - placed on NTG gtt and ACEI 11/30I&D +wound Vac +regional nerve block 12/04/17 2 units pRBC ordered. GI consult called 12/05/17 s/p EGD Duodenal ulcer; plavix stopped, heparin decreased to bid (from tid) 12/06/17 Hct down to 21, 2 units ordered. 12/07/17 ordered to d/c bipap due to respiratory/metabolic alkalosis 12/09/17 cleared medically for discharge but awaiting [facility]. 11/10/17 overnight: additional lasix given for diaphoresis.went back on bipap until projectile vomit after morphine, 11/12/17 Plavix restarted. increased diuresis - Patient Problems (1) Anemia Current Visit: Yes Status: Acute Code(s): D64.9 - ANEMIA, UNSPECIFIED SNOMED Code(s): 185297126 Comment: - s/p EGD positive pre-pyloric gastric ulcer with evidence of recent bleed - Given his his NSTEMI I will continue ASA; restart plavix today 12/13 - PLAVIX as per GI 1-2 weeks (EGD 12/05 so between 12/12 and 12/19) - Iron 325 mg TID - PPI bid. - stool softener and miralax. - S/p transfuse 2 units pRBC 12/04/17 (2) Atrial fibrillation Current Visit: Yes Status: Acute Code(s): I48.91 - UNSPECIFIED ATRIAL FIBRILLATION SNOMED Code(s): 38936393 Comment: - Amiodarone 200 mg po daily. - Metoprol Xl 50 mg daily - EKG 12/09/17 was NSR - Follow up with with cardiology as outpatient in [place] and with Dr. Cameron as outpatient. - not on a/c in setting of recent UGIB (3) CAD (coronary artery disease) Current Visit: Yes Status: Acute Code(s): I25.10 - ATHSCL HEART DISEASE OF [place] CORONARY ARTERY W/O ANG PCTRS SNOMED Code(s): 28239526 Comment: -s/p NSTEMI with peak troponin of 13.08 on 11/21/17 and down to 3.9 on 11/23 -s/p LHC on 11/26 that revealed triple vessel disease not amneable for interventions - Cardiology recommended to continue maximal medical therapy. Will continue ASA and Plavix restarted 12/13 Continue ACEI, BB, and statins - s/p 2 units 12/04/17 and transfused 2 units 12/06/17. - Lisinopril 20 mg daily; lasix 40 mg po daily; toprol XL 50 mg daily, imdur 30 mg daily, amiodarone 200 mg daily. - He needs to follow up with with cardiology as outpatient in [place] with Dr. Cameron as outpatient. (4) CHF (congestive heart failure) Current Visit: Yes Status: Acute Code(s): I50.9 - HEART FAILURE, UNSPECIFIED SNOMED Code(s): 16744648 Comment: - Echo date 11/21/17 reviewed. EF was normal and preserved LV functions. continue lasix 40mg IV twice today and baseline 40 mg po daily repeat BNP 12/13 -> 907 similar to last week. daily weights strict ios (5) Diabetes 1.5, managed as type 2 Current Visit: Yes Status: Acute Code(s): E10.9 - TYPE 1 DIABETES MELLITUS WITHOUT COMPLICATIONS SNOMED Code(s): 972574856 Comment: SSI + reduced lantus 15U. somewhat labile (6) Non-ST elevation myocardial infarction (NSTEMI) greater than 8 weeks ago Current Visit: Yes Status: Acute Code(s): I25.2 - OLD MYOCARDIAL INFARCTION SNOMED Code(s): 531134202 (7) Septic shock Current Visit: Yes Status: Resolved Code(s): A41.9 - SEPSIS, UNSPECIFIED ORGANISM; R65.21 - SEVERE SEPSIS WITH SEPTIC SHOCK SNOMED Code(s): 10783770 Comment: - Patient records reviewed. He was admitted with tachycardia, hypotension required levophed in the setting of rigth foot osteomyelitis and cellulitis - Resolved off levophed currently - Currently on cefazolin 2 gm IV Q8hrs and s/p I&D with wound culture positive for MSSA day on 12/13 (8) DVT prophylaxis Current Visit: No Status: Acute Code(s): GBA6842 - SNOMED Code(s): 641771670 Comment: HSQ Status and Disposition: -For rehab placement, to [facility] when available Attending: Bridger Emery
[2017-12-13] MEDS: Atorvastatin* 80 MG TAB PO SCH (17:06)
[2017-12-13] MEDS: Insulin GLARGINE(*) 1 UNITS UNIT SUBCUT SCH (21:07)
[2017-12-13] MEDS: Metoprolol Succinate XL TAB* 50 MG PO SCH (21:12)
[2017-12-14] MEDS: ceFAZolin* 2 GM* Q8H (Duplex) IVPB SCH ×3 (05:25→20:49)
[2017-12-14] MEDS ORDERED: Furosemide IV* 10 MG/ML 10 ML VIAL (100 MG) IV ONE ×3 (07:40→15:00)
[2017-12-14 08:18] LABS: ABS Basophils 0 10^3/ul (0-0.2); ABS Eosinophils 0.3 10^3/ul (0-0.6); ABS Lymphocytes 1.2 10^3/ul (1.0-4.8); ABS Monocytes 0.8 10^3/ul (0-0.8); ABS Neutrophils 10.1 10^3/ul (1.5-7.7); ABS Nucleated RBC 0 10^3/ul; Eosinophil % 2.7 % (0-6); Hematocrit 33 % (42-52); Hemoglobin 10.6 g/dl (14.0-18.0); Lymphocyte % 9.7 % (25-47); Mean Corpuscular HGB Conc 32 g/dl (31-36); Mean Corpuscular Hemoglobin 30 pg (27-31); Mean Corpuscular Volume 94 fL (80-94); Nucleated Red Blood Cells % 0; Platelet Count 220 10^3/ul (150-450); Red Blood Count 3.56 10^6/ul (4.00-5.40); Red Cell Distribution Width 17 % (10.5-15); White Blood Count 12.5 10^3/ul (3.5-10.8)
[2017-12-14] MEDS ORDERED: Furosemide TAB* 20 MG PO SCH (09:00)
[2017-12-14] MEDS: Senna TAB PO SCH ×2 (09:27→20:44)
[2017-12-14] MEDS: Isosorbide Mononitrate ER TAB* 30 MG PO SCH (09:27)
[2017-12-14] MEDS: Amiodarone TAB* 200 MG PO SCH (09:27)
[2017-12-14] MEDS: PARoxetine HCL TAB* 10 MG PO SCH (09:27)
[2017-12-14] MEDS: Clopidogrel TAB* 75 MG PO SCH (09:27)
[2017-12-14] MEDS: PANTOPRAZOLE 40 MG PO SCH (09:27)
[2017-12-14] MEDS: Lisinopril TAB* 10 MG PO SCH (09:27)
[2017-12-14] MEDS: Insulin LISPRO* 1 UNITS UNIT SUBCUT SCH ×4 (09:28→20:44)
[2017-12-14] MEDS: Ferrous Sulfate TAB* 325 MG PO SCH ×3 (09:28→20:45)
[2017-12-14] MEDS: Heparin VIAL(*) 5000 UNITS/ML VIAL (FIVE THOUSAND) SUBCUT SCH ×2 (09:28→20:58)
[2017-12-14] MEDS: Aspirin EC TAB* 81 MG TAB.EC PO SCH (09:28)
--- NOTE | 2017-12-14 09:45 | RAD ---
INDICATION: Hypoxia COMPARISON: Most recent comparison chest x-rays dated December 07, 2017 TECHNIQUE: Single AP portable view of the chest was obtained. FINDINGS: Image quality is compromised due to the relative inferiority of a portable chest x-ray. The patient is status post a cardiac monitoring device overlying the right lateral chest. The heart and mediastinum exhibit normal size and contour. There are patchy densities overlying the bilateral lungs as well as density obscuring the left hemidiaphragm. The degree of aeration is slightly worse when compared to the November 29, 2017 chest x-ray. Visualized bones are normal for the patient's age. IMPRESSION: Chest x-ray findings are consistent with pulmonary edema likely with a left lung base pleural effusion, slightly worse when compared to the December 07, 2017 chest x-ray.
--- NOTE | 2017-12-14 16:30 | PN ---
Subjective Date of Service: 12/14/17 Interval History: Pt was found by RN to be 77%-80% on 2L this AM, Tachycardic, restless tachypenic. Increased O2 to 10L via oxymask, O2 sat up to 90%. Coarse BS, patient a bit more confused and axious than usual. 80IV lasix ordered. C CXR with vascular congestion. EKG very noisy, troponins 0.18 down from 3.9 on 11/23. CBC seems hemo-concentrated, no e/o acute anemia. Patient much more comfortable appearing in mid afternoon. Denies chest pains. Family History: Findings - unable Social History: Findings - unable comes from home though Past Medical History: Unchanged from Admission Objective Active Medications: Albuterol/Ipratropium (Duoneb (Albuterol 2.5 Mg/Ipratropium 0.5 Mg)) 1 neb INH Q4H PRN PRN Reason: SOB/WHEEZING Amiodarone HCl (Cordarone Tab*) 200 mg PO DAILY [facility] Last Admin: 12/14/17 09:27 Dose: 200 mg Aspirin (Aspirin Ec Tab*) 81 mg PO DAILY [facility] Last Admin: 12/14/17 09:28 Dose: 81 mg Atorvastatin Calcium (Lipitor*) 80 mg PO QPM [facility] Last Admin: 12/13/17 17:06 Dose: 80 mg Clopidogrel Bisulfate (Plavix Tab*) 75 mg PO DAILY [facility] Last Admin: 12/14/17 09:27 Dose: 75 mg Dextrose (D50w Syringe 50 Ml*) 12.5 gm IV PUSH .FOR FS < 60 - SS PRN PRN Reason: FS < 60 Ferrous Sulfate (Ferrous Sulfate Tab*) 325 mg PO TID [facility] Last Admin: 12/14/17 13:21 Dose: 325 mg Heparin Sodium (Porcine) (Heparin Flush Picc/Ml/Cvc(*)) 1 - 3 ml FLUSH 0600, 1800 [facility]; Protocol Last Admin: 12/14/17 14:20 Dose: 1 ml Heparin Sodium (Porcine) (Heparin Vial(*)) 5,000 units SUBCUT Q12HR [facility] Last Admin: 12/14/17 09:28 Dose: 5,000 units Cefazolin Sodium/Dextrose (Kefzol 2 Gm Premix In Ors(*)) 2 gm in 50 mls @ 100 mls/hr IVPB Q8H [facility] Last Admin: 12/14/17 13:21 Dose: 100 mls/hr Insulin Glargine (Lantus(*)) 15 units SUBCUT BEDTIME [facility] Last Admin: 12/13/17 21:07 Dose: 15 units Insulin Human Lispro (Humalog*) 0 units SUBCUT ACHS [facility]; Protocol Last Admin: 12/14/17 13:21 Dose: 3 unit Isosorbide Mononitrate (Imdur Er Tab*) 30 mg PO DAILY [facility] Last Admin: 12/14/17 09:27 Dose: 30 mg Lisinopril (Prinivil Tab*) 10 mg PO DAILY [facility] Last Admin: 12/14/17 09:27 Dose: 10 mg Metoprolol Succinate (Toprol Xl Tab*) 50 mg PO BEDTIME [facility] Last Admin: 12/13/17 21:12 Dose: Not Given Ondansetron HCl (Zofran Inj*) 4 mg IV Q4H PRN PRN Reason: NAUSEA Last Admin: 12/12/17 23:13 Dose: 4 mg Pantoprazole Sodium (Protonix Tab (Nf)) 40 mg PO DAILY [facility] Last Admin: 12/14/17 09:27 Dose: 40 mg Paroxetine HCl (Paxil Tab*) 20 mg PO DAILY [facility] Last Admin: 12/14/17 09:27 Dose: 20 mg Polyethylene Glycol/Electrolytes (Miralax*) 17 gm PO DAILY PRN PRN Reason: CONSTIPATION Last Admin: 12/12/17 10:00 Dose: 17 gm Senna (Senokot Tab*) 1 tab PO BID [facility] Last Admin: 12/14/17 09:27 Dose: 1 tab Vital Signs - 8 hr 12/14/17 12/14/17 12/14/17 10:21 11:59 15:55 Temperature 97.9 F 98.4 F Pulse Rate 87 81 Respiratory 34 18 18 Rate Blood Pressure 107/66 117/64 (mmHg) O2 Sat by Pulse 100 100 Oximetry Oxygen Devices in Use Now: OxyMask Appearance: anxious initially, NAD later. Eyes: No Scleral Icterus Ears/Nose/Mouth/Throat: NL Teeth, Lips, Gums Respiratory: - - coarse BS with some rales b/l bases Cardiovascular: - - tachycardic regular, later RRR no m/r/g Abdominal: NL Sounds; No Tenderness; No Distention, No Hepatosplenomegaly Extremities: - - 1+ edema b/l LE Skin: - - right dorsal wound vacc Neurological: - - knows his name. thinks he is in the hospital but not sure how he got here. Result Diagrams: 12/14/17 07:55 12/14/17 07:55 Additional Lab and Data: Laboratory Results - last 24 hr 12/13/17 12/14/17 12/14/17 21:00 07:55 07:55 WBC 12.5 H RBC 3.56 L Hgb 10.6 L Hct 33 L MCV 94 MCH 30 MCHC 32 RDW 17 H Plt Count 220 MPV 10.0 Neut % (Auto) 80.8 Lymph % (Auto) 9.7 L [place] % (Auto) 6.4 Eos % (Auto) 2.7 Baso % (Auto) 0.4 Absolute Neuts (auto) 10.1 H Absolute Lymphs (auto) 1.2 Absolute Monos (auto) 0.8 Absolute Eos (auto) 0.3 Absolute Basos (auto) 0 Absolute Nucleated RBC 0 Nucleated RBC % 0 Sodium 141 Potassium 4.2 Chloride 104 Carbon Dioxide 30 Anion Gap 7 BUN 28 H Creatinine 1.21 H Est GFR ( Amer) 72.6 Est GFR (Non-Af Amer) 60.0 BUN/Creatinine Ratio 23.1 H Glucose 291 H POC Glucose (mg/dL) 305 H Calcium 8.5 L Magnesium 2.0 Total Bilirubin 0.60 AST 23 ALT 3 L Alkaline Phosphatase 116 H Troponin I 0.18 H* Total Protein 6.5 Albumin 3.1 L Globulin 3.4 Albumin/Globulin Ratio 0.9 L 12/14/17 12/14/17 08:18 12:13 WBC RBC Hgb Hct MCV MCH MCHC RDW Plt Count MPV Neut % (Auto) Lymph % (Auto) [place] % (Auto) Eos % (Auto) Baso % (Auto) Absolute Neuts (auto) Absolute Lymphs (auto) Absolute Monos (auto) Absolute Eos (auto) Absolute Basos (auto) Absolute Nucleated RBC Nucleated RBC % Sodium Potassium Chloride Carbon Dioxide Anion Gap BUN Creatinine Est GFR ( Amer) Est GFR (Non-Af Amer) BUN/Creatinine Ratio Glucose POC Glucose (mg/dL) 300 H 192 H Calcium Magnesium Total Bilirubin AST ALT Alkaline Phosphatase Troponin I Total Protein Albumin Globulin Albumin/Globulin Ratio Microbiology and Other Data: Microbiology 11/20/17 23:32 Blood Venous Aerobic Blood Culture - Final No Growth Day 5 11/20/17 23:32 Blood Venous Anaerobic Blood Culture - Final No Growth Day 5 11/20/17 23:32 Blood Venous Aerobic Blood Culture - Final No Growth Day 5 11/20/17 23:32 Blood Venous Anaerobic Blood Culture - Final No Growth Day 5 11/21/17 11:30 Foot Right Skin and Soft Tissue MRSA/MSSA (PCR - Final Mrsa Negative S.aureus Positive 11/21/17 11:30 Foot Right Gram Stain - Final 11/21/17 11:30 Foot Right Wound Culture - Final Staphylococcus Aureus 11/21/17 01:56 Urine Urine Culture - Final No Growth (<1,000 CFU/mL) 11/21/17 05:30 Nasal Nasal Screen MRSA (PCR) - Final Mrsa Not Detected 11/21/17 00:23 Stool Stool Occult Blood (CAN) - Final EKG Data: . Assess/Plan/Problems-Billing Assessment: 67 yr old PMH IDDMT2, CAD s/p CABG, CKDIII, PVD, HTN, HLD, R BKA, L TMA presented to [place] with Afib w/ RVR and left dorsal foot ulcer. Vomited/ Aspirated needed Intubation. Septic Shock needing pressors. Troponin peaked 13 on 11/21 and LHC showed triple vessel disease. No stent, medically managed. S/p wound vac and currently cefazolin 6 week course for MSSA. Course complicated by anemia, EGD found prepyloric gastric ulcer. s/p 4u pRBC total. Hypoxic respiratory failure. Encephalopathy now improved. Planned to [facility] when they have bed available. Time line of events: 11/21 Admission for diabetic foot ulcer sepsis, later vomited and aspirated and was intubated 11/22 Extubated 11/23 A. fib w/RVR + flash pulmonary edemaBiPAP 11/24 A. fib with RVR + Levophed 11/26 LHC reveals 3V disease and decision made to maximize medical therapy at this time 11/27 S/P debridement of RLE 11/28 Diuretics given 11/29Hypertensive urgency - placed on NTG gtt and ACEI 11/30I&D +wound Vac +regional nerve block 12/04/17 2 units pRBC ordered. GI consult called 12/05/17 s/p EGD Duodenal ulcer; plavix stopped, heparin decreased to bid (from tid) 12/06/17 Hct down to 21, 2 units ordered. 12/07/17 ordered to d/c bipap due to respiratory/metabolic alkalosis 12/09/17 cleared medically for discharge but awaiting [facility]. 11/10/17 overnight: additional lasix given for diaphoresis.went back on bipap until projectile vomit after morphine, 11/12/17 Plavix restarted. increased diuresis 11/13/17 CHF worsened, increased diuresis. Current Day of cefazolin. - Patient Problems (1) CHF (congestive heart failure) Current Visit: Yes Status: Acute Code(s): I50.9 - HEART FAILURE, UNSPECIFIED SNOMED Code(s): 95164748 Comment: Increased from lasix 40mg IV BID to 80IV BID after respiratory distress. CXR with pulmonary edema still. Had Echo on 11/21/17: EF was normal and preserved LV functions. no consistent e/ o diastolic dysfunction. repeat BNP 12/13 -> 907 similar to last week. daily weights. Unlikely that admission weight was accurate as jumped 11.4 kg by hospital day number #2. strict ios (2) Anemia Current Visit: Yes Status: Acute Code(s): D64.9 - ANEMIA, UNSPECIFIED SNOMED Code(s): 888886204 Comment: - s/p EGD positive pre-pyloric gastric ulcer with evidence of recent bleed - Given his his NSTEMI I will continue ASA; restart plavix today 12/13 - PLAVIX as per GI 1-2 weeks (EGD 12/05 so between 12/12 and 12/19) - Iron 325 mg TID - PPI bid. - stool softener and miralax. - S/p transfuse 2 units pRBC 12/04/17 (3) Atrial fibrillation Current Visit: Yes Status: Acute Code(s): I48.91 - UNSPECIFIED ATRIAL FIBRILLATION SNOMED Code(s): 46864193 Comment: - Amiodarone 200 mg po daily. - Metoprol Xl 50 mg daily - EKG 12/09/17 was NSR. also 12/14 - Follow up with with cardiology as outpatient in [place] and with Dr. Cameron as outpatient. - not on a/c in setting of recent UGIB (4) CAD (coronary artery disease) Current Visit: Yes Status: Acute Code(s): I25.10 - ATHSCL HEART DISEASE OF [place] CORONARY ARTERY W/O ANG PCTRS SNOMED Code(s): 06463985 Comment: -s/p NSTEMI with peak troponin of 13.08 on 11/21/17 and down to 3.9 on 11/23 -s/p LHC on 11/26 that revealed triple vessel disease not amneable for interventions - Cardiology recommended to continue maximal medical therapy. Will continue ASA and Plavix restarted 12/13 Continue ACEI, BB, and statins - s/p 2 units 12/04/17 and transfused 2 units 12/06/17. - Lisinopril 20 mg daily; lasix 40 mg po daily; toprol XL 50 mg daily, imdur 30 mg daily, amiodarone 200 mg daily. - He needs to follow up with with cardiology as outpatient in [place] with Dr. Cameron as outpatient. (5) Diabetes 1.5, managed as type 2 Current Visit: Yes Status: Acute Code(s): E10.9 - TYPE 1 DIABETES MELLITUS WITHOUT COMPLICATIONS SNOMED Code(s): 194309241 Comment: SSI + will increase back to lantus 20U from 15U. somewhat labile (6) Non-ST elevation myocardial infarction (NSTEMI) greater than 8 weeks ago Current Visit: Yes Status: Acute Code(s): I25.2 - OLD MYOCARDIAL INFARCTION SNOMED Code(s): 953377378 (7) Septic shock Current Visit: Yes Status: Resolved Code(s): A41.9 - SEPSIS, UNSPECIFIED ORGANISM; R65.21 - SEVERE SEPSIS WITH SEPTIC SHOCK SNOMED Code(s): 47697255 Comment: - Patient records reviewed. He was admitted with tachycardia, hypotension required levophed in the setting of rigth foot osteomyelitis and cellulitis - Resolved off levophed currently - Currently on cefazolin 2 gm IV Q8hrs and s/p I&D with wound culture positive for MSSA day on 12/14 (8) DVT prophylaxis Current Visit: No Status: Acute Code(s): QMK0521 - SNOMED Code(s): 465616731 Comment: HSQ Status and Disposition: -For rehab placement, to [place] [facility] when available but diuresing in meantime.
[2017-12-14] MEDS: Insulin GLARGINE(*) 1 UNITS UNIT SUBCUT SCH (20:45)
[2017-12-14] MEDS: Metoprolol Succinate XL TAB* 50 MG PO SCH (20:45)
[2017-12-14] MEDS: Atorvastatin* 80 MG TAB PO SCH (20:49)
[2017-12-15] MEDS: ceFAZolin* 2 GM* Q8H (Duplex) IVPB SCH ×3 (05:04→20:34)
[2017-12-15] MEDS: Heparin VIAL(*) 5000 UNITS/ML VIAL (FIVE THOUSAND) SUBCUT SCH ×2 (08:30→22:01)
[2017-12-15] MEDS: Insulin LISPRO* 1 UNITS UNIT SUBCUT SCH ×5 (08:30→21:23)
[2017-12-15] MEDS: Clopidogrel TAB* 75 MG PO SCH (08:30)
[2017-12-15] MEDS: Isosorbide Mononitrate ER TAB* 30 MG PO SCH (08:30)
[2017-12-15] MEDS: Amiodarone TAB* 200 MG PO SCH (08:31)
[2017-12-15] MEDS: PANTOPRAZOLE 40 MG PO SCH (08:31)
[2017-12-15] MEDS: PARoxetine HCL TAB* 10 MG PO SCH (08:31)
[2017-12-15] MEDS: Lisinopril TAB* 10 MG PO SCH (08:31)
[2017-12-15] MEDS: Senna TAB PO SCH ×2 (08:31→21:58)
[2017-12-15] MEDS: Aspirin EC TAB* 81 MG TAB.EC PO SCH (08:31)
[2017-12-15] MEDS: Ferrous Sulfate TAB* 325 MG PO SCH ×3 (08:31→21:58)
[2017-12-15 10:05] LABS: ABS Basophils 0 10^3/ul (0-0.2); ABS Eosinophils 0.2 10^3/ul (0-0.6); ABS Lymphocytes 0.7 10^3/ul (1.0-4.8); ABS Monocytes 0.5 10^3/ul (0-0.8); ABS Neutrophils 5.9 10^3/ul (1.5-7.7); ABS Nucleated RBC 0 10^3/ul; Eosinophil % 3.1 % (0-6); Hematocrit 29 % (42-52); Hemoglobin 9.5 g/dl (14.0-18.0); Mean Corpuscular HGB Conc 33 g/dl (31-36); Mean Corpuscular Hemoglobin 31 pg (27-31); Mean Corpuscular Volume 92 fL (80-94); Mean Platelet Volume 9.6 fL (7.4-10.4); Nucleated Red Blood Cells % 0; Platelet Count 166 10^3/ul (150-450); Red Cell Distribution Width 17 % (10.5-15); White Blood Count 7.3 10^3/ul (3.5-10.8)
[2017-12-15 10:23] LABS: EGFR Non-African American 57.8 (>60)
--- NOTE | 2017-12-15 11:28 | PN ---
Subjective Date of Service: 12/15/17 Interval History: Sitting up in chair. Alert. Oriented to self, place, and situation. Although he is talking at length about previously walking on the [place] and working with [employer]. Denies cp, sob, nausea, vomiting, and cough. Denies pain in extremities. Reports he feels well and appears comfortable. Supplemental O2 in place at 8L and O2 sat this morning 94%. Now that patient is up in chair the plan is to encourage incentive spirometer and wean o2 as patient tolerates. Wound vac in place to right le. Family History: Findings - unable Social History: Findings - unable comes from home though Past Medical History: Unchanged from Admission Objective Active Medications: Albuterol/Ipratropium (Duoneb (Albuterol 2.5 Mg/Ipratropium 0.5 Mg)) 1 neb INH Q4H PRN PRN Reason: SOB/WHEEZING Amiodarone HCl (Cordarone Tab*) 200 mg PO DAILY [facility] Last Admin: 12/15/17 08:31 Dose: 200 mg Aspirin (Aspirin Ec Tab*) 81 mg PO DAILY [facility] [place] Last Admin: 12/15/17 08:31 Dose: 81 mg Atorvastatin Calcium (Lipitor*) 80 mg PO QPM [facility] [place] Last Admin: 12/14/17 20:49 Dose: 80 mg Clopidogrel Bisulfate (Plavix Tab*) 75 mg PO DAILY [facility] [place] Last Admin: 12/15/17 08:30 Dose: 75 mg Dextrose (D50w Syringe 50 Ml*) 12.5 gm IV PUSH .FOR FS < 60 - SS PRN PRN Reason: FS < 60 Ferrous Sulfate (Ferrous Sulfate Tab*) 325 mg PO TID [facility] [place] Last Admin: 12/15/17 08:31 Dose: 325 mg Furosemide (Lasix Iv*) 60 mg IV 0800,1700 [facility] [place] Heparin Sodium (Porcine) (Heparin Flush Picc/Ml/Cvc(*)) 1 - 3 ml FLUSH 0600, 1800 [facility] [place]; Protocol Last Admin: 12/15/17 05:04 Dose: 3 ml Heparin Sodium (Porcine) (Heparin Vial(*)) 5,000 units SUBCUT Q12HR [facility] [place] Last Admin: 12/15/17 08:30 Dose: 5,000 units Cefazolin Sodium/Dextrose (Kefzol 2 Gm Premix In Ors(*)) 2 gm in 50 mls @ 100 mls/hr IVPB Q8H [facility] [place] Last Admin: 12/15/17 05:04 Dose: 100 mls/hr Insulin Glargine (Lantus(*)) 20 units SUBCUT BEDTIME [facility] [place] Last Admin: 12/14/17 20:45 Dose: 20 units Insulin Human Lispro (Humalog*) 0 units SUBCUT ACHS [facility] [place]; Protocol Last Admin: 12/15/17 08:33 Dose: 6 unit Isosorbide Mononitrate (Imdur Er Tab*) 30 mg PO DAILY [facility] [place] Last Admin: 12/15/17 08:30 Dose: 30 mg Lisinopril (Prinivil Tab*) 10 mg PO DAILY [facility] [place] Last Admin: 12/15/17 08:31 Dose: 10 mg Metoprolol Succinate (Toprol Xl Tab*) 50 mg PO BEDTIME [facility] [place] Last Admin: 12/14/17 20:45 Dose: 50 mg Ondansetron HCl (Zofran Inj*) 4 mg IV Q4H PRN PRN Reason: NAUSEA Last Admin: 12/12/17 23:13 Dose: 4 mg Pantoprazole Sodium (Protonix Tab (Nf)) 40 mg PO DAILY [facility] [place] Last Admin: 12/15/17 08:31 Dose: 40 mg Paroxetine HCl (Paxil Tab*) 20 mg PO DAILY [facility] [place] Last Admin: 12/15/17 08:31 Dose: 20 mg Polyethylene Glycol/Electrolytes (Miralax*) 17 gm PO DAILY PRN PRN Reason: CONSTIPATION Last Admin: 12/12/17 10:00 Dose: 17 gm Senna (Senokot Tab*) 1 tab PO BID [facility] [place] Last Admin: 12/15/17 08:31 Dose: 1 tab Vital Signs - 8 hr 12/15/17 12/15/17 08:17 08:39 Temperature 98.1 F Pulse Rate 73 Respiratory 18 18 Rate Blood Pressure 98/54 (mmHg) O2 Sat by Pulse 94 Oximetry Oxygen Devices in Use Now: Nasal Cannula, OxyMask Appearance: Well appearing. Ears/Nose/Mouth/Throat: Clear Oropharnyx, Mucous Membranes Moist Neck: NL Appearance and Movements; NL JVP Respiratory: Symmetrical Chest Expansion and Respiratory Effort, Clear to Auscultation Cardiovascular: NL Sounds; No Murmurs; No JVD, No Edema Abdominal: NL Sounds; No Tenderness; No Distention Extremities: No Edema Neurological: - - Alert. Oriented x3. Nutrition: Taking PO's Result Diagrams: 12/15/17 09:53 12/15/17 09:53 Additional Lab and Data: Laboratory Results - last 24 hr 12/14/17 12/14/17 12/14/17 12:13 17:13 20:18 WBC RBC Hgb Hct MCV MCH MCHC RDW Plt Count MPV Neut % (Auto) Lymph % (Auto) [place] % (Auto) Eos % (Auto) Baso % (Auto) Absolute Neuts (auto) Absolute Lymphs (auto) Absolute Monos (auto) Absolute Eos (auto) Absolute Basos (auto) Absolute Nucleated RBC Nucleated RBC % Sodium Potassium Chloride Carbon Dioxide Anion Gap BUN Creatinine Est GFR ( Amer) Est GFR (Non-Af Amer) BUN/Creatinine Ratio Glucose POC Glucose (mg/dL) 192 H 125 H 140 H Calcium 12/15/17 12/15/17 12/15/17 08:14 09:53 09:53 WBC 7.3 RBC 3.10 L Hgb 9.5 L Hct 29 L MCV 92 MCH 31 MCHC 33 RDW 17 H Plt Count 166 MPV 9.6 Neut % (Auto) 80.3 Lymph % (Auto) 9.0 L [place] % (Auto) 7.1 H Eos % (Auto) 3.1 Baso % (Auto) 0.5 Absolute Neuts (auto) 5.9 Absolute Lymphs (auto) 0.7 L Absolute Monos (auto) 0.5 Absolute Eos (auto) 0.2 Absolute Basos (auto) 0 Absolute Nucleated RBC 0 Nucleated RBC % 0 Sodium 141 Potassium 4.0 Chloride 102 Carbon Dioxide 35 H Anion Gap 4 BUN 29 H Creatinine 1.25 H Est GFR ( Amer) 69.9 Est GFR (Non-Af Amer) 57.8 BUN/Creatinine Ratio 23.2 H Glucose 222 H POC Glucose (mg/dL) 215 H Calcium 8.5 L Microbiology and Other Data: Microbiology 11/20/17 23:32 Blood Venous Aerobic Blood Culture - Final No Growth Day 5 11/20/17 23:32 Blood Venous Anaerobic Blood Culture - Final No Growth Day 5 11/20/17 23:32 Blood Venous Aerobic Blood Culture - Final No Growth Day 5 11/20/17 23:32 Blood Venous Anaerobic Blood Culture - Final No Growth Day 5 11/21/17 11:30 Foot Right Skin and Soft Tissue MRSA/MSSA (PCR - Final Mrsa Negative S.aureus Positive 11/21/17 11:30 Foot Right Gram Stain - Final 11/21/17 11:30 Foot Right Wound Culture - Final Staphylococcus Aureus 11/21/17 01:56 Urine Urine Culture - Final No Growth (<1,000 CFU/mL) 11/21/17 05:30 Nasal Nasal Screen MRSA (PCR) - Final Mrsa Not Detected 11/21/17 00:23 Stool Stool Occult Blood (CAN) - Final EKG Data: . Assess/Plan/Problems-Billing Assessment: 67 yr old PMH IDDMT2, CAD s/p CABG, CKDIII, PVD, HTN, HLD, R BKA, L TMA presented to [place] with Afib w/ RVR and left dorsal foot ulcer. Vomited/ Aspirated needed Intubation. Septic Shock needing pressors. Troponin peaked 13 on 11/21 and LHC showed triple vessel disease. No stent, medically managed. S/p wound vac and currently cefazolin 6 week course for MSSA. Course complicated by anemia, EGD found prepyloric gastric ulcer. s/p 4u pRBC total. Hypoxic respiratory failure. Encephalopathy now improved. Planned to [facility] when they have bed available. Time line of events: 11/21 Admission for diabetic foot ulcer sepsis, later vomited and aspirated and was intubated 11/22 Extubated 11/23 A. fib w/RVR + flash pulmonary edemaBiPAP 11/24 A. fib with RVR + Levophed 11/26 LHC reveals 3V disease and decision made to maximize medical therapy at this time 11/27 S/P debridement of RLE 11/28 Diuretics given 11/29Hypertensive urgency - placed on NTG gtt and ACEI 11/30I&D +wound Vac +regional nerve block 12/04/17 2 units pRBC ordered. GI consult called 12/05/17 s/p EGD Duodenal ulcer; plavix stopped, heparin decreased to bid (from tid) 12/06/17 Hct down to 21, 2 units ordered. 12/07/17 ordered to d/c bipap due to respiratory/metabolic alkalosis 12/09/17 cleared medically for discharge but awaiting [facility] Bed. 11/10/17 overnight: additional lasix given for diaphoresis.went back on bipap until projectile vomit after morphine, 12/13/17 Plavix restarted. increased diuresis 12/14/17 CHF worsened, increased diuresis. Current Day of cefazolin. - Patient Problems (1) Anemia Comment: - s/p EGD positive pre-pyloric gastric ulcer with evidence of recent bleed - NSTEMI. - On ASA and Plavix (which was restarted 12/13 per GI 1-2 wks after EGD on 12/05) . - Iron 325 mg TID - PPI. - stool softener and miralax. - S/p transfuse 2 units pRBC 12/04/17 (2) Atrial fibrillation Comment: - Amiodarone 200 mg po daily. - Metoprol Xl 50 mg daily - EKG 12/09/17 and 12/14 was NSR. - Follow up with with cardiology as outpatient in [place] and with Dr. Cameron as outpatient. - not on a/c in setting of recent UGIB (3) CAD (coronary artery disease) Comment: -s/p NSTEMI with peak troponin of 13.08 on 11/21/17 and down to 3.9 on 11/23 and 0.18 on 12/14. -s/p LHC on 11/26 that revealed triple vessel disease not amneable for interventions - Cardiology recommended to continue maximal medical therapy. Will continue ASA and Plavix restarted 12/13 Continue ACEI, BB, and statins - s/p 2 units 12/04/17 and transfused 2 units 12/06/17. - Lisinopril 10 mg daily; toprol XL 50 mg daily, imdur 30 mg daily, amiodarone 200 mg daily. - Was on Lasix PO. Currently On LAsix IV. Will resume PO prior to discharge - He needs to follow up with with cardiology as outpatient in [place] with Dr. Cameron as outpatient. (4) CHF (congestive heart failure) Comment: - Received Lasix 80IV BID after respiratory distress and CXR with pulmonary edema. - Will receive 60 mg IV Lasix once today and then BID tomorrow. - Had Echo on 11/21/17: EF was normal and preserved LV functions. no consistent e/o diastolic dysfunction. repeat BNP 12/13 -> 907 similar to last week. daily weights. Unlikely that admission weight was accurate as jumped 11.4 kg by hospital day number #2. strict ios (5) Diabetes 1.5, managed as type 2 Comment: - SSI - Lantus 20U - BG >200 today (6) Septic shock Comment: - Patient records reviewed. He was admitted with tachycardia, hypotension required levophed in the setting of rigth foot osteomyelitis and cellulitis - Resolved off levophed currently - Currently on cefazolin 2 gm IV Q8hrs and s/p I&D with wound culture positive for MSSA day on 12/15 (7) DVT prophylaxis Comment: HSQ Status and Disposition: - Rehab [facility] bed when medically stable Attending: Jordan Flower
--- NOTE | 2017-12-15 11:58 | PN ---
Progress Note - Progress Note Date of Service: 12/15/17 SOAP: Subjective: [] Patient seen and examined OOB in chair. He is very gracious for his care and has no complaints. Denies CP, SOB, chills, foot pain. Objective: [] General: Well appearing, NAD. RLE: Right foot Wound vac was changed. Wound now dime sized, roughly 40% of orginal wound healed over with granulation tissue. EHL still exposed. No purulence. No maceration or erythema surrounding wound. Sutures removed. Wound vac hooked backup, good suction achieved. Sensation intact to light touch distally. Able to flex and extend at MTPs and ankle. DP2+ Assessment: 67 yo male s/p I&D right foot Plan: Next vac change 12/17, Q 3 days. Okay for discharge from orthopedic standpoint. Discharge per medicine when ready Heel weight bearing RLE with darco shoe If vac falls off while at SNF please do saline wet to dry dressings and call wound care or orthopedic office for instruction. If healthcare worker with wound vac experience is present at facility at time of disfunction please place a new vac with a black sponge and suction set to 125, resuming Q 3 day changes thereafter. Follow up with Dr Kimball in 2 weeks. Please make this appt for same day as scheduled wound care visit. Ortho appt should be earlier in the day than scheduled wound care clinic visit.
[2017-12-15] MEDS: Furosemide IV* 10 MG/ML 10 ML VIAL (100 MG) IV SCH (16:02)
[2017-12-15] MEDS: Atorvastatin* 80 MG TAB PO SCH (16:03)
[2017-12-15] MEDS: Metoprolol Succinate XL TAB* 50 MG PO SCH (21:58)
[2017-12-15] MEDS: Insulin GLARGINE(*) 1 UNITS UNIT SUBCUT SCH (22:00)
[2017-12-16] MEDS ORDERED: Ketorolac INJ* 30 MG/ML 1 ML VIAL IV ONE (05:30)
[2017-12-16] MEDS: ceFAZolin* 2 GM* Q8H (Duplex) IVPB SCH ×4 (06:00→22:05)
[2017-12-16 07:49] LABS: ABS Basophils 0 10^3/ul (0-0.2); ABS Eosinophils 0.3 10^3/ul (0-0.6); ABS Monocytes 0.7 10^3/ul (0-0.8); ABS Neutrophils 5.6 10^3/ul (1.5-7.7); ABS Nucleated RBC 0 10^3/ul; Eosinophil % 3.6 % (0-6); Hematocrit 28 % (42-52); Hemoglobin 9.4 g/dl (14.0-18.0); Lymphocyte % 13.3 % (25-47); Mean Corpuscular HGB Conc 33 g/dl (31-36); Mean Corpuscular Hemoglobin 31 pg (27-31); Mean Corpuscular Volume 92 fL (80-94); Mean Platelet Volume 10.1 fL (7.4-10.4); Nucleated Red Blood Cells % 0; Platelet Count 137 10^3/ul (150-450); Red Blood Count 3.08 10^6/ul (4.00-5.40); Red Cell Distribution Width 17 % (10.5-15); White Blood Count 7.6 10^3/ul (3.5-10.8)
[2017-12-16 07:52] LABS: EGFR Non-African American 66.3 (>60)
--- NOTE | 2017-12-16 08:24 | PN ---
Subjective Date of Service: 12/16/17 Interval History: Reviewed vital signsthis morning and it was noted patient's O2 sat was 82% on RA. 1.5L applied and O2 sat increased to 95%. Patient resting in bed this morning Cooperative and NAD. Alert. Oriented to self only. Denies cp, sob, cough, le pain. 12 ROS completed and all negative. Personal alarm, wound vac, and supplemental O2 in place. Call received all from RN at approx 1220 that patient was complaining he could not get breath in. O2 sat 98% on 4 L, resp at bedside administering neb. Tachypenic. Remainder of vital signs stable. Patient denies other symptoms including chest pain, palpitations, cough. Additional dose of Lasix ordered. Patient currently sitting at side of bed eating lunch. Family History: Findings - unable Social History: Findings - unable comes from home though Past Medical History: Unchanged from Admission Objective Active Medications: Albuterol/Ipratropium (Duoneb (Albuterol 2.5 Mg/Ipratropium 0.5 Mg)) 1 neb INH Q4H PRN PRN Reason: SOB/WHEEZING Amiodarone HCl (Cordarone Tab*) 200 mg PO DAILY [facility] Last Admin: 12/15/17 08:31 Dose: 200 mg Aspirin (Aspirin Ec Tab*) 81 mg PO DAILY [facility] Last Admin: 12/15/17 08:31 Dose: 81 mg Atorvastatin Calcium (Lipitor*) 80 mg PO QPM [facility] Last Admin: 12/15/17 16:03 Dose: 80 mg Clopidogrel Bisulfate (Plavix Tab*) 75 mg PO DAILY [facility] Last Admin: 12/15/17 08:30 Dose: 75 mg Dextrose (D50w Syringe 50 Ml*) 12.5 gm IV PUSH .FOR FS < 60 - SS PRN PRN Reason: FS < 60 Ferrous Sulfate (Ferrous Sulfate Tab*) 325 mg PO TID [facility] Last Admin: 12/15/17 21:58 Dose: 325 mg Furosemide (Lasix Iv*) 60 mg IV 0800,1700 [facility] Last Admin: 12/15/17 16:02 Dose: 60 mg Heparin Sodium (Porcine) (Heparin Flush Picc/Ml/Cvc(*)) 1 - 3 ml FLUSH 0600, 1800 [facility]; Protocol Last Admin: 12/16/17 07:22 Dose: 3 ml Heparin Sodium (Porcine) (Heparin Vial(*)) 5,000 units SUBCUT Q12HR [facility] Last Admin: 12/15/17 22:01 Dose: 5,000 units Cefazolin Sodium/Dextrose (Kefzol 2 Gm Premix In Ors(*)) 2 gm in 50 mls @ 100 mls/hr IVPB Q8H [facility] Last Admin: 12/16/17 06:23 Dose: 100 mls/hr Insulin Glargine (Lantus(*)) 20 units SUBCUT BEDTIME [facility] Last Admin: 12/15/17 22:00 Dose: 20 units Insulin Human Lispro (Humalog*) 0 units SUBCUT ACHS [facility]; Protocol Last Admin: 12/15/17 21:23 Dose: 6 unit Isosorbide Mononitrate (Imdur Er Tab*) 30 mg PO DAILY [facility] Last Admin: 12/15/17 08:30 Dose: 30 mg Lisinopril (Prinivil Tab*) 10 mg PO DAILY [facility] Last Admin: 12/15/17 08:31 Dose: 10 mg Metoprolol Succinate (Toprol Xl Tab*) 50 mg PO BEDTIME [facility] Last Admin: 12/15/17 21:58 Dose: 50 mg Ondansetron HCl (Zofran Inj*) 4 mg IV Q4H PRN PRN Reason: NAUSEA Last Admin: 12/12/17 23:13 Dose: 4 mg Pantoprazole Sodium (Protonix Tab (Nf)) 40 mg PO DAILY [facility] Last Admin: 12/15/17 08:31 Dose: 40 mg Paroxetine HCl (Paxil Tab*) 20 mg PO DAILY [facility] Last Admin: 12/15/17 08:31 Dose: 20 mg Polyethylene Glycol/Electrolytes (Miralax*) 17 gm PO DAILY PRN PRN Reason: CONSTIPATION Last Admin: 12/12/17 10:00 Dose: 17 gm Senna (Senokot Tab*) 1 tab PO BID [facility] Last Admin: 12/15/17 21:58 Dose: 1 tab Vital Signs - 8 hr 12/16/17 12/16/17 12/16/17 01:07 04:17 07:59 Temperature 98.6 F 98.5 F 98.1 F Pulse Rate 76 71 72 Respiratory 18 18 17 Rate Blood Pressure 128/57 122/62 124/59 (mmHg) O2 Sat by Pulse 98 98 82 Oximetry Oxygen Devices in Use Now: Nasal Cannula - 1.5L, OxyMask Appearance: Cooperative, NAD. Eyes: No Scleral Icterus Ears/Nose/Mouth/Throat: Clear Oropharnyx, Mucous Membranes Moist Respiratory: Symmetrical Chest Expansion and Respiratory Effort, Clear to Auscultation Cardiovascular: NL Sounds; No Murmurs; No JVD, RRR, No Edema Abdominal: NL Sounds; No Tenderness; No Distention Extremities: No Edema Skin: No Rash or Ulcers, - - Wound vac dressing CDI Neurological: - - Alert. Oriented to self only. Nutrition: Taking PO's Result Diagrams: 12/16/17 05:50 12/16/17 05:50 Additional Lab and Data: Laboratory Results - last 24 hr 12/15/17 12/15/17 12/15/17 08:14 09:53 09:53 WBC 7.3 RBC 3.10 L Hgb 9.5 L Hct 29 L MCV 92 MCH 31 MCHC 33 RDW 17 H Plt Count 166 MPV 9.6 Neut % (Auto) 80.3 Lymph % (Auto) 9.0 L Montgomery % (Auto) 7.1 H Eos % (Auto) 3.1 Baso % (Auto) 0.5 Absolute Neuts (auto) 5.9 Absolute Lymphs (auto) 0.7 L Absolute Monos (auto) 0.5 Absolute Eos (auto) 0.2 Absolute Basos (auto) 0 Absolute Nucleated RBC 0 Nucleated RBC % 0 Sodium 141 Potassium 4.0 Chloride 102 Carbon Dioxide 35 H Anion Gap 4 BUN 29 H Creatinine 1.25 H Est GFR ( Amer) 69.9 Est GFR (Non-Af Amer) 57.8 BUN/Creatinine Ratio 23.2 H Glucose 222 H POC Glucose (mg/dL) 215 H Calcium 8.5 L 12/15/17 12/15/17 12/15/17 11:26 16:16 21:43 WBC RBC Hgb Hct MCV MCH MCHC RDW Plt Count MPV Neut % (Auto) Lymph % (Auto) Montgomery % (Auto) Eos % (Auto) Baso % (Auto) Absolute Neuts (auto) Absolute Lymphs (auto) Absolute Monos (auto) Absolute Eos (auto) Absolute Basos (auto) Absolute Nucleated RBC Nucleated RBC % Sodium Potassium Chloride Carbon Dioxide Anion Gap BUN Creatinine Est GFR ( Amer) Est GFR (Non-Af Amer) BUN/Creatinine Ratio Glucose POC Glucose (mg/dL) 270 H 245 H 201 H Calcium 12/16/17 12/16/17 05:50 05:50 WBC 7.6 RBC 3.08 L Hgb 9.4 L Hct 28 L MCV 92 MCH 31 MCHC 33 RDW 17 H Plt Count 137 L MPV 10.1 Neut % (Auto) 73.9 Lymph % (Auto) 13.3 L Montgomery % (Auto) 8.8 H Eos % (Auto) 3.6 Baso % (Auto) 0.4 Absolute Neuts (auto) 5.6 Absolute Lymphs (auto) 1.0 Absolute Monos (auto) 0.7 Absolute Eos (auto) 0.3 Absolute Basos (auto) 0 Absolute Nucleated RBC 0 Nucleated RBC % 0 Sodium 141 Potassium 4.0 Chloride 103 Carbon Dioxide 34 H Anion Gap 4 BUN 30 H Creatinine 1.11 Est GFR ( Amer) 80.2 Est GFR (Non-Af Amer) 66.3 BUN/Creatinine Ratio 27.0 H Glucose 128 H POC Glucose (mg/dL) Calcium 8.5 L Microbiology and Other Data: Microbiology 11/20/17 23:32 Blood Venous Aerobic Blood Culture - Final No Growth Day 5 11/20/17 23:32 Blood Venous Anaerobic Blood Culture - Final No Growth Day 5 11/20/17 23:32 Blood Venous Aerobic Blood Culture - Final No Growth Day 5 11/20/17 23:32 Blood Venous Anaerobic Blood Culture - Final No Growth Day 5 11/21/17 11:30 Foot Right Skin and Soft Tissue MRSA/MSSA (PCR - Final Mrsa Negative S.aureus Positive 11/21/17 11:30 Foot Right Gram Stain - Final 11/21/17 11:30 Foot Right Wound Culture - Final Staphylococcus Aureus 11/21/17 01:56 Urine Urine Culture - Final No Growth (<1,000 CFU/mL) 11/21/17 05:30 Nasal Nasal Screen MRSA (PCR) - Final Mrsa Not Detected 11/21/17 00:23 Stool Stool Occult Blood (CAN) - Final EKG Data: . Assess/Plan/Problems-Billing Assessment: 67 yr old PMH IDDMT2, CAD s/p CABG, CKDIII, PVD, HTN, HLD, R BKA, L TMA presented to [facility] with Afib w/ RVR and left dorsal foot ulcer. Vomited/ Aspirated needed Intubation. Septic Shock needing pressors. Troponin peaked 13 on 11/21 and LHC showed triple vessel disease. No stent, medically managed. S/p wound vac and currently cefazolin 6 week course for MSSA. Course complicated by anemia, EGD found prepyloric gastric ulcer. s/p 4u pRBC total. Hypoxic respiratory failure. Encephalopathy now improved. Planned to [facility] when they have bed available. Time line of events: 11/21 Admission for diabetic foot ulcer sepsis, later vomited and aspirated and was intubated 11/22 Extubated 11/23 A. fib w/RVR + flash pulmonary edemaBiPAP 11/24 A. fib with RVR + Levophed 11/26 LHC reveals 3V disease and decision made to maximize medical therapy at this time 11/27 S/P debridement of RLE 11/28 Diuretics given 11/29Hypertensive urgency - placed on NTG gtt and ACEI 11/30I&D +wound Vac +regional nerve block 12/04/17 2 units pRBC ordered. GI consult called 12/05/17 s/p EGD Duodenal ulcer; plavix stopped, heparin decreased to bid (from tid) 12/06/17 Hct down to 21, 2 units ordered. 12/07/17 ordered to d/c bipap due to respiratory/metabolic alkalosis 12/09/17 cleared medically for discharge but awaiting [facility] Bed. 11/10/17 overnight: additional lasix given for diaphoresis.went back on bipap until projectile vomit after morphine, 12/13/17 Plavix restarted. increased diuresis 12/14/17 CHF worsened, increased diuresis. Current Day of cefazolin. - Patient Problems (1) CHF (congestive heart failure) Comment: - Received Lasix 60 IV last evening - Noted to be 82 on RA this morning. 1.5 L NC placed and increased to 95%. - Episode of respiratory distress and CXR with pulmonary edema on 12/14 in a.m. - Plan for further diuresing today with 60 mg IV Lasix BID. - Due to report of sob this afternoon, repeat echo ordered. - Continue daily weights. Unlikely that admission weight was accurate as jumped 11.4 kg by hospital day number #2. - Continue strict I&O's - Monitor electrolytes. - Chest xray similar to 12/14 - BNP trending down as it was 907 and now 788 (2) Shortness of breath Comment: - Approx 1220 today patient reported that he felt like he could not get breath in. Resp therapy to bedside and neb initiated. - O2 sat was 98% on 4L. - Scant crackles heard in left lower base. Remainder clear. - Extra dose of 60 mg Lasix ordered. - Contacted pulmonology for consult. - Echo ordered. (3) Osteomyelitis Comment: - Wound vac in place. Next vac change 12/17, Q 3 days. - Per ortho patient is okay for discharge when medically readying - Heel weight bearing RLE with darco shoe - Per ortho "if vac falls off while at SNF please do saline wet to dry dressings and call wound care or orthopedic office for instruction. If healthcare worker with wound vac experience is present at facility at time of disfunction please place a new vac with a black sponge and suction set to 125, resuming Q 3 day changes thereafter". - Follow up per ortho with Dr Kimball in 2 weeks. "Please make this appt for same day as scheduled wound care visit. Ortho appt should be earlier in the day than scheduled wound care clinic visit". (4) Confusion Comment: - Per nurses notes patient was confused last evening. - Patient was living alone indep until recent lengthy hospital stay. - Mentation baseline is unclear. - ABG obtained and reviewed. Diamox x1 ordered. May repeat tomorrow - Awaiting UA - B12 597 on 12/04 - TSH 4.10 on 12/05 (5) Atrial fibrillation Comment: - Amiodarone 200 mg po daily. - Metoprol Xl 50 mg daily - EKG 12/09/17 and 12/14 was NSR. - Follow up with with cardiology as outpatient in [place] and with Dr. Cameron as outpatient. - not on a/c in setting of recent UGIB (6) Anemia Comment: - s/p EGD positive pre-pyloric gastric ulcer with evidence of recent bleed - NSTEMI. - On ASA and Plavix (which was restarted 12/13 per GI 1-2 wks after EGD on 12/05) . - Iron 325 mg TID - PPI. - stool softener and miralax. - S/p transfuse 2 units pRBC 12/04/17 - Monitoring CBC (7) CAD (coronary artery disease) Comment: -s/p NSTEMI with peak troponin of 13.08 on 11/21/17 and down to 3.9 on 11/23 and 0.18 on 12/14. -s/p LHC on 11/26 that revealed triple vessel disease not amneable for interventions - Cardiology recommended to continue maximal medical therapy. Will continue ASA and Plavix restarted 12/13 - Continue ACEI, BB, and statins - s/p 2 units 12/04/17 and transfused 2 units 12/06/17. - Lisinopril 10 mg daily; toprol XL 50 mg daily, imdur 30 mg daily, amiodarone 200 mg daily. - Was on Lasix PO. Currently On Lasix IV. Will resume PO Lasix when patient is more stable and prior to discharge - He needs to follow up with with cardiology as outpatient in [place] with Dr. Cameron as outpatient. (8) Diabetes 1.5, managed as type 2 Comment: - SSI - Lantus 20U - Fasting BG 128 today. - No change to Lantus today. - Continue to monitor. (9) Septic shock Comment: - Patient records reviewed. He was admitted with tachycardia, hypotension required levophed in the setting of rigth foot osteomyelitis and cellulitis - Resolved off levophed currently - Currently on cefazolin 2 gm IV Q8hrs and s/p I&D with wound culture positive for MSSA day on 12/16 (10) DVT prophylaxis Comment: HSQ Status and Disposition: - Rehab [facility] when medically stable Attending: Bridger Emery
--- NOTE | 2017-12-16 09:16 | PN ---
Progress Note - Progress Note Date of Service: 12/16/17 SOAP: Subjective: []Patient was seen and examined at bedside. He has no complaints, though he is again unaware of where he is or why he is here. Objective: []General: Well appearing, NAD. RLE: Right foot Wound vac with good suction, no surrounding erythema. Sensation intact distally, able to flex and extend at MTPs and ankle. Assessment: 67 yo male s/p I&D right foot Plan: Next vac change 12/17, Q 3 days. Okay for discharge from orthopedic standpoint. Discharge per medicine when ready Heel weight bearing RLE with darco shoe If vac falls off while at SNF please do saline wet to dry dressings and call wound care or orthopedic office for instruction. If healthcare worker with wound vac experience is present at facility at time of disfunction please place a new vac with a black sponge and suction set to 125, resuming Q 3 day changes thereafter. Follow up with Dr Kimball in 2 weeks. Please make this appt for same day as scheduled wound care visit. Ortho appt should be earlier in the day than scheduled wound care clinic visit.
[2017-12-16] MEDS: Insulin LISPRO* 1 UNITS UNIT SUBCUT SCH ×4 (09:32→22:39)
[2017-12-16] MEDS: Furosemide IV* 10 MG/ML 10 ML VIAL (100 MG) IV SCH ×2 (09:36→17:53)
[2017-12-16] MEDS: Heparin VIAL(*) 5000 UNITS/ML VIAL (FIVE THOUSAND) SUBCUT SCH ×2 (09:41→22:38)
[2017-12-16] MEDS: Senna TAB PO SCH ×2 (09:43→22:39)
[2017-12-16] MEDS: Amiodarone TAB* 200 MG PO SCH (09:44)
[2017-12-16] MEDS: Clopidogrel TAB* 75 MG PO SCH (09:44)
[2017-12-16] MEDS: Lisinopril TAB* 10 MG PO SCH (09:45)
[2017-12-16] MEDS: Isosorbide Mononitrate ER TAB* 30 MG PO SCH (09:45)
[2017-12-16] MEDS: PARoxetine HCL TAB* 10 MG PO SCH (09:46)
[2017-12-16] MEDS: PANTOPRAZOLE 40 MG PO SCH (09:46)
[2017-12-16] MEDS: Aspirin EC TAB* 81 MG TAB.EC PO SCH (09:46)
[2017-12-16] MEDS: Ferrous Sulfate TAB* 325 MG PO SCH ×3 (09:47→22:39)
[2017-12-16] MEDS ORDERED: acetaZOLAMIDE TAB* 250 MG PO ONE (12:25)
[2017-12-16] MEDS ORDERED: Furosemide IV* 10 MG/ML 10 ML VIAL (100 MG) IV ONE (13:01)
[2017-12-16] MEDS: Atorvastatin* 80 MG TAB PO SCH (17:53)
--- NOTE | 2017-12-16 19:01 | ECHO ---
Patient: EDYTA PLATT [facility] Rec#: [id number] : 1950 Date: 12/16/2017 Age: 67y Height: 155 cm / 61.0 in Weight: 83.6 kg / 184.3 lbs Sex: M BSA: 1.8 Room#: 405 Admit Date#: 11/21/2017 Type: Inpatient Referring: Lynn Vogel Reading: Emery Rincon MD [facility] Technician: Meli Melendez RN RDCS CC: Bobo Erwin DO Transthoracic Echocardiogram Indication: CHF, SOB BP: 121/59 HR: 72 Rhythm: NSR Findings History: CAD, PCI, A.fib, HTN, HLD, DM, CVA Technical Comments: The study quality is fair. Left Ventricle: The left ventricular chamber size is normal. Mild concentric left ventricular hypertrophy is observed. There is increased basal septal hypertrophy noted without evidence of an increased gradient across the left ventricular outflow tract. There is global hypokinesis of the left ventricle with minor regional variation. There is mildly decreased left ventricular systolic function. The estimated ejection fraction is 45-50%. Abnormal left ventricular diastolic function is observed. The patient was unable to perform a Valsalva maneuver. Left Atrium: The left atrial chamber size is normal. Right Ventricle: The right ventricle is not well visualized. The right ventricular cavity size is normal. The right ventricular global systolic function is low normal. Right Atrium: The right atrium is not well visualized. Aortic Valve: The aortic valve structure is not well visualized. The aortic valve leaflets are mildly thickened. There is mild thickening of the right coronary cusp. There is no evidence of aortic regurgitation. There is no evidence of aortic stenosis. Mitral Valve: The mitral valve leaflets are mildly thickened. There is trace to mild mitral regurgitation. There is no evidence of mitral stenosis. Tricuspid Valve: The tricuspid valve structure is not well visualized. There is trace to mild tricuspid regurgitation. There is evidence of mild pulmonary hypertension. There is no tricuspid stenosis. Pulmonic Valve: The pulmonic valve structure is not well visualized. There is no evidence of pulmonic regurgitation. Pericardium: There is no significant pericardial effusion. A left pleural effusion is present. Aorta: The ascending aorta is not well visualized. The aortic arch is not well visualized. There is no dilation of the aortic root. Pulmonary Artery: The main pulmonary artery is not well visualized. Venous: The inferior vena cava appears normal in size. There is a greater than 50% respiratory change in the inferior vena cava dimension. Summary: There are changes noted when compared to the previous study done on 11/21/2017, LV EF then was 55-60%, ( was reported 40-45% on 11/05/2012). Conclusions The left ventricular chamber size is normal. Mild concentric left ventricular hypertrophy is observed. There is increased basal septal hypertrophy noted without evidence of an increased gradient across the left ventricular outflow tract. There is global hypokinesis of the left ventricle with minor regional variation. There is mildly decreased left ventricular systolic function.more prominent inferior wall hypokinesis seen in some A2C images. The estimated ejection fraction is 45-50%. Abnormal left ventricular diastolic function is observed. There is trace to mild mitral regurgitation. There is trace to mild tricuspid regurgitation. There is evidence of mild pulmonary hypertension. There are changes noted when compared to the previous study done on 11/21/2017, LV EF then was 55-60%, ( was reported 40-45% on 11/05/2012). Measurements Name Value Normal Range RVDdMajor (2D) 3.3 cm (2.2 - 4.4) IVSd (2D) 1.1 cm (0.6 - 1) LVPWd (2D) 1 cm (0.6 - 1) LVIDd (2D) 4.3 cm (3.6 - 5.4) LVIDs (2D) 3.5 cm - LV FS (2D) 19 % (25 - 45) Aortic Annulus 2.2 cm (1.4 - 2.6) Ao root diameter (2D) 3.5 cm (2.1 - 3.5) LA dimension (AP) 2D 3.5 cm (2.3 - 3.8) LAd ISD 4CH 4.7 cm (2.9 - 5.3) LA ISD 4CH W 4.2 cm (2.5 - 4.5) Name Value Normal Range LA ESV BP (A/L) index 31 ml/m2 - Name Value Normal Range MV E-wave Vmax 1.1 m/sec - MV deceleration time 225 msec - MV A-wave Vmax 0.7 m/sec - MV E:A ratio 1.5 ratio - LV septal e' Vmax 0.06 m/sec - LV lateral e' Vmax 0.1 m/sec - LV E:e' septal ratio 18.3 ratio - LV E:e' lateral ratio 11 ratio - Name Value Normal Range AV Vmax 1.3 m/sec - AV VTI 30.7 cm - AV peak gradient 7 mmHg - AV mean gradient 4 mmHg - LVOT Vmax 0.65 m/sec - LVOT VTI 14.6 cm - LVOT peak gradient 2 mmHg - LVOT mean gradient 1 mmHg - Name Value Normal Range TR Vmax 2.9 m/sec - TR peak gradient 34 mmHg - RAP 3 mmHg - RVSP 37 mmHg - IVC diameter 1.8 cm - Name Value Normal Range PV Vmax 0.91 m/sec -
[2017-12-16] MEDS: Metoprolol Succinate XL TAB* 50 MG PO SCH (22:38)
[2017-12-16] MEDS: Insulin GLARGINE(*) 1 UNITS UNIT SUBCUT SCH (22:39)
[2017-12-17] MEDS: ceFAZolin* 2 GM* Q8H (Duplex) IVPB SCH ×3 (04:53→21:00)
[2017-12-17] MEDS: Insulin LISPRO* 1 UNITS UNIT SUBCUT SCH ×4 (07:43→20:59)
[2017-12-17] MEDS: Ferrous Sulfate TAB* 325 MG PO SCH ×3 (08:44→20:59)
[2017-12-17] MEDS: PANTOPRAZOLE 40 MG PO SCH (08:45)
[2017-12-17] MEDS: Isosorbide Mononitrate ER TAB* 30 MG PO SCH (08:45)
[2017-12-17] MEDS: Clopidogrel TAB* 75 MG PO SCH (08:45)
[2017-12-17] MEDS: Aspirin EC TAB* 81 MG TAB.EC PO SCH (08:46)
[2017-12-17] MEDS: Heparin VIAL(*) 5000 UNITS/ML VIAL (FIVE THOUSAND) SUBCUT SCH ×2 (08:46→20:59)
[2017-12-17] MEDS: Amiodarone TAB* 200 MG PO SCH (08:46)
[2017-12-17] MEDS: PARoxetine HCL TAB* 10 MG PO SCH (08:46)
[2017-12-17] MEDS: Lisinopril TAB* 10 MG PO SCH (08:46)
[2017-12-17] MEDS: Senna TAB PO SCH ×2 (08:47→20:58)
[2017-12-17] MEDS: Furosemide IV* 10 MG/ML 10 ML VIAL (100 MG) IV SCH (08:48)
[2017-12-17 09:21] LABS: ABS Basophils 0 10^3/ul (0-0.2); ABS Eosinophils 0.4 10^3/ul (0-0.6); ABS Monocytes 0.6 10^3/ul (0-0.8); ABS Neutrophils 5.5 10^3/ul (1.5-7.7); ABS Nucleated RBC 0 10^3/ul; Eosinophil % 5.1 % (0-6); Hematocrit 28 % (42-52); Hemoglobin 9.4 g/dl (14.0-18.0); Lymphocyte % 13.2 % (25-47); Mean Corpuscular HGB Conc 33 g/dl (31-36); Mean Corpuscular Hemoglobin 31 pg (27-31); Mean Corpuscular Volume 92 fL (80-94); Nucleated Red Blood Cells % 0; Platelet Count 151 10^3/ul (150-450); Red Blood Count 3.07 10^6/ul (4.00-5.40); Red Cell Distribution Width 17 % (10.5-15); White Blood Count 7.6 10^3/ul (3.5-10.8)
[2017-12-17 09:31] LABS: EGFR Non-African American 66.3 (>60)
[2017-12-17] MEDS ORDERED: acetaZOLAMIDE TAB* 250 MG PO ONE (11:44)
[2017-12-17 14:33] LABS: Urine Appearance Clear; Urine Blood Negative (Negative); Urine Color Yellow; Urine Ketones Negative (Negative); Urine Protein Negative (Negative); Urine Specific Gravity 1.012 (1.010-1.030); Urine Urobilinogen Negative (Negative)
--- NOTE | 2017-12-17 15:28 | PN ---
Progress Note - Progress Note Date of Service: 12/17/17 SOAP: Subjective: []Patient seen and examined at bedside. He again is unaware of where he is or who I am. He confirms self awareness. Seen today with wound care, picture was added to chart under nursing notes. Objective: []General: Well appearing, NAD. RLE: Right foot Wound vac was changed. Wound dime sized, roughly 40% of original wound healing over with granulation tissue. EHL still exposed. No purulence. No maceration or erythema surrounding wound. Wound vac replaced, good suction achieved. Sensation intact to light touch distally. Able to flex and extend at MTPs and ankle. DP2+ Assessment: 67 yo male s/p I&D right foot Plan: Next vac change 12/19, Q 3 days Okay for discharge from orthopedic standpoint. Discharge per medicine when ready Heel weight bearing RLE with darco shoe If vac falls off please do saline wet to dry dressings and call wound care or orthopedic office for instruction. If healthcare worker with wound vac experience is present at facility at time of disfunction please place a new vac with a black sponge and suction set to 125, resuming Q 3 day changes thereafter. Follow up with Dr Kimball in 2 weeks. Please make this appt for same day as scheduled wound care visit. Ortho appt should be earlier in the day than scheduled wound care clinic visit. While patient is in house ortho will continue to follow him, more loosely as his wound healing well. If nursing trained with wound vacs, vac can be changed by nursing, I will monitor progress at least once per week while in house
[2017-12-17] MEDS: Atorvastatin* 80 MG TAB PO SCH (17:35)
[2017-12-17] MEDS: Furosemide TAB* 40 MG PO SCH (17:35)
--- NOTE | 2017-12-17 17:48 | DS ---
AMENDED REPORT NOW INCLUDES DESIGNATED COSIGNER CC: Dr. Erwin * DISCHARGE SUMMARY: DATE OF ADMISSION: 11/21/17 DATE OF DISCHARGE: 12/18/17 PRIMARY CARE PROVIDER: Dr. Erwin. ATTENDING PHYSICIAN: Dr. Cuadra * (dictated by Malou Rojas NP). PRIMARY DIAGNOSES: 1. Congestive heart failure. 2. Osteomyelitis. 3. Atrial fibrillation with RVR 4. Prepyloric gastric ulcer. 5. CAD, Triple-vessel disease, no stent. 6. Sepsis SECONDARY DIAGNOSES: 1. Diabetes mellitus type 2, insulin dependent. 2. Chronic kidney disease, stage 3. 3. Peripheral vascular disease. 4. Hypertension. 5. Hyperlipidemia. 6. Right BKA. 7. Left transmetatarsal amputation. 8. CVA 9. Dementia CONSULTATIONS WHILE IN THE HOSPITAL: Dr. Lloyd, Dr. Kimball, Dr. Donald, Dr. Bonilla, Dr. Knox, Dr. Castaneda, Dr. Mayer. PROCEDURES WHILE IN THE HOSPITAL: 1. Status post debridement of right lower extremity. 2. Wound VAC placement. to right lower extremity 3. Status post EGD, duodenal ulcer. 4. Left heart catheterization, triple vessel disease, no stents, medical management only 5. Blood transfusions for anemia HISTORY OF PRESENT ILLNESS/HOSPITAL COURSE: Mr. Carlos is a 67-year-old patient with a past medical history of insulin-dependent type 2 diabetes, CAD, CKD, CVA, HLD, and Dementia who has had a long and complicated stay at the hospital from 11/21/17 to 12/18/17. Please see history and physical by Dr. Fischer for a complete summary of events leading up to hospitalization, but in short, Mr. Carlos presented to the emergency room at [facility] with his ex-, who mentioned he was not himself. While in the emergency room, he was found to be in rapid AFib with RVR and septic. Three doses of Cardizem were given in addition to fluid resuscitation. He had no acute ST changes on EKG, but trop was noted to be 3.1 and later 13, therefore, NSTEMI. He was noted to have an elevated white count and 2 ulcers seen on right dorsum of foot. He was then transferred here. The patient was admitted on11/21/17 for diabetic foot ulcer, sepsis, Afib with RVR. Later that day he aspirated and was intubated. On 11/22/17, he was extubated. On 11/23/17, AFib with RVR and flash pulmonary edema which required BiPAP. On 11/24/17, he continued to have AFib with RVR and Levophed was added. On 11/26/17, the patient underwent left heart cath, which revealed 3- vessel disease and decision made to maximize medical therapy at that time and not to proceed with stents. On 11/27/17, he underwent debridement of the right lower extremity. On 11/28/17, he required diuresing. On 11/29/17, he had hypertensive urgency. He was placed on a nitro drip and an YUNIOR inhibitor was started. On , the patient underwent incision and drainage and wound VAC placement under regional nerve block. On 12/04 the patient was noted to be anemic with H& H of 6.7 and 20; therefore, 2 units of packed red blood cells were ordered. GI was also consulted at this time. On 12/05/17, GI conducted an EGD. The patient was found to have a prepyloric ulcer that was recently bleeding, Plavix was held. On 12/06/17, hematocrit note to be down to 21. Two units trasfused again. On 12/07/17, order to discontinue BiPAP due to respiratory/metabolic alkalosis. On 12/09/17, the patient was cleared medically for discharge, but awaiting swing bed at [place]. On 12/11/17, overnight, the patient was given an additional dose of Lasix and went back on BiPAP, but vomited and could not tolerate BiPap. On 12/13/17, the patient's Plavix was restarted. He continued to be diuresed. On 12/14/17, CHF worsened and he required additional IV Lasix 80 mg. Chest x-ray was obtained on 12/14/17, which showed pulmonary edema, likely left lung base pleural effusion slightly worse when compared to . The patient continued to be diuresed. On 12/15/17, the patient received Lasix 60 IV b.i.d. Oxygen was titrated down. The patient was on 1.5 L nasal cannula and O2 sat was 95%. The patient did have an episode of shortness of breath in the afternoon and was given an additional dose of Lasix. Chest x-ray was repeated and similar to that on 12/14/17. BNP was repeated and noted to be trending down as it was 907 and repeat was 788. On 12/17/17, the patient is on room air and oxygen saturation is within normal limits. The patient will be switched back to p.o. Lasix. The patient was on 40 mg p.o. daily of Lasix. This will be increased to 40 mg p.o. Lasix b.i.d. due to recent need for additional diuretic. Amiodarone HCl 200 mg PO DAILY Aspirin 81 mg PO DAILY Atorvastatin Calcium 80 mg PO QPM Clopidogrel Bisulfate 75 mg PO DAILY Ferrous Sulfate 325 mg PO TID Heparin Sodium 1 - 3 ml FLUSH Cefazolin 2 gm IVPB Q8H Insulin Glargine 15 units SUBCUT BEDTIME Isosorbide Mononitrate 30 mg PO DAILY Lisinopril 10 mg PO DAILY Metoprolol Succinate 50 mg PO BEDTIME Pantoprazole Sodium 40 mg PO DAILY Paroxetine HCl 20 mg PO DAILY Tradjenta 5 mg PO Daily Lasix 40 mg PO BID Mr. Carlos is stable for discharge to [facility]. His vital signs are as follows: BP 102/56, O2 sat 93% on room air, respirations 20, heart rate 65, temp 98.3. LABORATORY DATA: WBC 7.6, RBC 3.07, hemoglobin 9.4, hematocrit 28, platelets 151, Sodium 141, Potassium 3.8, Chloride 101, Kavitha Dioxide 36, BUN 29, Creatinine 1.11 DISCHARGE PLAN: Mr. Carlos will be discharged to [facility] bed. FOLLOWUP: 1. CAD/triple-vessel disease/no cardiac stent: The patient should continue ASA , Plavix, lisinopril 10 mg daily, Toprol-XL 50 mg daily, Imdur 30 mg daily, amiodarone 200 mg daily, Lasix 40 mg b.i.d. He needs to follow up with Cardiology as an outpatient at [place], with Dr. Cameron as an outpatient. 2. CHF: The patient should continue Lasix 40 mg p.o. b.i.d. BNP should be monitored routinely. Echo on 11/6/18 revealed estimated ejection fraction is 45 % to 50%. He should continue daily weights and notify physician if he increase his weight. 3. Osteomyelitis: Currently on cefazolin 2 g IV q.8 hours, s/p I&D with wound culture positive for MSSA Today is day 26 of 42 days of antibiotic treatment. Wound VAC is in place. Dressing to be changed q.3 days. Dressing changed today , 12/17/17. Per Ortho, he is ready for discharge. He is right lower extremity heel weightbearing with Darco shoe. Per Ortho, if VAC falls off while in [facility] facility, please do saline wet-to-dry dressing and call Wound Care or Orthopedic office for instructions. If healthcare worker with wound VAC experience is present at facility at the time of dysfunction, please place a new VAC with black sponge and suction set to 1 to 5, resuming q.3 day changes thereafter. Follow up per Ortho with Dr. Kimball in 2 weeks. Please make sure this appointment is made for same day as scheduled Wound Care visit, Ortho appointment should be earlier in the day than scheduled Wound Care Clinic visit. 4. Atrial fibrillation: The patient has been in normal sinus rhythm. Continue metoprolol 50 mg daily, amiodarone 200 mg daily. Please follow up with Cardiology as an outpatient at [place] and with Dr. Cameron as an outpatient. The patient is not on anticoagulation in the setting of recent upper GI bleed. This should be revisited as an outpatient. 5. Anemia: Status post EGD, positive prepyloric gastric ulcer with evidence of bleed on 12/05/17. The patient was restarted on Plavix and ASA on 12/13/17. He is also on iron 325 mg t.i.d. and a PPI. Continue to monitor CBC. 7. Diabetes: The patient has type 2 diabetes and insulin dependent. While in the hospital, he has been on Lantus and a sliding scale. He should resume his Lantus 15 units subcu at bedtime and Tradjenta as perviously prescribed by PCP. 8. Palliative care. We have placed a palliative care consult to be conducted before discharge. Son is aware and in agreement. This is a summarized report of a complex medical history and hospital stay. For further details, please see the entire medical record. TIME SPENT: Approximately 60 minutes was spent on this discharge, greater than half that time was spent [id number] with the patient discussing discharge plans and instructions. Discharge plan was also discussed with my attending, Dr Cuadra who is in agreement with this plan. MALOU ROJAS, KIMMIE [id number]/CPS #: [id number] PATRICK
--- NOTE | 2017-12-17 20:32 | CONS ---
PULMONARY CONSULTATION REPORT: DATE OF CONSULT: 12/17/17 CONSULTATION REQUESTED BY: Lynn Vogel NP REASON FOR CONSULT: Evaluation of hypoxemic episodes. HISTORY OF PRESENT ILLNESS: The patient is a 67-year-old male with history of diabetes; coronary artery disease, status post CABG; stage 3 kidney disease; peripheral vascular disease; right BKA; left TMA; hypertension, who was transferred from [facility] for AFib with RVR and left dorsal foot ulcer. The patient has documented episode of vomiting and aspiration, required intubation. CT chest was done, which showed evidence of dense consolidations bilaterally, right greater than left. He had septic shock requiring vasopressors and fluid resuscitation. He also was found to have elevated troponins, left heart catheterization on 11/21/17 showed triple-vessel disease, no stent was placed, medical management was recommended. He had I and D of left dorsal foot ulcer and had wound VAC placed. He is also on cefazolin for MSSA. He had complicated hospital course with anemia, EGD showed prepyloric gastric ulcer. The patient received 4 units of PRBC transfusion for the acute GI bleed. He also has been having episodes of altered mental status attributable to septic and possibly metabolic encephalopathy. He also has been having episodes of pulmonary edema requiring IV diuresis. The patient with improvement in symptoms with diuresis, has been having recurrent episodes during this current hospitalization. The patient was treated in the ICU and was transferred to regular medical floor. Pulmonary consultation was requested for evaluation of episodes of pulmonary edema. I have seen and examined the patient at bedside. The patient is not able provide any history. He is oriented to self at this time. No signs of sepsis at this time. His blood pressure has been fluctuating and his systolics in low 90s this morning. He had elevated white count that improved. Blood gas analysis showed evidence of hypercapnic respiratory failure with no evidence of significant hypoxemia. CT of the brain on 11/22/17 showed multiple areas of old infarction without any acute pathology. Review of systems unable to obtain secondary to the patient's confusion and was not able to provide much history. He is not aware of why he is in the hospital and which hospital he is at now. History obtained from referring physician and also from review of medical records. Timeline of events as per documentation in the chart. The patient presented on 11/21/17 with diabetic foot ulcer and sepsis, vomited and aspirated, was intubated. The patient was extubated on 11/22/17. He had episodes of AFib with RVR and flash pulmonary edema requiring BiPAP placement on 11/23/17. He also had episodes of hypotension, was treated with Levophed for septic shock, which was started on 11/24/17. He was found to have elevated troponins, underwent cardiac catheterization on 11/26/17. He had debridement of right lower extremity on 11/27/17. He has been having episodes of hypertensive urgency for which he has required nitroglycerin and YUNIOR inhibitor on 11/29/17. He also has been receiving diuretics. He was noted to have acute drop in hemoglobin on 12/04/17. PRBCs were ordered and GI was consulted. Had upper endoscopy on 12/05/17. EGD showed duodenal ulcer, Plavix was stopped and heparin subcu was changed to b.i.d. He received 2 units of PRBC again on . He was placed again on noninvasive positive pressure ventilation on for respiratory and metabolic alkalosis. Had another episode of diaphoresis and shortness of breath on 12/11/17 and was placed on BiPAP. He had another episode of projectile vomiting after receiving morphine. He was also placed on supplemental oxygen. On 12/13/17, Plavix was restarted, diuresis was increased. On 12/14/17, he had another episode of pulmonary edema, diuretic dose also increased. He had another episode of hypoxemia and desaturation on 12/16/17, was found to be hypoxemic at 82% on room air and oxygen was applied with good benefit. He continues on antibiotics, diuresis. Echo was obtained on 12/16/17, which was personally reviewed by me - the patient with evidence of systolic CHF. He continues to have episodes of confusion and disorientation. His baseline mental status is not clear. He is also receiving Diamox for metabolic alkalosis. Blood gas analysis from 12/16/17 showed evidence of compensated respiratory acidosis with evidence of metabolic alkalosis and no evidence of hypoxemia. The patient denies any trouble breathing. Denies significant cough or sputum production. He is having wound VAC applied to his right lower extremity wound. PAST MEDICAL HISTORY: 1. Type 2 diabetes. 2. AFib. 3. CVA in the past. 4. CAD, status post CABG and stent. 5. Hypertension. 6. Dyslipidemia. PAST SURGICAL HISTORY: Left foot amputation. MEDICATIONS: At this time: 1. DuoNeb 1 unit q.4 hours p.r.n. 2. Amiodarone 200 mg daily. 3. Aspirin 81 mg daily. 4. Atorvastatin 80 mg q.p.m. 5. Cefazolin. 6. Plavix 75 mg daily. 7. Dextrose 12.5 as needed for hypoglycemia. 8. Ferrous sulfate 325 mg t.i.d. 9. Furosemide 40 mg b.i.d. 10. Heparin subcu. 11. Lantus 20 units at bedtime. 12. Humalog sliding scale. 13. Lisinopril 10 mg daily. 14. Imdur 30 mg daily. 15. Metoprolol 50 mg at bedtime. 16. Zofran 4 mg q.4 hours p.r.n. 17. Pantoprazole 40 mg daily. 18. Paxil 20 mg daily. 19. MiraLAX. 20. Senna 1 tablet b.i.d. ALLERGIES: PENICILLIN. FAMILY HISTORY: Noncontributory to current complaints. SOCIAL HISTORY: The patient is unable to provide any information. He lives alone at home. PHYSICAL EXAM: The patient is lying flat in bed, in no apparent distress. HEENT: Pupils equal, reactive to light. Respiratory: Good air entry bilaterally, decreased at bases, right greater than left. Cardiovascular: S1, S2 present, regular. Extremities: Trace edema status post left TMA, dorsal wound VAC on the right foot. Neurologic: Oriented to self. Follows commands. DIAGNOSTIC STUDIES/LAB DATA: WBC count 7.6, hemoglobin 9.4, hematocrit 28, platelet count 151,000. Blood gas analysis; pH 7.48, pCO2 of 53, pO2 of 79. Sodium 141, potassium 3.8, chloride 101, bicarb 36, BUN 29, creatinine 1.1. Most recent chest x-ray from 12/16/17 was personally reviewed by me - evidence of cardiomegaly with prominence of interstitium, slightly better inflated compared to the prior chest x-ray. CTA of chest from 11/21/17 was also personally reviewed by me - no evidence of pulmonary embolism. The patient with evidence of consolidation at bases bilaterally, right greater than left. There are also scattered ground-glass opacities and small to moderate bilateral pleural effusions. IMPRESSION AND RECOMMENDATIONS: 67-year-old male with multiple comorbidities, baseline mental status unclear who had a prolonged complicated hospitalization course with multiple issues, also been having episodes of confusion and altered mental status, also with episodes of pulmonary edema. The patient with systolic congestive heart failure. Has been receiving IV fluids for sepsis recently, also been receiving antibiotics for osteomyelitis. The patient might be having flash pulmonary edema secondary to that. No known cardiac history. He recently had aspiration pneumonia from vomiting, appears to had another episode during this current hospitalization. The patient is hemodynamically stable at this time. He was on room air when I saw him and O2 sat is around 93%. I do not suspect any active pulmonary issues at this time. Avoid fluid overload. Monitor I's and O's closely. Continue with Lasix. Agree with acetazolamide for 3 doses for metabolic alkalosis. Thank you for allowing me to participate in the care of your patient. Will follow up with you. [id number]/CPS #: [id number] PATRICK
[2017-12-17] MEDS: Metoprolol Succinate XL TAB* 50 MG PO SCH (20:58)
[2017-12-17] MEDS: Insulin GLARGINE(*) 1 UNITS UNIT SUBCUT SCH (20:59)
[2017-12-18] MEDS: ceFAZolin* 2 GM* Q8H (Duplex) IVPB SCH ×2 (05:14→11:55)
[2017-12-18] MEDS: Insulin LISPRO* 1 UNITS UNIT SUBCUT SCH ×2 (08:17→12:00)
[2017-12-18] MEDS: Amiodarone TAB* 200 MG PO SCH (08:29)
[2017-12-18] MEDS: PARoxetine HCL TAB* 10 MG PO SCH (08:29)
[2017-12-18] MEDS: Furosemide TAB* 40 MG PO SCH (08:29)
[2017-12-18] MEDS: PANTOPRAZOLE 40 MG PO SCH (08:29)
[2017-12-18] MEDS: Ferrous Sulfate TAB* 325 MG PO SCH ×2 (08:29→11:59)
[2017-12-18] MEDS: Heparin VIAL(*) 5000 UNITS/ML VIAL (FIVE THOUSAND) SUBCUT SCH (08:29)
[2017-12-18] MEDS: Isosorbide Mononitrate ER TAB* 30 MG PO SCH (08:29)
[2017-12-18] MEDS: Lisinopril TAB* 10 MG PO SCH (08:30)
[2017-12-18] MEDS: Senna TAB PO SCH (08:30)
[2017-12-18] MEDS: Clopidogrel TAB* 75 MG PO SCH (08:30)
[2017-12-18] MEDS: Aspirin EC TAB* 81 MG TAB.EC PO SCH (08:30)
[2017-12-18] MEDS: Polyethylene Glycol 3350* 17 GM PACKET PO PRN (09:28)
[2017-12-18 11:59] VITALS: BP 106/70
--- NOTE | 2017-12-19 10:24 | DS ---
CC: Dr. Erwin.* DISCHARGE SUMMARY: DATE OF ADMISSION: DATE OF DISCHARGE: 12/18/17 ADDENDUM: Davy was seen on the day of discharge to [facility]. He states that he feels lost. He states that he does not know where he is. When he is re - oriented to being in the hospital, he still states that he does not quite know what is going on. Reportedly, this had been an issue throughout his hospitalization with the patient being somewhat confused. The patient is agreeable to sitting up and trying to eat some lunch at this point. He denies any pain. He denies any shortness of breath. Today, the patient is stable for discharge to [facility] bed. Vital signs on the day of discharge revealed a blood pressure of 106/70, pulse 66, respirations 16 and temp of 98.1. He is awake. He is alert. He is not oriented. His cardiac exam reveals a normal S1 and S2 with a regular rate and rhythm. His lungs are clear anteriorly. His abdomen is soft, nontender, and nondistended. Bowel sounds are present. The wound VAC is in place. On discharge, the patient's medications are as follows: 1. DuoNeb one neb inhaled q.4 hours p.r.n. shortness of breath. 2. Amiodarone 200 mg p.o. daily. 3. Imdur 30 mg p.o. daily. 4. Lisinopril 10 mg p.o. daily. 5. Metoprolol XL 50 mg p.o. q.h.s. 6. MiraLAX 17 g p.o. daily p.r.n. constipation. 7. Senna 1 tab p.o. twice daily. 8. Plavix 75 mg p.o. daily. 9. Lasix 40 mg p.o. twice daily. 10. Protonix 40 mg p.o. daily. 11. Basaglar insulin 20 units subcutaneous q.h.s. 12. Tradjenta 5 mg p.o. daily. 13. Ferrous sulfate 325 mg p.o. daily. 14. Aspirin 81 mg p.o. daily. 15. Ascorbic acid 500 mg p.o. daily. 16. Paxil 20 mg p.o. daily. 17. Lipitor 80 mg oral daily. [id number]/[facility] #: [id number] [facility]
== END 2017-12-18 14:30 | disposition swing bed (61) | DRG 853 ==
LOC: ED 22:28 → ICU 11-21 04:03 → SSU 11-30 10:57 → MED 12-12 20:08
PROVIDERS: ADMIT Internal Medicine; ATTEND Hospitalist
PROC: 3E033XZ Introduction of Vasopressor into Peripheral Vein, Percutaneous Approach (ICD-10-PCS; 2017-11-21)
PROC: 02HV33Z Insertion of Infusion Device into Superior Vena Cava, Percutaneous Approach (ICD-10-PCS; 2017-11-21)
PROC: 0BP1XDZ Removal of Intraluminal Device from Trachea, External Approach (ICD-10-PCS; 2017-11-22)
PROC: 5A1935Z Respiratory Ventilation, Less than 24 Consecutive Hours (ICD-10-PCS; 2017-11-22)
PROC: 0BH17EZ Insertion of Endotracheal Airway into Trachea, Via Natural or Artificial Opening (ICD-10-PCS; 2017-11-22)
PROC: 4A023N7 Measurement of Cardiac Sampling and Pressure, Left Heart, Percutaneous Approach (ICD-10-PCS; 2017-11-25)
PROC: B2111ZZ Fluoroscopy of Multiple Coronary Arteries using Low Osmolar Contrast (ICD-10-PCS; 2017-11-25)
PROC: B2151ZZ Fluoroscopy of Left Heart using Low Osmolar Contrast (ICD-10-PCS; 2017-11-25)
PROC: 0KBV0ZZ Excision of Right Foot Muscle, Open Approach (ICD-10-PCS; principal; 2017-11-26 16:00)
PROC: 5A1935Z Respiratory Ventilation, Less than 24 Consecutive Hours (ICD-10-PCS; 2017-11-27)
PROC: 0BH17EZ Insertion of Endotracheal Airway into Trachea, Via Natural or Artificial Opening (ICD-10-PCS; 2017-11-27)
PROC: 0W3P8ZZ Control Bleeding in Gastrointestinal Tract, Via Natural or Artificial Opening Endoscopic (ICD-10-PCS; 2017-12-05)
PROC: 5A09457 Assistance with Respiratory Ventilation, 24-96 Consecutive Hours, Continuous Positive Airway Pressure (ICD-10-PCS; 2017-12-05)
PROC: 30233N1 Transfusion of Nonautologous Red Blood Cells into Peripheral Vein, Percutaneous Approach (ICD-10-PCS; 2017-12-06)
DX: A41.01 Sepsis due to Methicillin susceptible Staphylococcus aureus (principal); I21.4 Non-ST elevation (NSTEMI) myocardial infarction; R65.21 Severe sepsis with septic shock; J96.92 Respiratory failure, unspecified with hypercapnia; J96.91 Respiratory failure, unspecified with hypoxia; J69.0 Pneumonitis due to inhalation of food and vomit; K25.4 Chronic or unspecified gastric ulcer with hemorrhage; I50.23 Acute on chronic systolic (congestive) heart failure; L03.115 Cellulitis of right lower limb; E87.2 Acidosis; M86.671 Other chronic osteomyelitis, right ankle and foot; M60.003 Infective myositis, unspecified right leg; E11.52 Type 2 diabetes mellitus with diabetic peripheral angiopathy with gangrene; I96 Gangrene, not elsewhere classified; I13.0 Hypertensive heart and chronic kidney disease with heart failure and stage 1 through stage 4 chronic kidney disease, or unspecified chronic kidney disease; G93.40 Encephalopathy, unspecified; F03.90 Unspecified dementia, unspecified severity, without behavioral disturbance, psychotic disturbance, mood disturbance, and anxiety; E11.621 Type 2 diabetes mellitus with foot ulcer; L97.519 Non-pressure chronic ulcer of other part of right foot with unspecified severity; E78.5 Hyperlipidemia, unspecified; E11.628 Type 2 diabetes mellitus with other skin complications; I25.10 Atherosclerotic heart disease of native coronary artery without angina pectoris; N18.3 Chronic kidney disease, stage 3 (moderate); E11.51 Type 2 diabetes mellitus with diabetic peripheral angiopathy without gangrene; E11.22 Type 2 diabetes mellitus with diabetic chronic kidney disease; L97.529 Non-pressure chronic ulcer of other part of left foot with unspecified severity; T17.918A Gastric contents in respiratory tract, part unspecified causing other injury, initial encounter; I16.0 Hypertensive urgency; K26.9 Duodenal ulcer, unspecified as acute or chronic, without hemorrhage or perforation; E11.69 Type 2 diabetes mellitus with other specified complication; D64.9 Anemia, unspecified; B95.61 Methicillin susceptible Staphylococcus aureus infection as the cause of diseases classified elsewhere; F32.9 Major depressive disorder, single episode, unspecified; I25.2 Old myocardial infarction; Z66 Do not resuscitate; E11.40 Type 2 diabetes mellitus with diabetic neuropathy, unspecified; Z86.73 Personal history of transient ischemic attack (TIA), and cerebral infarction without residual deficits; Z88.0 Allergy status to penicillin; Z95.5 Presence of coronary angioplasty implant and graft; Z89.432 Acquired absence of left foot; Z87.891 Personal history of nicotine dependence; Z91.14 Patient's other noncompliance with medication regimen; Z95.1 Presence of aortocoronary bypass graft; Z79.02 Long term (current) use of antithrombotics/antiplatelets; Z79.82 Long term (current) use of aspirin; Z79.4 Long term (current) use of insulin; Z79.01 Long term (current) use of anticoagulants; Z51.5 Encounter for palliative care
CPT/HCPCS: 36415; 36600; 70450; 71045; 71046; 71275; 80048; 80053; 80076; 80202; 81003; 81015; 82270; 82272; 82550; 82553; 82607; 82728; 82746; 82803; 83036; 83540; 83550; 83605; 83735; 83880; 84100; 84155; 84165; 84439; 84443; 84484; 85025; 85027; 85610; 85652; 85730; 86140; 86141; 86850; 86900; 86901; 86922; 87040; 87070; 87077; 87086; 87186; 87205; 87640; 87641; 93005; 93306; 93308; 93458; 93970; 94002; 94003; 94640; 94660; 94762; 96365; 96366; 97597; 99156; 99157; 99213; 99285; A9270-GY; A9579; C1751; G0463; G8978-GP-CK; G8979-GP-CI; G8987-GO-CL; G8988-GO-CI; J0282; J0330; J0690; J1160; J1630; J1644; J1940; J2060; J2250; J2270; J2405; J2543; J2704; J3010; J3370; J3475; J3480; J3490; P9040; Q9967